=== PATIENT | male | born 1960 | race Caucasian/White ===

== ENCOUNTER 2019-07-06 07:40 | Emergency (ER) | payer OTHER, SELFPAY ==
--- NOTE | ~2019-07-06 | XR_ITS ---
EXAMINATION: XR chest 2V DATE: 07/06/2019 08:31 INDICATION: Cough and fever TECHNIQUE: Frontal and lateral views of the chest are obtained COMPARISON: 04/02/2019 FINDINGS: The lungs are free of acute opacities. There is no pleural effusion or pneumothorax. The ca rdiomediastinal silhouette is normal. There is mild thoracic spondylosis. IMPRESSION: 1. No acute cardiopulmonary abnormality. Reviewed, dictated and finalized at location A.
--- NOTE | ~2019-07-06 | CT_ITS ---
EXAMINATION: CT abdomen pelvis w con INDICATION: Lower abdominal pain, right flank pain TECHNIQUE: Computed tomographic images of the abdomen and pelvis were obtained after the administrati on of 100 cc of Omnipaque 350 intravenous contrast. The dose-length product (DLP) was 1558.48 mGy-cm. Automated exposure control and iterative reconstruction technique were employed. COMPARISON: None available FINDINGS: Minimal dependent atelectasis is present in the lung bases. The heart size is normal. A 10 mm fluid attenuation lesion of the right hepatic lobe likely represents a cyst. The spleen, pancreas, and adrenal glands are normal. Stones are present in the nondistended gallbladder. Cysts of the kidn eys measure up to 2 cm on the left. Mild sigmoid diverticulosis is present without evidence of divert iculitis. The appendix is normal. There is no free intraperitoneal gas or evidence of bowel obstructi on. No pathologically enlarged abdominal or pelvic lymph nodes are identified. There is calcified ath erosclerosis of the aorta and many of the other arteries. Liquid stool is present in the distal colon which may reflect diarrhea. There are bilateral inguinal hernias containing fat. There is mild lumba r spondylosis. IMPRESSION: 1. No CT correlate for the patient's symptoms. 2. Cholelithiasis without evidence of cholecystitis. Reviewed, dictated and finalized at location A.
[2019-07-06 07:49] VITALS: BP 179/93; PULSE 97; RESP 17; TEMP 36.8; O2SAT 99
--- NOTE | 2019-07-06 08:07 | ED_ITS ---
I attest that this documentation has been prepared under the direction and in the presence of Tiffany Hester MD. Rashad Barrow Scribe 07/06/19;08:07 HPI - Nausea/Vomiting/Diarrhea General Chief complaint: Nausea/Vomiting/Diarrhea Stated complaint: BACK PAIN, DIARRHEA, FEVER Time Seen by Provider: 07/06/19 08:06 Related Data Home Medications Medication Instructions Recorded Confirmed albuterol sulfate 1.25 mg/3 mL 1.25 mg INHALATION Q4-6H PRN 03/12/19 05/21/19 solution for nebulization albuterol sulfate 90 mcg/actuation 1 puff INHALATION Q4H PRN 03/12/19 05/21/19 aerosol inhaler budesonide-formoterol HFA 160 2 puff INHALATION Q12H 03/12/19 05/21/19 mcg-4.5 mcg/actuation aerosol inhaler bupropion HCl 300 mg 24 hr tablet, 300 mg PO QAM 03/12/19 05/21/19 extended release levocetirizine 5 mg tablet 5 mg PO DAILY 03/12/19 05/21/19 rosuvastatin 40 mg tablet 40 mg PO DAILY 03/12/19 05/21/19 Allergies Allergy/AdvReac Type Severity Reaction Status Date / Time No Known Allergies Allergy Verified 07/06/19 07:56 [facility] Social History Social History Alcohol intake: current Gender identity (if verbalized by the patient): Male Course Vital Signs Vital signs: Vital Signs Temperature 36.8 C 07/06/19 07:49 Pulse Rate 97 07/06/19 07:49 Respiratory Rate 17 07/06/19 07:49 Blood Pressure 179/93 H 07/06/19 07:49 Pulse Oximetry 99 07/06/19 07:49 Temperature 36.8 C 07/06/19 07:49 Pulse Rate 97 07/06/19 07:49 Respiratory Rate 17 07/06/19 07:49 Blood Pressure 179/93 H 07/06/19 07:49 Pulse Oximetry 99 07/06/19 07:49 Discharge Plan Discharge Prescriptions: No Action albuterol sulfate 1.25 mg/3 mL solution for nebulization 1.25 mg INHALATION Q4-6H PRNRF: 0 albuterol sulfate 90 mcg/actuation HFA aerosol inhaler 1 puff INHALATION Q4H PRNRF: 0 rosuvastatin [Crestor] 40 mg tablet 40 mg PO DAILY RF: 0 Symbicort 160-4.5 mcg/actuation HFA aerosol inhaler 2 puff INHALATION Q12H RF: 0 bupropion HCl [Wellbutrin XL] 300 mg tablet extended release 24 hr 300 mg PO QAM RF: 0 levocetirizine [Xyzal] 5 mg tablet 5 mg PO DAILY RF: 0 methylprednisolone [Medrol ([place])] 4 mg tablets,dose pack See Rx Instructions PO PER PKG DIR Qty: 21 RF: 0 tamsulosin 0.4 mg capsule 0.4 mg PO DAILY Qty: 30 RF: 5 acyclovir 800 mg tablet 800 mg PO DAILY Qty: 30 RF: 5 hydralazine 50 mg tablet 50 mg PO BID Qty: 60 RF: 5 metoprolol succinate 100 mg tablet extended release 24 hr 100 mg PO DAILY Qty: 30 RF: 6 buspirone 7.5 mg tablet 7.5 mg PO BID Qty: 60 RF: 4 tramadol 50 mg tablet 50 mg PO Q6H PRN (Reason: pain) Qty: 120 RF: 1 amlodipine 5 mg tablet 5 mg PO DAILY Qty: 30 RF: 6 benazepril 40 mg tablet 40 mg PO DAILY Qty: 30 RF: 6
--- NOTE | 2019-07-06 08:10 | ED.URI ---
HPI - URI/Sore Throat General Chief Complaint: Nausea/Vomiting/Diarrhea Stated Complaint: BACK PAIN, DIARRHEA, FEVER Time Seen by Provider: 07/06/19 08:06 Source: patient Mode of arrival: ambulatory Limitations: no limitations History of Present Illness HPI Narrative: The pt is a 58 y/o male who presents to the ED c/o cold symptoms onset 2 days ago. Pt states that he noticed while he was at his job at [employer] that he was experiencing excessive sweating. He notes that the next day, he began to experience diarrhea. Pt states that he experienced many episodes of diarrhea yesterday, and that he experienced 5-6 episodes before coming in today. He also notes that he has been experiencing LLQ ABD pain when he has bowel movements. Pt also reports that for the past week, he has experienced other symptoms. He states that he has been experiencing right-lower back pain for 1-2 weeks, but states that he has not had any pain medication. Pt states that this pain worsens whenever he twists his back, but is improved currently. He also notes that he has experienced an intermittently productive cough that has produced green-white sputum for one week. Pt reports resolved subjective fever and sinus drainage, but denies wheezing, SOB, blood in stools, or blood in urine. Pt states that he works at a very physical job; he is constantly bending up and down and lifting objects. Pt reports that he has a PMHx of sleep apnea and HTN. He also notes that he is a former smoker, and that he smoked 1 PPD up until 2-3 years ago. Pt notes that his PCP is Dr. Nicholson. elicited complaint: other (Cold symptoms) Onset (ago): day(s) (2) Description of mucous: green (and white ) Associated symptoms: fever (Subjective, resolved), diaphoresis, cough (Intermittently productive, green-white sputum, onset 1 week ago), abdominal pain (LLQ, with bowel movements), diarrhea and other (Right-lower back pain (Worsens when twisting but is improved, onset 1-2 weeks ago), sinus drainage) Treatments prior to arrival: none Related Data Home Medications Medication Instructions Recorded Confirmed albuterol sulfate 1.25 mg/3 mL 1.25 mg INHALATION Q4-6H PRN 03/12/19 05/21/19 solution for nebulization albuterol sulfate 90 mcg/actuation 1 puff INHALATION Q4H PRN 03/12/19 05/21/19 aerosol inhaler budesonide-formoterol HFA 160 2 puff INHALATION Q12H 03/12/19 05/21/19 mcg-4.5 mcg/actuation aerosol inhaler bupropion HCl 300 mg 24 hr tablet, 300 mg PO QAM 03/12/19 05/21/19 extended release levocetirizine 5 mg tablet 5 mg PO DAILY 03/12/19 05/21/19 rosuvastatin 40 mg tablet 40 mg PO DAILY 03/12/19 05/21/19 Allergies Allergy/AdvReac Type Severity Reaction Status Date / Time No Known Allergies Allergy Verified 07/06/19 07:56 Review of Systems Review of Systems: All systems reviewed & are unremarkable except as noted in HPI and below Constitutional: Constitutional: Reports excessive sweating and Reports fever(s) (Subjective, resolved) ENT: Reports other (Sinus drainage) Respiratory: Respiratory: Reports cough (Intermittently productive, green-white sputum, onset 1 week ago), Denies dyspnea and Denies wheezing Gastrointestinal: Gastrointestinal: Reports abdominal pain (LLQ, with bowel movements), Denies change in stool character (Blood in stools) and Reports diarrhea Genitourinary: Genitourinary: Denies hematuria Musculoskeletal: Musculoskeletal: Reports back pain (Right-lower, worsens when twisting but is improved, onset 1-2 weeks ago) [facility] Past Medical History Medical History (Updated 07/06/19 @ 10:38 by Tiffany Hester MD) Anxiety Asthma Bilateral chronic knee pain Cataract Cornea transplant recipient Depressive disorder, not elsewhere classified Environmental allergies Essential (primary) hypertension Hernia HLD (hyperlipidemia) Lymphedema of both lower extremities Mild persistent asthma without complication Mixed hyperlipidemia CB on CPAP Tear of meniscus
[2019-07-06] MEDS: LACTATED RINGERS 1,000 ML 999 ML IV CONT (08:25)
[2019-07-06] MEDS: ONDANSETRON INJ 4 MG/2 ML VIAL IV PUSH (08:26)
--- NOTE | 2019-07-06 08:27 | PC.NURSE ---
Pt to XRAY via stretcher.
[2019-07-06 08:29] LABS: Basophils Percent Auto 0.6 % (0.2-1.2); Eosinophils Absolute Auto 0.2 K/mm3 (0-0.3); Eosinophils Percent Auto 2.4 % (0-4.4); Hematocrit 43.8 % (42.0-52.0); Hemoglobin 13.8 g/dL (14.0-18.0); Immature Granulocyte Absolute 0.02 K/mm3 (0.00-0.031); Immature Granulocyte Percent A 0.3 % (0-0.5); Lymphocytes Absolute Auto 0.67 K/mm3 (0.9-3.2); Lymphocytes Percent Auto 10.6 % (18.3-44.2); Mean Corpuscular HGB Conc 31.5 g/dl (32-36); Mean Corpuscular Hemoglobin 32.2 pg (26-34); Mean Corpuscular Volume 102.3 fl (80-100); Mean Platelet Volume 9.9 fl (7.4-10.4); Monocytes Absolute Auto 0.6 K/mm3 (0.1-0.6); Monocytes Percent Auto 9.5 % (2.6-8.5); Neutrophils Absolute Auto 4.9 K/mm3 (1.3-6.7); Neutrophils Percent Auto 76.6 % (45.5-73.1); Platelet Count Result 199 k/mm3 (150-375); Red Blood Count 4.28 M/mm3 (4.6-6.20); Red Cell Distribution Width 13.1 % (11.5-14.5); White Blood Count 6.3 K/mm3 (4.5-10.0)
[2019-07-06 08:40] LABS: Alanine Aminotransferase 26 U/L (4-50); Albumin Level 4.4 g/dL (3.5-5.1); Alkaline Phosphatase 69 U/L (38-126); Aspartate Amino Transferase 37 U/L (17-59); Bilirubin,Total 0.9 mg/dL (0.2-1.3); Blood Urea Nitrogen 14 mg/dL (9-20); Calcium 8.6 mg/dL (8.4-10.2); Carbon Dioxide 33 mmol/L (22-30); Chloride 98 mmol/L (98-107); Estimated CRCL calculation 158 ml/min; Estimated Glomerular Filt Rate > 60; Glucose 115 mg/dL (75-110); Lipase 41 U/L (23-300); Potassium 3.9 mmol/L (3.4-5.0); Sodium 136 mmol/L (137-145)
[2019-07-06 08:43] VITALS: BP 154/81; PULSE 90
[2019-07-06 08:44] VITALS: BP 148/93; PULSE 98
[2019-07-06 08:46] VITALS: BP 178/102; PULSE 97
[2019-07-06 08:48] VITALS: BP 154/81; PULSE 98; RESP 17; O2SAT 93
--- NOTE | 2019-07-06 09:10 | PC.NURSE ---
Pt to CT scan via stretcher.
[2019-07-06 10:08] LABS: Add Urine Microscopic? YES; Appearance Urine Clear (Clear); Bilirubin Urine Negative (Negative); Blood Urine Negative (Negative); Color Urine Yellow (Yellow); Glucose Urine UA Negative (Negative); Ketones Urine Negative (Negative); Leukocyte Esterase Ur Negative LEU/UL (Negative); Mucus Urine Few /lpf; Nitrate Urine Negative (Negative); Protein Urine 1+ mg/dL (Negative); RBC Urine 0-2 /hpf (0-2); Specific Grav Ur 1.027 (1.001-1.035); Urobilinogen Urine Negative mg/dL (<2.0); WBC Urine 0-3 /hpf
[2019-07-06 10:18] VITALS: BP 120/66; PULSE 88; RESP 14; O2SAT 93
== END 2019-07-06 10:37 | disposition home or self-care (01) ==
PROVIDERS: Emergency Provider General Practice; PCP Internal Medicine
DX: K52.9 Noninfective gastroenteritis and colitis, unspecified (principal); K80.20 Calculus of gallbladder without cholecystitis without obstruction; S39.012A Strain of muscle, fascia and tendon of lower back, initial encounter; F41.9 Anxiety disorder, unspecified; Z94.7 Corneal transplant status; F32.9 Major depressive disorder, single episode, unspecified; I10 Essential (primary) hypertension; J45.30 Mild persistent asthma, uncomplicated; E78.2 Mixed hyperlipidemia; G47.33 Obstructive sleep apnea (adult) (pediatric); Z87.891 Personal history of nicotine dependence; H26.9 Unspecified cataract; X58.XXXA Exposure to other specified factors, initial encounter
CPT/HCPCS: 36415; 71046; 74177; 80053; 81001; 83690; 85025; 87804; 96361; 96374; 99284; J2405; J7120; Q9967

== ENCOUNTER 2019-09-30 08:00 | Outpatient (CLI) | payer OTHER, SELFPAY ==
--- NOTE | ~2019-09-30 | US_ITS ---
US abdomen limited INDICATION: Gallstones seen on recent examination. PROCEDURE: Realtime right upper abdominal ultrasound. COMPARISON: CT dated 07/06/2019 FINDINGS: The pancreas is normal without focal mass or pancreatic ductal dilation. Liver echotexture is increased, consistent with fatty infiltration. There is normal directional flow in the portal ve in. There are hyperechoic foci in the gallbladder with shadowing, consistent with stones. Common bile du ct measures 5.5 mm. No sonographic Peña's sign. IMPRESSION: 1: Cholelithiasis. 2: Hepatic steatosis. Reviewed, dictated and finalized at location A.
== END 2019-09-30 08:01 | disposition home or self-care (01) ==
LOC: ANHIMG 08:07
PROVIDERS: PCP Internal Medicine; Visit Provider Surgery
DX: R10.11 Right upper quadrant pain (principal); K80.20 Calculus of gallbladder without cholecystitis without obstruction; K76.0 Fatty (change of) liver, not elsewhere classified
CPT/HCPCS: 76705

== ENCOUNTER 2019-12-09 09:21 | Outpatient (CLI) | payer OTHER, SELFPAY ==
--- NOTE | 2019-12-09 09:23 | ECG_ITS ---
Measurements Intervals [place] Rate: 79 P: AR: 0 QRS: 42 QRSD: 102 T: 146 QT: 375 QTc: 431 Interpretive Statements ECTOPIC ATRIAL RHYTHM BORDERLINE R WAVE PROGRESSION, ANTERIOR LEADS LOW QRS VOLTAGE IN PRECORDIAL LEADS BORDERLINE T WAVE ABNORMALITY- ANTERIOR LEADS BASELINE ARTIFACT- I, II, III, AVR, AVL, AVF, V3-V6 ABNORMAL ECG Electronically Signed On 12-09-2019 10:16:21 CDT by Torsten Phillips D.O.
[2019-12-09 10:03] LABS: Alanine Aminotransferase 22 U/L (4-50); Albumin Level 4.3 g/dL (3.5-5.1); Alkaline Phosphatase 73 U/L (38-126); Amylase 49 U/L (30-110); Aspartate Amino Transferase 34 U/L (17-59); Bilirubin,Total 0.4 mg/dL (0.2-1.3); Lipase 78 U/L (23-300)
[2019-12-09 10:05] LABS: Anion Gap 8 mmol/L (8-16); Blood Urea Nitrogen 15 mg/dL (9-20); Calcium 8.2 mg/dL (8.4-10.2); Carbon Dioxide 31 mmol/L (22-30); Chloride 100 mmol/L (98-107); Estimated Glomerular Filt Rate > 60; Glucose 120 mg/dL (75-110); Potassium 3.9 mmol/L (3.4-5.0); Sodium 139 mmol/L (137-145)
== END 2019-12-09 09:22 | disposition home or self-care (01) ==
PROVIDERS: Anesthesiology; PCP Internal Medicine; Visit Provider Surgery
DX: Z01.818 Encounter for other preprocedural examination (principal); E78.5 Hyperlipidemia, unspecified; R94.31 Abnormal electrocardiogram [ECG] [EKG]
CPT/HCPCS: 36415; 80048; 80076; 82150; 83690; 86850; 86900; 86901; 93005

== ENCOUNTER 2019-12-16 00:13 | Outpatient (CLI) | payer OTHER, SELFPAY ==
[2019-12-16 19:34] LABS: SARS-CoV-2 RNA PCR Negative
== END 2019-12-16 00:14 | disposition home or self-care (01) ==
LOC: ANHCOVIDDT 00:14
PROVIDERS: PCP Internal Medicine; Visit Provider Surgery
DX: Z01.812 Encounter for preprocedural laboratory examination (principal); Z11.59 Encounter for screening for other viral diseases
CPT/HCPCS: 87635; C9803; U0003

== ENCOUNTER 2019-12-18 02:04 | Day surgery (SDC) | payer OTHER, SELFPAY ==
[2019-12-03 13:25] VITALS: BMI 44.3
--- NOTE | 2019-12-17 12:41 | WPDANESEPPF ---
Anes - Initial Pre Proc Eval Procedure: Operation Date: 12/18/19 08:30 Proposed Procedures p Laparoscopic Cholecystectomy - Patricio Hurd MD Date/Time: 12/17/19 12:41 Surgeon: Patricio Hurd MD Pre Op Diagnosis: Chronic Cholecystitis With Stones Patient Data Age: 59 Gender: M Height: 5 ft 9 in Weight: 136.08 kg Allergies Allergy/AdvReac Type Severity Reaction Status Date / Time peanut Allergy Mild itchy Verified 12/18/19 06:34 Penicillins Allergy Mild Rash Verified 12/18/19 06:34 Home Medications Medication Instructions Recorded Confirmed Type albuterol sulfate 1.25 mg/3 mL 1.25 mg INHALATION Q4-6H PRN 03/12/19 12/18/19 History solution for nebulization albuterol sulfate 90 mcg/actuation 1 puff INHALATION Q4H PRN 03/12/19 12/18/19 History aerosol inhaler budesonide-formoterol HFA 160 2 puff INHALATION Q12H 03/12/19 12/18/19 History mcg-4.5 mcg/actuation aerosol inhaler buspirone 7.5 mg tablet 7.5 mg PO BID #60 tablet 03/12/19 12/18/19 Rx acyclovir 800 mg tablet 800 mg PO DAILY #30 tablet 06/06/19 12/18/19 Rx amlodipine 5 mg-benazepril 40 mg 1 cap PO DAILY #90 cap 09/23/19 12/18/19 Rx capsule tamsulosin 0.4 mg capsule 0.4 mg PO DAILY #30 cap 09/23/19 12/18/19 Rx tramadol 50 mg tablet 50 mg PO Q6H PRN #120 tablet 10/04/19 12/18/19 Rx bupropion HCl 300 mg PO DAILY 12/03/19 12/18/19 History hydralazine 50 mg PO BID 12/03/19 12/18/19 History multivitamin 1 tablet PO DAILY 12/03/19 12/18/19 History rosuvastatin 40 mg PO DAILY 12/03/19 12/18/19 History Patient hx anesthesia problems: none Family hx anesthesia problems: none PMFSH Past Medical History Medical History Anxiety Asthma Bilateral chronic knee pain Cataract Cornea transplant recipient Depressive disorder, not elsewhere classified Environmental allergies Essential (primary) hypertension Hernia HLD (hyperlipidemia) Lymphedema of both lower extremities Mild persistent asthma without complication Mixed hyperlipidemia CB on CPAP Tear of meniscus of left knee Surgical History Surgical History H/O hernia repair 2009 Hx of cornea transplant S/P left knee arthroscopy Family History Family History Other Family history of allergic disorder Hypertension Social History Social History Smoking packs per day: 1 Smoking cigarettes per day: 20.0 Years smoked: 25 Smoking pack-years: 25.00 Smoking status: Former smoker Tobacco type: cigarettes Additional smoking assessment comments: QUIT 5 YEARS AGO Alcohol intake: current Drinks per week: 2 Additional occupation/education comments: [employer] Gender identity (if verbalized by the patient): Male Spiritual care concerns: No Anes - Eval Final PreProcedure Day of Procedure 12/17/19 12:41 Patient weight: morbidly obese Heart: regular rate and rhythm Lungs: clear to auscultation Airway: Mallampati scale class III Neurological: alert and oriented Last oral intake: >/= 8 hours ASA classification: IV Emergent: no Anesthetic plan: proceed Anesthesia type and monitoring: general ETT (have glidescope available in the room) and standard monitoring Informed Consent: The patient's anesthetic plan and its attendant risks and benefits were discussed with the patient/family/POA. Questions were solicited and answers provided to the satisfaction of the patient/family/POA.
--- NOTE | 2019-12-17 19:21 | PM.SD ---
Same Day Admit/Disch: HPI History of Present Illness Chief complaint: Chronic Cholecystitis With Stones Narrative: Addi Caal is a 59 year old male with upper abdominal and right back pain after eating, especially fatty foods. Imaging showed gallstones. He is taken to surgery now for laparoscopic cholecystectomy. [facility] Past Medical History Medical History Anxiety Asthma Bilateral chronic knee pain Cataract Cornea transplant recipient Depressive disorder, not elsewhere classified Environmental allergies Essential (primary) hypertension Hernia HLD (hyperlipidemia) Lymphedema of both lower extremities Mild persistent asthma without complication Mixed hyperlipidemia CB on CPAP Tear of meniscus of left knee Surgical History Surgical History H/O hernia repair 2009 Hx of cornea transplant S/P left knee arthroscopy Family History Family History Other Family history of allergic disorder Hypertension Social History Social History Smoking packs per day: 1 Smoking cigarettes per day: 20.0 Years smoked: 25 Smoking pack-years: 25.00 Smoking status: Former smoker Tobacco type: cigarettes Additional smoking assessment comments: QUIT 5 YEARS AGO Alcohol intake: current Drinks per week: 2 Additional occupation/education comments: [employer] Gender identity (if verbalized by the patient): Male Spiritual care concerns: No Same Day Admit/Disch: Med Pre-admit Medications Home Medications Medication Instructions Recorded Confirmed Type albuterol sulfate 1.25 mg/3 mL 1.25 mg INHALATION Q4-6H PRN 03/12/19 12/18/19 History solution for nebulization albuterol sulfate 90 mcg/actuation 1 puff INHALATION Q4H PRN 03/12/19 12/18/19 History aerosol inhaler budesonide-formoterol HFA 160 2 puff INHALATION Q12H 03/12/19 12/18/19 History mcg-4.5 mcg/actuation aerosol inhaler buspirone 7.5 mg tablet 7.5 mg PO BID #60 tablet 03/12/19 12/18/19 Rx acyclovir 800 mg tablet 800 mg PO DAILY #30 tablet 06/06/19 12/18/19 Rx amlodipine 5 mg-benazepril 40 mg 1 cap PO DAILY #90 cap 09/23/19 12/18/19 Rx capsule tamsulosin 0.4 mg capsule 0.4 mg PO DAILY #30 cap 09/23/19 12/18/19 Rx tramadol 50 mg tablet 50 mg PO Q6H PRN #120 tablet 10/04/19 12/18/19 Rx bupropion HCl 300 mg PO DAILY 12/03/19 12/18/19 History hydralazine 50 mg PO BID 12/03/19 12/18/19 History multivitamin 1 tablet PO DAILY 12/03/19 12/18/19 History rosuvastatin 40 mg PO DAILY 12/03/19 12/18/19 History hydrocodone-acetaminophen 1 - 2 tablet PO Q6H PRN #7 tablet 12/18/19 Rx ibuprofen 600 mg PO Q6H PRN #14 tablet 12/18/19 Rx Exam Const: General: comfortable, no acute distress, alert and awake Nutritional Appearance: obese Orientation/consciousness: patient oriented x3 HENMT: Head: normocephalic and atraumatic Mouth: Yes Normal oral and palatal mucosa present Eyes: Conjunctivae: conjunctivae normal Pupils: Equal, round and reactive pupils present EOM: EOMs intact bilaterally Neck: Neck: normal visual inspection, no lymphadenopathy and nontender Resp: Effort & Inspection: normal respiratory effort Auscultation: clear to auscultation bilaterally Cardio: Rate: regular rate Rhythm: regular rhythm Heart sounds: no gallops, no murmurs and no rubs GI: Inspection: non-distended GI Palp: Yes Soft to palpation, No Tenderness to palpation present (GI), No Hepatomegaly present and No Splenomegaly present Skin: Lesions: no lesions Rashes: no rashes Neuro: General: no focal motor deficits and CN's II-XI intact bilaterally Cranial nerves: Yes Equal, round and reactive pupils present, Yes Bilaterally intact EOM present, Yes facial symmetry and Yes Midline tongue present Speech: normal speech Motor exam (neuro): 5 motor
[2019-12-18] VITALS (9 sets, daily range): BP systolic 97–151; BP diastolic 60–85; PULSE 75–85; RESP 14–20; TEMP 36.1–37.2; O2SAT 89–99
--- NOTE | 2019-12-18 07:20 | WPDHPUPDATE1 ---
History and Physical Update Update Date/Time: 12/18/19 07:20 History and Physical has been reviewed, including an updated exam of the patient. There are NO changes in the patient's condition. Risks, benefits, and alternatives have been discussed and questions answered. Patient agrees to proceed with procedure.
[2019-12-18] MEDS: LACTATED RINGERS 1,000 ML 30 ML IV CONT ×2 (07:30→09:46)
[2019-12-18] MEDS: ACETAMINOPHEN 500 MG TABLET 1000 MG PO (07:48)
[2019-12-18] MEDS: KETOROLAC 15 MG/ML VIAL (*BKC) IV PUSH (07:49)
[2019-12-18] MEDS: CLINDAMYCIN 900 MG/NS 50 ML 900 MG/50 ML PIGGYBACK 50 MG IVPB (08:37)
[2019-12-18] MEDS: BUPIVACAINE/EPINEPHRINE 0.5% 30 ML VIAL INFILTRATE (09:37)
--- NOTE | 2019-12-18 10:07 | P.OP_ITS ---
Procedure Note - Detailed Date of procedure: 12/18/19 Pre-op diagnosis: Chronic Cholecystitis With Stones Chronic cholecystitis, cholelithiasis Post-op diagnosis: same Procedure performed: Laparoscopic cholecystectomy Description of procedure: The patient was taken to surgery and induced into general anesthesia. The abdomen was prepped and draped. Trocars were placed in the usual fashion using 0.5% Marcaine with epinephrine and applied Medical optical trocars. A 5 millimeter camera was used. The gallbladder was decompressed with a laparoscopic aspirator. The cholecystotomy was closed with a Vicryl endo-loop. The gallbladder was retracted anterosuperiorly. Adhesions to the gallbladder were taken down so that the cholecystohepatic triangle was exposed. Traction was placed on the infu ndibulum. The cystic duct and cystic artery were dissected out very clearly. The gallbladder was dissected off the liver at its lower 3rd. Critical view was achieved. We securely clipped and divided the cystic duct and cystic artery. The gallbladder was then further retracted so that the peritoneal attachments to the liver could be divided. Once the gallbladder was freed entirely, it was placed in an Endo-Catch bag and retrieved through the 10 11 epigastric trocar site. The epigastric trocar was then replaced. We reviewed the right upper quadrant. It was irrigated and suctioned. All looked good with no evidence of bleeding or bile leakage. We evacuated CO2 and removed the trocar sleeves. Skin wounds were closed with subcuticular 4 O Monocryl skin suture. The wounds were dressed with Exofin surgical adhesive. Patient was awakened and taken to recovery in good condition. Sponge and needle counts were correct x2. Anesthesia: GETA and local (0.5% Marcaine with epinephrine) Surgeon: Patricio Hurd MD Electric Range Assembler: Yonny JAMES Estimated blood loss (mL): 10 Drains: No Packing: No Pathology: yes (Gallbladder) Complications: None Condition: stable Disposition: PACU Findings: mild chronic inflammation, several gallstones noted. No biliary ductal dilatation, no liver abnormalities.
[2019-12-18] MEDS: ONDANSETRON INJ 4 MG/2 ML VIAL IV PUSH (10:12)
--- NOTE | 2019-12-18 10:42 | SUR.PHASEI ---
DR JACKSON HERE TO SEE PT. ORDER RECEIVED.
== END 2019-12-18 12:30 | disposition home or self-care (01) ==
PROVIDERS: PCP Internal Medicine; Visit Provider Surgery
PROC: 0FT44ZZ Resection of Gallbladder, Percutaneous Endoscopic Approach (ICD-10-PCS; CPT 47562; principal; 2019-12-18 08:30)
DX: K80.10 Calculus of gallbladder with chronic cholecystitis without obstruction (principal); I10 Essential (primary) hypertension; J45.30 Mild persistent asthma, uncomplicated; F32.9 Major depressive disorder, single episode, unspecified; F41.9 Anxiety disorder, unspecified; E78.2 Mixed hyperlipidemia; N40.0 Benign prostatic hyperplasia without lower urinary tract symptoms; G47.33 Obstructive sleep apnea (adult) (pediatric); E66.01 Morbid (severe) obesity due to excess calories; Z68.41 Body mass index [BMI] 40.0-44.9, adult; Z99.89 Dependence on other enabling machines and devices; Z79.899 Other long term (current) drug therapy; Z87.891 Personal history of nicotine dependence
CPT/HCPCS: 47562; 88304; A9270; C1713; J1100; J1885; J2250; J2405; J2704; J2710; J3010; J7030; J7120

== ENCOUNTER 2020-04-20 09:34 | Outpatient (NON) | payer OTHER, SELFPAY ==
[2020-04-20 21:33] LABS: SARS-CoV-2 RNA PCR Negative
== END 2020-04-20 09:35 ==
LOC: ANHCOVIDDT 09:36
PROVIDERS: PCP Internal Medicine; Visit Provider Nurse Practitioner
DX: Z20.828 Contact with and (suspected) exposure to other viral communicable diseases (principal); R05 Cough
CPT/HCPCS: 87635; C9803; U0003

== ENCOUNTER 2020-05-26 16:28 | Inpatient (IN) | payer OTHER, SELFPAY ==
[2020-05-26] VITALS (16 sets, daily range): BP systolic 142–185; BP diastolic 75–119; PULSE 68–97; RESP 20–36; TEMP 36.4–37.9; O2SAT 92–98; BMI 44.9
--- NOTE | ~2020-05-26 | XR_ITS ---
XR chest 1V portable 05/26/2020 17:02 Indication: Shortness of breath. Asthma. Covid Exposure. Procedure: AP portable chest Comparison: Comparison to multiple prior studies sequentially, with oldest reviewed study dated 07/2012. Findings: There is extensive consolidation throughout both lungs, most likely pneumonia. Stable cardi omediastinal silhouette. No significant pleural effusion or pneumothorax. No acute osseous abnormalit y. Impression: 1: Extensive patchy bilateral airspace consolidation, most likely pneumonia. Pulmonary edema and ARDS are additional considerations. Reviewed, dictated and finalized at location A. ALS RN Impression: 1: Extensive patchy bilateral airspace consolidation, most likely pneumonia. Pu lmonary edema and ARDS are additional considerations.
--- NOTE | ~2020-05-26 | CT_ITS ---
EXAMINATION: CTA chest PE protocol DATE: 05/26/2020 19:46 PLASTER APPLICATOR INDICATION: Dyspnea and shortness of breath for 2 days TECHNIQUE: Computed tomographic angiography (CTA) of the chest was performed with 100 mL Omnipaque-35 0 intravenous contrast. The dose-length product was 1121.44 mGy-cm. Maximum intensity projection 3D-r econstructions of the aorta and other arteries were constructed by the technologist on a separate wor kstation. COMPARISON: Chest x-ray dated 05/26/2020. FINDINGS: Study is technically limited for evaluation of peripheral pulmonary arteries due to parench ymal consolidation. No large central pulmonary embolism. Pulmonary arteries are enlarged, consistent with pulmonary hypertension. There is mediastinal lymphadenopathy. Small pleural effusions. Cardiomeg jen. No significant pericardial effusion. There is extensive bilateral patchy airspace consolidation with areas of nodular/masslike appearance, most likely infectious/inflammatory, although malignancy is not excluded. IMPRESSION: 1. Extensive patchy bilateral airspace consolidation, most likely pneumonia, although underlying woody gnancy is not excluded. 2: No large central pulmonary embolism. 3: Mediastinal lymphadenopathy, nonspecific. 4: Small pleural effusions. 5: Cardiomegaly. Reviewed, dictated and finalized at location A. TER APPLICATOR IMPRESSION: 1. Extensive patchy bilateral airspace consolidation, most likely pneumonia, al though underlying malignancy is not excluded. 2: No large central pulmonary embolism. 3: Mediastinal lymphadenopathy, nonspecific. 4: Small pleural effusions. 5: Cardiomegaly.
--- NOTE | ~2020-05-26 | XR_ITS ---
EXAMINATION: XR chest 1V portable DATE: 06/01/2020 05:58 INDICATION: COVID-19 pneumonia. TECHNIQUE: A single frontal view of the chest was obtained. COMPARISON: Chest single view 05/28/20 FINDINGS: There are patchy airspace opacities in all lung zones bilaterally. No pleural effusion or p neumothorax. The heart size is normal. IMPRESSION: 1. Diffuse lung disease with interval improvement, consistent with pneumonia. Reviewed, dictated and finalized at location A. CLE LEASING AND RENTAL MANAGER
--- NOTE | ~2020-05-26 | US_ITS ---
EXAMINATION: US venous doppler [facility] EXAM DATE: 05/27/2020 09:14 INDICATION: Peripheral leg edema bilaterally. TECHNIQUE: Multiple grayscale, color flow and Doppler images of the lower extremity deep venous syste ms bilaterally were obtained and reviewed. Comparison is made to prior examination from 03/20/2015. FINDINGS: Right side: The right common femoral, femoral and profunda veins demonstrate normal color flow, respi ratory variation, augmentation and compressibility. Compressibility, color flow confirmed within the right popliteal, posterior tibial, peroneal, and greater saphenous veins. Left side: The left common femoral, femoral and profunda veins demonstrate normal color flow, respira tory variation, augmentation and compressibility. Compressibility, color flow confirmed within the l eft popliteal, posterior tibial, peroneal, and greater saphenous veins. IMPRESSION: 1. No lower extremity deep venous thrombosis bilaterally. Reviewed, dictated and finalized at location B. FILLER
--- NOTE | ~2020-05-26 | XR_ITS ---
XR chest 1V portable DATE: 05/28/2020 05:36 INDICATION: Covid pneumonia TECHNIQUE: Portable AP chest on May 28, 2020 at 0509 hours COMPARISON: May 26, 2020 portable AP chest at 0459 hours 05/26/2020 CT pulmonary scan FINDINGS: There are persistent severe diffuse bilateral patchy consolidating infiltrates both lungs s keletal interval change since May 26, 2020. No tubes or central lines. No pleural effusion is evident. No pneumothorax. IMPRESSION: Persistent severe bilateral patchy consolidating infiltrates throughout the lungs Reviewed, dictated and finalized at location A. CTOR OF OCCUPATIONAL THERAPY IMPRESSION: Persistent severe bilateral patchy consolidating infiltrates throug hout the lungs
--- NOTE | 2020-05-26 16:36 | ECG_ITS ---
Measurements Intervals [place] Rate: 95 P: 217 RI: 191 QRS: 35 QRSD: 93 T: 79 QT: 335 QTc: 422 Interpretive Statements SINUS RHYTHM WITH FIRST DEGREE AV BLOCK CANNOT RULE OUT SEPTAL INFARCT, AGE INDETERMINATE BASELINE ARTIFACT- I, II, III, AVR, V1, V3-V6 ABNORMAL ECG Electronically Signed On 05-26-2020 16:51:33 CERTIFIED COMPOSITES TECHNICIAN by Torsten Phillips D.O.
--- NOTE | 2020-05-26 17:06 | ED.GENADULT ---
HPI - General Adult General Chief complaint: Shortness of Breath/Dyspnea Stated complaint: diff breathing Time Seen by Provider: 05/26/20 16:34 Source: patient History of Present Illness HPI narrative: Patient is a 59 y/o male complaining of SOB, cough starting 4 days ago. He states that he initially had some running nose and congestion 1 week ago and he was prescribed Levaquin for presumed sinus infection. However, his symptoms did not get better. He started to feel SOB 4 days ago and it got worse yesterday. He states that exertion aggravates his SOB and oxygen applied by EMS helps. He also has fever, cough with phlegm. He states that he was recently told by some people he interact with at [employer] that multiple people from his [employer] tested positive for COVID. EMS reports his Sat was in 60s on RA. He was placed on NRB. Related Data Home Medications Medication Instructions Recorded Confirmed albuterol sulfate 90 mcg/actuation 1 puff INHALATION Q4H PRN 03/12/19 05/26/20 aerosol inhaler multivitamin 1 tablet PO DAILY 12/03/19 05/26/20 umeclidinium 62.5 mcg-vilanterol 1 inhalation INHALATION DAILY 01/27/20 05/26/20 25 mcg/actuation powdr for inhalation prednisolone acetate 1 drp LEFT EYE DAILY 05/26/20 05/26/20 Allergies Allergy/AdvReac Type Severity Reaction Status Date / Time peanut Allergy Mild itchy Verified 05/26/20 16:35 Penicillins Allergy Mild Rash Verified 05/26/20 16:35 Review of Systems Constitutional: Constitutional: Denies chills, Reports fever(s), Denies headache(s) and Denies weakness Eyes: Eyes: Denies blurry vision ENT: Denies headache(s), Reports nasal congestion, Reports nasal discharge and Denies neck pain Cardiovascular: Cardiovascular: Denies chest pain and Reports dyspnea Respiratory: Respiratory: Reports cough and Reports dyspnea Gastrointestinal: Gastrointestinal: Denies abdominal pain, Denies diarrhea, Denies nausea and Denies vomiting Genitourinary: Genitourinary: Denies hematuria and Denies dysuria Musculoskeletal: Musculoskeletal: Denies back pain and Denies neck pain Neurologic: Denies headache(s) and Denies weakness PMFSH Past Medical History Medical History Anxiety Arthritis Asthma Bilateral chronic knee pain Cataract Cornea transplant recipient Depressive disorder, not elsewhere classified Environmental allergies Essential (primary) hypertension Hernia HLD (hyperlipidemia) Hyperlipidemia Lymphedema of both lower extremities Mild persistent asthma without complication Mixed hyperlipidemia CB on CPAP Screening for prostate cancer Tear of meniscus of left knee Surgical History Surgical History H/O hernia repair 2010 Hx laparoscopic cholecystectomy 12/18/19 Hx of cornea transplant S/P left knee arthroscopy Family History Family History (Updated 05/26/20 @ 20:42 by Nelsy Anton RN) Other Adopted Family history of allergic disorder Hypertension Social History Social History Smoking packs per day: 1 Smoking cigarettes per day: 20.0 Years smoked: 25 Smoking pack-years: 25.00 Smoking status: Former smoker Tobacco type: cigarettes Additional smoking assessment comments: QUIT 5 YEARS AGO Alcohol intake: never Drinks per week: 2 Substance use: never Substance use type: does not use Additional occupation/education comments: [email or web address] Gender identity (if verbalized by the patient): Male Spiritual care concerns: No Exam Const: General: well developed and acute distress Orientation/consciousness: oriented to person, oriented to place, oriented to time and patient oriented x3 HENMT: Head: normocephalic Ears: external ears normal General nose exam: Normal external nose present Eyes: General: appearance normal, both eyes and all related structures Conjunctivae:
[2020-05-26 17:08] LABS: Basophils Percent Auto 0.4 % (0.2-1.2); Hematocrit 40.1 % (42.0-52.0); Immature Granulocyte Absolute 0.02 K/mm3 (0.00-0.031); Immature Granulocyte Percent A 0.4 % (0-0.5); Lymphocytes Absolute Auto 0.44 K/mm3 (0.9-3.2); Lymphocytes Percent Auto 7.8 % (18.3-44.2); Mean Corpuscular HGB Conc 32.4 g/dl (32-36); Mean Corpuscular Hemoglobin 32.6 pg (26-34); Mean Corpuscular Volume 100.5 fl (80-100); Mean Platelet Volume 8.9 fl (7.4-10.4); Monocytes Absolute Auto 0.2 K/mm3 (0.1-0.6); Monocytes Percent Auto 4.1 % (2.6-8.5); Neutrophils Absolute Auto 4.9 K/mm3 (1.3-6.7); Neutrophils Percent Auto 87.3 % (45.5-73.1); Platelet Count Result 177 k/mm3 (150-375); Red Blood Count 3.99 M/mm3 (4.6-6.20); Red Cell Distribution Width 13.7 % (11.5-14.5); White Blood Count 5.6 K/mm3 (4.5-10.0)
[2020-05-26] MEDS: DEXAMETHASONE SOD PHOS INJ 4 MG/ML VIAL 6 MG IV PUSH (17:20)
[2020-05-26 17:23] LABS: Alveolar/Arterial O2 Gradient 578.2 mmHg; Fractional Inspired Oxygen 100 %; HCO3 ABG 33.5 mEq/l (22.0-26.0); Oxygen Content ABG 17.8 %vol (16.0-22.0); Oxygen Saturation ABG 95.4 % (95.0-100.0); Oxyhemoglobin 93.8 % THb (90.0-100.0); PCO2 ABG 55.7 mmHg (35.0-45.0); PO2 ABG 79.1 mmHg (80.0-100.0); PO2 FiO2 Ratio Arterial Blood 0.79 %; Total Hemoglobin 13.5 g/dL (12.0-18.0); pH ABG 7.397 (7.350-7.450)
[2020-05-26 17:24] LABS: Device NON-REBREATHER MASK; Modified Allen's Test Pass; Site Drawn LEFT RADIAL
[2020-05-26 17:32] LABS: Lactic Acid Reflex 0.9 mmol/L (0.7-2.1)
[2020-05-26 17:33] LABS: Alanine Aminotransferase 14 U/L (4-50); Albumin Level 3.5 g/dL (3.5-5.1); Alkaline Phosphatase 79 U/L (38-126); Anion Gap 3 mmol/L (8-16); Aspartate Amino Transferase 33 U/L (17-59); Bilirubin,Total 0.5 mg/dL (0.2-1.3); Blood Urea Nitrogen 9 mg/dL (9-20); Carbon Dioxide 38 mmol/L (22-30); Chloride 96 mmol/L (98-107); Estimated CRCL calculation 221 ml/min; Estimated Glomerular Filt Rate > 60; Glucose 141 mg/dL (75-110); Potassium 4.2 mmol/L (3.4-5.0); Sodium 137 mmol/L (137-145)
[2020-05-26 17:45] LABS: NT Pro B Type Natriuretic Pept 120 PG/ML (5-100)
--- NOTE | 2020-05-26 21:49 | ADMGEN ---
This patient, Addi Caal, was admitted to IMU Room 212-01 at 1945. Patient/family oriented to hospital policies and general routines including ID bracelet, bed and alarms, visiting hours, pain management, procedures, bathroom and other care routines, personal items, smoking policy, room service/diet, and visiting hours. Information on how to activate the Rapid Response Team has been discussed. Patient/Family are encouraged to report perceived risks to care and to ask questions if they do not understand what they are told or what they should do.
--- NOTE | 2020-05-26 22:09 | PM.IMHP ---
H&P: HPI History of Present Illness Date/Time: 05/26/20 22:09 Chief Complaint: Shortness of breath Narrative: Addi Caal is a 59 year old male who was exposed to COVID 19 by some people at [facility]. The patient stated that about 1 and half weeks ago he started to develop some stuffiness in his nose and felt like he had a sinus infection. The patient was given antibiotics about a week ago for his sinus infection and some congestion he also had a runny nose and this was about a week ago. The patient tells me also has asthma as well. The patient stated that he has felt worse since yesterday. The shortness of breath started about 4 days ago. The patient does have obstructive sleep apnea and typically wears a CPAP machine. The patient stated that this morning he felt like he was drowning in the CPAP machine. He stated that he tried to call his primary care doctor and they told him that it would work itself out. Those were in the patient's words. Multiple people from his [facility] of tested positive for COVID. The patient does not wear oxygen at home but it was noted to be saturating in the 60 percentile when EMS came to his house. The patient has used his nebulizer machine at home but it did not seem to help him. He did not take anything for his cough. He did not notice any fever chills. The patient was placed on a nonrebreather with high flow at 15 L which brought his oxygen level up to 96%. Airspace consolidation most likely pneumonia. Pulmonary edema an ARDS are additional considerations. The patient is having some wheezing. Chest CTa was reported as extensive patchy bilateral airspace consolidation, most likely pneumonia, although underlying malignancy is not excluded. No large central pulmonary embolism. Mediastinal lymphadenopathy, nonspecific. Small pleural effusions. Cardiomegaly. Any congestive heart failure. Patient being admitted to inpatient status on the date of service of 05/26/2020 Review of Systems Review of Systems: All systems reviewed & are unremarkable except as noted in HPI and below Constitutional: Constitutional: Reports as per HPI and Reports no additional constitutional complaints Eyes: Eyes: Reports as per HPI and Reports no additional eye complaints ENT: Reports system reviewed and no additional complaints, except as documented and Reports Normal hearing present Cardiovascular: Cardiovascular: Reports no additional cardiovascular complaints Respiratory: Respiratory: Reports no additional respiratory complaints and Reports no additional respiratory complaints Gastrointestinal: Gastrointestinal: Reports as per HPI and Reports no additional gastrointestinal complaints Musculoskeletal: Musculoskeletal: Reports no additional musculoskeletal complaints Integumentary/Breasts: Skin/Breast: Reports system reviewed and no additional complaints, except as docu and Reports as per HPI Neurologic: Reports system reviewed and no additional complaints, except as documented, Reports as per HPI and Reports Normal hearing present Psychiatric: Psychiatric: Reports no additional psychiatric complaints and Reports as per HPI Endocrine: Endocrine: Reports no additional endocrine complaints Hematologic/Lymphatic: Hematologic/Lymphatic: Reports no additional hematologic/lymphatic complaints Allergic/Immunologic: Allergic/Immunologic: Reports no additional allergic/immunologic complaints [facility] Past Medical History Medical History Anxiety Arthritis Asthma Bilateral chronic knee pain Cataract Cornea transplant recipient Depressive disorder, not elsewhere classified Environmental allergies Essential (primary) hypertension Hernia HLD (hyperlipidemia) Hyperlipidemia Lymphedema of both lower extremities Mild persistent asthma without complication Mixed hyperlipidemia CB on CPAP Screening for prostate cancer Tear of meniscus of left knee Surgical History Surg
[2020-05-26] MEDS: FUROSEMIDE INJ 40 MG/4 ML VIAL IV PUSH (22:59)
[2020-05-27] VITALS (28 sets, daily range): BP systolic 111–154; BP diastolic 46–84; PULSE 71–90; RESP 17–220; TEMP 36–36.7; O2SAT 90–100
--- NOTE | 2020-05-27 | ECHO_ITS ---
Patient Info Name: Addi Caal Age: 59 years : 1960 Gender: Male Ht: 69 in Wt: 304 lbs BSA: 2.66 m2 HR: 73 bpm BP: 148 / 82 mmHg Heart Rhythm: Sinus Rhythm Technical Quality: Good Exam Date: 05/27/2020 11:48 AM Exam Location: [facility] Pulmonary Patient Status: Inpatient Admit Date: 05/26/2020 Staff Ordering Physician: Isabel Morales NP Corporate Compliance Manager: Roque Sandhu RDCS Attending Provider: Andrew Henning MD Referring Physician: Carmen DAVENPORT; Exam Type: CA echo doppler color flow Study Info Indications R60.9 - Edema, unspecified Complete two-dimensional, color flow and Doppler transthoracic echocardiogram is performed. History/Risk Factors Edema; Covid19+, SOB, cardiomegaly. Summary 1. Complete two-dimensional, color flow and Doppler transthoracic echocardiogram is performed. 2. Left ventricular chamber dimension is normal. 3. Left ventricular systolic function is normal, estimated at 60-65%. 4. There is moderately increased left ventricular wall thickness. 5. The left ventricular diastolic function is grade I diastolic dysfunction. 6. E/e' 9 is minimally elevated. 7. There is mild tricuspid valve regurgitation. 8. Mild pulmonary hypertension, estimated pulmonary arterial systolic pressure is 42 mmHg. 9. There is trivial pericardial effusion. Left Ventricle E/e' 9 is minimally elevated. Left ventricular chamber dimension is normal. Left ventricular systolic function is normal, estimated at 60-65%. There is moderately increased left ventricular wall thickness. The left ventricular diastolic function is grade I diastolic dysfunction. Right Ventricle Right ventricular chamber dimension is normal. Right ventricular systolic function is normal. Left Atria Left atrial chamber dimension is normal. Right Atria Right atrial chamber dimension is normal. Aortic Valve The aortic valve is trileaflet. There is no aortic valve stenosis. There is no aortic valve regurgitation. Pulmonic Valve There is no pulmonic regurgitation. Mitral Valve There is no mitral valve stenosis. There is no mitral valve regurgitation. Tricuspid Valve There is mild tricuspid valve regurgitation. Mild pulmonary hypertension, estimated pulmonary arterial systolic pressure is 42 mmHg. Pericardium/Pleural There is trivial pericardial effusion. Inferior Vena Cava Normal inferior vena cava with >50% collapse upon inspiration consistent with normal right atrial pressure, 5 mmHg. Aorta The aortic root size at the sinus of Valsalva is normal. Left Ventricular Outflow Tract Name Value Normal LVOT 2D LVOT Diameter 2.1 cm LVOT Doppler LVOT Peak Gradient 7 mmHg LVOT Mean Gradient 4 mmHg LVOT VTI 26 cm LVOT VTI/AV VTI Ratio 0.9 LVOT Stroke Volume 91 ml LVOT CO 6.7 l/min LVOT CI 2.5 l/min/m2 Mitral Valve
[2020-05-27] MEDS: TAMSULOSIN HCL 0.4 MG CAPSULE PO (08:31)
[2020-05-27] MEDS: lisinopriL 20 MG TABLET 40 MG PO (08:31)
[2020-05-27] MEDS: ENOXAPARIN 40 MG/0.4 ML SYRINGE SUB-Q (08:31)
[2020-05-27] MEDS: hydrALAZINE HCL 50 MG TABLET 100 MG PO ×3 (08:32→18:18)
[2020-05-27] MEDS: amLODIPine BESYLATE 5 MG TABLET PO (08:32)
[2020-05-27] MEDS: busPIRone HCL 2.5 MG TABLET 7.5 MG PO ×2 (08:32→18:18)
[2020-05-27] MEDS: FLUTICASONE PROPIONATE 0.05% NA SPR 16 GM BTL (*BKC) 2 SPRAY NASAL (08:33)
[2020-05-27] MEDS: ACYCLOVIR 400 MG TABLET 800 MG PO (08:33)
[2020-05-27] MEDS: MULTIVITAMINS THERAPEUTIC TAB (*BKC) 1 TABLET PO (08:33)
[2020-05-27] MEDS: ROSUVASTATIN 10 MG TABLET 40 MG PO (08:33)
[2020-05-27] MEDS: DEXAMETHASONE SOD PHOS INJ 4 MG/ML VIAL 6 MG IV PUSH (09:05)
[2020-05-27] MEDS: buPROPion HCL XL (24 HR) 150 MG TABCR 300 MG PO (09:05)
--- NOTE | 2020-05-27 13:40 | PM.IMPN ---
Progress Note: A&P Assessment and Plan (1) Acute and chronic respiratory failure with hypoxia: Code(s): J96.21 - Acute and chronic respiratory failure with hypoxia Status: Acute Assessment and Plan: Currently on NIPPV FiO2 50% Wean off of FiO2 Try goal O2 sats at 94% Will repeat ABG in am (2) COVID-19 determined by clinical diagnostic criteria: Code(s): U07.1 - COVID-19 Status: Acute Assessment and Plan: On Dexamethasone Started on Remdesivir (3) Asthma: Qualifiers: Asthma severity: mild Asthma persistence: intermittent Asthma complication type: uncomplicated Qualified Code(s): J45.20 - Mild intermittent asthma, uncomplicated Code(s): J45.909 - Unspecified asthma, uncomplicated Status: Acute Assessment and Plan: Not wheezing but diminishes lung sounds Breathing treatments Dexamethasone (4) CB on CPAP: Code(s): G47.33 - Obstructive sleep apnea (adult) (pediatric); Z99.89 - Dependence on other enabling machines and devices Status: Acute Assessment and Plan: Currently on BiPAP Continue at night time as well. (5) Morbid obesity with BMI of 40.0-44.9, adult: Code(s): E66.01 - Morbid (severe) obesity due to excess calories; Z68.41 - Body mass index [BMI]40.0-44.9, adult Status: Acute Assessment and Plan: Lifestyle and diet modification Carb controlled diet Currently NPO (6) Hypertension, uncontrolled: Code(s): I10 - Essential (primary) hypertension Status: Acute Assessment and Plan: Will re start meds. (7) Anxiety: Code(s): F41.9 - Anxiety disorder, unspecified Status: Chronic Assessment and Plan: Supportive care Subjective Date/time seen: 05/27/20 13:40 States that feels better. Review of Systems Review of Systems: Narrative: Patient on BiPAP currently. ROS unobtainable: Yes unobtainable due to medical condition Exam Narrative: Exam Narrative: Lying in bed. Const: General: no acute distress (However on BiPAP), alert, combative, confusion and other Nutritional Appearance: other (Morbid obesity) Orientation/consciousness: patient oriented x3 HENMT: Head: normocephalic Ears: hearing grossly normal bilaterally General nose exam: Normal external nose present Face and sinus: normal facial exam Eyes: General: appearance normal, both eyes and all related structures Pupils: Equal, round and reactive pupils present EOM: EOMs intact bilaterally Neck: Neck: no lymphadenopathy, supple and no JVD Lymphatic: no lymphadenopathy noted Resp: Auscultation: diminished lung sounds Cardio: Jugular venous distension: no JVD Rate: regular rate Rhythm: regular rhythm GI: Inspection: Pannus present and obesity GI Palp: Yes Firmness to palpation present (GI) and Yes No hepatosplenomegaly present Skin: General skin exam: normal color Lesions: no lesions Wounds: no wounds Neuro: General: patient oriented x3 and CN's II-XI intact bilaterally Cranial nerves: Yes CN's II-XII intact bilaterally and Yes Equal, round and reactive pupils present Cognition (Neuro): normal cognition Motor exam (neuro): 5/5 motor strength present throughout Extrem: General: no pedal edema Objective Data Vital Signs Vital Signs: Vital Signs - 24 hr 05/26/20 16:30 05/26/20 16:43 05/26/20 16:45 Temperature 100.2 F H Pulse Rate 97 95 Respiratory Rate 36 H 23 H 32 H Blood Pressure 185/119 H Pulse Oximetry 96 95 96 05/26/20 17:00 05/26/20 17:44 05/26/20 18:04 Temperature Pulse Rate 93 86 89 Respiratory Rate 27 H 32 H 32 H Blood Pressure Pulse Oximetry 98 97 96 05/26/20 18:15 05/26/20 18:31 05/26/20 18:32 Temperature Pulse Rate 88 82 94 Respiratory Rate 29 H 27 H Blood Pressure 164/102 H Pulse Oximetry 94 05/26/20 18:38 05/26/20 19:22 05/26/20 19:45 Temperature 97.6 F Pulse Rate 83 93 Respiratory Rate 32 H 24 H Blood Pressure 164/102 H 167/
[2020-05-27 14:48] LABS: Alanine Aminotransferase 13 U/L (4-50); Estimated CRCL calculation 183 ml/min; Estimated Glomerular Filt Rate > 60
[2020-05-27] MEDS: REMDESIVIR 200 MG/NS 250 ML 200 MG/250 ML BAG 250 MG IVPB (15:56)
--- NOTE | 2020-05-27 17:04 | PM.CNPUL ---
Assessment and Plan Assessment and plan (1) Pneumonia due to COVID-19 virus: Onset Date: 05/26/20 Code(s): U07.1 - COVID-19; J12.82 - Pneumonia due to coronavirus disease 2019 Status: Acute Assessment and Plan: Patient has pneumonia due to COVID with hypoxemic respiratory failure. Patient was started on dexamethasone on May 26, from the severe May 27 and given convalescent plasma on May 27. Patient has intermittently required high-flow nasal cannula and BiPAP. -remdesivir and dexamethasone for 10 days unless he has a drmatic improvement -try prone position as toelrated by his morbid obesity -supplemetal xoygen and BiPAP to maintain saturations 90-94% - empiric treatment for community-acquired pneumonia with aztreonam 500 mg q.day and aztreonam 1 g q.8 hours. Will follow cultures and deescalate accordingly. (2) Asthma: Qualifiers: Asthma severity: mild Asthma persistence: intermittent Asthma complication type: uncomplicated Qualified Code(s): J45.20 - Mild intermittent asthma, uncomplicated Code(s): J45.909 - Unspecified asthma, uncomplicated Status: Acute Assessment and Plan: Patient with a history of asthma and is maintained on Anoro Ellipta 62.5-25. At this time patient has no wheezes. I will initiate albuterol inhalers 2.5 q.6 after discussing with Respiratory. It was felt that this would be easier to administer while he was on and off the BiPAP. (3) CB on CPAP: Onset Date: 2009 Code(s): G47.33 - Obstructive sleep apnea (adult) (pediatric); Z99.89 - Dependence on other enabling machines and devices Status: Acute Assessment and Plan: Patient has a history of obstructive sleep apnea on CPAP 17 per his report. I have no copies of the CPAP titration studies or downloads. Patient says that he has not seen a physician for his CPAP in many years but that he has excellent clinical response to wearing his CPAP in always wears his CPAP every night. Patient currently will be placed on 12 BiPAP tonight and will be monitored for desaturations. If patient has desaturate as a shins will increase his EPAP accordingly. Discussed with Dr. Bob. Will follow with you History of Present Illness History of Present Illness Consult date: 05/27/20 Requesting physician: Tommie Bob MD Reason for consult: hypoxemia Chief complaint: acute respiratory failure, pui Narrative: This is a new consult for COVID-19 pneumonia with hypoxemia Is a 59-year-old man with a history of morbid obesity, obstructive sleep apnea on CPAP 17 at home, asthma Anoro Ellipta hypertension, arthritis and anxiety. patient was exposed to COVID approximately 10 days ago and then started to develop some sinus congestion patient. Patient then developed progressive shortness of breath such that on 05/26 he was having trouble breathing. Patient called EMS and his saturations were in the 60s. Patient was given supplemental oxygen and brought to the emergency room. He was found to be COVID positive. CT angiogram of the chest demonstrated no pulmonary embolism but diffuse bilateral patchy areas of alveolar infiltrate with some consolidation. Patient was placed on 100% non-rebreather with a blood gas of 7.39 - 56-79. Patient was admitted to the floor and placed on BiPAP 17/8 and 70% FiO2. Patient was given dexamethasone 6 mg IV on to 05/26. I was consulted on 05/27 and patient was awake alert conversant in no respiratory distress on 15 L high-flow nasal cannula with saturations 92%. Patient states that he felt better over the last 24 hours since being in the hospital. Today patient was started on REM de severe, convalescent plasma, azithromycin, and aztreonam as patient has a penicillin allergy. Review of Systems Review of Systems: All systems reviewed & are unremarkable except as noted in HPI and below Eyes: Eyes: Reports no additional eye complaints ENT: Reports
[2020-05-27] MEDS: AZTREONAM 1 GM in DEXTROSE 5% IN WATER 50 ML IVPB ×2 (17:50→22:15)
[2020-05-27] MEDS: SODIUM CHLORIDE 0.9% IV 250 ML 30 ML IV CONT (20:18)
[2020-05-27] MEDS: TUBING, BLOOD PLUM PUMP TUBING 1 EACH XX (20:18)
[2020-05-27] MEDS: ALBUTEROL SULFATE NEB 2.5 MG/0.5 ML INH INHALATION (21:15)
[2020-05-28] VITALS (26 sets, daily range): BP systolic 123–147; BP diastolic 57–84; PULSE 70–93; RESP 20–24; TEMP 36.1–36.7; O2SAT 92–97
[2020-05-28] MEDS: ALBUTEROL SULFATE NEB 2.5 MG/0.5 ML INH INHALATION ×4 (04:08→20:54)
[2020-05-28 04:48] LABS: Basophils Percent Auto 0.1 % (0.2-1.2); Eosinophils Percent Auto 0.1 % (0-4.4); Hematocrit 34.8 % (42.0-52.0); Hemoglobin 11.2 g/dL (14.0-18.0); Immature Granulocyte Absolute 0.03 K/mm3 (0.00-0.031); Immature Granulocyte Percent A 0.4 % (0-0.5); Lymphocytes Absolute Auto 0.69 K/mm3 (0.9-3.2); Lymphocytes Percent Auto 9.9 % (18.3-44.2); Mean Corpuscular HGB Conc 32.2 g/dl (32-36); Mean Corpuscular Hemoglobin 32.2 pg (26-34); Mean Platelet Volume 9.3 fl (7.4-10.4); Monocytes Absolute Auto 0.3 K/mm3 (0.1-0.6); Monocytes Percent Auto 4.9 % (2.6-8.5); Neutrophils Absolute Auto 5.9 K/mm3 (1.3-6.7); Neutrophils Percent Auto 84.6 % (45.5-73.1); Platelet Count Result 224 k/mm3 (150-375); Red Blood Count 3.48 M/mm3 (4.6-6.20); Red Cell Distribution Width 13.6 % (11.5-14.5)
[2020-05-28 05:07] LABS: Chloride 96 mmol/L (98-107)
[2020-05-28 05:14] LABS: Alanine Aminotransferase 12 U/L (4-50); Blood Urea Nitrogen 15 mg/dL (9-20); Calcium 7.8 mg/dL (8.4-10.2); Carbon Dioxide > 40 mmol/L (22-30); Estimated CRCL calculation 183 ml/min; Estimated Glomerular Filt Rate > 60; Glucose 98 mg/dL (75-110); Sodium 135 mmol/L (137-145)
[2020-05-28] MEDS: AZTREONAM 1 GM in DEXTROSE 5% IN WATER 50 ML IVPB ×3 (06:09→21:34)
[2020-05-28] MEDS: hydrALAZINE HCL 50 MG TABLET 100 MG PO ×3 (08:56→17:11)
[2020-05-28] MEDS: ACYCLOVIR 400 MG TABLET 800 MG PO (08:56)
[2020-05-28] MEDS: ENOXAPARIN 40 MG/0.4 ML SYRINGE SUB-Q (08:57)
[2020-05-28] MEDS: DEXAMETHASONE SOD PHOS INJ 4 MG/ML VIAL 6 MG IV PUSH (08:57)
[2020-05-28] MEDS: MULTIVITAMINS THERAPEUTIC TAB (*BKC) 1 TABLET PO (08:57)
[2020-05-28] MEDS: amLODIPine BESYLATE 5 MG TABLET PO (08:58)
[2020-05-28] MEDS: busPIRone HCL 2.5 MG TABLET 7.5 MG PO ×2 (08:58→17:11)
[2020-05-28] MEDS: buPROPion HCL XL (24 HR) 150 MG TABCR 300 MG PO (08:58)
[2020-05-28] MEDS: lisinopriL 20 MG TABLET 40 MG PO (08:59)
[2020-05-28] MEDS: TAMSULOSIN HCL 0.4 MG CAPSULE PO (09:00)
[2020-05-28] MEDS: ROSUVASTATIN 10 MG TABLET 40 MG PO (09:00)
[2020-05-28] MEDS: FLUTICASONE PROPIONATE 0.05% NA SPR 16 GM BTL (*BKC) 2 SPRAY NASAL (11:16)
--- NOTE | 2020-05-28 11:46 | PM.PNPUL ---
Progress Note: A&P Assessment and Plan (1) Pneumonia due to COVID-19 virus: Onset Date: 05/26/20 Code(s): U07.1 - COVID-19; J12.82 - Pneumonia due to coronavirus disease 2019 Status: Acute Assessment and Plan: Patient has pneumonia due to COVID with hypoxemic respiratory failure. Patient was started on dexamethasone on 05/26, remdesivir 05/27 and given convalescent plasma on 05/27. Patient has intermittently required high-flow nasal cannula and BiPAP. -remdesivir and dexamethasone for 10 days unless he has a dramatic improvement -try prone position as tolerated by his morbid obesity -supplemetal oxygen and BiPAP to maintain saturations 90-94% -empiric treatment for community-acquired pneumonia with aztreonam 500 mg q.day and aztreonam 1 g q.8 hours. Will follow cultures and deescalate accordingly. 2/ No distress on 15 NC oxygen with saturations 92%. 2 He states he feels better, sats 97% on 15 L NC, sats 96% on 12 L NC and sats 94% on 10 L NC. Wore hospital BiPAP / 50% with sats 93% last night. (2) Asthma: Qualifiers: Asthma severity: mild Asthma persistence: intermittent Asthma complication type: uncomplicated Qualified Code(s): J45.20 - Mild intermittent asthma, uncomplicated Code(s): J45.909 - Unspecified asthma, uncomplicated Status: Acute Assessment and Plan: Patient with a history of asthma and is maintained on Anoro Ellipta 62.5-25. At this time patient has no wheezes. I will initiate albuterol inhalers 2.5 q.6 after discussing with Respiratory. It was felt that this would be easier to administer while he was on and off the BiPAP. 2/ no wheezes, continue (3) CB on CPAP: Onset Date: 2009 Code(s): G47.33 - Obstructive sleep apnea (adult) (pediatric); Z99.89 - Dependence on other enabling machines and devices Status: Acute Assessment and Plan: Patient has a history of obstructive sleep apnea on CPAP 17 per his report. I have no copies of the CPAP titration studies or downloads. Patient says that he has not seen a physician for his CPAP in many years but that he has excellent clinical response to wearing his CPAP in always wears his CPAP every night. 2/3 Patient currently will be placed on 17/12 BiPAP tonight and will be monitored for desaturations. If patient has desaturate will increase his EPAP accordingly. 2/4 Wore hospital BiPAP 17/12 50% with sats 93% last night and states it felt like home machine. He does not have a way to bring in his home machine. Continue. Will follow with you Subjective Date/time seen: 05/28/20 11:46 Interval history: This is a new consult for COVID-19 pneumonia with hypoxemia Is a 59-year-old man with a history of morbid obesity, obstructive sleep apnea on CPAP 17 at home, asthma on Anoro Ellipta, hypertension, arthritis and anxiety. Patient presented 05/26/20 with COVID pneumonia and ARDS with hypoxic respiratory failure requiring BiPAP. Patient was started on dexamethasone 6 mg IV on to 05/26. Started on remdesivir on 05/27. Given convalescent plasma on 05/27. CT angiogram negative for PE, LE dopplers negative for DVT. BNP 120. Echo Summary 1. Complete two-dimensional, color flow and Doppler transthoracic echocardiogram is performed. 2. Left ventricular chamber dimension is normal. 3. Left ventricular systolic function is normal, estimated at 60-65%. 4. There is moderately increased left ventricular wall thickness. 5. The left ventricular diastolic function is grade I diastolic dysfunction. 6. E/e' 9 is minimally elevated. 7. There is mild tricuspid valve regurgitation. 8. Mild pulmonary hypertension, estimated pulmonary arterial systolic pressure is 42 mmHg. 9. There is trivial pericardial effusion. 2/3 No distress on 15 NC oxygen with saturations 92%. 2/4 He states he feels better, sats 97% on 15 L NC, sats 96% on 12 L NC and sats 94% on 10 L NC. Wore hospital BiPAP 17/12 50% with sats 93%
--- NOTE | 2020-05-28 15:47 | PM.IMPN ---
Progress Note: A&P Assessment and Plan (1) Pneumonia due to COVID-19 virus: Onset Date: 05/26/20 Code(s): U07.1 - COVID-19; J12.82 - Pneumonia due to coronavirus disease 2019 Status: Acute Assessment and Plan: Remdesivir and Dexamethasone Continue to monitor Aztreonam was started for added coverage by pulmonology. (2) Acute and chronic respiratory failure with hypoxia: Code(s): J96.21 - Acute and chronic respiratory failure with hypoxia Status: Acute Assessment and Plan: On BiPAP at night Currently on NC (3) Hypertension, uncontrolled: Code(s): I10 - Essential (primary) hypertension Status: Acute Assessment and Plan: Re start home meds Continue to monitor (4) Obesity: Code(s): E66.9 - Obesity, unspecified Status: Acute Assessment and Plan: Lifestyle and diet modifications (5) Personal history of nicotine dependence: Code(s): Z87.891 - Personal history of nicotine dependence Status: Acute Assessment and Plan: Nicotine patch as needed (6) CB on CPAP: Onset Date: 2009 Code(s): G47.33 - Obstructive sleep apnea (adult) (pediatric); Z99.89 - Dependence on other enabling machines and devices Status: Acute Assessment and Plan: Continue CPAP on BiPAP currently Subjective Date/time seen: 05/28/20 15:47 States that he feels much better. Review of Systems Review of Systems: Narrative: Patient presented to ED due to sob. Constitutional: Comments: no fevers, no rigors, no chills. Eyes: Comments: redness ENT: Comments: no nasal congestion. Cardiovascular: Comments: no chest pain, no leg swelling Respiratory: Comments: sob. Gastrointestinal: Comments: no n/v/abdominal pain. Musculoskeletal: Comments: no joint pain. Integumentary/Breasts: Comments: no rashes Neurologic: Comments: no sensory motor deficit. Exam Narrative: Exam Narrative: Patient is sitting by the edge of the bed nc on Const: General: cooperative, comfortable, no acute distress, alert, awake and Physically active Nutritional Appearance: overweight Orientation/consciousness: patient oriented x3 Limitations: no limitations HENMT: Head: normocephalic Ears: hearing grossly normal bilaterally General nose exam: Normal external nose present Face and sinus: normal facial exam Eyes: General: appearance normal, both eyes and all related structures Conjunctivae: conjunctival abnormality bilateral (redness.) Pupils: Equal, round and reactive pupils present EOM: EOMs intact bilaterally Neck: Neck: no lymphadenopathy, supple and no JVD Resp: Auscultation: clear to auscultation bilaterally and diminished lung sounds Cardio: Jugular venous distension: no JVD Rate: regular rate Rhythm: regular rhythm GI: GI Palp: Yes Soft to palpation and Yes No hepatosplenomegaly present Skin: General skin exam: normal color Rashes: no rashes Wounds: no wounds Neuro: General: patient oriented x3 and CN's II-XI intact bilaterally Cranial nerves: Yes CN's II-XII intact bilaterally and Yes Bilaterally intact EOM present Cognition (Neuro): normal cognition Motor exam (neuro): 5/5 motor strength present throughout Extrem: General: no pedal edema Objective Data Vital Signs Vital Signs: Vital Signs - 24 hr 05/27/20 16:00 05/27/20 16:16 05/27/20 18:00 Temperature 96.9 F L Pulse Rate 82 77 84 Respiratory Rate 24 H Blood Pressure 148/84 H Pulse Oximetry 92 98 05/27/20 20:00 05/27/20 20:18 05/27/20 20:45 Temperature 98.0 F 96.9 F L 96.8 F L Pulse Rate 79 76 74 Respiratory Rate 220 H 26 H 24 H Blood Pressure 154/77 H 111/46 L 139/64 Pulse Oximetry 96 96 97 05/27/20 21:15 05/27/20 21:43 05/27/20 21:45 Temperature 96.9 F L Pulse Rate 77 77 76 Respiratory Rate 20 20 24 H Blood Pressure 137/67 Pulse Oximetry 92 90 05/27/20 22:00 05/27/20 22:25 05/27/20 22:30 Temperature 96.9 F L Pulse Rate 71 71
[2020-05-28] MEDS: REMDESIVIR 100 MG/NS 250 ML 100 MG/250 ML BAG 250 MG IVPB (22:15)
[2020-05-29] VITALS (22 sets, daily range): BP systolic 119–155; BP diastolic 64–87; PULSE 59–88; RESP 20–24; TEMP 36.1–36.3; O2SAT 92–96
[2020-05-29] MEDS: ALBUTEROL SULFATE NEB 2.5 MG/0.5 ML INH INHALATION ×4 (02:24→17:43)
[2020-05-29 04:22] LABS: Alanine Aminotransferase 13 U/L (4-50); Estimated CRCL calculation 223 ml/min; Estimated Glomerular Filt Rate > 60
[2020-05-29] MEDS: AZTREONAM 1 GM in DEXTROSE 5% IN WATER 50 ML IVPB ×3 (06:33→21:17)
[2020-05-29] MEDS: DEXAMETHASONE SOD PHOS INJ 4 MG/ML VIAL 6 MG IV PUSH (09:07)
[2020-05-29] MEDS: ENOXAPARIN 40 MG/0.4 ML SYRINGE SUB-Q (09:07)
[2020-05-29] MEDS: hydrALAZINE HCL 50 MG TABLET 100 MG PO ×3 (09:08→17:17)
[2020-05-29] MEDS: amLODIPine BESYLATE 5 MG TABLET PO (09:08)
[2020-05-29] MEDS: buPROPion HCL XL (24 HR) 150 MG TABCR 300 MG PO (09:08)
[2020-05-29] MEDS: MULTIVITAMINS THERAPEUTIC TAB (*BKC) 1 TABLET PO (09:08)
[2020-05-29] MEDS: ROSUVASTATIN 10 MG TABLET 40 MG PO (09:08)
[2020-05-29] MEDS: lisinopriL 20 MG TABLET 40 MG PO (09:08)
[2020-05-29] MEDS: ACYCLOVIR 400 MG TABLET 800 MG PO (09:09)
[2020-05-29] MEDS: TAMSULOSIN HCL 0.4 MG CAPSULE PO (09:09)
[2020-05-29] MEDS: busPIRone HCL 2.5 MG TABLET 7.5 MG PO ×2 (09:09→17:17)
[2020-05-29] MEDS: FLUTICASONE PROPIONATE 0.05% NA SPR 16 GM BTL (*BKC) 2 SPRAY NASAL (09:09)
--- NOTE | 2020-05-29 10:25 | PM.PNPUL ---
Progress Note: A&P Assessment and Plan (1) Pneumonia due to COVID-19 virus: Onset Date: 05/26/20 Code(s): U07.1 - COVID-19; J12.82 - Pneumonia due to coronavirus disease 2019 Status: Acute Assessment and Plan: Patient has pneumonia due to COVID with hypoxemic respiratory failure. Patient was started on dexamethasone on 05/26, remdesivir 05/27 and given convalescent plasma on 05/27. Patient has intermittently required high-flow nasal cannula and BiPAP. -remdesivir and dexamethasone for 10 days unless he has a dramatic improvement -try prone position as tolerated by his morbid obesity -supplemetal oxygen and BiPAP to maintain saturations 90-94% -empiric treatment for community-acquired pneumonia with azithromycin 500 mg q.day and aztreonam 1 g q.8 hours. Will follow cultures and deescalate accordingly. 2/ No distress on 15 NC oxygen with saturations 92%. 2/ He states he feels better, sats 97% on 15 L NC, sats 96% on 12 L NC and sats 94% on 10 L NC. Wore hospital BiPAP 17/ 50% with sats 93% last night. 2/ States he feels better, walking to bedside commode. Saturations on 8 L NC this morning 94% and I decresed to 7 L. (2) Asthma: Qualifiers: Asthma complication type: uncomplicated Asthma persistence: intermittent Asthma severity: mild Qualified Code(s): J45.20 - Mild intermittent asthma, uncomplicated Code(s): J45.909 - Unspecified asthma, uncomplicated Status: Acute Assessment and Plan: Patient with a history of asthma and is maintained on Anoro Ellipta 62.5-25. At this time patient has no wheezes. I will initiate albuterol nebulizers 2.5 q.6 after discussing with Respiratory. It was felt that this would be easier to administer while he was on and off the BiPAP. 2/4 no wheezes, continue 2/5 no wheezes, improved respiratory status, continue (3) CB on CPAP: Onset Date: 2009 Code(s): G47.33 - Obstructive sleep apnea (adult) (pediatric); Z99.89 - Dependence on other enabling machines and devices Status: Acute Assessment and Plan: Patient has a history of obstructive sleep apnea on CPAP 17 per his report. I have no copies of the CPAP titration studies or downloads. Patient says that he has not seen a physician for his CPAP in many years but that he has excellent clinical response to wearing his CPAP in always wears his CPAP every night. 2/3 Patient currently will be placed on 17/12 BiPAP tonight and will be monitored for desaturations. If patient has desaturate will increase his EPAP accordingly. 2/4 Wore hospital BiPAP 17/12 50% with sats 93% last night and states it felt like home machine. He does not have a way to bring in his home machine. Continue. 2/5 Wore BiPAP 17/12 40% last night with saturations 96%. Tonight will place on hospital machine CPAP 17 at 40%. Will follow with you Subjective Date/time seen: 05/29/20 10:25 Interval history: This is a new consult for COVID-19 pneumonia with hypoxemia Is a 59-year-old man with a history of morbid obesity, obstructive sleep apnea on CPAP 17 at home, asthma on Anoro Ellipta, hypertension, arthritis and anxiety. Patient presented 05/26/20 with COVID pneumonia and ARDS with hypoxic respiratory failure requiring BiPAP. Patient was started on dexamethasone 6 mg IV on to 05/26. Started on remdesivir on 05/27. Given convalescent plasma on 05/27. CT angiogram negative for PE, LE dopplers negative for DVT. BNP 120. Echo Summary 1. Complete two-dimensional, color flow and Doppler transthoracic echocardiogram is performed. 2. Left ventricular chamber dimension is normal. 3. Left ventricular systolic function is normal, estimated at 60-65%. 4. There is moderately increased left ventricular wall thickness. 5. The left ventricular diastolic function is grade I diastolic dysfunction. 6. E/e' 9 is minimally elevated. 7. There is mild tricuspid valve regurgitation. 8. Mild pulmonary hypertension, estimated
--- NOTE | 2020-05-29 15:45 | PM.IMPN ---
Progress Note: A&P Assessment and Plan (1) Pneumonia due to COVID-19 virus: Onset Date: 05/26/20 Code(s): U07.1 - COVID-19; J12.82 - Pneumonia due to coronavirus disease 2019 Status: Acute Assessment and Plan: Continue Remdesivir Continue Dexamethasone Improved (2) Acute and chronic respiratory failure with hypoxia: Code(s): J96.21 - Acute and chronic respiratory failure with hypoxia Status: Acute Assessment and Plan: HFNC/BiPAP O2 sat goal 94% Continue to wean off Appreciate Pulmonology note (3) Fever: Code(s): R50.9 - Fever, unspecified Status: Acute Assessment and Plan: Defervesced (4) Diarrhea: Code(s): R19.7 - Diarrhea, unspecified Status: Acute Assessment and Plan: Resolved (5) Asthma: Qualifiers: Asthma severity: mild Asthma persistence: intermittent Asthma complication type: uncomplicated Qualified Code(s): J45.20 - Mild intermittent asthma, uncomplicated Code(s): J45.909 - Unspecified asthma, uncomplicated Status: Acute Assessment and Plan: Breathing treatments Steroids Subjective Date/time seen: 05/29/20 15:45 I feel much better. Review of Systems Review of Systems: Narrative: No new issues overnight. Constitutional: Comments: no fevers, no rigors, no chills. Eyes: Comments: no vision changes. ENT: Comments: no nasal congestion, no throat pain. Cardiovascular: Comments: no chest pain. Respiratory: Comments: sob. Gastrointestinal: Comments: no n/v/abdominal pain. Musculoskeletal: Comments: no joint enlargement Integumentary/Breasts: Comments: no rashes Neurologic: Comments: no sensory motor deficit. Exam Narrative: Exam Narrative: Sitting by the edge of the bed. Const: General: comfortable, no acute distress, alert, awake and Physically active Nutritional Appearance: overweight Orientation/consciousness: patient oriented x3 HENMT: Head: normal to inspection and normocephalic Ears: hearing grossly normal bilaterally General nose exam: Normal external nose present Face and sinus: normal facial exam Eyes: Pupils: Equal, round and reactive pupils present EOM: EOMs intact bilaterally Neck: Neck: no lymphadenopathy, supple and no JVD Resp: Auscultation: clear to auscultation bilaterally Cardio: Jugular venous distension: no JVD Rate: regular rate Rhythm: regular rhythm GI: GI Palp: Yes Soft to palpation and Yes No hepatosplenomegaly present Skin: Rashes: no rashes Wounds: no wounds Neuro: General: patient oriented x3 and CN's II-XI intact bilaterally Cranial nerves: Yes CN's II-XII intact bilaterally and Yes Equal, round and reactive pupils present Cognition (Neuro): normal cognition Motor exam (neuro): 5/5 motor strength present throughout Extrem: General: no pedal edema Objective Data Vital Signs Vital Signs: Vital Signs - 24 hr 05/28/20 16:00 05/28/20 18:00 05/28/20 20:00 Temperature 98.1 F 97.4 F L Pulse Rate 77 78 72 Respiratory Rate 20 24 H Blood Pressure 143/78 H 137/73 Pulse Oximetry 92 96 05/28/20 20:55 05/28/20 20:56 05/28/20 22:00 Temperature Pulse Rate 78 78 78 Respiratory Rate 20 20 Blood Pressure Pulse Oximetry 93 05/28/20 23:49 05/28/20 23:56 05/29/20 00:00 Temperature 97.4 F L Pulse Rate 78 67 Respiratory Rate 24 H Blood Pressure 147/75 H Pulse Oximetry 94 94 05/29/20 02:24 05/29/20 04:00 05/29/20 06:00 Temperature 97.2 F L Pulse Rate 70 66 65 Respiratory Rate 20 24 H Blood Pressure 119/65 Pulse Oximetry 96 05/29/20 08:00 05/29/20 08:25 05/29/20 08:35 Temperature 97.4 F L Pulse Rate 71 73 75 Respiratory Rate 22 H 20 20 Blood Pressure 141/64 H Pulse Oximetry 94 05/29/20 09:05 05/29/20 09:32 05/29/20 10:00 Temperature Pulse Rate 88 77 Respiratory Rate 20 Blood Pressure Pulse Oximetry 95 92 05/29/20 12:00 05/29/20 13:50 05/29/20 14:00
[2020-05-30] VITALS (25 sets, daily range): BP systolic 133–178; BP diastolic 62–98; PULSE 59–108; RESP 19–28; TEMP 36.1–36.9; O2SAT 91–97
[2020-05-30] MEDS: REMDESIVIR 100 MG/NS 250 ML 100 MG/250 ML BAG 250 MG IVPB ×2 (00:06→21:30)
[2020-05-30] MEDS: ALBUTEROL SULFATE NEB 2.5 MG/0.5 ML INH INHALATION ×4 (02:19→20:25)
[2020-05-30] MEDS: AZTREONAM 1 GM in DEXTROSE 5% IN WATER 50 ML IVPB (05:16)
[2020-05-30 05:48] LABS: Basophils Percent Auto 0.1 % (0.2-1.2); Eosinophils Percent Auto 0.3 % (0-4.4); Hematocrit 35.7 % (42.0-52.0); Hemoglobin 11.2 g/dL (14.0-18.0); Immature Granulocyte Absolute 0.03 K/mm3 (0.00-0.031); Immature Granulocyte Percent A 0.4 % (0-0.5); Lymphocytes Absolute Auto 1.03 K/mm3 (0.9-3.2); Lymphocytes Percent Auto 14.9 % (18.3-44.2); Mean Corpuscular HGB Conc 31.4 g/dl (32-36); Mean Corpuscular Hemoglobin 32.2 pg (26-34); Mean Corpuscular Volume 102.6 fl (80-100); Mean Platelet Volume 9.8 fl (7.4-10.4); Monocytes Absolute Auto 0.5 K/mm3 (0.1-0.6); Monocytes Percent Auto 7.4 % (2.6-8.5); Neutrophils Absolute Auto 5.3 K/mm3 (1.3-6.7); Neutrophils Percent Auto 76.9 % (45.5-73.1); Platelet Count Result 267 k/mm3 (150-375); Red Blood Count 3.48 M/mm3 (4.6-6.20); Red Cell Distribution Width 13.5 % (11.5-14.5); White Blood Count 6.9 K/mm3 (4.5-10.0)
[2020-05-30 06:05] LABS: Alanine Aminotransferase 18 U/L (4-50); Anion Gap 2 mmol/L (8-16); Blood Urea Nitrogen 12 mg/dL (9-20); Calcium 8.2 mg/dL (8.4-10.2); Carbon Dioxide 38 mmol/L (22-30); Chloride 99 mmol/L (98-107); Estimated CRCL calculation 221 ml/min; Estimated Glomerular Filt Rate > 60; Glucose 116 mg/dL (75-110); Potassium 4.1 mmol/L (3.4-5.0); Sodium 139 mmol/L (137-145)
[2020-05-30 07:10] LABS: Anisocytosis 1+ (NORMAL); Ovalocytes 1+ (NORMAL); Platelet Estimate Adequate (Adequate)
[2020-05-30] MEDS: buPROPion HCL XL (24 HR) 150 MG TABCR 300 MG PO (09:04)
[2020-05-30] MEDS: amLODIPine BESYLATE 5 MG TABLET PO (09:04)
[2020-05-30] MEDS: hydrALAZINE HCL 50 MG TABLET 100 MG PO ×3 (09:04→16:33)
[2020-05-30] MEDS: DEXAMETHASONE SOD PHOS INJ 4 MG/ML VIAL 6 MG IV PUSH (09:04)
[2020-05-30] MEDS: ENOXAPARIN 40 MG/0.4 ML SYRINGE SUB-Q (09:04)
[2020-05-30] MEDS: busPIRone HCL 2.5 MG TABLET 7.5 MG PO ×2 (09:04→16:33)
[2020-05-30] MEDS: MULTIVITAMINS THERAPEUTIC TAB (*BKC) 1 TABLET PO (09:05)
[2020-05-30] MEDS: ROSUVASTATIN 10 MG TABLET 40 MG PO (09:05)
[2020-05-30] MEDS: ACYCLOVIR 400 MG TABLET 800 MG PO (09:05)
[2020-05-30] MEDS: TAMSULOSIN HCL 0.4 MG CAPSULE PO (09:05)
[2020-05-30] MEDS: lisinopriL 20 MG TABLET 40 MG PO (09:05)
[2020-05-30] MEDS: FLUTICASONE PROPIONATE 0.05% NA SPR 16 GM BTL (*BKC) 2 SPRAY NASAL (09:05)
--- NOTE | 2020-05-30 12:06 | PM.IMPN ---
Progress Note: A&P Assessment and Plan (1) Pneumonia due to COVID-19 virus: Onset Date: 05/26/20 Code(s): U07.1 - COVID-19; J12.82 - Pneumonia due to coronavirus disease 2019 Status: Acute Assessment and Plan: On Remdesivir/Dexamethasone (2) Acute and chronic respiratory failure with hypoxia: Code(s): J96.21 - Acute and chronic respiratory failure with hypoxia Status: Acute Assessment and Plan: On BiPAP Pulmonology following Improved. (3) Asthma: Qualifiers: Asthma severity: mild Asthma persistence: intermittent Asthma complication type: uncomplicated Qualified Code(s): J45.20 - Mild intermittent asthma, uncomplicated Code(s): J45.909 - Unspecified asthma, uncomplicated Status: Acute Assessment and Plan: Not acitvely wheezing Breathing treatments Systemic steroids. (4) Morbid obesity with BMI of 40.0-44.9, adult: Code(s): E66.01 - Morbid (severe) obesity due to excess calories; Z68.41 - Body mass index [BMI]40.0-44.9, adult Status: Acute Assessment and Plan: Carb consistent diet. (5) CB on CPAP: Onset Date: 2009 Code(s): G47.33 - Obstructive sleep apnea (adult) (pediatric); Z99.89 - Dependence on other enabling machines and devices Status: Acute Assessment and Plan: Wears CPAP at night time Subjective Date/time seen: 05/30/20 12:06 States that feels much better. Review of Systems Review of Systems: Narrative: On BiPAP ROS unobtainable: Yes unobtainable due to medical condition Constitutional: Comments: no fevers, no rigors, no chills. Cardiovascular: Comments: no chest pain, no pnd, no orthopnea. Respiratory: Comments: sob. Gastrointestinal: Comments: no n/v/abdominal pain. Musculoskeletal: Comments: no joint elargement. Integumentary/Breasts: Comments: no rashes Neurologic: Comments: no sensory motor deficit Exam Narrative: Exam Narrative: Lying in bed, BiPAP is on Const: General: comfortable, no acute distress, alert, awake and Physically active Nutritional Appearance: overweight Orientation/consciousness: patient oriented x3 Limitations: no limitations HENMT: Head: normal to inspection and normocephalic General nose exam: Normal external nose present Face and sinus: normal facial exam Eyes: General: appearance normal, both eyes and all related structures Pupils: Equal, round and reactive pupils present EOM: EOMs intact bilaterally Neck: Neck: no lymphadenopathy, supple and no JVD Resp: Auscultation: clear to auscultation bilaterally Cardio: Jugular venous distension: no JVD Rate: regular rate Rhythm: regular rhythm GI: GI Palp: Yes Soft to palpation and Yes No hepatosplenomegaly present Skin: General skin exam: normal color Trauma: no lacerations or abrasions Neuro: General: patient oriented x3 and CN's II-XI intact bilaterally Cranial nerves: Yes Equal, round and reactive pupils present Cognition (Neuro): normal cognition Motor exam (neuro): 5/5 motor strength present throughout Extrem: General: no pedal edema Objective Data Vital Signs Vital Signs: Vital Signs - 24 hr 05/29/20 13:50 05/29/20 14:00 05/29/20 16:00 Temperature 97.4 F L Pulse Rate 78 76 72 Respiratory Rate 20 20 22 H Blood Pressure 155/87 H Pulse Oximetry 95 95 05/29/20 17:43 05/29/20 17:49 05/29/20 17:52 Temperature Pulse Rate 78 75 83 Respiratory Rate 20 20 20 Blood Pressure Pulse Oximetry 92 05/29/20 18:00 05/29/20 20:00 05/29/20 21:04 Temperature 96.9 F L Pulse Rate 78 74 73 Respiratory Rate 24 H Blood Pressure 151/85 H Pulse Oximetry 95 95 05/29/20 22:00 05/29/20 22:07 05/30/20 00:00 Temperature 97.4 F L Pulse Rate 65 63 63 Respiratory Rate 21 H 21 H Blood Pressure 139/62 Pulse Oximetry 95 97 05/30/20 02:00 05/30/20 02:20 05/30/20 02:30 Temperature Pulse Rate 59 L 70 69 Respiratory Rate 21 H 21 H Blood Pressure
--- NOTE | 2020-05-30 13:22 | PM.PNPUL ---
Progress Note: A&P Assessment and Plan (1) Pneumonia due to COVID-19 virus: Onset Date: 05/26/20 Code(s): U07.1 - COVID-19; J12.82 - Pneumonia due to coronavirus disease 2019 Status: Acute Assessment and Plan: Patient has pneumonia due to COVID with hypoxemic respiratory failure. Patient was started on dexamethasone on 05/26, remdesivir 05/27 and given convalescent plasma on 05/27. Patient has intermittently required high-flow nasal cannula and BiPAP. -remdesivir and dexamethasone for 10 days unless he has a dramatic improvement -try prone position as tolerated by his morbid obesity -supplemetal oxygen and BiPAP to maintain saturations 90-94% -empiric treatment for community-acquired pneumonia with azithromycin 500 mg q.day and aztreonam 1 g q.8 hours. Will follow cultures and deescalate accordingly. / No distress on 15 NC oxygen with saturations 92%. 05/28 He states he feels better, sats 97% on 15 L NC, sats 96% on 12 L NC and sats 94% on 10 L NC. Wore hospital BiPAP 17/ 50% with sats 93% last night. 05/29 States he feels better, walking to bedside commode. Saturations on 8 L NC this morning 94% and I decresed to 7 L. 05/30 Continues to improve. Currently on NC 5 L with sats 91%. DC aztreonama nd azithro today. (2) Asthma: Qualifiers: Asthma severity: mild Asthma persistence: intermittent Asthma complication type: uncomplicated Qualified Code(s): J45.20 - Mild intermittent asthma, uncomplicated Code(s): J45.909 - Unspecified asthma, uncomplicated Status: Acute Assessment and Plan: Patient with a history of asthma and is maintained on Anoro Ellipta 62.5-25. At this time patient has no wheezes. I will initiate albuterol nebulizers 2.5 q.6 after discussing with Respiratory. It was felt that this would be easier to administer while he was on and off the BiPAP. 2/ no wheezes, continue 2/ no wheezes, improved respiratory status 05/30 no wheezes, imrpoved, continue (3) CB on CPAP: Onset Date: 2009 Code(s): G47.33 - Obstructive sleep apnea (adult) (pediatric); Z99.89 - Dependence on other enabling machines and devices Status: Acute Assessment and Plan: Patient has a history of obstructive sleep apnea on CPAP 17 per his report. I have no copies of the CPAP titration studies or downloads. Patient says that he has not seen a physician for his CPAP in many years but that he has excellent clinical response to wearing his CPAP in always wears his CPAP every night. 2/3 Patient currently will be placed on 17/12 BiPAP tonight and will be monitored for desaturations. If patient has desaturate will increase his EPAP accordingly. 2/4 Wore hospital BiPAP 17/12 50% with sats 93% last night and states it felt like home machine. He does not have a way to bring in his home machine. Continue. 2/5 Wore BiPAP 17/12 40% last night with saturations 96%. Tonight will place on hospital machine CPAP 17 at 40%. 2/6 Wore CPAP 17 last night 40% with sats 94 and 96%. Will decrease to FIO2 35% tonight. Will follow with you Subjective Date/time seen: 05/30/20 13:22 Interval history: This is a new consult for COVID-19 pneumonia with hypoxemia Is a 59-year-old man with a history of morbid obesity, obstructive sleep apnea on CPAP 17 at home, asthma on Anoro Ellipta, hypertension, arthritis and anxiety. Patient presented 05/26/20 with COVID pneumonia and ARDS with hypoxic respiratory failure requiring BiPAP. Patient was started on dexamethasone 6 mg IV on to 05/26. Started on remdesivir on 05/27. Given convalescent plasma on 05/27. CT angiogram negative for PE, LE dopplers negative for DVT. BNP 120. Echo Summary 1. Complete two-dimensional, color flow and Doppler transthoracic echocardiogram is performed. 2. Left ventricular chamber dimension is normal. 3. Left ventricular systolic function is normal, estimated at 60-65%. 4. There is moderately increased left ventricular wall thickness
[2020-05-31] VITALS (18 sets, daily range): BP systolic 134–177; BP diastolic 72–82; PULSE 64–93; RESP 16–24; TEMP 36.1–37.2; O2SAT 92–96
[2020-05-31] MEDS: ALBUTEROL SULFATE NEB 2.5 MG/0.5 ML INH INHALATION ×4 (02:02→20:58)
[2020-05-31 05:04] LABS: Alanine Aminotransferase 31 U/L (4-50); Estimated CRCL calculation 186 ml/min; Estimated Glomerular Filt Rate > 60
[2020-05-31] MEDS: FLUTICASONE PROPIONATE 0.05% NA SPR 16 GM BTL (*BKC) 2 SPRAY NASAL (08:10)
[2020-05-31] MEDS: buPROPion HCL XL (24 HR) 150 MG TABCR 300 MG PO (09:23)
[2020-05-31] MEDS: hydrALAZINE HCL 50 MG TABLET 100 MG PO ×3 (09:23→16:24)
[2020-05-31] MEDS: ROSUVASTATIN 10 MG TABLET 40 MG PO (09:23)
[2020-05-31] MEDS: busPIRone HCL 2.5 MG TABLET 7.5 MG PO ×2 (09:24→16:24)
[2020-05-31] MEDS: TAMSULOSIN HCL 0.4 MG CAPSULE PO (09:24)
[2020-05-31] MEDS: amLODIPine BESYLATE 5 MG TABLET PO (09:24)
[2020-05-31] MEDS: lisinopriL 20 MG TABLET 40 MG PO (09:24)
[2020-05-31] MEDS: DEXAMETHASONE SOD PHOS INJ 4 MG/ML VIAL 6 MG IV PUSH (09:24)
[2020-05-31] MEDS: MULTIVITAMINS THERAPEUTIC TAB (*BKC) 1 TABLET PO (09:24)
[2020-05-31] MEDS: ACYCLOVIR 400 MG TABLET 800 MG PO (09:24)
[2020-05-31] MEDS: ENOXAPARIN 40 MG/0.4 ML SYRINGE SUB-Q (09:25)
--- NOTE | 2020-05-31 11:15 | PM.PNPUL ---
Progress Note: A&P Assessment and Plan (1) Pneumonia due to COVID-19 virus: Onset Date: 05/26/20 Code(s): U07.1 - COVID-19; J12.82 - Pneumonia due to coronavirus disease 2019 Status: Acute Assessment and Plan: Patient has pneumonia due to COVID with hypoxemic respiratory failure. Patient was started on dexamethasone on 05/26, remdesivir 05/27 and given convalescent plasma on 05/27. Patient has intermittently required high-flow nasal cannula and BiPAP. -remdesivir and dexamethasone for 10 days unless he has a dramatic improvement -try prone position as tolerated by his morbid obesity -supplemetal oxygen and BiPAP to maintain saturations 90-94% -empiric treatment for community-acquired pneumonia with azithromycin 500 mg q.day and aztreonam 1 g q.8 hours. Will follow cultures and deescalate accordingly. 05/27 No distress on 15 NC oxygen with saturations 92%. 05/28 He states he feels better, sats 97% on 15 L NC, sats 96% on 12 L NC and sats 94% on 10 L NC. Wore hospital BiPAP 17/ 50% with sats 93% last night. 05/29 States he feels better, walking to bedside commode. Saturations on 8 L NC this morning 94% and I decresed to 7 L. 05/30 Continues to improve. Currently on NC 5 L with sats 91%. DC aztreonama nd azithro today. 05/31 Continues to improve. Currently on NC 4 L with sats 97%. Will check CXR in AM 06/01. (2) Asthma: Qualifiers: Asthma severity: mild Asthma persistence: intermittent Asthma complication type: uncomplicated Qualified Code(s): J45.20 - Mild intermittent asthma, uncomplicated Code(s): J45.909 - Unspecified asthma, uncomplicated Status: Acute Assessment and Plan: Patient with a history of asthma and is maintained on Anoro Ellipta 62.5-25. At this time patient has no wheezes. I will initiate albuterol nebulizers 2.5 q.6 after discussing with Respiratory. It was felt that this would be easier to administer while he was on and off the BiPAP. 2/ no wheezes, continue 05/29 no wheezes, improved respiratory status 2/6 no wheezes, imrpoved, 2/7 no wheezes, ambualting in room. continue (3) CB on CPAP: Onset Date: 2009 Code(s): G47.33 - Obstructive sleep apnea (adult) (pediatric); Z99.89 - Dependence on other enabling machines and devices Status: Acute Assessment and Plan: Patient has a history of obstructive sleep apnea on CPAP 17 per his report. I have no copies of the CPAP titration studies or downloads. Patient says that he has not seen a physician for his CPAP in many years but that he has excellent clinical response to wearing his CPAP in always wears his CPAP every night. 2/3 Patient currently will be placed on 17/12 BiPAP tonight and will be monitored for desaturations. If patient has desaturate will increase his EPAP accordingly. 2/4 Wore hospital BiPAP 17/12 50% with sats 93% last night and states it felt like home machine. He does not have a way to bring in his home machine. Continue. 2/5 Wore BiPAP 17/12 40% last night with saturations 96%. Tonight will place on hospital machine CPAP 17 at 40%. 2/6 Wore CPAP 17 last night 40% with sats 94 and 96%. Will decrease to FIO2 35% tonight. 2/7 Wore CPAP 17 last night 35% with sats 95%. Will decrese to 30% tonight. Will follow with you Subjective Date/time seen: 05/31/20 11:15 Interval history: This is a new consult for COVID-19 pneumonia with hypoxemia Is a 59-year-old man with a history of morbid obesity, obstructive sleep apnea on CPAP 17 at home, asthma on Anoro Ellipta, hypertension, arthritis and anxiety. Patient presented 05/26/20 with COVID pneumonia and ARDS with hypoxic respiratory failure requiring BiPAP. Patient was started on dexamethasone 6 mg IV on to 05/26. Started on remdesivir on 05/27. Given convalescent plasma on 05/27. CT angiogram negative for PE, LE dopplers negative for DVT. BNP 120. Echo Summary 1. Complete two-dimensional, color flow and Doppler transthoracic echocardiogram is
--- NOTE | 2020-05-31 11:52 | PM.IMPN ---
Progress Note: A&P Assessment and Plan (1) Pneumonia due to COVID-19 virus: Onset Date: 05/26/20 Code(s): U07.1 - COVID-19; J12.82 - Pneumonia due to coronavirus disease 2019 Status: Acute Assessment and Plan: Remdesivir/Dexamethasone (2) Acute and chronic respiratory failure with hypoxia: Code(s): J96.21 - Acute and chronic respiratory failure with hypoxia Status: Acute Assessment and Plan: Improved On nc 3 L CPAP at night time (3) Morbid obesity with BMI of 40.0-44.9, adult: Code(s): E66.01 - Morbid (severe) obesity due to excess calories; Z68.41 - Body mass index [BMI]40.0-44.9, adult Status: Acute Assessment and Plan: Lifestyle and diet modifications. (4) CB on CPAP: Onset Date: 2009 Code(s): G47.33 - Obstructive sleep apnea (adult) (pediatric); Z99.89 - Dependence on other enabling machines and devices Status: Acute Assessment and Plan: Continue CPAP Subjective Date/time seen: 05/31/20 11:52 I feel much better Review of Systems Review of Systems: Narrative: No discomfort, no new events overnight. Constitutional: Comments: no fevers, no chills, no rigors. Cardiovascular: Comments: no chest pain, no pnd, no orthopnea. Respiratory: Comments: mild sob. Gastrointestinal: Comments: no n/v/abdominal pain. Musculoskeletal: Comments: no joint pain. Integumentary/Breasts: Comments: no rashes. Neurologic: Comments: no sensory motor deficit Exam Narrative: Exam Narrative: Sitting by the edge of the bed Const: General: no acute distress, alert, awake and Physically active Nutritional Appearance: overweight Orientation/consciousness: patient oriented x3 Limitations: no limitations HENMT: Head: normal to inspection and normocephalic Ears: hearing grossly normal bilaterally General nose exam: Normal external nose present Face and sinus: normal facial exam Eyes: Pupils: Equal, round and reactive pupils present EOM: EOMs intact bilaterally Neck: Neck: no lymphadenopathy, supple and no JVD Resp: Auscultation: diminished lung sounds Cardio: Jugular venous distension: no JVD Rate: regular rate Rhythm: regular rhythm GI: GI Palp: Yes Soft to palpation and Yes No hepatosplenomegaly present Skin: Wounds: no wounds Neuro: General: patient oriented x3 and CN's II-XI intact bilaterally Cranial nerves: Yes CN's II-XII intact bilaterally and Yes Equal, round and reactive pupils present Cognition (Neuro): normal cognition Motor exam (neuro): 5/5 motor strength present throughout Extrem: General: no pedal edema Objective Data Vital Signs Vital Signs: Vital Signs - 24 hr 05/30/20 12:00 05/30/20 13:48 05/30/20 13:52 Temperature 98.5 F Pulse Rate 80 82 90 Respiratory Rate 22 H 20 Blood Pressure 178/86 H Pulse Oximetry 96 05/30/20 14:02 05/30/20 15:41 05/30/20 16:00 Temperature 98.3 F Pulse Rate 88 71 Respiratory Rate 20 24 H Blood Pressure 143/67 H Pulse Oximetry 91 91 05/30/20 17:52 05/30/20 20:00 05/30/20 20:25 Temperature 96.9 F L Pulse Rate 93 92 108 H Respiratory Rate 22 H 22 H Blood Pressure 147/76 H Pulse Oximetry 93 96 05/30/20 21:06 05/30/20 22:00 05/30/20 22:28 Temperature Pulse Rate 101 H 88 97 Respiratory Rate 20 23 H Blood Pressure Pulse Oximetry 95 05/30/20 23:44 05/31/20 00:00 05/31/20 02:00 Temperature 98.2 F Pulse Rate 77 75 72 Respiratory Rate 23 H Blood Pressure 149/70 H Pulse Oximetry 96 96 05/31/20 02:02 05/31/20 02:11 05/31/20 04:00 Temperature 97.9 F Pulse Rate 91 92 67 Respiratory Rate 24 H 23 H 16 Blood Pressure 137/81 Pulse Oximetry 94 05/31/20 06:00 05/31/20 08:00 05/31/20 08:05 Temperature 98.9 F Pulse Rate 72 82 75 Respiratory Rate 24 H 24 H Blood Pressure 134/72 Pulse Oximetry 93 93 05/31/20 08:19 05/31/20 10:00 Temperature Pulse Rate 68 71 Respiratory Rate 24 H Blood Pres
[2020-05-31] MEDS: REMDESIVIR 100 MG/NS 250 ML 100 MG/250 ML BAG 250 MG IVPB (21:32)
[2020-06-01] VITALS (15 sets, daily range): BP systolic 145–180; BP diastolic 73–92; PULSE 63–102; RESP 17–24; TEMP 35.7–36.7; O2SAT 93–99
[2020-06-01] MEDS: ALBUTEROL SULFATE NEB 2.5 MG/0.5 ML INH INHALATION ×4 (02:31→21:54)
[2020-06-01 05:10] LABS: Alanine Aminotransferase 28 U/L (4-50); Estimated CRCL calculation 159 ml/min; Estimated Glomerular Filt Rate > 60
[2020-06-01] MEDS: MULTIVITAMINS THERAPEUTIC TAB (*BKC) 1 TABLET PO (10:18)
[2020-06-01] MEDS: ROSUVASTATIN 10 MG TABLET 40 MG PO (10:18)
[2020-06-01] MEDS: lisinopriL 20 MG TABLET 40 MG PO (10:19)
[2020-06-01] MEDS: TAMSULOSIN HCL 0.4 MG CAPSULE PO (10:19)
[2020-06-01] MEDS: hydrALAZINE HCL 50 MG TABLET 100 MG PO ×3 (10:20→16:15)
[2020-06-01] MEDS: ACYCLOVIR 400 MG TABLET 800 MG PO (10:20)
[2020-06-01] MEDS: busPIRone HCL 2.5 MG TABLET 7.5 MG PO ×2 (10:20→16:14)
[2020-06-01] MEDS: amLODIPine BESYLATE 5 MG TABLET PO (10:20)
[2020-06-01] MEDS: ENOXAPARIN 40 MG/0.4 ML SYRINGE SUB-Q (10:22)
[2020-06-01] MEDS: DEXAMETHASONE SOD PHOS INJ 4 MG/ML VIAL 6 MG IV PUSH (10:22)
[2020-06-01] MEDS: FLUTICASONE PROPIONATE 0.05% NA SPR 16 GM BTL (*BKC) 2 SPRAY NASAL (10:23)
[2020-06-01] MEDS: buPROPion HCL XL (24 HR) 150 MG TABCR 300 MG PO (10:23)
--- NOTE | 2020-06-01 11:15 | PM.PNPUL ---
Progress Note: A&P Assessment and Plan (1) Pneumonia due to COVID-19 virus: Onset Date: 05/26/20 Code(s): U07.1 - COVID-19; J12.82 - Pneumonia due to coronavirus disease 2019 Status: Acute Assessment and Plan: Patient has pneumonia due to COVID with hypoxemic respiratory failure. Patient was started on dexamethasone on 05/26, remdesivir 05/27 and given convalescent plasma on 05/27. Patient has intermittently required high-flow nasal cannula and BiPAP. -remdesivir and dexamethasone for 10 days unless he has a dramatic improvement -try prone position as tolerated by his morbid obesity -supplemetal oxygen and BiPAP to maintain saturations 90-94% -empiric treatment for community-acquired pneumonia with azithromycin 500 mg q.day and aztreonam 1 g q.8 hours. Cultures negative and DC 05/30. 05/27 No distress on 15 NC oxygen with saturations 92%. 05/28 He states he feels better, sats 97% on 15 L NC, sats 96% on 12 L NC and sats 94% on 10 L NC. Wore hospital BiPAP 09/04 50% with sats 93% last night. 05/29 States he feels better, walking to bedside commode. Saturations on 8 L NC this morning 94% and I decresed to 7 L. 05/30 Continues to improve. Currently on NC 5 L with sats 91%. DC aztreonama nd azithro today. 05/31 Continues to improve. Currently on NC 4 L with sats 97%. Will check CXR in AM 06/01. 06/01 06/01 continues to improved, Currently on NC 4 L with sats 95%. CXR improving diffuse interstitial and alverolar infiltrates. Possible DC on 06/03. (2) Asthma: Qualifiers: Asthma complication type: uncomplicated Asthma persistence: intermittent Asthma severity: mild Qualified Code(s): J45.20 - Mild intermittent asthma, uncomplicated Code(s): J45.909 - Unspecified asthma, uncomplicated Status: Acute Assessment and Plan: Patient with a history of asthma and is maintained on Anoro Ellipta 62.5-25. At this time patient has no wheezes. I will initiate albuterol nebulizers 2.5 q.6 after discussing with Respiratory. It was felt that this would be easier to administer while he was on and off the BiPAP. 2/4 no wheezes, continue 2/5 no wheezes, improved respiratory status 2/6 no wheezes, imrpoved, 2/7 no wheezes, ambualting in room. continue 2/8 no wheezes, continue (3) CB on CPAP: Onset Date: 2009 Code(s): G47.33 - Obstructive sleep apnea (adult) (pediatric); Z99.89 - Dependence on other enabling machines and devices Status: Acute Assessment and Plan: Patient has a history of obstructive sleep apnea on CPAP 17 per his report. I have no copies of the CPAP titration studies or downloads. Patient says that he has not seen a physician for his CPAP in many years but that he has excellent clinical response to wearing his CPAP in always wears his CPAP every night. 2/3 Patient currently will be placed on 17/12 BiPAP tonight and will be monitored for desaturations. If patient has desaturate will increase his EPAP accordingly. 2/4 Wore hospital BiPAP 17/12 50% with sats 93% last night and states it felt like home machine. He does not have a way to bring in his home machine. Continue. 2/5 Wore BiPAP 17/12 40% last night with saturations 96%. Tonight will place on hospital machine CPAP 17 at 40%. 2/6 Wore CPAP 17 last night 40% with sats 94 and 96%. Will decrease to FIO2 35% tonight. 2/7 Wore CPAP 17 last night 35% with sats 95%. Will decrease to 30% tonight. 2/8 Wore CPAP 17 last night with 30% and sats 94%. Will decrease to 25 % tonight. Spoke with Dr. Bob. Will follow with you Subjective Date/time seen: 06/01/20 11:15 Interval history: This is a new consult for COVID-19 pneumonia with hypoxemia Is a 59-year-old man with a history of morbid obesity, obstructive sleep apnea on CPAP 17 at home, asthma on Anoro Ellipta, hypertension, arthritis and anxiety. Patient presented 05/26/20 with COVID pneumonia and ARDS with hypoxic respiratory failure requiring BiPAP. Patient was started on
--- NOTE | 2020-06-01 11:21 | PM.IMPN ---
Progress Note: A&P Assessment and Plan (1) Pneumonia due to COVID-19 virus: Onset Date: 05/26/20 Code(s): U07.1 - COVID-19; J12.82 - Pneumonia due to coronavirus disease 2019 Status: Acute Assessment and Plan: On Remdesivir/Dexamethasone Aztreonam Improved. (2) Acute and chronic respiratory failure with hypoxia: Code(s): J96.21 - Acute and chronic respiratory failure with hypoxia Status: Acute Assessment and Plan: Improved Appreciate Pulmonology note (3) CB on CPAP: Onset Date: 2009 Code(s): G47.33 - Obstructive sleep apnea (adult) (pediatric); Z99.89 - Dependence on other enabling machines and devices Status: Acute Assessment and Plan: On CPAP at night time (4) Morbid obesity with BMI of 40.0-44.9, adult: Code(s): E66.01 - Morbid (severe) obesity due to excess calories; Z68.41 - Body mass index [BMI]40.0-44.9, adult Status: Acute Assessment and Plan: Lifestyle and diet modifications. Subjective Date/time seen: 06/01/20 11:21 States that he feels well and inquires when he can go home Review of Systems Review of Systems: Narrative: no new complains. Constitutional: Comments: no fevers, no rigors, no chills Cardiovascular: Comments: no chest pain, no pnd, no orhtopnea. Respiratory: Comments: sob. Gastrointestinal: Comments: no n/v/abdominal pain. Musculoskeletal: Comments: no joint pain. Integumentary/Breasts: Comments: no rashes Neurologic: Comments: no sensory motor deficit Exam Narrative: Exam Narrative: Sitting in bed Const: General: comfortable, no acute distress, alert, awake, Physically active and other Nutritional Appearance: overweight Orientation/consciousness: patient oriented x3 HENMT: Head: normocephalic Ears: hearing grossly normal bilaterally General nose exam: Normal external nose present Face and sinus: normal facial exam Eyes: General: appearance normal, both eyes and all related structures Pupils: Equal, round and reactive pupils present EOM: EOMs intact bilaterally Neck: Neck: no lymphadenopathy, supple and no JVD Resp: Auscultation: clear to auscultation bilaterally and diminished lung sounds Cardio: Rate: regular rate Rhythm: regular rhythm GI: GI Palp: Yes Soft to palpation and Yes No hepatosplenomegaly present Skin: Rashes: no rashes Neuro: General: patient oriented x3 and CN's II-XI intact bilaterally Cranial nerves: Yes CN's II-XII intact bilaterally and Yes Equal, round and reactive pupils present Cognition (Neuro): normal cognition Speech: normal speech Gait exam (Neuro): Normal gait present Motor exam (neuro): 5/5 motor strength present throughout Extrem: General: no pedal edema Objective Data Vital Signs Vital Signs: Vital Signs - 24 hr 05/31/20 13:46 05/31/20 13:55 05/31/20 15:54 Temperature 98.2 F Pulse Rate 66 64 75 Respiratory Rate 20 20 24 H Blood Pressure 139/78 Pulse Oximetry 92 05/31/20 19:56 05/31/20 20:00 05/31/20 21:00 Temperature 97 F L Pulse Rate 72 89 89 Respiratory Rate 20 20 20 Blood Pressure 177/82 H Pulse Oximetry 94 92 92 05/31/20 21:10 05/31/20 22:45 06/01/20 02:30 Temperature Pulse Rate 93 84 86 Respiratory Rate 20 21 H 22 H Blood Pressure Pulse Oximetry 94 94 06/01/20 02:32 06/01/20 02:42 06/01/20 03:00 Temperature 97.6 F Pulse Rate 86 88 63 Respiratory Rate 22 H 22 H 20 Blood Pressure 179/82 H Pulse Oximetry 99 06/01/20 08:00 06/01/20 09:20 06/01/20 09:32 Temperature 96.2 F L Pulse Rate 64 88 100 Respiratory Rate 24 H 20 20 Blood Pressure 180/92 H Pulse Oximetry 93 95 Intake/Output Intake/Output: Intake & Output 05/29/20 05/30/20 05/31/20 06/01/20 23:59 23:59 23:59 23:59 Intake Total 1360 2570 3050 Output Total [address] [facility] -[id number] -[id number] -275 -1500 Meds/Results Medications: Active Medications Generic Name Dose Route Start Last Admin Tra
[2020-06-01] MEDS: REMDESIVIR 100 MG/NS 250 ML 100 MG/250 ML BAG 250 MG IVPB (21:27)
[2020-06-02] VITALS (18 sets, daily range): BP systolic 107–173; BP diastolic 52–91; PULSE 60–86; RESP 16–23; TEMP 36.1–37.2; O2SAT 92–99
[2020-06-02] MEDS: ALBUTEROL SULFATE NEB 2.5 MG/0.5 ML INH INHALATION ×4 (02:51→20:01)
[2020-06-02 05:30] LABS: Alanine Aminotransferase 25 U/L (4-50); Estimated CRCL calculation 227 ml/min; Estimated Glomerular Filt Rate > 60
[2020-06-02] MEDS: ACYCLOVIR 400 MG TABLET 800 MG PO (09:46)
[2020-06-02] MEDS: TAMSULOSIN HCL 0.4 MG CAPSULE PO (09:47)
[2020-06-02] MEDS: hydrALAZINE HCL 50 MG TABLET 100 MG PO ×3 (09:47→17:52)
[2020-06-02] MEDS: lisinopriL 20 MG TABLET 40 MG PO (09:47)
[2020-06-02] MEDS: ROSUVASTATIN 10 MG TABLET 40 MG PO (09:47)
[2020-06-02] MEDS: buPROPion HCL XL (24 HR) 150 MG TABCR 300 MG PO (09:47)
[2020-06-02] MEDS: busPIRone HCL 2.5 MG TABLET 7.5 MG PO ×2 (09:47→16:08)
[2020-06-02] MEDS: FLUTICASONE PROPIONATE 0.05% NA SPR 16 GM BTL (*BKC) 2 SPRAY NASAL (09:48)
[2020-06-02] MEDS: MULTIVITAMINS THERAPEUTIC TAB (*BKC) 1 TABLET PO (09:48)
[2020-06-02] MEDS: amLODIPine BESYLATE 5 MG TABLET PO (09:48)
[2020-06-02] MEDS: DEXAMETHASONE SOD PHOS INJ 4 MG/ML VIAL 6 MG IV PUSH (09:48)
[2020-06-02] MEDS: ENOXAPARIN 40 MG/0.4 ML SYRINGE SUB-Q (09:48)
--- NOTE | 2020-06-02 11:29 | PCDIET ---
Weekly nutritional screen. Spoke with patient via phone due to COVID precautions. Patient is tolerating current diet with adequate intake. No weight loss reported. No nutritional needs at this time.
--- NOTE | 2020-06-02 12:31 | PM.PNPUL ---
Progress Note: A&P Assessment and Plan (1) Pneumonia due to COVID-19 virus: Onset Date: 05/26/20 Code(s): U07.1 - COVID-19; J12.82 - Pneumonia due to coronavirus disease 2019 Status: Acute Assessment and Plan: Patient has pneumonia due to COVID with hypoxemic respiratory failure. Patient was started on dexamethasone on 05/26, remdesivir 05/27 and given convalescent plasma on 05/27. Patient has intermittently required high-flow nasal cannula and BiPAP. -remdesivir and dexamethasone for 10 days unless he has a dramatic improvement -try prone position as tolerated by his morbid obesity -supplemetal oxygen and BiPAP to maintain saturations 90-94% -empiric treatment for community-acquired pneumonia with azithromycin 500 mg q.day and aztreonam 1 g q.8 hours. Cultures negative and DC 05/30. 05/27 No distress on 15 NC oxygen with saturations 92%. 05/28 He states he feels better, sats 97% on 15 L NC, sats 96% on 12 L NC and sats 94% on 10 L NC. Wore hospital BiPAP 09/04 50% with sats 93% last night. 05/29 States he feels better, walking to bedside commode. Saturations on 8 L NC this morning 94% and I decresed to 7 L. 05/30 Continues to improve. Currently on NC 5 L with sats 91%. DC aztreonama nd azithro today. 05/31 Continues to improve. Currently on NC 4 L with sats 97%. Will check CXR in AM 06/01. 06/01 continues to improved, Currently on NC 4 L with sats 95%. CXR improving diffuse interstitial and alverolar infiltrates. 06/02 continues to improved, Currently on NC 1 L with sats 92%. Possible DC on 06/03. (2) Asthma: Qualifiers: Asthma severity: mild Asthma persistence: intermittent Asthma complication type: uncomplicated Qualified Code(s): J45.20 - Mild intermittent asthma, uncomplicated Code(s): J45.909 - Unspecified asthma, uncomplicated Status: Acute Assessment and Plan: Patient with a history of asthma and is maintained on Anoro Ellipta 62.5-25. At this time patient has no wheezes. I will initiate albuterol nebulizers 2.5 q.6 after discussing with Respiratory. It was felt that this would be easier to administer while he was on and off the BiPAP. 2/4 no wheezes, continue 2/5 no wheezes, improved respiratory status 2/6 no wheezes, imrpoved, 2/7 no wheezes, ambualting in room. continue 2/8 no wheezes, 2/9 no wheezes, continue (3) CB on CPAP: Onset Date: 2009 Code(s): G47.33 - Obstructive sleep apnea (adult) (pediatric); Z99.89 - Dependence on other enabling machines and devices Status: Acute Assessment and Plan: Patient has a history of obstructive sleep apnea on CPAP 17 per his report. I have no copies of the CPAP titration studies or downloads. Patient says that he has not seen a physician for his CPAP in many years but that he has excellent clinical response to wearing his CPAP in always wears his CPAP every night. 2/3 Patient currently will be placed on 17/12 BiPAP tonight and will be monitored for desaturations. If patient has desaturate will increase his EPAP accordingly. 2/4 Wore hospital BiPAP 17/12 50% with sats 93% last night and states it felt like home machine. He does not have a way to bring in his home machine. Continue. 2/5 Wore BiPAP 17/12 40% last night with saturations 96%. Tonight will place on hospital machine CPAP 17 at 40%. 2/6 Wore CPAP 17 last night 40% with sats 94 and 96%. Will decrease to FIO2 35% tonight. 2/7 Wore CPAP 17 last night 35% with sats 95%. Will decrease to 30% tonight. 2/8 Wore CPAP 17 last night with 30% and sats 94%. Will decrease to 25 % tonight. 2/9 Wore CPAP 17 last night with 40% mistakenly (ordered 25%) with sats 97-99%. Will place on 25% tonight and perform Apnea link to assess. Will follow with you Subjective Date/time seen: 06/02/20 12:31 Interval history: This is a new consult for COVID-19 pneumonia with hypoxemia Is a 59-year-old man with a history of morbid obesity, obstructive sleep apnea on CPAP 17 at home,
--- NOTE | 2020-06-02 15:56 | PM.IMPN ---
Progress Note: A&P Assessment and Plan (1) Pneumonia due to COVID-19 virus: Onset Date: 05/26/20 Code(s): U07.1 - COVID-19; J12.82 - Pneumonia due to coronavirus disease 2018 Status: Acute Assessment and Plan: On Remdesivir/Dexamethasone day 6 Pt feels much improved only on 1 liter was on 12-15 liters on admission Hopeful discharge tomorrow. (2) Acute and chronic respiratory failure with hypoxia: Code(s): J96.21 - Acute and chronic respiratory failure with hypoxia Status: Acute Assessment and Plan: Improved, Thanks for pulmonology recommendation (3) CB on CPAP: Onset Date: 2009 Code(s): G47.33 - Obstructive sleep apnea (adult) (pediatric); Z99.89 - Dependence on other enabling machines and devices Status: Acute Assessment and Plan: On CPAP at night time (4) Morbid obesity with BMI of 40.0-44.9, adult: Code(s): E66.01 - Morbid (severe) obesity due to excess calories; Z68.41 - Body mass index [BMI]40.0-44.9, adult Status: Acute Assessment and Plan: Lifestyle and diet modifications. Subjective Date/time seen: 06/02/20 15:56 Pt admitted with COVID and pneumonia. Pt is walking around in the room, earlier today, resting now, friendly talkative, cheerful for his health. No fever or cough needing 1 liter of oxygen only. Feels much better. Review of Systems Review of Systems: All systems reviewed & are unremarkable except as noted in HPI and below Exam Const: General: healthy appearing Nutritional Appearance: other (Morbid obesity) Orientation/consciousness: oriented to person, oriented to place and oriented to time Chest: Chest palpation & inspection: normal inspection of the chest Resp: Effort & Inspection: normal respiratory effort and able to speak in complete sentences Cardio: Rate: regular rate Rhythm: regular rhythm GI: Inspection: obesity Skin: General skin exam: normal color Lesions: no lesions Rashes: no rashes Trauma: no lacerations or abrasions Wounds: no wounds Hair: normal Nails: normal Neuro: General: oriented to person, oriented to place, oriented to time and CN's II-XI intact bilaterally Cranial nerves: Yes CN's II-XII intact bilaterally, Yes Equal, round and reactive pupils present, Yes Bilaterally intact EOM present and Yes Normal hearing present Cognition (Neuro): normal cognition Speech: normal speech Gait exam (Neuro): Normal gait present Motor exam (neuro): 5/5 motor strength present throughout Extrem: General: normal to inspection and no pedal edema Right upper extremity: normal to inspection Left upper extremity: normal to inspection Right lower extremity: normal to inspection Left lower extremity: normal to inspection Psych: Appearance: grossly normal Mental Status: mental status grossly normal Speech and movement: Normal speech and movement present Affect: normal affect Objective Data Vital Signs Vital Signs: Vital Signs - 24 hr 06/01/20 16:00 06/01/20 20:00 06/01/20 21:55 Temperature 35.8 C L 36.7 C Pulse Rate 70 73 65 Respiratory Rate 17 22 H 20 Blood Pressure 146/86 H 145/73 H Pulse Oximetry 96 96 06/01/20 22:12 06/01/20 23:35 06/02/20 01:01 Temperature Pulse Rate 65 74 62 Respiratory Rate 20 21 H Blood Pressure Pulse Oximetry 98 96 99 06/02/20 02:52 06/02/20 03:17 06/02/20 04:44 Temperature 36.6 C Pulse Rate 64 67 60 Respiratory Rate 20 20 20 Blood Pressure 126/63 Pulse Oximetry 98 06/02/20 05:04 06/02/20 08:00 06/02/20 08:31 Temperature 37.2 C Pulse Rate 61 73 70 Respiratory Rate 18 18 18 Blood Pressure 173/91 H Pulse Oximetry 97 96 97 06/02/20 08:39 06/02/20 12:00 06/02/20 13:12 Temperature 36.1 C L Pulse Rate 64 79 86 Respiratory Rate 20 20 23 H Blood Pressure 150/84 H Pulse Oximetry 92 92 06/02/20 14:21 06/02/20 14:25 Temperature Pulse Rate 84 73 Respiratory Rate 16 18 Blood Pressure Pulse Oximetry
[2020-06-02] MEDS: REMDESIVIR 100 MG/NS 250 ML 100 MG/250 ML BAG 250 MG IVPB (21:23)
[2020-06-03] VITALS (13 sets, daily range): BP systolic 121–151; BP diastolic 66–78; PULSE 62–79; RESP 17–40; TEMP 36.2–36.5; O2SAT 90–98
[2020-06-03 05:09] LABS: Alveolar/Arterial O2 Gradient 62.6 mmHg; Fractional Inspired Oxygen 28 %; Oxygen Content ABG 17.9 %vol (16.0-22.0); Oxyhemoglobin 93.3 % THb (90.0-100.0); PO2 ABG 73.3 mmHg (80.0-100.0); PO2 FiO2 Ratio Arterial Blood 2.62 %; Total Hemoglobin 13.6 g/dL (12.0-18.0); pH ABG 7.442 (7.350-7.450)
[2020-06-03 05:10] LABS: CPAP 17 cmH2O; Device CPAP; Modified Allen's Test Pass; Site Drawn LEFT RADIAL
[2020-06-03 06:50] LABS: Alanine Aminotransferase 23 U/L (4-50); Albumin Level 3.4 g/dL (3.5-5.1); Alkaline Phosphatase 58 U/L (38-126); Anion Gap 1 mmol/L (8-16); Aspartate Amino Transferase 24 U/L (17-59); Bilirubin,Total 0.5 mg/dL (0.2-1.3); Blood Urea Nitrogen 15 mg/dL (9-20); Calcium 8.6 mg/dL (8.4-10.2); Carbon Dioxide 38 mmol/L (22-30); Chloride 99 mmol/L (98-107); Estimated CRCL calculation 186 ml/min; Estimated Glomerular Filt Rate > 60; Glucose 95 mg/dL (75-110); Potassium 4.5 mmol/L (3.4-5.0); Sodium 138 mmol/L (137-145)
[2020-06-03] MEDS: ALBUTEROL SULFATE NEB 2.5 MG/0.5 ML INH INHALATION ×2 (09:48→15:40)
[2020-06-03] MEDS: hydrALAZINE HCL 50 MG TABLET 100 MG PO ×2 (10:17→17:06)
[2020-06-03] MEDS: ACYCLOVIR 400 MG TABLET 800 MG PO (10:18)
[2020-06-03] MEDS: buPROPion HCL XL (24 HR) 150 MG TABCR 300 MG PO (10:18)
[2020-06-03] MEDS: amLODIPine BESYLATE 5 MG TABLET PO (10:18)
[2020-06-03] MEDS: DEXAMETHASONE SOD PHOS INJ 4 MG/ML VIAL 6 MG IV PUSH (10:19)
[2020-06-03] MEDS: busPIRone HCL 2.5 MG TABLET 7.5 MG PO ×2 (10:19→17:07)
[2020-06-03] MEDS: lisinopriL 20 MG TABLET 40 MG PO (10:20)
[2020-06-03] MEDS: ENOXAPARIN 40 MG/0.4 ML SYRINGE SUB-Q (10:20)
[2020-06-03] MEDS: TAMSULOSIN HCL 0.4 MG CAPSULE PO (10:20)
[2020-06-03] MEDS: MULTIVITAMINS THERAPEUTIC TAB (*BKC) 1 TABLET PO (10:20)
[2020-06-03] MEDS: ROSUVASTATIN 10 MG TABLET 40 MG PO (10:21)
--- NOTE | 2020-06-03 10:59 | PM.PNPUL ---
Progress Note: A&P Assessment and Plan (1) Pneumonia due to COVID-19 virus: Onset Date: 05/26/20 Code(s): U07.1 - COVID-19; J12.82 - Pneumonia due to coronavirus disease 2019 Status: Acute Assessment and Plan: Patient has pneumonia due to COVID with hypoxemic respiratory failure. Patient was started on dexamethasone on 05/26, remdesivir 05/27 and given convalescent plasma on 05/27. Patient has intermittently required high-flow nasal cannula and BiPAP. -remdesivir and dexamethasone for 10 days unless he has a dramatic improvement -try prone position as tolerated by his morbid obesity -supplemetal oxygen and BiPAP to maintain saturations 90-94% -empiric treatment for community-acquired pneumonia with azithromycin 500 mg q.day and aztreonam 1 g q.8 hours. Cultures negative and DC 05/30. 05/27 No distress on 15 NC oxygen with saturations 92%. 05/28 He states he feels better, sats 97% on 15 L NC, sats 96% on 12 L NC and sats 94% on 10 L NC. Wore hospital BiPAP 09/04 50% with sats 93% last night. 05/29 States he feels better, walking to bedside commode. Saturations on 8 L NC this morning 94% and I decresed to 7 L. 05/30 Continues to improve. Currently on NC 5 L with sats 91%. DC aztreonama nd azithro today. 05/31 Continues to improve. Currently on NC 4 L with sats 97%. Will check CXR in AM 06/01. 06/01 continues to improved, Currently on NC 4 L with sats 95%. CXR improving diffuse interstitial and alverolar infiltrates. 06/02 continues to improved, Currently on NC 1 L with sats 92%. Possible DC on 06/03. 06/03 Continues to improve, ready for DC today. Currently on 1 L with sats 94%. I have not ordered ordered a home O2 assessment. Patient should receive his last dose of REM de severe today and should be discharged to complete 10 days of dexamethasone 10 mg p.o.. (2) Asthma: Qualifiers: Asthma complication type: uncomplicated Asthma persistence: intermittent Asthma severity: mild Qualified Code(s): J45.20 - Mild intermittent asthma, uncomplicated Code(s): J45.909 - Unspecified asthma, uncomplicated Status: Acute Assessment and Plan: Patient with a history of asthma and is maintained on Anoro Ellipta 62.5-25. At this time patient has no wheezes. I will initiate albuterol nebulizers 2.5 q.6 after discussing with Respiratory. It was felt that this would be easier to administer while he was on and off the BiPAP. 2/4 no wheezes, continue 2/ no wheezes, improved respiratory status 2/6 no wheezes, imrpoved, 2/ no wheezes, ambualting in room. continue 06/01 no wheezes, 06/02 no wheezes, continue 2 Patient is somewhat unclear about his medical regimen at home and told me he was on Symbicort wears his home med list list Anoro Ellipta. At this point I would discharge the patient on Symbicort 160-4.51 puff twice a day and rescue albuterol 2 puffs p.o. Q 4 hours p.r.n. shortness of breath. (3) CB on CPAP: Onset Date: 2009 Code(s): G47.33 - Obstructive sleep apnea (adult) (pediatric); Z99.89 - Dependence on other enabling machines and devices Status: Acute Assessment and Plan: Patient has a history of obstructive sleep apnea on CPAP 17 per his report. I have no copies of the CPAP titration studies or downloads. Patient says that he has not seen a physician for his CPAP in many years but that he has excellent clinical response to wearing his CPAP in always wears his CPAP every night. 2/3 Patient currently will be placed on 17/12 BiPAP tonight and will be monitored for desaturations. If patient has desaturate will increase his EPAP accordingly. 2/4 Wore hospital BiPAP 17/12 50% with sats 93% last night and states it felt like home machine. He does not have a way to bring in his home machine. Continue. 2/5 Wore BiPAP 17/12 40% last night with saturations 96%. Tonight will place on hospital machine CPAP 17 at 40%. 2/6 Wore CPAP 17 last night 40% with sats 94 and 96%. Will decrease to F
--- NOTE | 2020-06-03 12:00 | PCRTNOTE ---
no supplemental O2 requirements per home O2 evaluation.
--- NOTE | 2020-06-03 15:01 | PM.DS ---
DS: Admitting Diagnosis Admitting Diagnosis Admitting Diagnosis: Shortness of breath DS: Discharge Diagnosis Discharge Diagnosis (1) Pneumonia due to COVID-19 virus: Onset Date: 05/26/20 Code(s): U07.1 - COVID-19; J12.82 - Pneumonia due to coronavirus disease 2018 Status: Acute Assessment and Plan: On Remdesivir/Dexamethasone day 7 Pt feels much improved only on room air (2) Acute and chronic respiratory failure with hypoxia: Code(s): J96.21 - Acute and chronic respiratory failure with hypoxia Status: Acute Assessment and Plan: Improved, Thanks for pulmonology recommendation (3) CB on CPAP: Onset Date: 2009 Code(s): G47.33 - Obstructive sleep apnea (adult) (pediatric); Z99.89 - Dependence on other enabling machines and devices Status: Acute Assessment and Plan: On CPAP at night time (4) Morbid obesity with BMI of 40.0-44.9, adult: Code(s): E66.01 - Morbid (severe) obesity due to excess calories; Z68.41 - Body mass index [BMI]40.0-44.9, adult Status: Acute Assessment and Plan: Lifestyle and diet modifications. DS: Summary Hospital Course Hospital Course: Pt admitted with COVID and pneumonia. Pt is walking around in the room, earlier today, resting now, friendly talkative, cheerful for his health. No fever or cough on room air now. Pt sp dexamethasone and seven days of remdesivir. Time Spent with Patient Time attestation: Total time spent providing and/or coordinating discharge services:40 minutes on day of discharge Exam Const: Nutritional Appearance: other (Morbid obesity) Chest: Chest palpation & inspection: normal inspection of the chest Resp: Effort & Inspection: normal respiratory effort and able to speak in complete sentences Cardio: Jugular venous distension: no JVD Palpation: normal PMI GI: Inspection: normal to inspection, Pannus present and obesity Auscultation: normal bowel sounds Rectal Exam: deferred Skin: General skin exam: normal color Lesions: no lesions Rashes: no rashes Trauma: no lacerations or abrasions Wounds: no wounds Hair: normal Nails: normal Neuro: General: oriented to person, oriented to place, oriented to time, patient oriented x3, CN's II-XI intact bilaterally and confusion Cranial nerves: Yes CN's II-XII intact bilaterally, Yes Equal, round and reactive pupils present, Yes Bilaterally intact EOM present and Yes Normal hearing present Cognition (Neuro): normal cognition Speech: normal speech Gait exam (Neuro): Normal gait present Motor exam (neuro): 5/5 motor strength present throughout Extrem: General: no pedal edema Psych: Appearance: grossly normal Mental Status: mental status grossly normal Speech and movement: Normal speech and movement present Affect: normal affect Attitude: cooperative Thought process: Normal thought process present Insight: Good insight present (Psych) Judgement: Good judgement present (Psych) DS: Data Data Completed and Pending Labs on day of discharge: Labs from last 24 hours 06/03/20 06/03/20 06:24 05:02 Puncture Site Left radial ABG pH 7.442 ABG pCO2 54.0 H ABG pO2 73.3 L ABG PO2/FiO2 Ratio 2.62 ABG HCO3 36.0 H ABG O2 Saturation 95.0 ABG O2 Content 17.9 ABG Base Excess 10.0 A-a Gradient 62.6 Oxyhemoglobin 93.3 Total Hemoglobin 13.6 O2 Delivery Device Cpap O2 Liters/Min 2.0 FiO2 28 CPAP 17 Sodium 138 Potassium 4.5 Chloride 99 Carbon Dioxide 38 H Anion Gap 1 L BUN 15 Creatinine 0.50 L Estim Creat Clear Calc 186 Estimated GFR > 60 Glucose 95 Calcium 8.6 Total Bilirubin 0.5 AST 24 ALT 23 Alkaline Phosphatase 58 Total Protein 6.0 L Albumin 3.4 L Discharge Plan Discharge Attending physician on discharge: Kasandra Horne Consulting providers: Chito Tinajero Discharging Clinician: Kasandra Horne Anticipated Discharge Date/Time:
[2020-06-03] MEDS: FLUTICASONE PROPIONATE 0.05% NA SPR 16 GM BTL (*BKC) 2 SPRAY NASAL (17:12)
[2020-06-03] MEDS: REMDESIVIR 100 MG/NS 250 ML 100 MG/250 ML BAG 250 MG IVPB (20:05)
--- NOTE | 2020-06-23 15:39 | PCRCNOTE ---
HOME O2 ORDER ENTERED FOR 2L BLEED IN WITH HOME CPAP UNIT. PT HAS [facility], FAXED OVER REQUIRED DOCUMENTATION AND ORDER TO [facility] FOR SET-UP. EVAL WAS DONE AT REST AND EXERTION AND DIDNT QUALIFY FOR O2.
--- NOTE | 2020-06-23 15:57 | PCRCNOTE ---
UPON FURTHER REVIEW, PT DOESN'T HAVE A SERVICED/CURRENT CPAP UNIT FROM [facility], LAST SERVICE ON CPAP FROM [facility] WAS IN 2012. ALPHONSO STATED PT CALLED ON 06/02 FROM HOSPITAL AND ASKED IF HE WAS USING A FRIENDS CPAP UNIT, COULD THEY COME OUT AND UPDATE THE REQUIRED CPAP PRESSURES. ALPHONSO SAID YES THEY CAN, WITH A PRESCRIPTION FROM THE . ALPHONSO HADN'T HEARD ANYTHING FROM PT AFTER THAT. UNSURE AT THIS TIME WHAT PT HAS AT HOME. WILL CONTACT GUCCI AT DR COOK OFFICE FOR FURTHER INFO/UPDATE PT IS DISCHARGED, WILL NEED TO FOLLOW UP WITH CPAP NEEDS A OUTPATIENT.
== END 2020-06-03 21:06 | disposition home or self-care (01) | DRG 177 ==
LOC: ANHED 17:59 → ANHIMU 21:02 → ANHICU 06-05 12:10 → ANHIMU 06-05 12:10
PROVIDERS: Family Medicine; Internal Medicine Pulmonary Disease; Admitting Provider Internal Medicine; Emergency Provider Emergency Medicine; PCP Internal Medicine; Visit Provider Internal Medicine
DX: U07.1 COVID-19 (principal); J12.82 Pneumonia due to coronavirus disease 2019; J96.21 Acute and chronic respiratory failure with hypoxia; Z68.41 Body mass index [BMI] 40.0-44.9, adult; E66.01 Morbid (severe) obesity due to excess calories; G47.33 Obstructive sleep apnea (adult) (pediatric); J45.20 Mild intermittent asthma, uncomplicated; E78.49 Other hyperlipidemia; N40.0 Benign prostatic hyperplasia without lower urinary tract symptoms; F41.9 Anxiety disorder, unspecified; I10 Essential (primary) hypertension; Z28.21 Immunization not carried out because of patient refusal; Z79.899 Other long term (current) drug therapy; Z88.0 Allergy status to penicillin; Z99.89 Dependence on other enabling machines and devices
CPT/HCPCS: 36415; 36430; 36600; 71045; 71275; 80048; 80053; 82565; 82805; 83605; 83880; 84460; 85025; 86900; 86901; 87040; 93005; 93306; 93970; 94002; 94003; 94618; 94640; 94667; 96374; 99291; A9270; J0456; J1100; J1650; J1940; J7050; P9059; Q9967

== ENCOUNTER → 2020-06-22 10:10 | Outpatient (CLI) | payer OTHER, SELFPAY ==
[2020-06-22 22:11] LABS: SARS-CoV-2 RNA PCR Positive
== END ==
PROVIDERS: PCP Internal Medicine; Visit Provider Internal Medicine
DX: U07.1 COVID-19 (principal)
CPT/HCPCS: C9803; U0003; U0005

== ENCOUNTER → 2020-06-29 06:56 | Outpatient (CLI) | payer OTHER, SELFPAY ==
[2020-06-30 12:21] LABS: SARS-CoV-2 RNA PCR Positive
== END ==
PROVIDERS: PCP Internal Medicine; Visit Provider Internal Medicine
DX: U07.1 COVID-19 (principal); J12.82 Pneumonia due to coronavirus disease 2019
CPT/HCPCS: C9803; U0003; U0005

== ENCOUNTER → 2020-07-06 06:55 | Outpatient (CLI) | payer OTHER, SELFPAY ==
[2020-07-06 21:05] LABS: SARS-CoV-2 RNA PCR Positive
== END ==
PROVIDERS: PCP Internal Medicine; Visit Provider Internal Medicine
DX: U07.1 COVID-19 (principal); J12.82 Pneumonia due to coronavirus disease 2019
CPT/HCPCS: C9803; U0003; U0005

== ENCOUNTER → 2020-11-03 06:53 | Outpatient (CLI) | payer OTHER, SELFPAY ==
[2020-11-03 17:38] LABS: SARS-CoV-2 RNA PCR Negative
== END ==
PROVIDERS: PCP Internal Medicine; Visit Provider Internal Medicine
DX: R68.89 Other general symptoms and signs (principal); Z20.822 Contact with and (suspected) exposure to COVID-19
CPT/HCPCS: C9803; U0003; U0005

== ENCOUNTER → 2020-12-29 09:05 | Outpatient (CLI) | payer OTHER, SELFPAY ==
[2020-12-29 19:51] LABS: SARS-CoV-2 RNA PCR Negative
== END ==
PROVIDERS: PCP Internal Medicine; Visit Provider Internal Medicine
DX: Z20.822 Contact with and (suspected) exposure to COVID-19 (principal)
CPT/HCPCS: C9803; U0003; U0005

== ENCOUNTER → 2021-02-09 07:22 | Outpatient (CLI) | payer OTHER, SELFPAY ==
[2021-02-10 19:26] LABS: SARS-CoV-2 RNA PCR Negative
== END ==
PROVIDERS: PCP Internal Medicine; Visit Provider Nurse Practitioner
DX: Z20.822 Contact with and (suspected) exposure to COVID-19 (principal); R09.89 Other specified symptoms and signs involving the circulatory and respiratory systems
CPT/HCPCS: C9803; U0003; U0005

== ENCOUNTER 2021-03-04 11:28 | Outpatient (CLI) | payer OTHER, SELFPAY ==
--- NOTE | 2021-03-24 17:05 | WPDSLEEPSTUD ---
Sleep Study Date of Study: 03/04/21 <Maddie Martinez DO - Last Filed: 03/24/21 17:37> Ordering Provider: Chito Tinajero MD <Maddie Martinez DO - Last Filed: 03/24/21 17:37> Interpreting Physician: Maddie Martinez DO <Maddie Martinez DO - Last Filed: 03/24/21 17:37> Sleep Study Type: BiPAP Titration <Maddie Martinez DO - Last Filed: 03/24/21 17:37> Height: 1.75 m <Maddie Martinez DO - Last Filed: 03/24/21 17:37> Weight: 133.81 kg <Maddie Martinez DO - Last Filed: 03/24/21 17:37> Body Mass Index: 43.5 <Maddie Martinez DO - Last Filed: 03/24/21 17:37> Neck Circumference (inches): 22 <Maddie Martinez DO - Last Filed: 03/24/21 17:37> [place]: 3 <Maddie Martinez DO - Last Filed: 03/24/21 17:37> Reason for Sleep Study Patient has known CB on PAP since 2009. He recently was hospitalized with COVID pneumonia. Needs to have a sleep study to re-evaluate pressure setting and oxygen therapy. <Maddie Martinez DO - Last Filed: 03/24/21 17:37> Sleep History The patient is a 60 y/o male with HTN, asthma, anxiety/depression, CB on PAP (through [facility]) and s/p COVID pneumonia in May 2020 that had a PAP Titration ordered by his pulmonolist, Dr. Padilla. the patient states that he rarely awakens from sleep short of breath. He denies awakening at night with heartburn, belching or cough. He denies snoring loud enough that others complain. He occasionally has trouble sleeping when he has a cold. He denies waking up gasping for air throughout the night. He denies having breathing problems at night. He frequently sweats excessively at night. He occasionally notices heart palpitations or irregular heartbeats during the night. He occasionally falls asleep during the day but never while driving. He denies sleep paralysis, cataplexy and hypnagogic/hypnopompic hallucinations. He denies having nightmares. He occasionally has thoughts racing through his mind. He occasionally feels sad or depressed. He occasionally has anxiety. He denies noticing parts of his body jerk and kicking during the night. He occasionally experiences crawling and aching feelings in his legs as well as leg pain during the night. He occasionally grinds his teeth during sleep but never awakens with jaw pain in the morning. He is occasionally bothered by pain during the day and does occasionally awakened by pain during the night. He occasionally wakes up feeling stiff in the morning with sore and achy muscles. He does not have a set bedtime on weekdays or weekends. He is unsure how long it takes him to fall asleep. He wakes up several times throughout the night to use the restroom. The amount of time he stays awake is variable. He wakes up at 8:00 a.m. on both weekdays and weekends. He typically gets 5 hours of sleep per night. He will stay in bed for 1 hour after awakening. He currently lives with his . He does not consume any caffeinated beverages within 2 hours of bedtime. He does not engage in physical exercise before bedtime. He will watch television before falling asleep. He does take naps in the afternoon or the evening but it they are not refreshing. He quit smoking several years ago. He does drink alcohol occasionally. He denies caffeine and recreational drug use. <Maddie Martinez DO - Last Filed: 03/24/21 17:37> [facility] Past Medical History Medical History: Medical History Anxiety Arthritis Asthma Bilateral chronic knee pain Cataract Cornea transplant recipient Depressive disorder, not elsewhere classified Environmental allergies Essential (primary) hypertension Hernia HLD (hyperlipidemia) Hyperlipidemia Lymphedema of both lower extremities Mild persistent asthma without complication Mixed hyperlipidemia CB on CPAP (2009) Screening for prostate cancer Tear of men
[2021-03-24 17:18] VITALS: BMI 43.5
== END 2021-03-05 07:42 | disposition home or self-care (01) ==
LOC: ANHCSM 11:28
PROVIDERS: PCP Internal Medicine; Visit Provider Internal Medicine Pulmonary Disease
DX: G47.33 Obstructive sleep apnea (adult) (pediatric) (principal); Z99.89 Dependence on other enabling machines and devices
CPT/HCPCS: 95811

== ENCOUNTER 2021-03-30 08:14 | Outpatient (RCR) | payer OTHER, SELFPAY ==
[2021-03-30 08:21] VITALS: BMI 44.7
[2021-03-30 08:24] VITALS: BMI 44.7
== END 2021-03-30 12:00 | disposition home or self-care (01) ==
LOC: ANHDMC 08:14
PROVIDERS: PCP Internal Medicine; Visit Provider Nurse Practitioner
DX: E66.01 Morbid (severe) obesity due to excess calories (principal); Z68.41 Body mass index [BMI] 40.0-44.9, adult; Z71.3 Dietary counseling and surveillance
CPT/HCPCS: 97802

== ENCOUNTER → 2021-03-30 09:56 | Outpatient (CLI) | payer OTHER, SELFPAY ==
[2021-03-30 14:39] LABS: Influenza Control Positive
[2021-03-30 20:28] LABS: SARS-CoV-2 RNA PCR Negative
== END ==
PROVIDERS: PCP Internal Medicine; Visit Provider Internal Medicine
DX: R09.89 Other specified symptoms and signs involving the circulatory and respiratory systems (principal); Z20.822 Contact with and (suspected) exposure to COVID-19
CPT/HCPCS: 87804; 97802; C9803; U0003; U0005

== ENCOUNTER 2021-04-03 18:01 | Emergency (ER) | payer OTHER, SELFPAY ==
--- NOTE | 2021-04-03 18:10 | ED.URI ---
HPI - URI/Sore Throat General Chief Complaint: Chest Pain Stated Complaint: Chills,Shakey Legs Time Seen by Provider: 04/03/21 18:10 Source: patient, RN notes reviewed and old records reviewed Mode of arrival: ambulatory Limitations: no limitations History of Present Illness HPI Narrative: 60-year-old male presents to the [facility] with complaints of feeling weak, diaphoretic this morning, felt like his oxygen level was low and chest tightness. States that he called his primary care provider and was prescribed Levaquin. had Covid back in . States he has had breathing problems ever since. States that he just feels like he is not getting any better. Has been out of his Lasix for several days. Primary care provider sent Levaquin 750 in today. Related Data Home Medications Medication Instructions Recorded Confirmed multivitamin 1 tablet PO DAILY 12/03/19 02/23/21 Allergies Allergy/AdvReac Type Severity Reaction Status Date / Time peanut Allergy Mild itchy Verified 04/03/21 19:26 Penicillins Allergy Mild Rash Verified 04/03/21 19:26 Review of Systems Review of Systems: All systems reviewed & are unremarkable except as noted in HPI and below Constitutional: Constitutional: Reports as per HPI, Reports chills, Reports fatigue and Reports weakness ENT: Reports system reviewed and no additional complaints, except as documented Cardiovascular: Cardiovascular: Reports as per HPI, Reports chest pain, Denies rapid heart rate, Denies radiating jaw, neck or arm pain and Denies slow heart rate Respiratory: Respiratory: Reports as per HPI, Reports chest congestion, Denies cough and Reports dyspnea Gastrointestinal: Gastrointestinal: Reports as per HPI, Reports no additional gastrointestinal complaints, Denies abdominal pain, Reports nausea and Denies vomiting Musculoskeletal: Musculoskeletal: Reports as per HPI and Reports myalgias (Generalized) Integumentary/Breasts: Skin/Breast: Reports as per HPI Neurologic: Reports as per HPI, Denies focal weakness, Denies numbness and Reports weakness Psychiatric: Psychiatric: Reports no additional psychiatric complaints Allergic/Immunologic: Allergic/Immunologic: Reports no additional allergic/immunologic complaints PMFSH Past Medical History Medical History Anxiety Arthritis Asthma Bilateral chronic knee pain Cataract Cornea transplant recipient Depressive disorder, not elsewhere classified Environmental allergies Essential (primary) hypertension Hernia HLD (hyperlipidemia) Hyperlipidemia Lymphedema of both lower extremities Mild persistent asthma without complication Mixed hyperlipidemia CB on CPAP (2009) Screening for prostate cancer Tear of meniscus of left knee Surgical History Surgical History H/O hernia repair 2009 Hx laparoscopic cholecystectomy 12/18/19 Hx of cornea transplant S/P left knee arthroscopy Family History Family History Other Adopted Social History Social History Social History: The patient works at [employer] during the day and [employer] during the night. The patient lives with a pet dog. Patient quit smoking about 5-10 years ago. The patient does not use any alcohol marijuana or illicit drugs. He desires to be a full code. And his sister is a durable power civil attorney for healthcare. He has no children. He is adopted and does not know his biological parents. Smoking packs per day: 1 Smoking cigarettes per day: 20.0 Years smoked: 25 Smoking pack-years: 25.00 Tobacco type: cigarettes Second hand tobacco smoke exposure: No Additional smoking assessment comments: QUIT 5 YEARS AGO Alcohol intake: current Drinks per week: 2 Substance use: never Substance use type: does not use Additional occupation/education comm
[2021-04-03 18:13] VITALS: BP 110/67; PULSE 117; RESP 18; TEMP 36.9; O2SAT 95
[2021-04-03 18:30] VITALS: BP 112/70
[2021-04-03 18:46] VITALS: BP 110/67; PULSE 117; RESP 18; TEMP 36.9; O2SAT 95
--- NOTE | 2021-04-03 19:00 | ECG_ITS ---
Measurements Intervals [place] Rate: 85 P: 43 NM: 280 QRS: 6 QRSD: 111 T: 15 QT: 385 QTc: 459 Interpretive Statements SINUS RHYTHM WITH FIRST DEGREE AV BLOCK ATRIAL PREMATURE COMPLEXES POSSIBLE LEFT ATRIAL ENLARGEMENT INTERMITTENT RIGHT BUNDLE BRANCH BLOCK AND INCOMPLETE RIGHT BUNDLE BRANCH BLOCK BASELINE ARTIFACT- I, II, III, AVR, AVL, AVF ABNORMAL ECG Electronically Signed On 04-04-2021 7:55:16 NUCLEAR FUEL PROCESSING TECHNICIAN by Torsten Phillips D.O.
== END 2021-04-03 18:30 | disposition short-term general hospital (02) ==
PROVIDERS: Emergency Provider Nurse Practitioner; PCP Internal Medicine
DX: I44.1 Atrioventricular block, second degree (principal); F17.210 Nicotine dependence, cigarettes, uncomplicated
CPT/HCPCS: 93005; 99215; G0463

== ENCOUNTER 2021-04-03 18:58 | Inpatient (IN) | payer OTHER, SELFPAY ==
[2021-04-03] VITALS (18 sets, daily range): BP systolic 112–146; BP diastolic 70–85; PULSE 95–115; RESP 16–27; TEMP 36.3–36.9; O2SAT 93–99; BMI 43.6
--- NOTE | ~2021-04-03 | XR_ITS ---
EXAMINATION: XR chest 1V portable INDICATION: Cough and shortness of breath TECHNIQUE: Portable AP chest at 0102 hours COMPARISON: 06/01/2020 FINDINGS: The lungs are free of acute opacities. There is no pleural effusion or pneumothorax. The ca rdiomediastinal silhouette is normal. IMPRESSION: 1. No acute cardiopulmonary abnormality. Reviewed, dictated and finalized at location A. RN LANGUAGES PROFESSOR
--- NOTE | 2021-04-03 17:20 | ECG_ITS ---
Measurements Intervals [place] Rate: 74 P: PA: 0 QRS: 3 QRSD: 103 T: 15 QT: 386 QTc: 430 Interpretive Statements SINUS RHYTHM WITH 2ND DEGREE AV BLOCK, MOBITZ TYPE II INCOMPLETE RIGHT BUNDLE BRANCH BLOCK BASELINE ARTIFACT- I, II, AVR, AVL, AVF ABNORMAL ECG Electronically Signed On 04-06-2021 14:22:15 GAMBLING DEALER by Torsten Phillips D.O.
--- NOTE | 2021-04-03 19:12 | ECG_ITS ---
Measurements Intervals [place] Rate: 110 P: 253 MO: 259 QRS: 2 QRSD: 166 T: 15 QT: 334 QTc: 453 Interpretive Statements SINUS OR ECTOPIC ATRIAL TACHYCARDIA WITH FIRST DEGREE AV BLOCK RIGHT BUNDLE BRANCH BLOCK CANNOT RULE OUT SEPTAL INFARCT, AGE INDETERMINATE CONSIDER INFERIOR INFARCT, AGE INDETERMINATE ST-T WAVE ABNORMALITY IN ANTEROLATERAL LEADS- CONSIDER ISCHEMIA BASELINE ARTIFACT- I, II, III, AVR, AVL, AVF ABNORMAL ECG Electronically Signed On 04-04-2021 16:34:50 BUCKLE STRAP DRUM OPERATOR by Torsten Phillips D.O.
[2021-04-03 19:45] LABS: Basophils Absolute Auto 0.1 K/mm3 (0.0-0.1); Basophils Percent Auto 0.5 % (0.2-1.2); Eosinophils Absolute Auto 0.1 K/mm3 (0-0.3); Eosinophils Percent Auto 0.5 % (0-4.4); Hematocrit 39.3 % (42.0-52.0); Hemoglobin 13.5 g/dL (14.0-18.0); Immature Granulocyte Absolute 0.04 K/mm3 (0.00-0.031); Immature Granulocyte Percent A 0.4 % (0-0.5); Lymphocytes Absolute Auto 1.35 K/mm3 (0.9-3.2); Lymphocytes Percent Auto 13.5 % (18.3-44.2); Mean Corpuscular HGB Conc 34.4 g/dl (32-36); Mean Corpuscular Hemoglobin 33.7 pg (26-34); Mean Platelet Volume 9.4 fl (7.4-10.4); Monocytes Absolute Auto 1.1 K/mm3 (0.1-0.6); Monocytes Percent Auto 11.1 % (2.6-8.5); Neutrophils Absolute Auto 7.4 K/mm3 (1.3-6.7); Platelet Count Result 202 k/mm3 (150-375); Red Blood Count 4.01 M/mm3 (4.6-6.20); Red Cell Distribution Width 13.6 % (11.5-14.5)
[2021-04-03 19:56] LABS: Alanine Aminotransferase 27 U/L (4-50); Albumin Level 4.5 g/dL (3.5-5.1); Alkaline Phosphatase 71 U/L (38-126); Anion Gap 9 mmol/L (8-16); Aspartate Amino Transferase 40 U/L (17-59); Bilirubin,Total 1.7 mg/dL (0.2-1.3); Blood Urea Nitrogen 24 mg/dL (9-20); Carbon Dioxide 30 mmol/L (22-30); Chloride 93 mmol/L (98-107); Estimated CRCL calculation 94 ml/min; Estimated Glomerular Filt Rate > 60; Glucose 105 mg/dL (65-110); Potassium 3.5 mmol/L (3.4-5.0); Sodium 132 mmol/L (137-145)
[2021-04-03 20:08] LABS: Troponin I 0.016 ng/mL (0.000-0.034)
--- NOTE | 2021-04-03 20:08 | ED.GENADULT ---
HPI - General Adult General Chief complaint: Dizziness Stated complaint: EKG changes Time Seen by Provider: 04/03/21 19:44 History of Present Illness HPI narrative: Patient 60-year-old gentleman who presents the emergency department chief complaint of dizziness. Patient reports that he has prior history of COVID-19 evaluation states that he has been having episodes of palpitations and feeling lightheaded. Patient states is a little bit of shortness of breath with this. Patient states that he had 2 episodes today where he felt very lightheaded at work and was concerned that his symptoms are getting more frequent. Patient reports that he has had bronchospasm since then and his primary doctor started him on some Levaquin today. Related Data Home Medications Medication Instructions Recorded Confirmed multivitamin 1 tablet PO DAILY 12/03/19 04/03/21 Allergies Allergy/AdvReac Type Severity Reaction Status Date / Time peanut Allergy Mild itchy Verified 04/03/21 19:26 Penicillins Allergy Mild Rash Verified 04/03/21 19:26 Review of Systems Review of Systems: A 10 system review of systems was completed on the patient and is negative except for what is stated in the HPI. Nursing and ancillary documentation was reviewed. [facility] Past Medical History Medical History Anxiety Arthritis Asthma Bilateral chronic knee pain Cataract Cornea transplant recipient Depressive disorder, not elsewhere classified Environmental allergies Essential (primary) hypertension Hernia HLD (hyperlipidemia) Hyperlipidemia Lymphedema of both lower extremities Mild persistent asthma without complication Mixed hyperlipidemia CB on CPAP (2009) Screening for prostate cancer Tear of meniscus of left knee Surgical History Surgical History H/O hernia repair 2009 Hx laparoscopic cholecystectomy 12/18/19 Hx of cornea transplant S/P left knee arthroscopy Family History Family History Other Adopted Social History Social History Social History: The patient works at [employer] during the day and [employer] during the night. The patient lives with a pet dog. Patient quit smoking about 5-10 years ago. The patient does not use any alcohol marijuana or illicit drugs. He desires to be a full code. And his sister is a durable power vice chancellor for healthcare. He has no children. He is adopted and does not know his biological parents. Smoking packs per day: 1 Smoking cigarettes per day: 20.0 Years smoked: 25 Smoking pack-years: 25.00 Tobacco type: cigarettes Second hand tobacco smoke exposure: No Additional smoking assessment comments: QUIT 5 YEARS AGO Alcohol intake: current Drinks per week: 2 Substance use: never Substance use type: does not use Additional occupation/education comments: [employer] Gender identity (if verbalized by the patient): Male Spiritual care concerns: No Exam Narrative: GENERAL: Well-appearing, well-nourished, and in no acute distress. HEAD: Normocephalic, atraumatic. EYES: PERRLA and EOMI. ENT: Nares clear, no rhinorrhea or epistaxis. Mucous membranes moist. NECK: Supple. CHEST: Clear to auscultation. No respiratory distress. HEART: Regular rate and rhythm. No murmur heard. Normal peripheral pulses. ABDOMEN: Soft, nontender, nondistended, normal active bowel sounds. EXTREMITIES: Normal range of motion. No edema. SKIN: Warm, dry, no rash. NEURO: No focal deficits. Alert and oriented x3. PSYCH: Normal mood and affect. Course Vital Signs Vital signs: Vital Signs Temperature 36.9 C 04/03/21 19:05 Pulse Rate 109 H 04/03/21 19:05 Respiratory Rate 20 04/03/21 19:05 Blood Pressure 146/79 H 04/03/21 19:05 Pulse Oximetry 96
[2021-04-03 22:25] LABS: Partial Thromboplastin Time 20.9 SECONDS (22.3-36.8); Prothrombin Time 12.7 Seconds (11.1-14.7)
--- NOTE | 2021-04-03 23:30 | PC.NURSE ---
This patient, Addi Caal, was admitted to IMU Room 205-02. Patient/family oriented to hospital policies and general routines including ID bracelet, bed and alarms, visiting hours, pain management, procedures, bathroom and other care routines, personal items, smoking policy, room service/diet, and visiting hours. Information on how to activate the Rapid Response Team has been discussed. Patient/Family are encouraged to report perceived risks to care and to ask questions if they do not understand what they are told or what they should do.
[2021-04-04] VITALS (19 sets, daily range): BP systolic 110–163; BP diastolic 53–92; PULSE 42–108; RESP 20–24; TEMP 35.6–36.6; O2SAT 93–98
--- NOTE | 2021-04-04 00:23 | ECG_ITS ---
Measurements Intervals [place] Rate: 53 P: CT: 0 QRS: 16 QRSD: 108 T: 9 QT: 444 QTc: 420 Interpretive Statements SINUS RHYTHM WITH COMPLETE HEART BLOCK JUNCTIONAL ESCAPE RHYTHM CANNOT RULE OUT SEPTAL INFARCT, AGE INDETERMINATE BASELINE ARTIFACT- I, II, III, AVR, AVL, AVF ABNORMAL ECG Electronically Signed On 04-04-2021 8:07:42 AUTOMOTIVE TEACHER by Torsten Phillips D.O.
--- NOTE | 2021-04-04 00:25 | PM.IMHP ---
H&P: HPI History of Present Illness Date/Time: 04/04/21 00:25 Chief Complaint: Dizziness Narrative: This is a 60-year-old male with past medical history significant for morbid obesity, obstructive sleep apnea on CPAP at nighttime, COVID pneumonia, hypertension, and generalized anxiety disorder, COPD/asthma/chronic bronchitis patient presented to the emergency room after he has been having episodes of lightheadedness and breaking out in sweats this has been going on for a few weeks now patient had been on a [place] course in the outpatient setting but states that that it does not do anything and then his blood bank business manager prescribed him Levaquin. Patient was today at his job when he had an episode of palpitations, lightheadedness and sweats, patient works 2 jobs 1 is at [email or web address] and the other job is at [employer]. He has not been feeling well for the last couple of weeks or so also noticed bilateral lower extremity swelling has had chills but no fevers and has been having a productive cough of greenish sputum copious amounts. Upon presentation to the emergency preliminary workup was significant for EKG with a TN interval greater than 200. At the time of my visit patient denied any chest pain or syncope, no nausea, no vomiting ,no diarrhea, no PND, no orthopnea. Decision has been made to admit the patient for further evaluation management and treatment Review of Systems Review of Systems: Lightheadedness, palpitations, shortness of breath ,cough productive of greenish sputum, copious amounts, bilateral lower extremity swelling, sweats. Constitutional: Constitutional: Denies chills, Denies fatigue, Denies fever(s), Denies lethargy, Denies malaise, Denies poor appetite and Denies weakness Comments: Sweats Eyes: Eyes: Denies change in vision ENT: Denies dysphagia, Denies nasal congestion, Denies nasal discharge, Denies nasal obstruction and Denies odynophagia Cardiovascular: Cardiovascular: Denies chest pain, Reports diaphoresis, Reports pedal edema, Denies claudication, Reports leg edema, Reports lightheadedness, Denies radiating jaw, neck or arm pain, Reports palpitations, Reports dyspnea, Reports dyspnea on exertion and Denies orthopnea Respiratory: Respiratory: Reports change in phlegm color, Reports cough, Reports excessive phlegm production and Reports dyspnea Gastrointestinal: Gastrointestinal: Denies abdominal pain, Denies dyspepsia, Denies heartburn, Denies diarrhea, Denies nausea and Denies vomiting Genitourinary: Genitourinary: Denies dysuria Musculoskeletal: Musculoskeletal: Denies myalgias and Denies muscle weakness Integumentary/Breasts: Skin/Breast: Denies rash Neurologic: Denies focal weakness and Denies Sensory deficit (Neuro) Psychiatric: Psychiatric: Reports no additional psychiatric complaints and Reports as per HPI Endocrine: Endocrine: Reports no additional endocrine complaints and Reports as per HPI Hematologic/Lymphatic: Hematologic/Lymphatic: Reports no additional hematologic/lymphatic complaints and Reports as per HPI Allergic/Immunologic: Allergic/Immunologic: Reports no additional allergic/immunologic complaints and Reports as per HPI PMFSH Past Medical History Medical History (Updated 04/04/21 @ 02:16 by Tommie Bob MD) Anxiety Arthritis Asthma Bilateral chronic knee pain Cataract Cornea transplant recipient Depressive disorder, not elsewhere classified Environmental allergies Essential (primary) hypertension Hernia HLD (hyperlipidemia) Hyperlipidemia Lymphedema of both lower extremities Mild persistent asthma without complication Mixed hyperlipidemia CB on CPAP (2009) Screening for prostate cancer Tear of meniscus of left knee Surgical History Surgical History H/O hernia repair 2009 Hx laparoscopic cholecystectomy 12/18/19 Hx of cornea transplant S/P left knee arthroscopy Family History Family History (Reviewed 04/03/21 @ 2
[2021-04-04] MEDS: traMADol/ACETAMINOPHEN (*CRX) (ULTRACET) 37.5/325 MG TABLET 1 TAB PO (01:06)
[2021-04-04] MEDS: prednisoLONE ACETATE 1% OPHTH 5 ML 1 DROP LEFT EYE ×5 (01:07→20:21)
[2021-04-04 02:28] LABS: NT Pro B Type Natriuretic Pept 87 pg/mL (5-100)
[2021-04-04 02:31] LABS: Troponin I < 0.012 ng/mL (0.000-0.034)
[2021-04-04] MEDS: methylPREDNISolone SOD SUCC 40 MG VIAL IV PUSH ×5 (02:37→23:18)
[2021-04-04] MEDS: cefTRIAXone 2 GM in SODIUM CHLORIDE 0.9% IV 100 ML 200 ML IVPB ×2 (02:38→22:25)
[2021-04-04 09:00] LABS: Hematocrit 38.6 % (42.0-52.0); Hemoglobin 13.3 g/dL (14.0-18.0); Mean Corpuscular HGB Conc 34.5 g/dl (32-36); Mean Corpuscular Hemoglobin 33.8 pg (26-34); Mean Corpuscular Volume 98.2 fl (80-100); Mean Platelet Volume 9.7 fl (7.4-10.4); Platelet Count Result 202 k/mm3 (150-375); Red Blood Count 3.93 M/mm3 (4.6-6.20); Red Cell Distribution Width 13.4 % (11.5-14.5); White Blood Count 7.1 K/mm3 (4.5-10.0)
[2021-04-04 09:15] LABS: Alanine Aminotransferase 23 U/L (4-50); Albumin Level 4.4 g/dL (3.5-5.1); Alkaline Phosphatase 68 U/L (38-126); Anion Gap 8 mmol/L (8-16); Aspartate Amino Transferase 32 U/L (17-59); Bilirubin,Total 1.1 mg/dL (0.2-1.3); Blood Urea Nitrogen 20 mg/dL (9-20); Calcium 8.8 mg/dL (8.4-10.2); Carbon Dioxide 28 mmol/L (22-30); Chloride 92 mmol/L (98-107); Estimated CRCL calculation 131 ml/min; Estimated Glomerular Filt Rate > 60; Glucose 184 mg/dL (65-110); Magnesium 1.9 mg/dL (1.6-2.3); Sodium 128 mmol/L (137-145)
[2021-04-04] MEDS: busPIRone HCL 2.5 MG TABLET PO ×2 (09:25→16:22)
[2021-04-04] MEDS: busPIRone HCL 5 MG TABLET PO ×2 (09:26→16:23)
[2021-04-04] MEDS: ACYCLOVIR 400 MG TABLET 800 MG PO (09:26)
[2021-04-04] MEDS: buPROPion HCL XL (24 HR) 150 MG TABCR 300 MG PO (09:27)
[2021-04-04] MEDS: hydrALAZINE HCL 50 MG TABLET 100 MG PO ×3 (09:27→16:22)
[2021-04-04] MEDS: FUROSEMIDE INJ 40 MG/4 ML VIAL IV PUSH ×2 (09:28→16:21)
[2021-04-04] MEDS: MULTIVITAMINS THERAPEUTIC TAB (*BKC) 1 TABLET PO (09:28)
[2021-04-04] MEDS: FLUTICASONE PROPIONATE 0.05% NA SPR 16 GM BTL (*BKC) 2 SPRAY NASAL (09:28)
[2021-04-04] MEDS: ROSUVASTATIN 10 MG TABLET 40 MG PO (09:29)
[2021-04-04] MEDS: TAMSULOSIN HCL 0.4 MG CAPSULE PO (09:29)
[2021-04-04] MEDS: UMECLIDINIUM BROMIDE 62.5 MCG ELLIPTA 1 PUFF INHALATION (10:46)
[2021-04-04] MEDS: FLUTICASONE/SALMETEROL 230-21 MCG INHALER 1 PUFF 2 PUFF INHALATION ×2 (10:46→20:54)
--- NOTE | 2021-04-04 11:33 | PM.CNCAR ---
Assessment and Plan Additional Plan 60-year-old man with what appears to be second-degree AV block Mobitz type 1. He may be symptomatic with this with some lightheadedness. He has not experienced a sandra syncopal episode. We will watch his telemetry with you while he is in the hospital. Currently being treated for bronchitis. An echocardiogram will be done to ensure that there is no evidence of COVID myocarditis. The patient was specifically concerned about this possibility he has been reading about the possibility of COVID impacting his heart in this fashion. I reassured him that when he was in the hospital with this in the early part of the year I did not believe that was a significant concern. I spoke to the patient that a pacemaker procedure may be indicated if he has higher grades of AV block identified but at this time it does not appear to be indicated. Chito Fung MD [facility] History of Present Illness History of Present Illness Consult date/time: 04/04/21 11:33 Reason For Visit: Palpitations, shortness of breath abnormal EKG Narrative: This is a 60-year-old man I am seeing at the request of the hospitalist because of arrhythmias noted on telemetry and ECG. The patient does not have any prior history of cardiac problems as far as I can tell and as far as he is aware. He came into the hospital through the emergency department last night because of symptoms of fatigue lightheadedness and cough productive of dark greenish colored sputum for a while. He was felt to have bronchitis clinically and was placed on some antibiotics. Apparently his ECG was noted to be abnormal he was placed on telemetry and because of arrhythmias I have been asked to see him in consultation. He does have symptoms of lightheadedness but has not had an episode of sandra syncope in his life. His telemetry and appears to show evidence of sinus rhythm with second-degree AV block Mobitz type 1. There is also evidence of a rate related right bundle branch block. He has a history of morbid obesity but he has lost a lot of weight in the last year. He has been in poor health since the early part of this year when he was hospitalized with coronavirus. He says he was in hospital here for about 8 or 9 days. He does not remember having any cardiac issues when he was in the hospital. An echocardiogram done at that time was interpreted as showing normal left ventricular systolic function and no significant valvular disease. He does have COPD and sleep apnea and is on BiPAP treatment for that as well as hypertension. He is not taking any medications that would affect his AV node physiology. Review of Systems Review of Systems: ROS unobtainable: Yes unobtainable due to medical condition Constitutional: Constitutional: Reports fatigue Eyes: Eyes: Reports no additional eye complaints ENT: Reports system reviewed and no additional complaints, except as documented Cardiovascular: Cardiovascular: Reports no additional cardiovascular complaints Respiratory: Respiratory: Reports cough and Reports dyspnea Gastrointestinal: Gastrointestinal: Reports no additional gastrointestinal complaints Musculoskeletal: Musculoskeletal: Reports no additional musculoskeletal complaints Integumentary/Breasts: Skin/Breast: Reports system reviewed and no additional complaints, except as docu Neurologic: Reports system reviewed and no additional complaints, except as documented Endocrine: Endocrine: Reports no additional endocrine complaints Hematologic/Lymphatic: Hematologic/Lymphatic: Reports no additional hematologic/lymphatic complaints Allergic/Immunologic: Allergic/Immunologic: Reports no additional allergic/immunologic complaints [facility] Past Medical History Medical History (Updated 04/04/21 @ 02:16 by Tommie Bob MD) Anxiety Arthritis Asthma Bilateral chronic knee pain Cataract Cornea transplant recipient Depressive disorder, not elsewhere classified Environment
--- NOTE | 2021-04-04 14:53 | PM.IMPN ---
Progress Note: A&P Assessment and Plan (1) Acute bronchitis: Code(s): J20.9 - Acute bronchitis, unspecified Status: Acute Assessment and Plan: Patient has had copious production of greenish sputum for 2 weeks or so patient had been seen in the outpatient setting initially prescribed Z-[place] but did not help him that his automatic hemmer prescribing Levaquin Patient presents to the emergency room with productive cough of copious greenish sputum Have been started on Rocephin and Zithromax Blood cultures in progress (2) Palpitations: Code(s): R00.2 - Palpitations Status: Acute Assessment and Plan: Upon presentation EKG showed a MN interval greater than 200 Levaquin has been stopped Patient with no episodes in the emergency room Admitted to telemetry unit Echocardiogram in a.m. 04/04/2021 Interval history: patient with history Asthma/COPD seen by pulmonology initially patient was treated with Zithromax and then was given Levaquin for bronchitis he presented emergency department with complaints of lightheadedness and palpitation, EKG showed second-degree AV block Mobitz type 1. 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 (3) Asthma: Qualifiers: Asthma severity: mild Asthma persistence: intermittent Asthma complication type: uncomplicated Qualified Code(s): J45.20 - Mild intermittent asthma, uncomplicated Code(s): J45.909 - Unspecified asthma, uncomplicated Status: Acute Assessment and Plan: Continue home meds Breathing treatments Systemic steroids (4) AV block, 2nd degree: Code(s): I44.1 - Atrioventricular block, second degree Status: Acute Assessment and Plan: EKG performed showed MN interval greater than 200 However repeat EKG shows resolution of this Continue to monitor (5) CB (obstructive sleep apnea): Code(s): G47.33 - Obstructive sleep apnea (adult) (pediatric) Status: Acute Assessment and Plan: Patient is on CPAP at nighttime Patient is awaiting BiPAP titration Continue CPAP at bedtime (6) Essential (primary) hypertension: Code(s): I10 - Essential (primary) hypertension Status: Acute Assessment and Plan: Continue home meds Continue to monitor (7) Morbid obesity with BMI of 40.0-44.9, adult: Code(s): E66.01 - Morbid (severe) obesity due to excess calories; Z68.41 - Body mass index [BMI] 40.0-44.9, adult Status: Acute Assessment and Plan: Lifestyle and diet modifications (8) Personal history of nicotine dependence: Code(s): Z87.891 - Personal history of nicotine dependence Status: Acute Assessment and Plan: Patient is currently on bupropion (9) Lymphedema of both lower extremities: Code(s): I89.0 - Lymphedema, not elsewhere classified Status: Acute Assessment and Plan: Compression stockings (10) Infiltrate of lung present on chest x-ray: Code(s): R91.8 - Other nonspecific abnormal finding of lung field Status: Acute Assessment and Plan: Compared to prior x-rays Patient with some component of lung edema will obtain a BNP ECHOCARDIOGRAM in am. Will diurese Repeat chest x-ray Subjective Date/time seen: 04/04/21 14:53 Chief Complaint: Dizziness HPI: Narrative: This is a 60-year-old male with past medical history significant for morbid obesity, obstructive sleep apnea on CPAP at nighttime, COVID pneumonia, hypertension, and generalized anxiety disorder, COPD/asthma/chronic bronchitis patient presented to the emergency room after he has been having episodes of lightheaded
[2021-04-05] VITALS (18 sets, daily range): BP systolic 119–148; BP diastolic 51–89; PULSE 45–113; RESP 16–24; TEMP 36.4–36.8; O2SAT 92–98
--- NOTE | 2021-04-05 | ECHO_ITS ---
Patient Info Name: Addi Caal Age: 60 years : 1960 Gender: Male Ht: 69 in Wt: 295 lbs BSA: 2.62 m2 HR: 92 bpm BP: 128 / 51 mmHg Heart Rhythm: Sinus Rhythm Exam Date: 04/05/2021 11:04 AM Exam Location: [facility] Patient Status: Outpatient Admit Date: 04/03/2021 Staff Ordering Physician: Tommie Bob MD Casino Shift Manager: Rashad Peña, IRENE, RT Attending Provider: Tommie Bob MD Referring Physician: Lisbeth MCGRATH; Exam Type: CA echo doppler color flow Study Info Indications R60.1 - Generalized edema Complete two-dimensional, color flow and Doppler transthoracic echocardiogram is performed. Summary 1. Complete two-dimensional, color flow and Doppler transthoracic echocardiogram is performed. 2. Left ventricular chamber dimension is mildly enlarged. 3. Left ventricular systolic function is normal, estimated at >70%. 4. There is mildly increased left ventricular wall thickness. 5. The left ventricular diastolic function is grade II diastolic dysfunction. 6. Left atrial chamber dimension is moderately enlarged. 7. Right atrial chamber dimension is moderate to severely enlarged. 8. There is mild aortic valve stenosis with a peak velocity of 203 cm/s, mean gradient of 8 mmHg, and aortic valve area of 2.0 cm2. 9. There is trace tricuspid valve regurgitation. 10. No pulmonary hypertension, estimated pulmonary arterial systolic pressure is 32 mmHg. Left Ventricle Left ventricular chamber dimension is mildly enlarged. Left ventricular systolic function is normal, estimated at >70%. There is mildly increased left ventricular wall thickness. The left ventricular diastolic function is grade II diastolic dysfunction. Right Ventricle Right ventricular chamber dimension is normal. Right ventricular systolic function is normal. Left Atria Left atrial chamber dimension is moderately enlarged. Right Atria Right atrial chamber dimension is moderate to severely enlarged. Aortic Valve The aortic valve is probable trileaflet. There is mild aortic valve stenosis with a peak velocity of 203 cm/s, mean gradient of 8 mmHg, and aortic valve area of 2.0 cm2. There is no aortic valve regurgitation. Pulmonic Valve The pulmonic valve is normal. There is trace pulmonic regurgitation. Mitral Valve The mitral valve has normal leaflets. There is trace mitral valve regurgitation. Tricuspid Valve The tricuspid valve leaflets are normal. There is trace tricuspid valve regurgitation. No pulmonary hypertension, estimated pulmonary arterial systolic pressure is 32 mmHg. Pericardium/Pleural The pericardium appears normal. There is small pericardial effusion. Inferior Vena Cava Normal inferior vena cava with >50% collapse upon inspiration consistent with normal right atrial pressure, 5 mmHg. Aorta The aortic root size at the sinus of Valsalva is normal. There is mild aortic atherosclerosis. Left Ventricular Outflow Tract Name Value Normal LVOT 2D LVOT Diameter 2.1 cm LVOT Doppler LVOT Peak Gradient 5 mmHg LVOT Mean Gradient 3 mmHg
[2021-04-05] MEDS: methylPREDNISolone SOD SUCC 40 MG VIAL IV PUSH ×3 (05:33→17:21)
[2021-04-05] MEDS: FLUTICASONE/SALMETEROL 230-21 MCG INHALER 1 PUFF 2 PUFF INHALATION ×2 (08:46→20:06)
[2021-04-05] MEDS: UMECLIDINIUM BROMIDE 62.5 MCG ELLIPTA 1 PUFF INHALATION (08:46)
[2021-04-05] MEDS: ACYCLOVIR 400 MG TABLET 800 MG PO (09:30)
[2021-04-05] MEDS: buPROPion HCL XL (24 HR) 150 MG TABCR 300 MG PO (09:30)
[2021-04-05] MEDS: hydrALAZINE HCL 50 MG TABLET 100 MG PO ×3 (09:30→17:20)
[2021-04-05] MEDS: FLUTICASONE PROPIONATE 0.05% NA SPR 16 GM BTL (*BKC) 2 SPRAY NASAL (09:31)
[2021-04-05] MEDS: busPIRone HCL 5 MG TABLET PO ×2 (09:31→17:21)
[2021-04-05] MEDS: prednisoLONE ACETATE 1% OPHTH 5 ML 1 DROP LEFT EYE ×4 (09:31→20:19)
[2021-04-05] MEDS: FUROSEMIDE INJ 40 MG/4 ML VIAL IV PUSH ×2 (09:31→17:20)
[2021-04-05] MEDS: busPIRone HCL 2.5 MG TABLET PO ×2 (09:31→17:21)
[2021-04-05] MEDS: MULTIVITAMINS THERAPEUTIC TAB (*BKC) 1 TABLET PO (09:31)
[2021-04-05] MEDS: ROSUVASTATIN 10 MG TABLET 40 MG PO (09:32)
[2021-04-05] MEDS: TAMSULOSIN HCL 0.4 MG CAPSULE PO (09:32)
--- NOTE | 2021-04-05 10:13 | ECG_ITS ---
Measurements Intervals [place] Rate: 72 P: IA: 0 QRS: 7 QRSD: 98 T: 36 QT: 442 QTc: 486 Interpretive Statements SINUS RHYTHM WITH 2ND DEGREE AV BLOCK, MOBITZ TYPE I BASELINE ARTIFACT- I, II, AVR, AVF, V1, V4 ABNORMAL ECG Electronically Signed On 04-05-2021 12:10:48 OUTSIDE FOOD SERVER by Torsten Phillips D.O.
--- NOTE | 2021-04-05 10:18 | PM.PNCARD ---
Progress Note: A&P Additional Plan 60-year-old man with somewhat complex arrhythmia situation. He has from AV node dysfunction with evidence of Mobitz type 1 second-degree AV block and I believe some rate related right bundle branch block. This morning he is more tachycardic and is clearly not in sinus rhythm. There is not a 12 lead ECG of this on the chart nor was I called about this change in his rhythm. Most consistent with atrial flutter with 2-1 conduction. I will order a 12 lead ECG and start antiarrhythmic therapy in the form of sotalol 80 mg q.12 hours. Continue to follow his rhythm and wait for results of today's echocardiogram. Chito Fung MD [facility] Subjective Date/time seen: Date of service: 04/05/21 10:18 Interval history: Follow-up visit in this 60-year-old man with evidence of second-degree AV block Mobitz type 1 yesterday. The patient has no prior history of significant cardiac pathology he is morbidly obese with chronic lung disease/respiratory difficulties that he dates to having COVID in the 1st couple of months of this year. He has no history of syncope. This morning the patient is in no significant distress interestingly upon coming to see him on rounds he is now tachycardic with heart rates up to 05/24/2039. Telemetry strips are most consistent with atrial flutter with rapid conduction. He is not specifically aware of this at this time. He says that he notices some occasional episodes of palpitations with tachycardia when he is lying quietly in bed at night but has never brought them to any physicians attention. Exam Const: General: comfortable and no acute distress Other: Obese man was cleaning up in the bathroom washing and shaving no distress HENMT: Mouth: Yes moist mucous membranes Eyes: Sclera: sclerae normal Pupils: Equal, round and reactive pupils present Neck: Neck: supple and no JVD Resp: Effort & Inspection: normal respiratory effort Auscultation: clear to auscultation bilaterally Cardio: Rate: tachycardic Rhythm: abnormal rhythm GI: GI Palp: Yes Soft to palpation Auscultation: normal bowel sounds Neuro: Cognition (Neuro): normal cognition Objective Data Vital Signs Vital Signs: Vital Signs - 24 hr 04/04/21 10:49 04/04/21 12:00 04/04/21 12:39 Temperature 35.9 C L Pulse Rate 92 66 Respiratory Rate 22 H Blood Pressure 160/78 H Pulse Oximetry 94 95 04/04/21 14:00 04/04/21 16:00 04/04/21 16:40 Temperature 36.1 C L Pulse Rate 89 79 104 H Respiratory Rate 22 H Blood Pressure 158/92 H Pulse Oximetry 96 04/04/21 18:00 04/04/21 20:00 04/04/21 22:00 Temperature 36.2 C L Pulse Rate 82 98 70 Respiratory Rate 24 H Blood Pressure 163/90 H Pulse Oximetry 95 04/04/21 23:40 04/04/21 23:42 04/05/21 00:00 Temperature 36.5 C Pulse Rate 82 64 78 Respiratory Rate 24 H 24 H Blood Pressure 110/53 L Pulse Oximetry 95 98 98 04/05/21 02:00 04/05/21 04:00 04/05/21 04:26 Temperature 36.5 C Pulse Rate 58 L 45 L 96 Respiratory Rate 24 H Blood Pressure 128/51 L Pulse Oximetry 96 94 04/05/21 06:00 04/05/21 08:00 04/05/21 08:46 Temperature 36.8 C Pulse Rate 46 L 92 Respiratory Rate 18 Blood Pressure 121/67 Pulse Oximetry 98 95 Intake/Output Intake/Output: Intake & Output 04/02/21 04/03/21 04/04/21 04/05/21 23:59 23:59 23:59 23:59 Intake Total 2170 250 Output Total 4325 1000 Balance -2155 -750 Meds/Results Medications: Active Medications Generic Name Dose Route Start Last Admin Trade Name Freq PRN Reason Stop Dose Admin Acyclovir 800 mg 04/04/21 09:00 04/05/21 09:30 Acyclovir 400 Mg Tablet PO 05/04/21 08:59 800 mg DAILY [place] Administration Albuterol 1 puff 04/04/21 00:14 Albuterol Sulfate (*Sp) Aerosol 1 Puff INHALATION Q4-6H PRN Shortness Of Breath Albuterol 2.5 mg 04/04/21 00:14 Albuterol Sulfate Neb 2.5 Mg/3 Ml Inh INHALATION Q4H PRN shortness of
[2021-04-05] MEDS: SOTALOL HCL 80 MG TABLET PO ×2 (11:48→20:19)
--- NOTE | 2021-04-05 18:40 | PM.IMPN ---
Progress Note: A&P Assessment and Plan (1) Palpitations: Code(s): R00.2 - Palpitations Status: Acute Assessment and Plan: Upon presentation EKG showed a OR interval greater than 200 Levaquin has been stopped Patient with no episodes in the emergency room Admitted to telemetry unit Echocardiogram in a.m. 04/04/2021 Interval history: patient with history Asthma/COPD seen by pulmonology initially patient was treated with Zithromax and then was given Levaquin for bronchitis he presented emergency department with complaints of lightheadedness and palpitation, EKG showed second-degree AV block Mobitz type 1. 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 04/05/2021 Interval history:Today patient remains clinically stable he has no complaint of chest pain shortness of breath palpitation however patient was seen by Cardiology and review of telemetry suggest patient is in atrial flutter, patient started on sotalol, cardiac echo is pending, will continue to monitor and further recommendation to follow. Subjective Date/time seen: 04/05/21 18:40 04/04/2021 Interval history: patient with history Asthma/COPD seen by pulmonology initially patient was treated with Zithromax and then was given Levaquin for bronchitis he presented emergency department with complaints of lightheadedness and palpitation, EKG showed second-degree AV block Mobitz type 1. 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 04/05/2021 Interval history:Today patient remains clinically stable he has no complaint of chest pain shortness of breath palpitation however patient was seen by Cardiology and review of telemetry suggest patient is in atrial flutter, patient started on sotalol, cardiac echo is pending, will continue to monitor and further recommendation to follow. Review of Systems Review of Systems: All systems reviewed & are unremarkable except as noted in HPI and below Exam Narrative: morbidly obese Patient is comfortable, NAD HEENT: eyes are clear and none icteric LUNGS: bilateral fair air entry with minimal rhonchi HEART: RR S1S2 ABD: distended. Lower extremities: no edema SKIN: nonjaundiced Neuro: grossly intact. Objective Data Vital Signs Vital Signs: Vital Signs - 24 hr 04/04/21 20:00 04/04/21 22:00 04/04/21 23:40 Temperature 97.2 F L Pulse Rate 98 70 82 Respiratory Rate 24 H Blood Pressure 163/90 H Pulse Oximetry 95 95 04/04/21 23:42 04/05/21 00:00 04/05/21 02:00 Temperature 97.7 F Pulse Rate 64 78 58 L Respiratory Rate 24 H 24 H Blood Pressure 110/53 L Pulse Oximetry 98 98 04/05/21 04:00 04/05/21 04:26 04/05/21 06:00 Temperature 97.7 F Pulse Rate 45 L 96 46 L Respiratory Rate 24 H Blood Pressure 128/51 L Pulse Oximetry 96 94 04/05/21 08:00 04/05/21 08:46 04/05/21 10:00 Temperature 98.2 F Pulse Rate 67 113 H Respiratory Rate 18 Blood Pressure 121/67 Pulse Oximetry 98 95 04/05/21 11:48 04/05/21 12:00 04/05/21 14:00 Temperature 97.6 F Pulse Rate 112 H 86 60 Respiratory Rate 17 Blood Pressure 147/89 H Pulse Oximetry 92 04/05/21 16:00 Temperature 97.5 F L Pulse Rate 51 L Respiratory Rate 16 Blood Pressure 119/84 Pulse Oximetry 98 Intake/Output Intake/Outpu
[2021-04-05] MEDS: cefTRIAXone 2 GM in SODIUM CHLORIDE 0.9% IV 100 ML 200 ML IVPB (22:17)
[2021-04-06] VITALS (11 sets, daily range): BP systolic 125–154; BP diastolic 65–94; PULSE 36–93; RESP 22; TEMP 35.8–36.9; O2SAT 93–96
[2021-04-06] MEDS: methylPREDNISolone SOD SUCC 40 MG VIAL IV PUSH ×3 (00:26→13:17)
[2021-04-06] MEDS: FLUTICASONE/SALMETEROL 230-21 MCG INHALER 1 PUFF 2 PUFF INHALATION (08:41)
[2021-04-06] MEDS: UMECLIDINIUM BROMIDE 62.5 MCG ELLIPTA 1 PUFF INHALATION (08:41)
[2021-04-06] MEDS: FLUTICASONE PROPIONATE 0.05% NA SPR 16 GM BTL (*BKC) 2 SPRAY NASAL (08:53)
[2021-04-06] MEDS: ROSUVASTATIN 10 MG TABLET 40 MG PO (08:54)
[2021-04-06] MEDS: MULTIVITAMINS THERAPEUTIC TAB (*BKC) 1 TABLET PO (08:55)
[2021-04-06] MEDS: ACYCLOVIR 400 MG TABLET 800 MG PO (08:55)
[2021-04-06] MEDS: buPROPion HCL XL (24 HR) 150 MG TABCR 300 MG PO (08:55)
[2021-04-06] MEDS: prednisoLONE ACETATE 1% OPHTH 5 ML 1 DROP LEFT EYE ×2 (08:55→13:17)
[2021-04-06] MEDS: busPIRone HCL 5 MG TABLET PO (08:55)
[2021-04-06] MEDS: busPIRone HCL 2.5 MG TABLET PO (08:56)
[2021-04-06] MEDS: hydrALAZINE HCL 50 MG TABLET 100 MG PO ×2 (08:56→13:18)
[2021-04-06] MEDS: TAMSULOSIN HCL 0.4 MG CAPSULE PO (08:56)
[2021-04-06] MEDS: FUROSEMIDE INJ 40 MG/4 ML VIAL IV PUSH (09:00)
[2021-04-06 09:23] LABS: Anion Gap 9 mmol/L (8-16); Blood Urea Nitrogen 26 mg/dL (9-20); Calcium 9.3 mg/dL (8.4-10.2); Carbon Dioxide 34 mmol/L (22-30); Chloride 90 mmol/L (98-107); Estimated CRCL calculation 131 ml/min; Estimated Glomerular Filt Rate > 60; Glucose 153 mg/dL (65-110); Magnesium 2.4 mg/dL (1.6-2.3); Potassium 4.4 mmol/L (3.4-5.0); Sodium 133 mmol/L (137-145)
--- NOTE | 2021-04-06 10:19 | ECG_ITS ---
Measurements Intervals [place] Rate: 53 P: 44 [place]: 262 QRS: 3 QRSD: 109 T: 32 QT: 452 QTc: 425 Interpretive Statements SINUS RHYTHM WITH SECOND DEGREE AV BLOCK, TYPE I ABNORMAL ECG Electronically Signed On 04-06-2021 11:46:10 CASH POSTING CLERK by Torsten Phillips D.O.
--- NOTE | 2021-04-06 12:17 | PM.PNCARD ---
Progress Note: A&P Assessment and Plan (1) Tachycardia-bradycardia syndrome: Code(s): I49.5 - Sick sinus syndrome Status: Acute Assessment and Plan: Patient with noted atrial flutter with RVR transiently resolved after sotalol maintaining sinus rhythm with second-degree AV block Mobitz type 1. No high-grade AV block or pauses thus far. No clear indication for pacemaker, however, we discussed this at length. Very difficult management decision with regards to AV yvette blocking agents and or antiarrhythmic therapy particularly as he developed significant bradycardia on sotalol. We discussed the risk for recurrence of atrial flutter. Given more immediate concern for bradyarrhythmia will hold off on initiating AV yvette blocking agents such as metoprolol even a low-dose. We discussed the options and he agreed to a cafeteria monitor upon discharge with recommendation to follow based upon recurrence of tachyarrhythmia particularly initiating another AV yvette blocking agent with residual sotalol. Follow-up with Dr. Fung as an outpatient within the next 2 weeks. Patient stable from cardiac perspective for discharge home later today per hospitalist service. (2) Atrial flutter with rapid ventricular response: Code(s): I48.92 - Unspecified atrial flutter Status: Acute Assessment and Plan: No recurrence. We discussed likelihood off AV yvette blocking agents and antiarrhythmic therapy. This is the 1st time this has been diagnosed. laboratory monitor as an outpatient as above. CHADS2 Vasc score 1. Aspirin 81 mg daily for now. Hold off on AV yvette blocking agents as above due to intermittent bradycardia unless recurrent sustained tachyarrhythmia identified. We discussed embolic stroke risk associated with atrial flutter the given his low risk aspirin daily reasonable at this time. (3) Mobitz type 1 second degree atrioventricular block: Code(s): I44.1 - Atrioventricular block, second degree Status: Acute Assessment and Plan: As above, generally asymptomatic in this regard without higher grade AV block or indication for pacemaker at this time. (4) CB on CPAP: Onset Date: 2009 Code(s): G47.33 - Obstructive sleep apnea (adult) (pediatric); Z99.89 - Dependence on other enabling machines and devices Status: Acute Assessment and Plan: Compliance with CPAP. (5) Essential (primary) hypertension: Code(s): I10 - Essential (primary) hypertension Status: Acute Assessment and Plan: Controlled. Continue current antihypertensive regimen. Change Lasix to 40 mg p.o. daily. BMP in 1 week as an outpatient. Subjective Date/time seen: Date of service: 04/06/21 12:17 Interval history: Follow-up visit in this 60-year-old man with evidence of second-degree AV block Mobitz type 1 and transient atrial flutter with rapid ventricular response The patient has no prior history of significant cardiac pathology he is morbidly obese with chronic lung disease/respiratory difficulties that he dates to having COVID in the 1st couple of months of this year. He has no history of syncope. This morning the patient is in no significant distress interestingly upon coming to see him on rounds he is now tachycardic with heart rates up to 05/24/2039. Telemetry strips are most consistent with atrial flutter with rapid conduction. He is not specifically aware of this at this time. He says that he notices some occasional episodes of palpitations with tachycardia when he is lying quietly in bed at night but has never brought them to any physicians attention. Date of service 04/06/2021: Patient states he feels fine. He denies shortness of breath, palpitations or chest pain. No fevers or chills. Edema much improved. States he feels well and wants to go home. Sotalol held this morning due to bradycardia overnight with heart rates in the upper 30s no high-grade AV block or prolonged pauses no
--- NOTE | 2021-04-06 12:36 | PM.DS ---
DS: Admitting Diagnosis Discharge Date 04/04/2021 Admitting Diagnosis Dizziness shortness of breath DS: Discharge Diagnosis Discharge Diagnosis (1) Atrial flutter with rapid ventricular response: Code(s): I48.92 - Unspecified atrial flutter Status: Acute Assessment and Plan: Follow-up with cardiology as outpatient complicated with episodes of bradycardia patient will be discharged on Holter monitor (2) Mobitz type 1 second degree atrioventricular block: Code(s): I44.1 - Atrioventricular block, second degree Status: Acute Assessment and Plan: Holter monitor follow-up with cardiology as outpatient (3) Tachycardia-bradycardia syndrome: Code(s): I49.5 - Sick sinus syndrome Status: Acute Assessment and Plan: As above (4) CB (obstructive sleep apnea): Code(s): G47.33 - Obstructive sleep apnea (adult) (pediatric) Status: Acute Assessment and Plan: Resume home medication (5) Acute bronchitis: Code(s): J20.9 - Acute bronchitis, unspecified Status: Acute Assessment and Plan: Most likely bacterial DC antibiotics DS: Summary Hospital Course Hospital Course: Patient was admitted to the hospital with sweating dizziness cough patient was found to have acute bronchitis continued on antibiotics during hospitalization also was found to have a flutter cardiology was consulted patient was started on sotalol complicated with bradycardia cardiology recommend to DC subtle discharge patient on aspirin Also during hospitalization patient was found to have acute on chronic diastolic CHF exacerbation treated with IV Lasix patient DC home dose of lisinopril and hydrochlorothiazide patient will be discharged with on reduced dose of lisinopril and on oral Lasix Follow-up CMP in 1 week Follow-up with cardiology in 1 week Follow-up with pulmonology as outpatient in 1 week Time Spent with Patient Time attestation: Total time spent providing and/or coordinating discharge services: DS: Data Data Completed and Pending Labs on day of discharge: Labs from last 24 hours 04/06/21 08:56 Sodium 133 L Potassium 4.4 Chloride 90 L Carbon Dioxide 34 H Anion Gap 9 BUN 26 H Creatinine 0.70 Estim Creat Clear Calc 131 Estimated GFR > 60 Glucose 153 H Calcium 9.3 Magnesium 2.4 H Preliminary micro results at discharge 04/04/21 02:00 Blood Culture - Preliminary Blood 04/04/21 02:01 Blood Culture - Preliminary Blood Discharge Plan Discharge Attending physician on discharge: Loreta Rascon M.A. Consulting providers: Jasmyn Santiago Discharging Clinician: Loreta Rascon M.A. Patient Disposition: Home, Self-Care Activity: as tolerated Diet: other - see discharge instructions Patient Instructions: Antibiotic Form, How to Stop Smoking (GEN) Stand Alone Forms: General Discharge Information Follow-up/Referrals: Jasmyn Santiago DO [Physician] - Adrian Nicholson DO [Primary Care Provider] - Discharge Medications: New aspirin [Adult Aspirin Regimen] 81 mg tablet,delayed release (DR/EC) 81 mg PO DAILY Qty: 30 RF: 0 furosemide [Lasix] 40 mg tablet 40 mg PO DAILY Qty: 30 RF: 0 lisinopril 10 mg tablet 10 mg PO DAILY Qty: 30 RF: 0 Continued bupropion HCl 300 mg tablet extended release 24 hr 300 mg PO DAILY Qty: 90 RF: 1 buspirone 7.5 mg tablet 7.5 mg PO BID Qty: 60 RF: 4 fluticasone propionate [Flonase Allergy Relief] 50 mcg/actuation spray,suspension 2 spray NASAL DAILY Qty: 18.2 RF: 1 hydralazine 100 mg tablet 100 mg PO TID Qty: 270 RF: 1 rosuvastatin 40 mg tablet 40 mg PO DAILY Qty: 90 RF: 1 Incruse Ellipta 62.5 mcg/actuation blister with device 1 inh inhalation DAILY Qty: 30 RF: 3 albuterol sulfate 90 mcg/actuation HFA aerosol inhaler 1 puff INHALATION Q4-6H PRN (Reason: Shortness Of Breath) Qty: 8.5 RF: 2 fluticasone propion-salmet
== END 2021-04-06 13:35 | disposition home or self-care (01) | DRG 308 ==
LOC: ANHED 21:02 → ANHIMU 21:53
PROVIDERS: Emergency Medicine; Family Medicine; Nurse Practitioner; Admitting Provider Internal Medicine; Emergency Provider Emergency Medicine; PCP Internal Medicine; Visit Provider Internal Medicine
DX: I48.92 Unspecified atrial flutter (principal); I50.33 Acute on chronic diastolic (congestive) heart failure; Z68.41 Body mass index [BMI] 40.0-44.9, adult; I49.5 Sick sinus syndrome; J20.8 Acute bronchitis due to other specified organisms; I11.0 Hypertensive heart disease with heart failure; I44.1 Atrioventricular block, second degree; G47.33 Obstructive sleep apnea (adult) (pediatric); M19.90 Unspecified osteoarthritis, unspecified site; F32.A Depression, unspecified; F41.1 Generalized anxiety disorder; E78.5 Hyperlipidemia, unspecified; J44.9 Chronic obstructive pulmonary disease, unspecified; J45.30 Mild persistent asthma, uncomplicated; E66.01 Morbid (severe) obesity due to excess calories; I42.9 Cardiomyopathy, unspecified; R00.2 Palpitations; I89.0 Lymphedema, not elsewhere classified; Z86.16 Personal history of COVID-19; Z94.7 Corneal transplant status; Z90.49 Acquired absence of other specified parts of digestive tract; Z87.891 Personal history of nicotine dependence
CPT/HCPCS: 36415; 71045; 80048; 80053; 83735; 83880; 84484; 85025; 85027; 85610; 85730; 87040; 93005; 93306; 94640; 96365; 96366; 96367; 96374; 96375; 96376; 99285; A9270; G0378; J0456; J0696; J1940; J2920

== ENCOUNTER → 2021-05-14 03:09 | Outpatient (CLI) | payer OTHER, SELFPAY ==
[2021-05-14 16:37] LABS: Influenza A QL RT-PCR Negative (Negative); Influenza B QL RT-PCR Negative (Negative); SARS-CoV-2 RNA PCR Negative
== END ==
PROVIDERS: PCP Internal Medicine; Visit Provider Internal Medicine
DX: R09.89 Other specified symptoms and signs involving the circulatory and respiratory systems (principal); Z20.822 Contact with and (suspected) exposure to COVID-19
CPT/HCPCS: 87502; C9803; U0003; U0005

== ENCOUNTER 2021-12-21 13:44 | Outpatient (CLI) | payer OTHER, SELFPAY ==
--- NOTE | 2021-12-21 16:53 | WPDPFTINT ---
PFT Procedure Performed PFT Procedure Performed Spirometry with Pre/Post Bronchodilator Plethysmography (Lung Vol) Diffusing Cap (DLCO) Flow Vol Loop PFT Interpretation This is a pulmonary function test with pre and post-bronchodilator spirometry, plethysmography and diffusing capacity. The test was performed and results interpreted in accordance with the 2019 and 2005 ATS/ERS Task Force guidelines respectively using the Global Lung Function Initiative-2012 reference equations. Patient demonstrated good effort and cooperation. Reproducibility criteria were met. The quality of the pre bronchodilator spirometry maneuver was Grade A and post bronchodilator spirometry maneuver was Grade A. Findings: Spirometry: the contour the inspiratory and expiratory flow tracing are normal. The pre bronchodilator FVC is 2.18 L, 49% predicted. The pre bronchodilator FEV1 is 1.72 L, 50% predicted. The pre bronchodilator FEV1: FVC ratio 79%. The post bronchodilator FVC is 2.21 L, representing a 2% increase. The post bronchodilator FEV1 is 1.76 L, representing a 3% increase. The post bronchodilator FEV1: FVC ratio was 80%. Plethysmography: The total lung capacity is 3.70 L, 55% predicted. The functional residual capacity is 1.75 L, 50% predicted. The residual volume is 1.52 L, 69% predicted. Diffusion capacity: The diffusing capacity unadjusted for hemoglobin and carboxyhemoglobin is 20.6, 74% predicted. The diffusing capacity adjusted for alveolar volume is 5.60, 131% predicted. Impression: There is a moderately severe restrictive ventilatory abnormality. The spirometry is normal without evidence of an obstructive abnormality. There is no significant improvement after inhaling a single dose of albuterol. The diffusing capacity unadjusted for hemoglobin and carboxyhemoglobin is normal and is increased when adjusted for alveolar volume. There are no prior studies for comparison
== END 2021-12-21 13:45 | disposition home or self-care (01) ==
PROVIDERS: PCP Internal Medicine; Visit Provider Internal Medicine Pulmonary Disease
DX: R06.00 Dyspnea, unspecified (principal)
CPT/HCPCS: 94060; 94726; 94729

== ENCOUNTER 2022-04-08 13:05 | Outpatient (CLI) | payer OTHER, SELFPAY ==
[2022-04-08 14:20] LABS: Influenza A QL RT-PCR Negative (Negative); Influenza B QL RT-PCR Negative (Negative); SARS-CoV-2 RNA PCR Negative
== END 2022-04-08 13:06 | disposition home or self-care (01) ==
LOC: ANHLAB 13:06
PROVIDERS: PCP Internal Medicine; Visit Provider Internal Medicine
DX: R50.9 Fever, unspecified (principal); Z20.822 Contact with and (suspected) exposure to COVID-19
CPT/HCPCS: 87636

== ENCOUNTER 2022-05-21 13:52 | Emergency (ER) | payer OTHER, SELFPAY ==
--- NOTE | ~2022-05-21 | XR_ITS ---
EXAMINATION: XR chest 2V DATE: 05/21/2022 15:04 INDICATION: Productive cough. TECHNIQUE: Frontal and lateral views of the chest were obtained on 3 radiographs. COMPARISON: Chest single view 04/04/2021, chest CT 05/26/2020 FINDINGS: There is no pneumonia, pleural effusion, or pneumothorax. Cardiomegaly is noted. IMPRESSION: 1. Cardiomegaly. Reviewed, dictated and finalized at location A. [employer] IMPRESSION: 1. Cardiomegaly.
--- NOTE | 2022-05-21 14:28 | ED.URI ---
HPI - URI/Sore Throat General Chief Complaint: Upper Respiratory Infection Stated Complaint: breathing prob,cough Time Seen by Provider: 05/21/22 14:30 Source: patient, RN notes reviewed and old records reviewed Mode of arrival: ambulatory Limitations: no limitations History of Present Illness HPI Narrative: 61-year-old male presents to the [facility] with complaints of I have my bronchitis. Patient do reports that since January he has had trouble breathing, cough. Worse over the last couple of days. Reports that he has seen his primary care provider who prescribes cefdinir and patient states it does not work for me. Patient states that the only thing that has ever worked for him was Levaquin however he can no longer take that because it put him in a second-degree Heart block. patient denies any nausea or vomiting. Denies any chest pain. Reports that he had called EMS to have his oxygen level checked which he reported to be normal. Has been using his Spiriva and Advair. Has not used his albuterol on a couple of days. MD elicited complaint: cough Related Data Home Medications Medication Instructions Recorded Confirmed multivitamin 1 tablet PO DAILY 12/03/19 04/08/22 prednisolone acetate 1 % eye 1 drp LEFT EYE QID 04/03/21 04/08/22 drops,suspension ofloxacin 0.3 % eye drops drp 05/21/22 polymyxin B sulfate 10,000 05/21/22 05/21/22 unit-trimethoprim 1 mg/mL eye drops Allergies Allergy/AdvReac Type Severity Reaction Status Date / Time peanut Allergy Mild itchy Verified 05/21/22 14:03 Penicillins Allergy Mild Rash Verified 05/21/22 14:03 azithromycin AdvReac Severe Prolonged Verified 05/21/22 14:03 QT interval levofloxacin [From Levaquin] AdvReac Severe Issues Verified 05/21/22 14:03 with QT interval(has 2nd degree block) Review of Systems Review of Systems: All systems reviewed & are unremarkable except as noted in HPI and below Constitutional: Constitutional: Reports no additional constitutional complaints Eyes: Eyes: Reports no additional eye complaints ENT: Reports system reviewed and no additional complaints, except as documented Cardiovascular: Cardiovascular: Reports no additional cardiovascular complaints, Denies chest pain and Denies dyspnea Respiratory: Respiratory: Reports as per HPI, Denies chest congestion, Denies cough and Reports dyspnea Gastrointestinal: Gastrointestinal: Reports no additional gastrointestinal complaints, Denies abdominal pain, Denies nausea and Denies vomiting Musculoskeletal: Musculoskeletal: Reports no additional musculoskeletal complaints Integumentary/Breasts: Skin/Breast: Reports system reviewed and no additional complaints, except as docu Neurologic: Reports system reviewed and no additional complaints, except as documented Psychiatric: Psychiatric: Reports no additional psychiatric complaints Allergic/Immunologic: Allergic/Immunologic: Reports no additional allergic/immunologic complaints PMFSH Past Medical History Medical History Anxiety Arthritis Asthma Bilateral chronic knee pain Cataract Chills Cornea transplant recipient Depressive disorder, not elsewhere classified Environmental allergies Essential (primary) hypertension Hernia HLD (hyperlipidemia) Hyperlipidemia Lymphedema of both lower extremities Mild persistent asthma without complication Mixed hyperlipidemia CB on CPAP (2009) Screening for prostate cancer Sleep disorder Tear of meniscus of left knee Wheezing Surgical History Surgical History H/O hernia repair 2009 Hx laparoscopic cholecystectomy 12/18/19 Hx of cornea transplant S/P left knee arthroscopy Family History Family History Other Adopted Social History Social History (Reviewed 05/21/22 @ 19:53 by Fatuma Hein
[2022-05-21 14:30] VITALS: BP 155/88; PULSE 98; RESP 16; TEMP 36.8; O2SAT 96
== END 2022-05-21 15:46 | disposition home or self-care (01) ==
PROVIDERS: Emergency Provider Nurse Practitioner; PCP Internal Medicine
DX: I51.7 Cardiomegaly (principal); J42 Unspecified chronic bronchitis; Z20.822 Contact with and (suspected) exposure to COVID-19; Z87.891 Personal history of nicotine dependence; M19.90 Unspecified osteoarthritis, unspecified site; I10 Essential (primary) hypertension; E78.2 Mixed hyperlipidemia; G47.33 Obstructive sleep apnea (adult) (pediatric); Z94.7 Corneal transplant status
CPT/HCPCS: 71046; 87426; 87804; 99213; C9803; G0463

== ENCOUNTER 2022-05-30 07:17 | Outpatient (CLI) | payer OTHER, SELFPAY ==
--- NOTE | ~2022-05-30 | CT_ITS ---
CT Scan of the Chest without Contrast: Clinical Indication: Recurrent infection, bronchiectasis Technique: Contiguous sections were acquired throughout the chest without intravenous contrast. Dose reduction technique was used on this scan by utilizing automated exposure control and iterative recon struction technique. The dose-length product (DLP) was 852.69 mGy-cm. COMPARISON: 05/26/2020 Findings: There is no evidence of any significant mediastinal, hilar or axillary lymphadenopathy. The mediastin al soft tissues appear normal. There is no evidence of pleural or pericardial effusion. The lungs are clear. No pulmonary nodules or infiltrates are noted. Images through the upper abdomen reveal no abnormalities. Impression: Clear lungs. No bronchiectasis. Reviewed, dictated and finalized at location . [employer] COUNSEL[employer] Impression: Clear lungs. No bronchiectasis.
--- NOTE | ~2022-05-30 | CT_ITS ---
EXAMINATION: CT sinus wo con DATE: 05/30/2022 07:44 INDICATION: Recurrent sinusitis. Acute upper respiratory infection. TECHNIQUE: Computed tomography (CT) of the paranasal sinuses was performed without intravenous contra st. Iterative reconstruction technique was employed. The dose-length product was 288.76 mGy-cm. COMPARISON: Head CT 12/05/2008 FINDINGS: There is mild mucosal thickening in the frontal sinuses. There is occlusion of left lateral recess. There is mild mucosal thickening in the right ethmoid sinuses and moderate mucosal thickenin g in the left ethmoid sinuses with an anterior predominance. There is mild mucosal thickening in the sphenoid and right maxillary sinuses. There is complete opacification of left maxillary sinus and lef t ostiomeatal unit with enlargement and erosions of bone. There is leftward deviation of the nasal se ptum. IMPRESSION: 1. Complete opacification of left maxillary sinus and left ostiomeatal unit with enlargement and bone erosions. The differential diagnosis includes mucocele, sinonasal polyposis, allergic fungal sinusit is, inverted papilloma, and neoplasm. Reviewed, dictated and finalized at location A. [employer] IMPRESSION: 1. Complete opacification of left maxillary sinus and left ostiomeatal unit wit h enlargement and bone erosions. The differential diagnosis includes mucocele, sinonasal polyposis, allergic fungal sinusitis, inverted papilloma, and neoplas m.
== END 2022-05-30 07:18 | disposition home or self-care (01) ==
PROVIDERS: PCP Internal Medicine; Visit Provider Internal Medicine Pulmonary Disease
DX: J06.9 Acute upper respiratory infection, unspecified (principal); J32.9 Chronic sinusitis, unspecified
CPT/HCPCS: 70486; 71250

== ENCOUNTER 2022-11-17 15:11 | Outpatient (CLI) | payer OTHER, SELFPAY ==
--- NOTE | 2022-11-17 16:03 | ECG_ITS ---
Measurements Intervals [place] Rate: 78 P: 63 IN: 318 QRS: -20 QRSD: 179 T: 2 QT: 470 QTc: 538 Interpretive Statements SINUS RHYTHM WITH SECOND DEGREE AV BLOCK, TYPE I RIGHT BUNDLE BRANCH BLOCK BASELINE ARTIFACT- I, III, AVR, AVL, AVF, V4-V6 ABNORMAL ECG COMPARED TO ECG 04/06/2021 11:01:02 RIGHT BUNDLE-BRANCH BLOCK NOW PRESENT Electronically Signed On 11-17-2022 16:16:31 CDT by Torsten Phillips D.O.
[2022-11-17 17:28] LABS: Anion Gap 14 mmol/L (8-16); Blood Urea Nitrogen 8 mg/dL (9-20); Calcium 8.8 mg/dL (8.4-10.2); Carbon Dioxide 39 mmol/L (22-30); Chloride 87 mmol/L (98-107); Estimated Glomerular Filt Rate > 60; Glucose 70 mg/dL (65-110); Potassium 2.8 mmol/L (3.4-5.0); Sodium 140 mmol/L (137-145)
== END 2022-11-17 15:12 | disposition home or self-care (01) ==
LOC: ANHLAB 15:14
PROVIDERS: PCP Internal Medicine; Visit Provider Anesthesiology
DX: I10 Essential (primary) hypertension (principal); Z01.818 Encounter for other preprocedural examination; I45.10 Unspecified right bundle-branch block; I44.1 Atrioventricular block, second degree
CPT/HCPCS: 36415; 80048; 93005

== ENCOUNTER 2022-11-22 01:00 | Day surgery (SDC) | payer OTHER, SELFPAY ==
--- NOTE | 2022-11-17 13:11 | PC.NURSE ---
Report to the Outpatient Waiting Room, entrance under the green pavilion located off [facility], at time _0900_ on date _11/22/22. Planned Procedure Time: _1100_. Time changes happen often and if your time is changed the preop area will call you the afternoon before. - You and your visitor will be asked to self-screen and do not enter if you have any COVID symptoms. - A mask is optional within the hospital at this time. Patients may have clear liquids (water, carbonated beverages, clear teas, apple juice) until 3 hours prior to surgery with a maximum of 20 ounces. - No food from midnight until time of surgery - Infants may have breast milk until 4 hours before surgery, formula 6 hours prior to surgery. - Children will be allowed to drink immediately following surgery. If applicable, please bring a bottle or sippy cup to assist with drinking. Juice, water, soda, and popsicles are readily available. For infants on formula, please bring formula the day of surgery. Pacifiers are allowed. Take the following medications with a SIP of water the morning of surgery: __BUPROPION, INHALERS, NASAL SPRAY, EYE DROPS DO NOT STOP ANY OF YOUR OTHER PRESCRIPTION MEDICATIONS PRIOR TO SURGERY ?EXCEPT THE FOLLOWING Medications to discontinue per physician VITAMINS 11/18/[address] WILSON Date to take last dose Please no make-up, nail khmer, hairspray, perfume, deodorant, or body powder the day of surgery. No jewelry (including any body piercings) or valuables the day of surgery, leave them at home. Please take a shower or bath the night before, or the morning of, surgery with an antibacterial soap. Wear comfortable, loose fitting clothing. Children are encouraged to wear pajamas. - Jewelry must be removed prior to entering the operating room. Rings and piercings that are not removed may be cut off. - The hospital will not accept responsibility for valuables. - Please leave all valuables, including medications, at home the day of surgery. If you are going home after surgery, a licensed truck driver teamster must drive you home. - NO public transportation without another adult if you receive anesthesia. - We recommend that an adult stay with you for 24 hours following discharge. - We also recommend that you do not drive, make important decision, drink alcoholic beverages, or take any drugs that were not prescribed by your health care provider for at least 24 hours after your discharge time. For Pediatric surgeries, we recommend two adults accompany the child home. Follow any additional instructions given to you from your surgeon. If you or anyone in your household have experienced Covid symptoms in the past week, please notify your surgeon or the nurse liaison at the phone number below for possible testing. Telephone instructions given to __PATIENT__and asked if any additional questions and then verbalized understanding. Patient advised to call surgeon office or pre surgery nurse liaison [phone] if any additional questions.
[2022-11-17 13:22] VITALS: BMI 41.6
--- NOTE | 2022-11-21 11:28 | WPDANESEPPF ---
Anes - Initial Pre Proc Eval Procedure: Operation Date: 11/22/22 11:00 Proposed Procedures p Image Guided Bilateral Frontal Sinusotomy, Bilateral Total Ethmoidectomy, Bilateral inferior Turbinectomy with Outfracture, Right Maxillary Antrostomy without Tissue Removal, Left Maxillary Antrostomy with Tissue Removal - Ángel Yeung MD s Endoscopic Septoplasty - Ángel Yeung MD Date/Time: 11/21/22 11:28 Surgeon: Ángel Yeung MD Pre Op Diagnosis: Chr Sinusitis Patient Data Age: 62 Gender: M Height: 1.75 m Weight: 128 kg Allergies Allergy/AdvReac Type Severity Reaction Status Date / Time Cephalosporins Allergy Intermediate Other Verified 11/22/22 10:00 peanut Allergy Mild itchy Verified 11/22/22 10:00 Penicillins Allergy Mild Rash Verified 11/22/22 10:00 azithromycin AdvReac Severe Prolonged Verified 11/22/22 10:00 QT interval levofloxacin [From Levaquin] AdvReac Severe Issues Verified 11/22/22 10:00 with QT interval(has 2nd degree block) Home Medications Medication Instructions Recorded Confirmed Type multivitamin 1 tablet PO DAILY 12/03/19 11/22/22 History albuterol sulfate 90 mcg/actuation 1 puff inhalation Q4-6H PRN 01/04/21 11/22/22 Rx aerosol inhaler Shortness Of Breath #8.5 grams albuterol sulfate 2.5 mg/3 mL 2.5 mg (3 mL) inhalation Q4H PRN 02/03/21 11/22/22 Rx (0.083 %) solution for nebulization shortness of breath or wheezing #90 mL prednisolone acetate 1 % eye 1 drp LEFT EYE QID 04/03/21 11/15/22 History drops,suspension aspirin 81 mg tablet,delayed 81 mg PO DAILY #30 tabs 04/06/21 11/22/22 Rx release (Adult Aspirin Regimen) bupropion HCl 300 mg 24 hr tablet, 300 mg PO DAILY #90 tabs 03/11/22 11/22/22 Rx extended release montelukast 10 mg tablet 10 mg PO DAILY #30 tabs 04/14/22 11/22/22 Rx azelastine 137 mcg (0.1 %) nasal 137 mcg (0.137 mL) intranasal Q12H 05/13/22 11/22/22 Rx spray aerosol #30 mL fluticasone propionate 50 See Rx Instructions .Route 05/13/22 11/22/22 Rx mcg/actuation nasal .COMPLEX #16 grams spray,suspension hydralazine 100 mg tablet 100 mg PO TID #270 tabs 05/20/22 11/15/22 Rx ofloxacin 0.3 % eye drops drp 05/21/22 11/15/22 History polymyxin B sulfate 10,000 05/21/22 11/15/22 History unit-trimethoprim 1 mg/mL eye drops rosuvastatin 40 mg tablet 40 mg PO DAILY #90 tabs 06/19/22 11/22/22 Rx fluticasone 500 mcg-salmeterol 50 1 inh inhalation Q12H #1 ea 09/02/22 11/22/22 Rx mcg/dose blistr powdr for inhalation (Wixela Inhub) acyclovir 800 mg tablet 800 mg PO DAILY #90 tabs 10/31/22 11/22/22 Rx lisinopril 40 mg tablet 40 mg PO DAILY #90 tabs 10/31/22 11/22/22 Rx tramadol 50 mg tablet 50 mg PO BID PRN pain #60 tabs 10/31/22 11/22/22 Rx furosemide 40 mg tablet (Lasix) 40 mg PO DAILY #90 tabs 11/12/22 11/22/22 Rx buspirone 7.5 mg tablet 7.5 mg PO BID PRN Anxiety 11/17/22 11/22/22 History doxycycline hyclate 100 mg capsule 100 mg PO .daily #4 caps 11/18/22 11/18/22 Rx potassium chloride 20 mEq 20 meq PO BID #10 tabs 11/18/22 Rx tablet,extended release prednisone 5 mg tablet 5 mg PO .daily #4 tabs 11/18/22 11/18/22 Rx Patient hx anesthesia problems: none Family hx anesthesia problems: none Results Review: All pre-operative results and documents have been reviewed as part of the pre-operative evaluation. [facility] Past Medical History Medical History (Updated 11/21/22 @ 11:30 by Bryson Weir DO) Anxiety Arthritis Asthma Bilateral chronic knee pain Cataract Chills COPD (chronic obstructive pulmonary disease) Cornea transplant recipient Depressive disorder, not elsewhere classified Environmental allergies Essential (primary) hypertension Hernia HLD (hyperlipidemia) Hyperlipidemia Lymphedema of both lower extremities Mild persistent asthma without complication Mixed hyperlipidemia CB on CPAP (2009) Screening for prostate cancer Sleep disorder Tear of meniscus of left knee Wheezing Surgical History [facility]
--- NOTE | 2022-11-21 17:40 | PM.IMHP ---
H&P: [facility] History of Present Illness Date/Time: 11/21/22 17:40 Chief Complaint: Septal deviation turbinate hypertrophy fungal sinusitis chronic sinusitis Narrative: planned procedure Review of Systems Review of Systems: All systems reviewed & are unremarkable except as noted in HPI and below [facility] Past Medical History Medical History (Updated 11/21/22 @ 11:30 by Bryson Weir DO) Anxiety Arthritis Asthma Bilateral chronic knee pain Cataract Chills COPD (chronic obstructive pulmonary disease) Cornea transplant recipient Depressive disorder, not elsewhere classified Environmental allergies Essential (primary) hypertension Hernia HLD (hyperlipidemia) Hyperlipidemia Lymphedema of both lower extremities Mild persistent asthma without complication Mixed hyperlipidemia CB on CPAP (2009) Screening for prostate cancer Sleep disorder Tear of meniscus of left knee Wheezing Surgical History Surgical History H/O hernia repair 2009 Hx laparoscopic cholecystectomy 12/18/19 Hx of cornea transplant S/P left knee arthroscopy Family History Family History Other Adopted Social History Social History Social History: The patient works at [employer] during the day and 24/7 Card during the night. The patient lives with a pet dog. Patient quit smoking about 5-10 years ago. The patient does not use any alcohol marijuana or illicit drugs. He desires to be a full code. And his sister is a durable power commercial litigation attorney for healthcare. He has no children. He is adopted and does not know his biological parents. Smoking packs per day: 1 Smoking cigarettes per day: 20.0 Years smoked: 30 Smoking pack-years: 30.00 Smoking status: Former smoker Tobacco type: cigarettes Second hand tobacco smoke exposure: No Smoking end date: 04/24/16 Additional smoking assessment comments: QUIT 5 YEARS AGO Alcohol intake: current Drinks per week: 2 Substance use: never Substance use type: does not use Lack of Transportation: No Lack of Food: Sometimes True Current Housing: I Have Housing Concerned About Future Housing: No Difficulty Paying Gas/Electric Bills: No Difficulty Paying for Meds: Decline to Answer Currently Unemployed: No Education: Associate Degree Difficulty w/ Childcare or Family Care: No Living arrangements: alone Occupation/Education: occupation Additional occupation/education comments: [employer] Gender identity (if verbalized by the patient): Male Spiritual care concerns: No Meds Home Medications and Allergies Home Medications Medication Instructions Recorded Confirmed Type multivitamin 1 tablet PO DAILY 12/03/19 11/15/22 History albuterol sulfate 90 mcg/actuation 1 puff inhalation Q4-6H PRN 01/04/21 11/15/22 Rx aerosol inhaler Shortness Of Breath #8.5 grams albuterol sulfate 2.5 mg/3 mL 2.5 mg (3 mL) inhalation Q4H PRN 02/03/21 11/15/22 Rx (0.083 %) solution for nebulization shortness of breath or wheezing #90 mL prednisolone acetate 1 % eye 1 drp LEFT EYE QID 04/03/21 11/15/22 History drops,suspension aspirin 81 mg tablet,delayed 81 mg PO DAILY #30 tabs 04/06/21 11/15/22 Rx release (Adult Aspirin Regimen) bupropion HCl 300 mg 24 hr tablet, 300 mg PO DAILY #90 tabs 03/11/22 11/15/22 Rx extended release montelukast 10 mg tablet 10 mg PO DAILY #30 tabs 04/14/22 11/15/22 Rx azelastine 137 mcg (0.1 %) nasal 137 mcg (0.137 mL) intranasal Q12H 05/13/22 11/15/22 Rx spray aerosol #30 mL fluticasone propionate 50 See Rx Instructions .Route 05/13/22 11/15/22 Rx mcg/actuation nasal .COMPLEX #16 grams spray,suspension hydralazine 100 mg tablet 100 mg PO TID #270 tabs 05/20/22 11/15/22 Rx ofloxacin 0.3 % eye drops drp 05/21/22 11/15/22 History polymyxin B sulfate 10
[2022-11-22] VITALS (14 sets, daily range): BP systolic 153–184; BP diastolic 86–104; PULSE 86–108; RESP 16–24; TEMP 36.1–37.4; O2SAT 85–97
--- NOTE | 2022-11-22 07:16 | WPDHPUPDATE1 ---
History and Physical Update Update Date/Time: 11/22/22 07:16 History and Physical has been reviewed, including an updated exam of the patient. There are NO changes in the patient's condition. Risks, benefits, and alternatives have been discussed and questions answered. Patient agrees to proceed with procedure.
[2022-11-22] MEDS: LACTATED RINGERS 1,000 ML 30 ML IV CONT ×2 (09:30→14:11)
[2022-11-22] MEDS: ACETAMINOPHEN 500 MG TABLET 1000 MG PO (10:08)
[2022-11-22] MEDS: CLINDAMYCIN 900 MG/D5W 50 ML 900 MG/50 ML PIGGYBACK 50 MG IVPB (11:51)
[2022-11-22] MEDS: OXYMETAZOLINE HCL 0.05% NAS 15 ML BTL (*BKC) 1 SPRAY NASAL (12:27)
[2022-11-22] MEDS: LIDO 1%/EPINEPHRINE 1:100,000 50 ML VIAL INFILTRATE (12:28)
[2022-11-22] MEDS: MUPIROCIN 2% OINT 22 GM TUBE 1 APPLIC EACH NARE (13:38)
--- NOTE | 2022-11-22 14:56 | P.OP_ITS ---
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 Patient brought operating. Time- out performed. General anesthesia induced endotracheal tube secured. Patient prepped draped position procedure confirmed. Afrin-soaked pledgets placed for 5 minutes then removed image guidance initiated confirmed. Total of 13 cc 1% lidocaine 1 100,000 parts epinephrine injected into the bilateral nasal passages septum. Fishers incision made left-sided. Left-sided nasal septal flap elevated with 7 New Zealander suction. Osteotome utilized to cross over. Right-sided flap elevated with 7 [place] Ze[place]ander suction. Deviated septum removed with osteotome the blade Diana forceps Julien Silvaton forceps. Paulo incision closed interrupted 5 0 fast gut sutures. Turbinates outfractured. Good reduction for submucosal reduction. Image guidance utilized for all the sinuses left maxillary antrostomy with tissue removal performed with microdebrider both straight microdebrider and rad 60. Image guidance multiple suctions backbiter double ball tip in trying fungal ball removed sent for pathologic analysis as well. Thin the maxillary sinuses irrigated with copious amounts of sterile normal saline no fungus remain. Total ethmoidectomy performed with Kerrison image guidance microdebrider lots to diseased mucosa and inspissated mucus. Decision was made not to perform frontal given the narrow outflow. Sphenoid it might minimally disease at its entrance as well. Right-sided max performed with double ball tip probe backbiter straight through cut microdebrider diseased mucosa as well floor. Anterior ethmoidectomy performed with Kerrison and microdebrider. No damage to orbit evident damage to septum no damage to turbinates. Patient tolerated the procedure well blood loss 75 cc. I performed all dictated portions of procedure. Care the patient given Anesthesiology. Patient was taken to PACU. Of note Nova pack was placed bilateral middle meati I both was replaced sutured anteriorly using 3-0 mattressed nylon suture. Estimated Blood Loss 75 Drains No Packing Yes (Novapak) Pathology Yes Complications No immediate complications Condition Stable Disposition PACU [facility] Billing Surgery - Charge Forward: Surgery Billing
[2022-11-22] MEDS: oxyCODONE HCL (*CRX) 5 MG TAB IR PO (15:37)
[2022-11-22] MEDS: ALBUTEROL SULFATE NEB 2.5 MG/3 ML INH INHALATION (16:08)
== END 2022-11-22 16:55 | disposition home or self-care (01) ==
PROVIDERS: PCP Internal Medicine; Visit Provider Otolaryngology
PROC: (CPT 30520; principal; 2022-11-22 11:00)
PROC: (CPT 30520; 2022-11-22 11:00)
DX: J32.0 Chronic maxillary sinusitis (principal); J34.3 Hypertrophy of nasal turbinates; J34.2 Deviated nasal septum; J44.9 Chronic obstructive pulmonary disease, unspecified; I10 Essential (primary) hypertension; J45.30 Mild persistent asthma, uncomplicated; E78.2 Mixed hyperlipidemia; G47.33 Obstructive sleep apnea (adult) (pediatric); F41.9 Anxiety disorder, unspecified; F32.A Depression, unspecified; Z79.51 Long term (current) use of inhaled steroids; Z79.82 Long term (current) use of aspirin; Z87.891 Personal history of nicotine dependence; E66.01 Morbid (severe) obesity due to excess calories; Z68.41 Body mass index [BMI] 40.0-44.9, adult
CPT/HCPCS: 30520; 30140; 31267; 31255; 31256; 31254; 61782; 36415; 80048; 88304; 88312; 93005; A9270; J0330; J1100; J1170; J2250; J2405; J2704; J3010; J7120

== ENCOUNTER 2022-12-06 18:01 | Emergency (ER) | payer OTHER, SELFPAY ==
[2022-12-06 18:07] VITALS: BP 176/95; PULSE 106; RESP 18; TEMP 37.2; O2SAT 97
[2022-12-06 18:16] LABS: Glucose Point of Care 147 mg/dl (65-105)
[2022-12-06 22:05] VITALS: BP 160/104; PULSE 44; RESP 16; TEMP 36.3; O2SAT 97
--- NOTE | 2022-12-06 23:18 | PC.NURSE ---
Report given to PRAMOD Ross
[2022-12-07 00:32] LABS: Basophils Percent Auto 0.5 % (0.2-1.2); Eosinophils Percent Auto 0.5 % (0-4.4); Hematocrit 39.8 % (42.0-52.0); Hemoglobin 13.3 g/dL (14.0-18.0); Immature Granulocyte Absolute 0.02 K/mm3 (0.00-0.031); Immature Granulocyte Percent A 0.4 % (0-0.5); Lymphocytes Absolute Auto 0.82 K/mm3 (0.9-3.2); Lymphocytes Percent Auto 14.5 % (18.3-44.2); Mean Corpuscular HGB Conc 33.4 g/dl (32-36); Mean Corpuscular Hemoglobin 34.4 pg (26-34); Mean Corpuscular Volume 102.8 fl (80-100); Mean Platelet Volume 9.3 fl (7.4-10.4); Monocytes Absolute Auto 0.8 K/mm3 (0.1-0.6); Monocytes Percent Auto 13.6 % (2.6-8.5); Neutrophils Percent Auto 70.5 % (45.5-73.1); Platelet Count Result 200 k/mm3 (150-375); Red Blood Count 3.87 M/mm3 (4.6-6.20); Red Cell Distribution Width 16.6 % (11.5-14.5); White Blood Count 5.7 K/mm3 (4.5-10.0)
[2022-12-07 00:48] LABS: Alanine Aminotransferase 32 U/L (6-50); Albumin Level 4.3 g/dL (3.5-5.1); Alkaline Phosphatase 124 U/L (38-126); Anion Gap 8 mmol/L (8-16); Aspartate Amino Transferase 58 U/L (17-59); Blood Urea Nitrogen 21 mg/dL (9-20); Calcium 9.1 mg/dL (8.4-10.2); Carbon Dioxide 34 mmol/L (22-30); Chloride 96 mmol/L (98-107); Estimated CRCL calculation 142 ml/min; Estimated Glomerular Filt Rate > 60; Glucose 104 mg/dL (65-110); Potassium 3.7 mmol/L (3.4-5.0); Sodium 138 mmol/L (137-145)
--- NOTE | 2022-12-07 01:14 | ED.GENADULT ---
HPI - General Adult General Chief complaint: Recheck/Abnormal Lab/Rx Stated complaint: high blood sugar Time Seen by Provider: 12/06/22 22:42 History of Present Illness HPI narrative: This is a 62-year-old male who is being treated for sinusitis by ENT and is on through the course of steroids presenting with high blood sugars. Patient notes he has been checking his blood sugar has been 158. He has no history of diabetes. He notes that he has been shaking and felt slightly unsteady but has no other complaints. He has not fallen. Denies fever chills chest pain difficulty breathing abdominal pain or urinary symptoms. Related Data Home Medications Medication Instructions Recorded Confirmed multivitamin 1 tablet PO DAILY 12/03/19 12/05/22 prednisolone acetate 1 % eye 1 drp LEFT EYE QID 04/03/21 12/05/22 drops,suspension ofloxacin 0.3 % eye drops drp 05/21/22 12/05/22 polymyxin B sulfate 10,000 05/21/22 12/05/22 unit-trimethoprim 1 mg/mL eye drops buspirone 7.5 mg tablet 7.5 mg PO BID PRN Anxiety 11/17/22 12/05/22 Allergies Allergy/AdvReac Type Severity Reaction Status Date / Time Cephalosporins Allergy Intermediate Other Verified 12/05/22 13:37 peanut Allergy Mild itchy Verified 12/05/22 13:37 Penicillins Allergy Mild Rash Verified 12/05/22 13:37 azithromycin AdvReac Severe Prolonged Verified 12/05/22 13:37 QT interval levofloxacin [From Levaquin] AdvReac Severe Issues Verified 12/05/22 13:37 with QT interval(has 2nd degree block) [facility] Past Medical History Medical History Anxiety Arthritis Asthma Bilateral chronic knee pain Cataract Chills COPD (chronic obstructive pulmonary disease) Cornea transplant recipient Depressive disorder, not elsewhere classified Environmental allergies Essential (primary) hypertension Hernia HLD (hyperlipidemia) Hyperlipidemia Lymphedema of both lower extremities Mild persistent asthma without complication Mixed hyperlipidemia CB on CPAP (2009) Screening for prostate cancer Sleep disorder Tear of meniscus of left knee Wheezing Surgical History Surgical History H/O hernia repair 2009 Hx laparoscopic cholecystectomy 12/18/19 Hx of cornea transplant S/P left knee arthroscopy Family History Family History Other Adopted Social History Social History Social History: The patient works at [employer] during the day and [employer] during the night. The patient lives with a pet dog. Patient quit smoking about 5-10 years ago. The patient does not use any alcohol marijuana or illicit drugs. He desires to be a full code. And his sister is a durable power research attorney for healthcare. He has no children. He is adopted and does not know his biological parents. Smoking packs per day: 1 Smoking cigarettes per day: 20.0 Years smoked: 30 Smoking pack-years: 30.00 Smoking status: Former smoker Tobacco type: cigarettes Second hand tobacco smoke exposure: No Smoking end date: 04/24/16 Additional smoking assessment comments: QUIT 5 YEARS AGO Alcohol intake: current Drinks per week: 2 Substance use: never Substance use type: does not use Lack of Transportation: No Lack of Food: Sometimes True Current Housing: I Have Housing Concerned About Future Housing: No Difficulty Paying Gas/Electric Bills: No Difficulty Paying for Meds: Decline to Answer Currently Unemployed: No Education: Associate Degree Difficulty w/ Childcare or Family Care: No Living arrangements: alone Occupation/Education: occupation Additional occupation/education comments: [employer] Gender identity (if verbalized by the patient): Male Spiritual care concerns: No Exam Narrative: APPEARANCE: No apparent
[2022-12-07 01:23] VITALS: PULSE 89; RESP 19
[2022-12-07 02:02] VITALS: BP 167/97; PULSE 84; RESP 17; O2SAT 96
== END 2022-12-07 02:04 | disposition home or self-care (01) ==
PROVIDERS: Emergency Provider Emergency Medicine; PCP Internal Medicine
DX: R73.9 Hyperglycemia, unspecified (principal); T38.0X5A Adverse effect of glucocorticoids and synthetic analogues, initial encounter; J32.9 Chronic sinusitis, unspecified; I10 Essential (primary) hypertension; E78.5 Hyperlipidemia, unspecified; E78.2 Mixed hyperlipidemia; J44.9 Chronic obstructive pulmonary disease, unspecified; J45.30 Mild persistent asthma, uncomplicated; I89.0 Lymphedema, not elsewhere classified; G47.33 Obstructive sleep apnea (adult) (pediatric); M19.90 Unspecified osteoarthritis, unspecified site; F41.9 Anxiety disorder, unspecified; F32.A Depression, unspecified; Z94.7 Corneal transplant status; Z87.891 Personal history of nicotine dependence; Z90.49 Acquired absence of other specified parts of digestive tract; Z79.82 Long term (current) use of aspirin
CPT/HCPCS: 36415; 80053; 82948; 85025; 99283

== ENCOUNTER 2023-02-16 01:26 | Day surgery (SDC) | payer OTHER, SELFPAY ==
[2023-02-02 13:20] VITALS: BMI 38.4
--- NOTE | 2023-02-15 15:31 | PM.HPGS ---
History of Present Illness History of Present Illness Consent: Risks, benefits, and alternatives have been discussed and questions answered. Patient agrees to proceed with procedure. Chief complaint: neoplasm screening Narrative: Addi Caal is a 62 year old male referred for colon cancer screening. [facility] Past Medical History Medical History (Updated 02/15/23 @ 15:32 by Henrry Menon MD) Anxiety Arthritis Asthma Bilateral chronic knee pain Cataract Chills COPD (chronic obstructive pulmonary disease) Cornea transplant recipient Depressive disorder, not elsewhere classified Environmental allergies Essential (primary) hypertension Hernia HLD (hyperlipidemia) Hyperlipidemia Lymphedema of both lower extremities Mild persistent asthma without complication Mixed hyperlipidemia CB on CPAP (2009) Screening for prostate cancer Sleep disorder Tear of meniscus of left knee Wheezing Surgical History Surgical History (Updated 02/06/23 @ 14:14 by Criss Rivers [facility]) H/O hernia repair 2009 History of nasal surgery Hx laparoscopic cholecystectomy 12/18/19 Hx of cornea transplant S/P left knee arthroscopy Family History Family History Other Adopted Social History Social History Social History: The patient works at [employer] during the day and [employer] during the night. The patient lives with a pet dog. Patient quit smoking about 5-10 years ago. The patient does not use any alcohol marijuana or illicit drugs. He desires to be a full code. And his sister is a durable power transactional attorney for healthcare. He has no children. He is adopted and does not know his biological parents. Smoking packs per day: 1 Smoking cigarettes per day: 20.0 Years smoked: 30 Smoking pack-years: 30.00 Smoking status: Former smoker Tobacco type: cigarettes Second hand tobacco smoke exposure: No Smoking end date: 04/24/16 Additional smoking assessment comments: QUIT 5 YEARS AGO Alcohol intake: current Drinks per week: 2 Alcohol use details: occasional Substance use: never Substance use type: does not use Lack of Transportation: No Lack of Food: Sometimes True Current Housing: I Have Housing Concerned About Future Housing: No Difficulty Paying Gas/Electric Bills: No Difficulty Paying for Meds: Decline to Answer Currently Unemployed: No Education: Associate Degree Difficulty w/ Childcare or Family Care: No Living arrangements: alone Occupation/Education: occupation Additional occupation/education comments: [employer] Gender identity (if verbalized by the patient): Male Spiritual care concerns: No Meds Home Medications and Allergies Home Medications Medication Instructions Recorded Confirmed Type multivitamin 1 tablet PO DAILY 12/03/19 02/16/23 History aspirin 81 mg tablet,delayed 81 mg PO DAILY #30 tabs 04/06/21 02/16/23 Rx release (Adult Aspirin Regimen) azelastine 137 mcg (0.1 %) nasal 137 mcg (0.137 mL) intranasal Q12H 05/13/22 02/16/23 Rx spray aerosol #30 mL fluticasone propionate 50 See Rx Instructions .Route 05/13/22 02/16/23 Rx mcg/actuation nasal .COMPLEX #16 grams spray,suspension hydralazine 100 mg tablet 100 mg PO TID #270 tabs 05/20/22 02/16/23 Rx fluticasone 500 mcg-salmeterol 50 1 inh inhalation Q12H #1 ea 09/02/22 02/16/23 Rx mcg/dose blistr powdr for inhalation (Wixela Inhub) acyclovir 800 mg tablet 800 mg PO DAILY #90 tabs 10/31/22 02/16/23 Rx lisinopril 40 mg tablet 40 mg PO DAILY #90 tabs 10/31/22 02/16/23 Rx furosemide 40 mg tablet (Lasix) 40 mg PO DAILY #90 tabs 11/12/22 02/16/23 Rx buspirone 7.5 mg tablet 7.5 mg PO BID PRN Anxiety 11/17/22 02/16/23 History albuterol sulfate 90 mcg/actuation 1 puff inhalation Q4-6H PRN 11/22/22 02/16/23 Rx aerosol inhaler Shortness Of Breath #8.5 grams bupropion HCl 300 mg
[2023-02-16 09:20] VITALS: BP 165/76; PULSE 52; RESP 22; TEMP 36.5; O2SAT 94; BMI 41.8
[2023-02-16] MEDS: LACTATED RINGERS 1,000 ML 150 ML IV CONT (09:23)
[2023-02-16 09:40] LABS: Glucose Point of Care 83 mg/dl (65-105)
--- NOTE | 2023-02-16 09:53 | WPDANESEPPF ---
Anes - Initial Pre Proc Eval Procedure: Operation Date: 02/16/23 10:30 Proposed Procedures p Screening Colonoscopy - Henrry Menon MD Date/Time: 02/16/23 09:53 Surgeon: Henrry Menon MD Pre Op Diagnosis: neoplasm screening Patient Data Age: 62 Gender: M Height: 1.75 m Weight: 128.7 kg Last Vital Signs Temp 97.7 F 02/16/23 09:20 Pulse 52 L 02/16/23 09:20 Resp 22 H 02/16/23 09:20 BP 165/76 H 02/16/23 09:20 Pulse Ox 94 02/16/23 09:20 O2 Del Method Room Air 02/16/23 09:20 Allergies Allergy/AdvReac Type Severity Reaction Status Date / Time Cephalosporins Allergy Intermediate Other Verified 02/16/23 09:16 peanut Allergy Mild itchy Verified 02/16/23 09:16 Penicillins Allergy Mild Rash Verified 02/16/23 09:16 azithromycin AdvReac Severe Prolonged Verified 02/16/23 09:16 QT interval levofloxacin [From Levaquin] AdvReac Severe Issues Verified 02/16/23 09:16 with QT interval(has 2nd degree block) Home Medications Medication Instructions Recorded Confirmed Type multivitamin 1 tablet PO DAILY 12/03/19 02/16/23 History aspirin 81 mg tablet,delayed 81 mg PO DAILY #30 tabs 04/06/21 02/16/23 Rx release (Adult Aspirin Regimen) azelastine 137 mcg (0.1 %) nasal 137 mcg (0.137 mL) intranasal Q12H 05/13/22 02/16/23 Rx spray aerosol #30 mL fluticasone propionate 50 See Rx Instructions .Route 05/13/22 02/16/23 Rx mcg/actuation nasal .COMPLEX #16 grams spray,suspension hydralazine 100 mg tablet 100 mg PO TID #270 tabs 05/20/22 02/16/23 Rx fluticasone 500 mcg-salmeterol 50 1 inh inhalation Q12H #1 ea 09/02/22 02/16/23 Rx mcg/dose blistr powdr for inhalation (Wixela Inhub) acyclovir 800 mg tablet 800 mg PO DAILY #90 tabs 10/31/22 02/16/23 Rx lisinopril 40 mg tablet 40 mg PO DAILY #90 tabs 10/31/22 02/16/23 Rx furosemide 40 mg tablet (Lasix) 40 mg PO DAILY #90 tabs 11/12/22 02/16/23 Rx buspirone 7.5 mg tablet 7.5 mg PO BID PRN Anxiety 11/17/22 02/16/23 History albuterol sulfate 90 mcg/actuation 1 puff inhalation Q4-6H PRN 11/22/22 02/16/23 Rx aerosol inhaler Shortness Of Breath #8.5 grams bupropion HCl 300 mg 24 hr tablet, 300 mg PO DAILY #90 tabs 11/24/22 02/16/23 Rx extended release metformin 500 mg tablet,extended 1,000 mg PO BID 90 days #360 tabs 12/08/22 02/16/23 Rx release 24 hr rosuvastatin 40 mg tablet 40 mg PO DAILY #90 tabs 12/19/22 02/16/23 Rx albuterol sulfate 2.5 mg/3 mL 2.5 mg (3 mL) inhalation Q6H PRN 01/06/23 02/16/23 Rx (0.083 %) solution for nebulization shortness of breath or wheezing #360 mL diltiazem HCl 120 mg 120 mg PO DAILY #90 caps 01/30/23 02/16/23 Rx capsule,extended release 24 hr blood-glucose meter,continuous #1 ea 02/06/23 02/16/23 Rx (Dexcom G7 Escort Blind) blood-glucose sensor (Dexcom G7 #9 ea 02/06/23 02/16/23 Rx Sensor device) clindamycin HCl 300 mg capsule 300 mg PO Q8H #21 caps 02/11/23 02/16/23 Rx Laboratory Tests 02/16/23 09:38 POC Capillary Glucose 83 mg/dl (65-105) Patient hx anesthesia problems: none Family hx anesthesia problems: none Results Review: All pre-operative results and documents have been reviewed as part of the pre-operative evaluation. [facility] Past Medical History Medical History (Updated 02/15/23 @ 15:32 by Henrry Menon MD) Anxiety Arthritis Asthma Bilateral chronic knee pain Cataract Chills COPD (chronic obstructive pulmonary disease) Cornea transplant recipient Depressive disorder, not elsewhere classified Environmental allergies Essential (primary) hypertension Hernia HLD (hyperlipidemia) Hyperlipidemia Lymphedema of both lower extremities Mild persistent asthma without complication Mixed hyperlipidemia CB on CPAP (2009) Screening for prostate cancer Sleep disorder Tear of meniscus of left knee Wheezing Surgical History Surgical History (Updated 02/06/23 @ 14:14 by Criss Rivers [employer]) H/O hernia repair 2010 History of phillip
[2023-02-16 10:29] VITALS: BP 110/71; PULSE 109; RESP 28; O2SAT 97
[2023-02-16 10:39] VITALS: BP 126/81; PULSE 108; RESP 29; O2SAT 97
[2023-02-16 10:49] VITALS: BP 152/72; PULSE 69; RESP 27; O2SAT 98
== END 2023-02-16 11:03 | disposition home or self-care (01) ==
PROVIDERS: PCP Internal Medicine; Visit Provider Internal Medicine Gastroenterology
PROC: 0DJD8ZZ Inspection of Lower Intestinal Tract, Via Natural or Artificial Opening Endoscopic (ICD-10-PCS; CPT 45378; principal; 2023-02-16 10:30)
DX: Z12.11 Encounter for screening for malignant neoplasm of colon (principal); K57.30 Diverticulosis of large intestine without perforation or abscess without bleeding; D12.3 Benign neoplasm of transverse colon; K63.5 Polyp of colon; K62.1 Rectal polyp; J44.9 Chronic obstructive pulmonary disease, unspecified; J45.30 Mild persistent asthma, uncomplicated; I10 Essential (primary) hypertension; E78.5 Hyperlipidemia, unspecified; E78.2 Mixed hyperlipidemia; G47.33 Obstructive sleep apnea (adult) (pediatric); F41.9 Anxiety disorder, unspecified; F32.A Depression, unspecified; Z79.84 Long term (current) use of oral hypoglycemic drugs; Z79.82 Long term (current) use of aspirin; Z79.51 Long term (current) use of inhaled steroids; Z87.891 Personal history of nicotine dependence; E66.01 Morbid (severe) obesity due to excess calories; Z68.41 Body mass index [BMI] 40.0-44.9, adult
CPT/HCPCS: 45381; 45380; 45385; 82948; 88305; J2704; J7120

== ENCOUNTER 2023-08-06 14:21 | Inpatient (IN) | payer OTHER, SELFPAY ==
[2023-08-06] VITALS (8 sets, daily range): BP systolic 128–167; BP diastolic 88–100; PULSE 81–99; RESP 16–26; TEMP 36.8–37.3; O2SAT 94–98
--- NOTE | ~2023-08-06 | CT_ITS ---
EXAMINATION: CTA chest PE protocol DATE: 08/06/2023 16:47 INDICATION: Shortness of breath. Weakness. TECHNIQUE: Computed tomography angiography (CTA) of the chest was performed with 100 mL Omnipaque-350 intravenous contrast timed to evaluate the pulmonary arteries. Coronal maximum intensity projection 3D-reconstructions were created by the technologist. Automated exposure control and iterative reconst ruction technique were employed. The dose-length product was 1064.33 mGy-cm. COMPARISON: None. FINDINGS: There is mild atelectasis bilaterally. There are small pleural effusions. There is septal t hickening in the inferior lungs, consistent mild pulmonary edema. Cardiomegaly is noted. No pericardi al effusion. The central pulmonary is enlarged, consistent with pulmonary artery hypertension. There is no pulmonary embolus. There is diffuse hepatic steatosis. There are changes of cholecystectomy. Th ere are bridging endplate osteophytes at multiple levels in the spine, consistent with diffuse idiopa thic skeletal hyperostosis (DISH). There is mild thoracic spondylosis. IMPRESSION: 1. No pulmonary embolus. 2. Mild pulmonary edema. 3. Small pleural effusions. Reviewed, dictated and finalized at location E.
--- NOTE | ~2023-08-06 | XR_ITS ---
Portable chest x-ray Comparison: 08/06/2023 Clinical History: Shortness of breath Findings: Probable mild central congestive change. Mild haziness the lung bases. Cardiomediastinal silhouette is stable. Bones and soft tissues are unremarkable. Impression: Central congestive change and probable mild pulmonary edema the lung bases. Reviewed, dictated and finalized at [facility]. Impression: Central congestive change and probable mild pulmonary edema the lung bases.
--- NOTE | ~2023-08-06 | CT_ITS ---
EXAMINATION: CT abdomen pelvis wo con DATE: 08/14/2023 17:33 INDICATION: abd pain TECHNIQUE: Computed tomography (CT) of the abdomen and pelvis was performed without intravenous contr ast. Automated exposure control and iterative reconstruction technique were employed. The dose-length product was 1430.07 mGy-cm. COMPARISON: 07/06/2019, report only; ultrasound abdomen 08/09/2023. FINDINGS: Lower thorax: Aortic valve and coronary artery calcification. Cardiomegaly. Dependent atelectasis/con solidation. Trace bilateral pleural fluid collections. Liver: Diffuse fatty infiltration. Biliary/Gallbladder: Gallbladder is absent. No bile duct dilation. Pancreas: No mass or duct dilation. Spleen: Normal. Adrenals:No mass. Kidneys: No suspicious mass, obstructing stone, or hydronephrosis. Moderate bilateral perinephric str anding. Subcentimeter likely hemorrhagic left midpole cyst. Simple left midpole cyst. GI tract: No small or large bowel dilation. Appendix not confidently visualized. Diverticulosis. Shor t segment proximal sigmoid wall thickening, with multiple inflamed diverticuli and surrounding inflam matory change. Mesentery/Peritoneum: No ascites, mass, or free air. Retroperitoneum: No mass. Atherosclerotic abdominal aortic and/or arterial calcifications. Pelvis: The urinary bladder is decompressed by a Arciniega catheter.. Soft Tissues: Small uncomplicated appearing fat-containing umbilical and bilateral inguinal hernias. Bones: No acute osseous finding. Bilateral hip AVN. IMPRESSION: Subsegmental dependent atelectasis/consolidation. Trace bilateral pleural effusions. Hepatic steatosis. Acute, probably uncomplicated sigmoid diverticulitis. Note, assessment for abscess is limited without the use of contrast. Reviewed, dictated and finalized at location K. IMPRESSION: Subsegmental dependent atelectasis/consolidation. Trace bilateral pleural effus ions. Hepatic steatosis. Acute, probably uncomplicated sigmoid diverticulitis. Note, assessment for absc ess is limited without the use of contrast.
--- NOTE | ~2023-08-06 | US_ITS ---
Abdominal Sonogram: Real-time sonographic imaging of the abdomen was performed. Clinical History: Abnormal liver enzymes Findings: The liver appears echogenic, with no evidence of mass lesion or bile duct dilatation. Main portal vein demonstrates normal direction of flow. The spleen is normal in size without evidence of focal lesion. The gallbladder is absent, compatible prior cholecystectomy. The common bile duct lisseth ures 5 mm. The visualized pancreas, aorta, and IVC are unremarkable. The right kidney measures 14.2 cm in length and the left kidney measures 13.3 cm. There is no hydronephrosis or renal calculus. Impression: Diffuse fatty infiltration of the liver. Status post cholecystectomy. Reviewed, dictated and finalized at location . Impression: Diffuse fatty infiltration of the liver. Status post cholecystectomy.
--- NOTE | ~2023-08-06 | US_ITS ---
EXAMINATION: US renal BI DATE: 08/15/2023 08:11 INDICATION: Urinary retention. TECHNIQUE: Multiple ultrasound grayscale images of the kidneys were obtained. COMPARISON: CT abdomen and pelvis 08/14/2023 FINDINGS: The right kidney measures 13.5 x 6.5 x 6.1 cm. The left kidney measures 13.0 x 6.6 x 6.7 cm. The kidn eys demonstrate normal parenchymal echogenicity. There are cysts in right kidney measuring up to 9 mm . There is no hydronephrosis. The bladder is decompressed by a Arciniega catheter. IMPRESSION: 1. Normal kidney sizes. No hydronephrosis. Reviewed, dictated and finalized at location E.
--- NOTE | ~2023-08-06 | XR_ITS ---
EXAMINATION: XR chest 1V portable DATE: 08/06/2023 15:02 INDICATION: Shortness of breath. TECHNIQUE: A single frontal view of the chest was obtained. COMPARISON: None. FINDINGS: There is a small left pleural effusion. There are airspace opacities at left lung base. The re are interstitial opacities in right mid and lower lung zones. No pneumothorax. Cardiomegaly is not ed. IMPRESSION: 1. Mild pulmonary edema. 2. Small left pleural effusion. 3. Airspace opacities at left lung base, consistent with atelectasis versus pneumonia. 4. Cardiomegaly. Reviewed, dictated and finalized at location E. IMPRESSION: 1. Mild pulmonary edema. 2. Small left pleural effusion. 3. Airspace opacities at left lung base, consistent with atelectasis versus pne umonia. 4. Cardiomegaly.
--- NOTE | ~2023-08-06 | XR_ITS ---
EXAMINATION: XR chest 1V portable DATE: 08/13/2023 17:05 INDICATION: Cough. TECHNIQUE: A single frontal view of the chest was obtained. COMPARISON: Chest 2 view 08/08/23 FINDINGS: There are airspace opacities in left lower lung zone. There is a small left pleural effusio n. No pneumothorax. Cardiomegaly is noted. IMPRESSION: 1. Airspace opacities at left lung base, consistent with atelectasis versus pneumonia. 2. Small left pleural effusion. 3. Cardiomegaly. Reviewed, dictated and finalized at location E. IMPRESSION: 1. Airspace opacities at left lung base, consistent with atelectasis versus pne umonia. 2. Small left pleural effusion. 3. Cardiomegaly.
--- NOTE | ~2023-08-06 | CT_ITS ---
EXAMINATION: CT brain wo con DATE: 08/07/2023 19:42 INDICATION: Hallucinations. Mental status change. TECHNIQUE: Computed tomography (CT) of the head was performed without intravenous contrast. The mA wa s adjusted according to patient size. Iterative reconstruction technique was employed. The dose-lengt h product was 681.00 mGy-cm. COMPARISON: None FINDINGS: There is no intracranial hemorrhage, acute infarction, or abnormal intracranial mass lesion . There are scattered areas of low attenuation in the cerebral white matter, which is within normal l imits for the patient's age. The ventricles are normal in size. There is mucosal thickening in the pa ranasal sinuses. There are likely changes of left ocular lens replacement surgery. There is a small r ight mastoid effusion. IMPRESSION: 1. Normal aging brain. Reviewed, dictated and finalized at location E. IMPRESSION: 1. Normal aging brain.
--- NOTE | 2023-08-06 14:37 | ECG_ITS ---
SEE SCANNED COPY FOR CONFIRMED REPORT MTDD
[2023-08-06 14:48] LABS: Basophils Percent Auto 0.6 % (0.2-1.2); Eosinophils Percent Auto 0.2 % (0-4.4); Hematocrit 35.1 % (42.0-52.0); Hemoglobin 12.2 g/dL (14.0-18.0); Immature Granulocyte Absolute 0.02 K/mm3 (0.00-0.031); Immature Granulocyte Percent A 0.4 % (0-0.5); Lymphocytes Absolute Auto 0.69 K/mm3 (0.9-3.2); Lymphocytes Percent Auto 14.1 % (18.3-44.2); Mean Corpuscular HGB Conc 34.8 g/dl (32-36); Mean Corpuscular Hemoglobin 39.4 pg (26-34); Mean Corpuscular Volume 113.2 fl (80-100); Mean Platelet Volume 10.5 fl (7.4-10.4); Monocytes Absolute Auto 0.6 K/mm3 (0.1-0.6); Monocytes Percent Auto 12.7 % (2.6-8.5); Neutrophils Absolute Auto 3.5 K/mm3 (1.3-6.7); Nucleated Red Blood Cells Perc 0.4 % (0.0-0.2); Platelet Count Result 122 k/mm3 (150-375); Red Cell Distribution Width 17.3 % (11.5-14.5); White Blood Count 4.9 K/mm3 (4.5-10.0)
[2023-08-06 14:55] LABS: Appearance Urine Clear (Clear); Bacteria Urine None Seen /hpf; Bilirubin Urine Negative (Negative); Blood Urine Negative (Negative); Color Urine Yellow (Yellow); Glucose Urine UA Negative (Negative); Ketones Urine 1+ mg/dL (Negative); Leukocyte Esterase Ur Negative LEU/UL (Negative); Nitrate Urine Negative (Negative); Protein Urine Trace mg/dL (Negative); RBC Urine 0-2 /hpf (0-2); Specific Grav Ur 1.008 (1.001-1.035); Squamous Epithelial Cell Urine None Seen /hpf (Few); WBC Urine 0-5 /hpf (0-3)
[2023-08-06 15:06] LABS: Alanine Aminotransferase 54 U/L (6-50); Albumin Level 3.7 g/dL (3.5-5.1); Alkaline Phosphatase 178 U/L (38-126); Anion Gap 13 mmol/L (4-12); Aspartate Amino Transferase 336 U/L (17-59); Bilirubin,Total 5.3 mg/dL (0.2-1.3); Blood Urea Nitrogen 5 mg/dL (9-20); Calcium 7.8 mg/dL (8.4-10.2); Carbon Dioxide 31 mmol/L (22-30); Chloride 89 mmol/L (98-107); Estimated CRCL calculation 214 ml/min; Estimated Glomerular Filt Rate > 60; Glucose 135 mg/dL (65-110); Magnesium 1.1 mg/dL (1.6-2.3); Potassium 2.4 mmol/L (3.4-5.0); Sodium 133 mmol/L (137-145)
[2023-08-06 15:09] LABS: Add Urine Microscopic? YES; D Dimer 3.07 ug/mL (<0.48)
[2023-08-06 15:13] LABS: Platelet Estimate Decreased (Adequate)
[2023-08-06 15:14] LABS: Anisocytosis 1+; Macrocytosis 1+ (NORMAL); Schistocytes None Seen
[2023-08-06 15:19] LABS: NT Pro B Type Natriuretic Pept 7240 pg/mL (19.9-100)
--- NOTE | 2023-08-06 15:48 | ED.WEAKNESS ---
HPI - Weakness General Chief complaint: Weakness Stated complaint: weakness Time Seen by Provider: 08/06/23 14:35 History of Present Illness HPI Narrative: She states that about a week ago he started experiencing shortness of breath, productive cough, and generalized weakness, he states that he does not have any history of pulmonary or cardiac issues other than of heart block for which he sees cardiology. Denies any chest pain prior to this. Also noticed some swelling to his bilateral lower extremities. Related Data Home Medications Medication Instructions Recorded Confirmed multivitamin 1 tablet PO DAILY 12/03/19 07/27/23 buspirone 7.5 mg tablet 7.5 mg PO BID PRN Anxiety 11/17/22 07/27/23 Allergies Allergy/AdvReac Type Severity Reaction Status Date / Time Cephalosporins Allergy Intermediate Other Verified 07/27/23 09:37 peanut Allergy Mild itchy Verified 07/27/23 09:37 Penicillins Allergy Mild Rash Verified 07/27/23 09:37 azithromycin AdvReac Severe Prolonged Verified 07/27/23 09:37 QT interval levofloxacin [From Levaquin] AdvReac Severe Issues Verified 07/27/23 09:37 with QT interval(has 2nd degree block) Review of Systems Review of Systems: CONST: No fever. HEENT: No sore throat C/V: No chest pain RESP: Productive cough and shortness of breath GI: No abdominal pain : No dysuria. M/S: Lower extremity edema SKIN: No rash. NEURO: [No headache or focal numbness or weakness] PSYCH: [No depression] [facility] Past Medical History Medical History Anxiety Arthritis Asthma Bilateral chronic knee pain Cataract Chills COPD (chronic obstructive pulmonary disease) Cornea transplant recipient Depressive disorder, not elsewhere classified Environmental allergies Essential (primary) hypertension Hernia HLD (hyperlipidemia) Hyperlipidemia Lymphedema of both lower extremities Mild persistent asthma without complication Mixed hyperlipidemia CB on CPAP (2009) Screening for prostate cancer Sleep disorder Tear of meniscus of left knee Wheezing Surgical History Surgical History H/O hernia repair 2009 History of nasal surgery Hx laparoscopic cholecystectomy 12/18/19 Hx of cornea transplant S/P left knee arthroscopy Family History Family History Other Adopted Social History Social History Social History: The patient works at [employer] during the day and [employer] during the night. The patient lives with a pet dog. Patient quit smoking about 5-10 years ago. The patient does not use any alcohol marijuana or illicit drugs. He desires to be a full code. And his sister is a durable power corporate associate attorney for healthcare. He has no children. He is adopted and does not know his biological parents. Smoking packs per day: 1 Smoking cigarettes per day: 20.0 Years smoked: 30 Smoking pack-years: 30.00 Smoking status: Former smoker Tobacco type: cigarettes Second hand tobacco smoke exposure: No Smoking end date: 04/24/16 Additional smoking assessment comments: QUIT 5 YEARS AGO Alcohol intake: current Drinks per week: 2 Alcohol use details: occasional Substance use: never Substance use type: does not use Current Housing: Decline to Answer Concerned About Future Housing: Decline to Answer Difficulty Paying Gas/Electric Bills: Decline to Answer Difficulty Paying for Meds: Decline to Answer Currently Unemployed: Decline to Answer Education: Decline to Answer Difficulty w/ Childcare or Family Care: Decline to Answer Living arrangements: alone Occupation/Education: occupation Additional occupation/education comments: [employer] Gender identity (if verbalized by the patient): Male Spiritual care concerns: No Exam Narrative
[2023-08-06] MEDS: POTASSIUM CHLORIDE 20 MEQ ER TABLET 40 MEQ PO (15:55)
[2023-08-06] MEDS: ASPIRIN 81 MG CHEWABLE TABLET 324 MG PO (15:56)
[2023-08-06] MEDS: FUROSEMIDE INJ 40 MG/4 ML VIAL IV PUSH (15:56)
[2023-08-06] MEDS: POTASSIUM CHLORIDE INJ 40 MEQ in SODIUM CHLORIDE 0.9% IV 500 ML 130 MEQ IVPB (15:58)
[2023-08-06 16:08] LABS: INR 1.1; Prothrombin Time 14.2 Seconds (11.1-14.7)
[2023-08-06 16:09] LABS: Partial Thromboplastin Time 31.2 Seconds (22.3-36.8)
[2023-08-06] MEDS: HEPARIN SOD/D5W 100 UNITS/ML 25,000 UNITS/250 ML BAG 10 UNITS IV CONT (16:21)
[2023-08-06] MEDS: HEPARIN SODIUM 5,000 UNITS/ML VIAL 4000 UNITS IV PUSH ×2 (16:21→23:31)
[2023-08-06] MEDS: SODIUM CHLORIDE 0.9% IV 500 ML (17:12)
[2023-08-06] MEDS: POLYMYXIN/TRIMETHOPRIM OPHTH 10 ML DROPS 1 DROP LEFT EYE (17:51)
[2023-08-06] MEDS: TOBRAMYCIN/DEXAMETHASONE OP 2.5 ML BTL 1 DROP EACH EYE (18:08)
[2023-08-06] MEDS: MAGNESIUM SULF 4 GM/WATER100ML 4 GM/100 ML BAG IVPB (18:22)
--- NOTE | 2023-08-06 18:31 | PC.NURSE ---
182-ATTEMPTED TO CALL REPORT. RECEIVING NURSE, ALFREDO, OFF FLOOR. RECEIVING NURSE TO CALL BACK FOR REPORT.
--- NOTE | 2023-08-06 18:49 | PC.NURSE ---
1849-REPORT TO PRAMOD FUENTES ICU
--- NOTE | 2023-08-06 19:13 | PM.IMHP ---
H&P: HPI History of Present Illness Date/Time: 08/06/23 19:13 Chief Complaint: Generalized Weakness, SOB Narrative: 62 y/o M presents here with SOB and generalized weakness with PMH of arthritis, COPD, depression, cornea transplant recipient, HTN, HLD, lymphedema of BLE, persistent asthma, and CB on CPAP. Patient presents here from home via EMS with generalized weakness for the past week and shortness of breath that began 2-3 days ago. Patient reports that he had been so weak he has been unable to get out of his chair in the last few days. Patient does have some increased weakness to his LLE beginning at hip with associated shooting pain down his leg, has seen an orthopedist for this and has been told he needs a knee replacement and has been doing physical therapy. Shortness of breath with associated cough, productive and yielding white sputum. Shortness of breath would worsen with exertion and would partially be alleviated with rest. Endorsing diaphoresis that was intermittent and profuse starting yesterday. Denying chest pain, chest tightness, fever or body aches. Reports increased bilateral lower extremity edema for past month. Has hx of bilateral lymphedema and on diuretic, was treating with weight loss and activity but has been less active as of late. ETOH history - 4 mixed drinks daily for the past 3-4 years. Former smoker, cessation 8-9 years ago, 1-2 PPD for approximately 30 years. Denies any upper abdominal pain or epigastric discomfort. Cornea transplant was in 2015, has had complications since 2021 - sees Dr Peterson at [facility]. 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 Initial VS at presentation: 98.2? F, HR 90, RR 26, 167/96, and 95% on RA. ED workup showed: WBC 4.9, chronic mild anemia, elevated D-dimer, sodium 133, potassium 2.4, chloride 89, CO2 31, creatinine 0.4 and GFR >60, glucose 135, calcium 7.8, magnesium 1.1, total bilirubin 5.3 and LFTs elevated, troponin 1.50, and BNP 7240. Review of Systems Review of Systems: All systems reviewed & are unremarkable except as noted in HPI and below [facility] Past Medical History Medical History Anxiety Arthritis Asthma mild, persistent Atrial flutter with rapid ventricular response Bilateral chronic knee pain Cataract Chills COPD (chronic obstructive pulmonary disease) Cornea transplant recipient Depressive disorder, not elsewhere classified Environmental allergies Essential (primary) hypertension Hernia HLD (hyperlipidemia) Lymphedema of both lower extremities Mixed hyperlipidemia BC on CPAP (2009) Sleep disorder Subclinical hyperthyroidism Tachycardia-bradycardia syndrome Tear of meniscus of left knee Type 2 diabetes mellitus Surgical History Surgical History H/O hernia repair 2010 History of nasal surgery Hx laparoscopic cholecystectomy 12/18/19 Hx of cornea transplant S/P left knee arthroscopy Family History Family History Other Adopted Social History Social History Social History: The patient works at [employer] during the day and [employer] during the night. The patient lives with a pet dog. Patient quit smoking about 5-10 years ago. The patient does not use any alcohol marijuana or illicit drugs. He desires to be a full code. And his sister is a durable power assistant county attorney for healthcare. He has no children. He is adopted and does not know his biological parents. Smoking packs per day: 1 Smoking cigarettes per day: 20.0 Years smoked: 25 Smoking pack-years: 25.00 Smoking status: Former smoker Tobacco type: cigarettes Second hand tobacco smoke exposure: No Smoking end date: 04/24/16 Additional smoking assessment comments: QUIT 5 YEARS AGO Alcohol intake: current Drinks per week: 7
--- NOTE | 2023-08-06 19:33 | ADMGEN ---
This patient, Addi Caal, was admitted to IMU Room 203-01 on 08/06/23 at 1900. Patient/family oriented to hospital policies and general routines including ID bracelet, bed and alarms, visiting hours, pain management, procedures, bathroom and other care routines, personal items, smoking policy, room service/diet, and visiting hours. Information on how to activate the Rapid Response Team has been discussed. Patient/Family are encouraged to report perceived risks to care and to ask questions if they do not understand what they are told or what they should do.
[2023-08-06 22:33] LABS: Partial Thromboplastin Time 35.6 Seconds (22.3-36.8)
[2023-08-06 22:43] LABS: Anion Gap 8 mmol/L (4-12); Blood Urea Nitrogen 4 mg/dL (9-20); Calcium 7.5 mg/dL (8.4-10.2); Carbon Dioxide 34 mmol/L (22-30); Chloride 91 mmol/L (98-107); Estimated CRCL calculation 214 ml/min; Estimated Glomerular Filt Rate > 60; Glucose 126 mg/dL (65-110); Magnesium 1.8 mg/dL (1.6-2.3); Potassium 2.7 mmol/L (3.4-5.0); Sodium 133 mmol/L (137-145)
[2023-08-06 23:51] LABS: Influenza A QL RT-PCR Negative (Negative); Influenza B QL RT-PCR Negative (Negative); RSV RNA, RT-PCR Negative (Negative); SARS-CoV-2 RNA PCR Negative (Negative)
[2023-08-07] VITALS (28 sets, daily range): BP systolic 118–179; BP diastolic 66–105; PULSE 79–120; RESP 16–29; TEMP 36.3–37.3; O2SAT 93–100
--- NOTE | 2023-08-07 | ECHO_ITS ---
Patient Info Name: Addi Caal Age: 62 years : 1960 Gender: Male Ht: 69 in Wt: 302 lbs BSA: 2.65 m2 HR: 82 bpm BP: 148 / 94 mmHg Heart Rhythm: Atrial Flutter Technical Quality: Fair Exam Date: 08/07/2023 8:57 AM Exam Location: Echo Lab Patient Status: Inpatient Admit Date: 08/06/2023 Staff Ordering Physician: Caro Retana APRN Food Assembler: Emy Fish RDCS Attending Provider: Andrew Henning MD Referring Physician: Lainey DUNAWAY; Exam Type: CA echo dop color flow w con Study Info Indications - volume overload, elevated BNP Complete two-dimensional, color flow and Doppler transthoracic echocardiogram is performed with contrast to opacify the left ventricle and to improve the deliniation of the left ventricle endocardial borders. Contrast/Agitated Saline Contrast/Ag. Saline: Definity Amount: 2.00 ml Administered By: Emy Fish RDCS Existing IV Access: Yes IV Access Condition: patent with no signs of infiltration Summary 1. Technically difficult exam, definity contrast injected to improve visualization. 2. Normal left ventricular size and overall systolic function. 3. Apical hypokinesia. 4. Normal appearing and functioning aortic and mitral valve. 5. Left atrial enlargement. 6. Atrial flutter. Left Ventricle Left ventricular chamber dimension is normal. Left ventricular systolic function is normal, estimated at 55-60%. The left ventricular diastolic function is grade I diastolic dysfunction. Right Ventricle Right ventricular chamber dimension is mildly enlarged. Left Atria Left atrial chamber dimension is moderately enlarged. Right Atria Right atrial chamber dimension is normal. Aortic Valve The aortic valve is normal. Pulmonic Valve The pulmonic valve is not well visualized. Mitral Valve The mitral valve has normal leaflets. Tricuspid Valve The tricuspid valve leaflets are normal. Pericardium/Pleural The pericardium appears normal. Aorta The aortic root size at the sinus of Valsalva is normal. Left Ventricular Outflow Tract Name Value Normal LVOT 2D LVOT Diameter 2.14 cm LVOT Doppler LVOT Peak Gradient 4 mmHg LVOT Mean Gradient 2 mmHg LVOT VTI 13.22 cm LVOT VTI/AV VTI Ratio 0.61 LVOT Stroke Volume 47.71 ml LVOT CO 3.76 l/min LVOT CI 1.42 L/min/m2 Pulmonic Valve Name Value Normal RVOT Doppler RVOT Peak Gradient 2 mmHg PV Doppler PV Peak Gradient 8 mmHg Mitral Valve Name Value Normal
[2023-08-07] MEDS: POTASSIUM CHLORIDE 20 MEQ ER TABLET 80 MEQ PO ×2 (00:11→08:10)
[2023-08-07 01:10] LABS: Troponin I 0.993 ng/mL (0.000-0.034)
[2023-08-07] MEDS: TOBRAMYCIN/DEXAMETHASONE OP 2.5 ML BTL 1 DROP EACH EYE ×5 (02:07→22:52)
[2023-08-07] MEDS: FUROSEMIDE INJ 40 MG/4 ML VIAL IV PUSH ×2 (02:07→17:39)
[2023-08-07] MEDS: POLYMYXIN/TRIMETHOPRIM OPHTH 10 ML DROPS 1 DROP EACH EYE ×5 (02:08→22:54)
[2023-08-07 05:56] LABS: Basophils Absolute Auto 0.1 K/mm3 (0.0-0.1); Basophils Percent Auto 0.9 % (0.2-1.2); Eosinophils Percent Auto 0.2 % (0-4.4); Hematocrit 32.9 % (42.0-52.0); Hemoglobin 11.1 g/dL (14.0-18.0); Immature Granulocyte Absolute 0.03 K/mm3 (0.00-0.031); Immature Granulocyte Percent A 0.5 % (0-0.5); Lymphocytes Absolute Auto 0.75 K/mm3 (0.9-3.2); Mean Corpuscular HGB Conc 33.7 g/dl (32-36); Mean Corpuscular Hemoglobin 38.7 pg (26-34); Mean Corpuscular Volume 114.6 fl (80-100); Mean Platelet Volume 10.4 fl (7.4-10.4); Monocytes Absolute Auto 0.6 K/mm3 (0.1-0.6); Monocytes Percent Auto 10.9 % (2.6-8.5); Neutrophils Absolute Auto 4.3 K/mm3 (1.3-6.7); Neutrophils Percent Auto 74.5 % (45.5-73.1); Platelet Count Result 108 k/mm3 (150-375); Red Blood Count 2.87 M/mm3 (4.6-6.20); Red Cell Distribution Width 17.5 % (11.5-14.5); White Blood Count 5.8 K/mm3 (4.5-10.0)
[2023-08-07 06:09] LABS: Partial Thromboplastin Time 48.5 Seconds (22.3-36.8)
[2023-08-07] MEDS: HEPARIN SODIUM 5,000 UNITS/ML VIAL 4000 UNITS IV PUSH (06:20)
[2023-08-07 06:40] LABS: Alanine Aminotransferase 47 U/L (6-50); Albumin Level 3.1 g/dL (3.5-5.1); Alkaline Phosphatase 152 U/L (38-126); Anion Gap 4 mmol/L (4-12); Aspartate Amino Transferase 249 U/L (17-59); Bilirubin,Total 4.8 mg/dL (0.2-1.3); Blood Urea Nitrogen 3 mg/dL (9-20); Calcium 7.3 mg/dL (8.4-10.2); Carbon Dioxide 38 mmol/L (22-30); Chloride 87 mmol/L (98-107); Estimated CRCL calculation 273 ml/min; Estimated Glomerular Filt Rate > 60; Glucose 116 mg/dL (65-110); Magnesium 1.4 mg/dL (1.6-2.3); Potassium 2.8 mmol/L (3.4-5.0); Sodium 129 mmol/L (137-145)
[2023-08-07 06:54] LABS: Platelet Estimate Adequate (Adequate)
[2023-08-07 06:55] LABS: Anisocytosis 1+; Macrocytosis 1+ (NORMAL); Schistocytes None Seen
[2023-08-07 06:58] LABS: Phosphorus 2.2 mg/dL (2.5-4.5)
[2023-08-07] MEDS: ROSUVASTATIN 10 MG TABLET 40 MG PO (08:09)
[2023-08-07] MEDS: MAGNESIUM SULF 4 GM/WATER100ML 4 GM/100 ML BAG IVPB (08:09)
[2023-08-07] MEDS: buPROPion HCL XL (24 HR) 150 MG TABCR 300 MG PO (08:09)
[2023-08-07] MEDS: FUROSEMIDE 40 MG TABLET PO (08:10)
[2023-08-07] MEDS: lisinopriL 20 MG TABLET 40 MG PO (08:10)
[2023-08-07] MEDS: MULTIVITAMINS THERAPEUTIC TAB (*BKC) 1 TABLET PO (08:10)
--- NOTE | 2023-08-07 09:11 | PM.IMPN ---
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 Jiménez is a very pleasant yet unfortunately chronically ill 62-year-old male with history of morbid obesity, osteoarthritis, depression left side cornea transplant recipient 2016 with complication/failure (followed by Dr. Peterson at [facility]), heart block (followed by Dr. Fung), bilateral LE lymphedema, asthma/COPD, CB on NIPPV (followed by Dr. Tinajero), hyperlipidemia, hypertension, rox-zgsfaye-ltowvffof type 2 diabetes mellitus, alcoholism, former smoker, history of cholecystectomy, presenting with generalized weakness and shortness of breath. Admitted on 08/07/2023 for further workup. Shortness of breath -unclear etiology, ddx include mild COPD/asthma exacerbation, new onset heart failure, NSTEMI -quad PCR screen negative on admission -continue diuresis, start neb treatments, check ABG, pending echo, pending Cardiology consultation. -lungs with mild crackles diffusely but no wheezing. Has bilateral lymphedema but reports increasing swelling of the extremities in spite of being on Lasix at home. -if no improvement then a consultation to Dr. Tinajero his primary sausage tier as warranted BC on NIPPV -continue NIPPV at night. ABG pending COPD/asthma -start DuoNebs. Does not have wheezing. Heart failure more likely the culprit Elevated troponin -only complained of shortness of breath on presentation although troponin was 1.5 and now down trended. -EKG unable to be viewed however reportedly there was possible a flutter. Will obtain a repeat. Continue telemetry. He received Lasix and aspirin 324 mg in the ER. Continue heparin GTT. Cardiology consult pending Left corneal transplant/eye infection -left corneal haziness with purulent/secretions. His surgeon Dr. Peterson was contacted from the ER who recommended Polytrim q.6 TobraDex q.6 an outpatient follow-up in the clinic. Acute electrolyte imbalance -both hypo magnesemia and hypokalemia are being replaced. Repeat levels in the afternoon. Chronic anemia -likely due to alcoholism. Macrocytosis. Check vitamin B12 folate and iron panel and ferritin. Thrombocytopenia -likely due to his alcoholism. Continue to monitor. Hyponatremia -possibly due to Lasix use or CHF. Continue to monitor Metabolic alkalosis -likely due to Lasix use. Continue to monitor Hypocalcemia -corrected for hypoalbuminemia Transaminitis/hyperbilirubinemia -likely due to alcoholism. Continue to monitor and consult GI if improving. Kqq-zzxlwlb-oqvdxmwbo type 2 diabetes mellitus/morbid obesity -heavily counseled on the importance of weight loss. -check HbA1c -does not appear to be on any oral anti diabetics at home Hypertension -currently controlled -home dose lisinopril 40 mg p.o. q.day has been restarted Osteoarthritis, generalized weakness -complains of right hip and right knee pain which is usual for him and he is supposed to have replacement. -consult PT OT. He does
--- NOTE | 2023-08-07 09:28 | ECG_ITS ---
SEE SCANNED COPY FOR CONFIRMED REPORT MTDD
[2023-08-07] MEDS: PERFLUTREN LIPID MICROSPHERES 1.5 ML VIAL DILUTED TO 10 ML TOTAL VOLUME IV PUSH (09:35)
[2023-08-07] MEDS: INSULIN ASPART (*BKC) 100 UNITS/ML SUB-Q (12:01)
[2023-08-07 12:07] LABS: Glucose Point of Care 215 mg/dl (65-105)
[2023-08-07] MEDS: APIXABAN 5 MG TABLET PO ×2 (12:08→22:44)
--- NOTE | 2023-08-07 12:12 | IVDEFINITY ---
Prior to administration of IV Definity the patient was educated on the risks and benefits of the imaging enhancing agent including potential adverse side effects. The patient verbalized understanding. Allergies were verified. No exclusion criteria were identified and at least one of the following inclusion criteria were met: 1) physician request, 2) patient technically difficult to image (per the [place] [employer] guidelines of two or more segments not discernable within the apical view), or 3) questionable left ventricular function. ?
[2023-08-07 12:18] LABS: Alveolar/Arterial O2 Gradient 65.6 mmHg; Base Excess ABG 12.3 mEq/l (+/-2.0); Carboxyhemoglobin 1.1 % THb (0-2.0); Device NASAL CANNULA; Fractional Inspired Oxygen 28 %; HCO3 ABG 36.8 mEq/l (22.0-26.0); Methemoglobin ABG 0.2 %THb (0-1.5); Modified Allen's Test Pass; Oxygen Content ABG 17.1 %vol (16.0-22.0); Oxygen Saturation ABG 96.6 % (95.0-100.0); Oxyhemoglobin 93.8 % THb (90.0-100.0); PCO2 ABG 46.5 mmHg (35.0-45.0); PO2 ABG 79.2 mmHg (80.0-100.0); PO2 FiO2 Ratio Arterial Blood 2.83 %; Reduced Hemoglobin 4.9 %THb (0-5.0); Site Drawn RIGHT RADIAL; Total Hemoglobin 12.9 g/dL (12.0-18.0); pH ABG 7.516 (7.350-7.450)
--- NOTE | 2023-08-07 12:37 | PM.CNCAR ---
Assessment and Plan Assessment and plan (1) Atrial flutter: Code(s): I48.92 - Unspecified atrial flutter Status: Acute Plan this is a morbidly obese 62-year-old man who has underlying sleep apnea which is being treated. He presents to the hospital with generalized weakness and inability to stand. A during this evaluation was found to be in atrial flutter. His ventricular response to this is not rapid as he does AV node dysfunction. This arrhythmia in my opinion does not explain his extreme weakness and inability to stand up and bear weight. He needs to be anticoagulated systemically in this setting I have started him on apixaban. His troponin levels are elevated but there is no other clinical or or electrocardiographic evidence of an acute coronary syndrome and he is known by CT AA last year not to have any significant occlusive coronary disease. For that reason I do not believe we need to pursue an ischemia workup at this time. Once he is anticoagulated for at least 4-6 weeks an attempt at restoring sinus Rhythm electrically can be considered. we do not know the onset of this atrial flutter and for that reason and the fact that he is essentially stable hemodynamically we do not have to attempt cardioversion during this hospitalization in my opinion Chito Fung MD [facility] History of Present Illness History of Present Illness Consult date/time: 08/07/23 12:37 Reason For Visit: Elev trop, New CHF, HypoK/Mg Narrative: this is a 62-year-old man I am seeing at the request of the hospitalist because of elevated troponin levels and atrial flutter. This is a patient that is known to me for a few years in the office because of AV node dysfunction. He came to the hospital yesterday because of symptoms of severe lower extremity and generalized weakness to the point where he could not stand up from a seated position apparently he had to call EMS to his home a couple of times in the last couple of days to help get him up off the floor on the 2nd time he was advised to come to the hospital for further evaluation. He lives alone and at home alone without any Kale 1 else there except for his dog. He did not have any other complaints such as chest pain pressure or heaviness. He is bedside chair at this time and offers no other complaints. This is a patient with a history of Mobitz type 1 second-degree AV block for which I saw him in consultation in March of 2021. At that time he was hospitalized because of bronchitis and coronavirus. He did not have any history of syncope or any high-grade AV block. Following discharge he did wear a 7 day event monitor that did not show any higher grade AV node dysfunction. The patient was seen by my nurse practitioner in the summer was works pressing concerns about coronary artery disease. He was referred to [facility] for a coronary CTA that was done at that time which did not show any significant coronary disease he had some mild nonocclusive coronary plaques identified at that time. I saw him last in consultation for office follow-up in January of 2023 a which she had no complaints his cardiac rhythm was unchanged at that time. Upon and written admission to the hospital yesterday his rhythm is now atrial flutter with variable conduction he has a chronic right bundle branch block which was seen on previous electrocardiograms as well. He has no other acute cardiac complaints at this time he is also morbidly obese and has sleep apnea BMI is 44.7. Review of Systems Constitutional: Constitutional: Reports as per HPI and Reports weakness Eyes: Eyes: Reports no additional eye complaints ENT: Reports system reviewed and no additional complaints, except as documented Cardiovascular: Cardiovascular: Reports no additional cardiovascular complaints Respiratory: Respiratory: Reports dyspnea on exertion Gastrointestinal: Gastrointestinal: Reports no additional gastrointestinal complain
[2023-08-07] MEDS: IPRATROPIUM 0.5 MG/ALBUTEROL SULFATE 2.5 MG AMPUL.NEB 3 ML INHALATION ×2 (13:00→19:54)
[2023-08-07 13:01] LABS: Blood Urea Nitrogen 3 mg/dL (9-20); Calcium 7.5 mg/dL (8.4-10.2); Carbon Dioxide > 40 mmol/L (22-30); Chloride 85 mmol/L (98-107); Estimated CRCL calculation 214 ml/min; Estimated Glomerular Filt Rate > 60; Glucose 160 mg/dL (65-110); Magnesium 1.8 mg/dL (1.6-2.3); Sodium 131 mmol/L (137-145)
[2023-08-07] MEDS: POTASSIUM CHLORIDE 20 MEQ ER TABLET PO ×2 (17:03)
[2023-08-07 17:09] LABS: Glucose Point of Care 138 mg/dl (65-105)
[2023-08-07] MEDS: LORazepam INJ (*CRX) 2 MG/ML VIAL 0.5 MG IV PUSH (17:36)
[2023-08-07] MEDS: predniSONE 40 MG, predniSONE 10 MG 50 MG PO (17:36)
--- NOTE | 2023-08-07 17:43 | PC.NURSE ---
This patient, Addi Caal, was transferred to [ [facility]] on 08/07/23 at 1743. Personal belongings sent with patient. Report given to [Hayley ]. Appropriate documentation sent with patient.
--- NOTE | 2023-08-07 19:04 | PC.NURSE ---
This patient, Addi Caal, was received from IMU on 08/07/23 at 1750. Report received from PRAMOD Del Rio. Patient/family oriented to unit policies and routines
[2023-08-07 20:45] LABS: Anion Gap 6 mmol/L (4-12); Blood Urea Nitrogen 4 mg/dL (9-20); Calcium 7.6 mg/dL (8.4-10.2); Carbon Dioxide 38 mmol/L (22-30); Chloride 87 mmol/L (98-107); Estimated CRCL calculation 214 ml/min; Estimated Glomerular Filt Rate > 60; Glucose 165 mg/dL (65-110); Magnesium 1.5 mg/dL (1.6-2.3); Potassium 3.1 mmol/L (3.4-5.0); Sodium 131 mmol/L (137-145)
[2023-08-07] MEDS: POTASSIUM CHLORIDE 20 MEQ ER TABLET 40 MEQ PO (22:44)
[2023-08-07] MEDS: chlordiazePOXIDE (*CRX) 25 MG CAPSULE PO (22:45)
[2023-08-07] MEDS: MAGNESIUM SULF 2 GM/WATER 50ML 2 GM/50 ML BAG IVPB (22:51)
[2023-08-07] MEDS: VANCOMYCIN 1,250 MG/NS 250 ML 1,250 MG/250 ML BAG 166.67 MG IVPB ×2 (22:52→22:57)
[2023-08-07] MEDS: AZTREONAM 2 GM in SODIUM CHLORIDE 0.9% IV 100 ML 200 ML IVPB (22:52)
[2023-08-07 23:25] LABS: Acetaminophen < 10 ug/mL (10-30); Ammonia < 9 umol/L (9-30); Salicylate < 1.0 mg/dL (2-20)
[2023-08-08] VITALS (24 sets, daily range): BP systolic 124–159; BP diastolic 66–97; PULSE 73–88; RESP 16–24; TEMP 35.9–37.3; O2SAT 86–99
[2023-08-08 00:10] LABS: Thyroid Stimulating Hormone Reflex 0.966 uIU/mL (0.465-4.68)
[2023-08-08] MEDS: IPRATROPIUM 0.5 MG/ALBUTEROL SULFATE 2.5 MG AMPUL.NEB 3 ML INHALATION ×4 (01:51→20:16)
[2023-08-08] MEDS: AZTREONAM 2 GM in SODIUM CHLORIDE 0.9% IV 100 ML 200 ML IVPB ×2 (05:34→14:08)
[2023-08-08] MEDS: chlordiazePOXIDE (*CRX) 25 MG CAPSULE PO ×4 (05:36→23:19)
[2023-08-08] MEDS: TOBRAMYCIN/DEXAMETHASONE OP 2.5 ML BTL 1 DROP EACH EYE ×4 (05:41→23:20)
[2023-08-08] MEDS: POLYMYXIN/TRIMETHOPRIM OPHTH 10 ML DROPS 1 DROP EACH EYE ×4 (05:41→23:20)
[2023-08-08 05:46] LABS: Alveolar/Arterial O2 Gradient 91.4 mmHg; Base Excess ABG 11.6 mEq/l (+/-2.0); Carboxyhemoglobin 0.7 % THb (0-2.0); Fractional Inspired Oxygen 28 %; HCO3 ABG 36.2 mEq/l (22.0-26.0); Methemoglobin ABG 0.1 %THb (0-1.5); Oxygen Content ABG 14.7 %vol (16.0-22.0); Oxygen Saturation ABG 89.5 % (95.0-100.0); PCO2 ABG 47.3 mmHg (35.0-45.0); PO2 ABG 52.4 mmHg (80.0-100.0); PO2 FiO2 Ratio Arterial Blood 1.87 %; Reduced Hemoglobin 13.2 %THb (0-5.0); Total Hemoglobin 12.2 g/dL (12.0-18.0); pH ABG 7.502 (7.350-7.450)
[2023-08-08 05:47] LABS: Device NON-INVASIVE VENT; Modified Allen's Test Pass; Site Drawn RIGHT RADIAL
[2023-08-08 05:48] LABS: Non-Invasive Expiratory Pressure 12 CMH2O; Non-Invasive Inspiratory Pressure 22 CMH2O
[2023-08-08 06:09] LABS: Basophils Percent Auto 0.2 % (0.2-1.2); Hematocrit 33.2 % (42.0-52.0); Hemoglobin 11.1 g/dL (14.0-18.0); Immature Granulocyte Absolute 0.03 K/mm3 (0.00-0.031); Immature Granulocyte Percent A 0.5 % (0-0.5); Lymphocytes Percent Auto 11.1 % (18.3-44.2); Mean Corpuscular HGB Conc 33.4 g/dl (32-36); Mean Corpuscular Hemoglobin 39.4 pg (26-34); Mean Corpuscular Volume 117.7 fl (80-100); Mean Platelet Volume 10.4 fl (7.4-10.4); Monocytes Absolute Auto 0.5 K/mm3 (0.1-0.6); Monocytes Percent Auto 8.4 % (2.6-8.5); Neutrophils Percent Auto 79.8 % (45.5-73.1); Platelet Count Result 125 k/mm3 (150-375); Red Blood Count 2.82 M/mm3 (4.6-6.20); Red Cell Distribution Width 17.3 % (11.5-14.5); White Blood Count 6.3 K/mm3 (4.5-10.0)
[2023-08-08 06:26] LABS: Hemoglobin A1C 4.3 % (<5.7)
[2023-08-08 06:44] LABS: Alanine Aminotransferase 44 U/L (6-50); Albumin Level 3.3 g/dL (3.5-5.1); Alkaline Phosphatase 135 U/L (38-126); Aspartate Amino Transferase 177 U/L (17-59); Bilirubin,Total 3.7 mg/dL (0.2-1.3); Blood Urea Nitrogen 7 mg/dL (9-20); Calcium 7.7 mg/dL (8.4-10.2); Chloride 90 mmol/L (98-107); Estimated CRCL calculation 214 ml/min; Estimated Glomerular Filt Rate > 60; Glucose 142 mg/dL (65-110); Iron 40 ug/dL (49-181); Potassium 3.4 mmol/L (3.4-5.0); Sodium 135 mmol/L (137-145)
[2023-08-08 06:49] LABS: Anisocytosis 1+; Hypochromasia 1+; Macrocytosis 1+ (NORMAL); Platelet Estimate Adequate (Adequate); Schistocytes None Seen
[2023-08-08 06:53] LABS: Anion Gap 11 mmol/L (4-12); Carbon Dioxide 34 mmol/L (22-30)
[2023-08-08 06:55] LABS: Percent Iron Saturation 22 % (20-50)
[2023-08-08 07:00] LABS: Glucose Point of Care 178 mg/dl (65-105)
[2023-08-08 07:00] LABS: Glucose Point of Care 156 mg/dl (65-105)
[2023-08-08 07:15] LABS: Vitamin B12 > 1000.0 pg/mL (239-931)
[2023-08-08 08:32] LABS: Folic Acid 4.9 ng/mL (2.76->20)
[2023-08-08 08:34] LABS: Glucose Point of Care 109 mg/dl (65-105)
[2023-08-08] MEDS: THIAMINE HCL 200 MG/2 ML VIAL 100 MG IV PUSH (09:01)
[2023-08-08] MEDS: APIXABAN 5 MG TABLET PO ×2 (09:02→20:31)
[2023-08-08] MEDS: MULTIVITAMINS THERAPEUTIC TAB (*BKC) 1 TABLET PO (09:02)
[2023-08-08] MEDS: FUROSEMIDE 40 MG TABLET PO (09:03)
[2023-08-08] MEDS: POTASSIUM CHLORIDE 20 MEQ ER TABLET PO ×2 (09:03→17:04)
[2023-08-08] MEDS: predniSONE 40 MG, predniSONE 10 MG 50 MG PO (09:03)
[2023-08-08] MEDS: lisinopriL 20 MG TABLET 40 MG PO (09:04)
[2023-08-08] MEDS: FOLIC ACID 1 MG/0.2 ML INJ IV PUSH (09:04)
[2023-08-08] MEDS: buPROPion HCL XL (24 HR) 150 MG TABCR 300 MG PO (09:06)
[2023-08-08 09:09] LABS: Procalcitonin 0.2 ng/mL
[2023-08-08 11:33] LABS: Amphetamine Screen Urine Negative (Negative); Barbiturate Screen Urine Negative (Negative); Benzodiazepines Screen Urine Negative (Negative); Cannabinoid Screen Urine Negative (Negative); Cocaine Screen Urine Negative (Negative); Methadone Screen Urine Negative (Negative); Opiate Screen Urine Negative (Negative); Phencyclidine Screen Urine Negative (Negative)
[2023-08-08] MEDS: ROSUVASTATIN 20 MG TABLET 40 MG PO (11:40)
[2023-08-08] MEDS: VANCOMYCIN 1,500 MG/NS 500 ML 1,500 MG/500 ML BAG 250 MG IVPB (11:40)
[2023-08-08 11:44] LABS: Appearance Urine Turbid (Clear); Bacteria Urine None Seen /hpf; Bilirubin Urine 2+ (Negative); Blood Urine Negative (Negative); Color Urine Dark Yellow (Yellow); Glucose Urine UA Negative (Negative); Granular Casts Urine Present /lpf; Ketones Urine 1+ mg/dL (Negative); Leukocyte Esterase Ur Trace LEU/UL (Negative); Need Manual Microscopic Reviewed; Nitrate Urine Negative (Negative); Protein Urine 1+ mg/dL (Negative); Specific Grav Ur 1.021 (1.001-1.035); Squamous Epithelial Cell Urine Few /hpf (Few); WBC Urine 0-5 /hpf (0-3)
[2023-08-08 11:49] LABS: Add Urine Microscopic? YES
[2023-08-08 12:21] LABS: Glucose Point of Care 165 mg/dl (65-105)
--- NOTE | 2023-08-08 15:17 | PM.IMPN ---
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 Jiménez is a very pleasant yet unfortunately chronically ill 62-year-old male with history of morbid obesity, osteoarthritis, depression left side cornea transplant recipient 2016 with complication/failure (followed by Dr. Peterson at [facility]), heart block (followed by Dr. Fung), bilateral LE lymphedema, asthma/COPD, CB on NIPPV (followed by Dr. Tinajero), hyperlipidemia, hypertension, wje-kmrrazi-jhteladtc type 2 diabetes mellitus, alcoholism, former smoker, history of cholecystectomy, presenting with generalized weakness and shortness of breath. Admitted on 08/07/2023 for further workup. Shortness of breath/acute hypoxic respiratory failure -resolving. Upon evaluation today took the patient off nasal cannula and he was saturating 93%. Goal O2 saturation 88-92%. Etiologies include COPD/asthma exacerbation and new onset heart failure -cardiology consulted. Patient complaining of worsening lower extremity edema recently. Elevated BNP on admission. Surface echocardiogram demonstrating grade 1 diastolic dysfunction. Start Lasix 40 mg IV b.i.d.. Continue to appreciate Cardiology recommendations. Daily weights with cardiac diet and fluid restriction. -quad PCR screen negative on admission CB on NIPPV -continue NIPPV at night. COPD/asthma -acute exacerbation. Continue prednisone and DuoNeb scheduled. #Atrial flutter -cardiology consult. Eliquis started. He has an existing patient of the [facility] Cardiology group. Follow-up as an outpatient for further management. -controlled ventricular response #Acute encephalopathy -unclear etiology. Resolving. Patient reports he last had a drink many weeks ago. He still had august symptoms of alcohol withdrawal so CIWA protocol was initiated. -continue diuresis -during the height of his acute encephalopathy aztreonam and vancomycin were started on 08/06. For discontinue today as he does not have evidence of infectious etiology. Urinalysis not indicative. Cultures pending but no growth to date. -CT head without acute intracranial abnormalities -consult GI. Ammonia level normal but he has significant hyperbilirubinemia and transaminitis. Elevated troponin -only complained of shortness of breath on presentation although troponin was 1.5 and now down trended. -cardiology consulted. Left corneal transplant/eye infection -left corneal haziness with purulent/secretions. His surgeon Dr. Peterson was contacted from the ER who recommended Polytrim q.6 TobraDex q.6 an outpatient follow-up in the clinic. Acute electrolyte imbalance -hypomagnesemia and hypokalemia resolved status post replacement. Continue to monitor. Chronic anemia -likely due to alcoholism. Macrocytosis. Vitamin B12 greater than 1000, folate 4.9. Iron panel indicative of chronic disease. Thrombocytopenia -likely due to his alcoholism. Continue to monitor. Hyponatremia -possibly due to Lasix use or CHF or alco
[2023-08-08] MEDS: FUROSEMIDE INJ 40 MG/4 ML VIAL IV PUSH (17:04)
[2023-08-08 17:13] LABS: Glucose Point of Care 186 mg/dl (65-105)
--- NOTE | 2023-08-08 18:03 | WPDGICN ---
Assessment and Plan Assessment and plan (1) Elevated LFTs: Code(s): R79.89 - Other specified abnormal findings of blood chemistry Status: Acute Assessment and Plan: probably alcohol related will get hepatitis panel also liver ultrasound- if cirrhosis then will complete work up he needs to quit drinking altogether (2) Atrial flutter: Code(s): I48.92 - Unspecified atrial flutter Status: Acute (3) Type 2 diabetes mellitus: Code(s): E11.9 - Type 2 diabetes mellitus without complications Status: Acute (4) Alcohol abuse: Code(s): F10.10 - Alcohol abuse, uncomplicated Status: Acute Assessment and Plan: thiamine, nutrition support ciwa protocol (5) Thrombocytopenia: Code(s): D69.6 - Thrombocytopenia, unspecified Status: Acute Assessment and Plan: from alcohol use also could have liver disease (6) Pulmonary edema: Code(s): J81.1 - Chronic pulmonary edema Status: Acute Assessment and Plan: by primary (7) Morbid obesity: Code(s): E66.01 - Morbid (severe) obesity due to excess calories Status: Acute (8) Alcoholic hepatitis: Code(s): K70.10 - Alcoholic hepatitis without ascites Status: Acute Assessment and Plan: probably component of alcoholic hepatitis bili coming down, ast/alt>2, also macrocytosis (9) Macrocytosis: Code(s): D75.89 - Other specified diseases of blood and blood-forming organs Status: Acute Assessment and Plan: probably from alcohol use had colonoscopy 2022 with polyps removed GI Consult Note Consult date/time: 08/08/23 18:03 Reason for consult: elevated liver enzymes, alcohol use HPI: Addi Caal is a 62 year old male with history of COPD, depression, 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 He was admitted with generalized weakness for the past week and shortness of breath that began 2-3 days ago prior to admission, also found to have mild stable elevated troponin levels and atrial flutter already evaluated by cardiology. Also had mild pulmonary edema by CXR, on medical treatment. He drinks about 4-5 mixed drinks daily for last few years, noted bili 5 -->3, also macrocytosis with ast/alt>2, denies known liver disease. Primary suspects that he was confused with possible alcohol withdrawal. Review of Systems Constitutional: Constitutional: Reports weakness Eyes: Comments: blind left eye ENT: Reports Normal hearing present Cardiovascular: Cardiovascular: Reports leg edema Respiratory: Respiratory: Reports dyspnea on exertion Gastrointestinal: Gastrointestinal: Denies bloating Genitourinary: Genitourinary: Denies dysuria Musculoskeletal: Musculoskeletal: Denies neck pain Integumentary/Breasts: Skin/Breast: Denies rash Neurologic: Denies abnormal gait Psychiatric: Psychiatric: Reports confusion [facility] Past Medical History Medical History (Updated 08/08/23 @ 18:08 by Wagner Madera MD) Alcohol abuse Alcoholic hepatitis Anxiety Arthritis Asthma mild, persistent Atrial flutter with rapid ventricular response Bilateral chronic knee pain Cataract Chills COPD (chronic obstructive pulmonary disease) Cornea transplant recipient Depressive disorder, not elsewhere classified Environmental allergies Essential (primary) hypertension Hernia HLD (hyperlipidemia) Lymphedema of both lower extremities Macrocytosis Mixed hyperlipidemia CB on CPAP (2009) Sleep disorder Subclinical hyperthyroidism Tachycardia-bradycardia syndrome Tear of meniscus of left knee Thrombocytopenia Type 2 diabetes mellitus Surgical History Surgical History H/O hernia repair 2009 History of nasal surgery Hx laparoscopic cholecystectomy 12/18/19 Hx of cornea transplant S/P left knee arthroscopy Fami
[2023-08-08 20:59] LABS: Glucose Point of Care 166 mg/dl (65-105)
[2023-08-09] VITALS (19 sets, daily range): BP systolic 134–158; BP diastolic 68–99; PULSE 70–84; RESP 18–22; TEMP 36.6–36.9; O2SAT 92–100
[2023-08-09] MEDS: IPRATROPIUM 0.5 MG/ALBUTEROL SULFATE 2.5 MG AMPUL.NEB 3 ML INHALATION ×4 (01:23→20:45)
[2023-08-09] MEDS: chlordiazePOXIDE (*CRX) 25 MG CAPSULE PO ×3 (05:29→18:16)
[2023-08-09] MEDS: POLYMYXIN/TRIMETHOPRIM OPHTH 10 ML DROPS 1 DROP EACH EYE ×3 (05:29→18:16)
[2023-08-09] MEDS: TOBRAMYCIN/DEXAMETHASONE OP 2.5 ML BTL 1 DROP EACH EYE ×3 (05:29→18:16)
[2023-08-09 05:49] LABS: Basophils Percent Auto 0.3 % (0.2-1.2); Eosinophils Percent Auto 0.6 % (0-4.4); Hematocrit 31.2 % (42.0-52.0); Hemoglobin 10.6 g/dL (14.0-18.0); Immature Granulocyte Absolute 0.03 K/mm3 (0.00-0.031); Immature Granulocyte Percent A 0.5 % (0-0.5); Lymphocytes Percent Auto 13.8 % (18.3-44.2); Mean Corpuscular Volume 117.7 fl (80-100); Mean Platelet Volume 10.5 fl (7.4-10.4); Monocytes Absolute Auto 0.9 K/mm3 (0.1-0.6); Monocytes Percent Auto 13.5 % (2.6-8.5); Neutrophils Absolute Auto 4.6 K/mm3 (1.3-6.7); Neutrophils Percent Auto 71.3 % (45.5-73.1); Platelet Count Result 139 k/mm3 (150-375); Red Blood Count 2.65 M/mm3 (4.6-6.20); Red Cell Distribution Width 17.2 % (11.5-14.5); White Blood Count 6.5 K/mm3 (4.5-10.0)
[2023-08-09 06:05] LABS: Alanine Aminotransferase 34 U/L (6-50); Albumin Level 2.9 g/dL (3.5-5.1); Alkaline Phosphatase 126 U/L (38-126); Aspartate Amino Transferase 110 U/L (17-59); Bilirubin,Total 2.4 mg/dL (0.2-1.3); Blood Urea Nitrogen 9 mg/dL (9-20); Calcium 7.4 mg/dL (8.4-10.2); Carbon Dioxide > 40 mmol/L (22-30); Chloride 88 mmol/L (98-107); Estimated CRCL calculation 212 ml/min; Estimated Glomerular Filt Rate > 60; Glucose 100 mg/dL (65-110); Magnesium 1.7 mg/dL (1.6-2.3); Potassium 2.7 mmol/L (3.4-5.0); Sodium 131 mmol/L (137-145)
[2023-08-09 06:21] LABS: Platelet Estimate Adequate (Adequate)
[2023-08-09 06:22] LABS: Anisocytosis 1+; Hypochromasia 1+; Macrocytosis 1+ (NORMAL); Schistocytes None Seen
[2023-08-09 06:44] LABS: Hepatitis B Surface Antigen Negative (Negative)
[2023-08-09 06:50] LABS: HAV RESULT Negative (Negative); Hepatitis B Core IgM Result Negative (Negative)
[2023-08-09] MEDS: MAGNESIUM SULF 2 GM/WATER 50ML 2 GM/50 ML BAG IVPB (06:55)
[2023-08-09] MEDS: POTASSIUM CHLORIDE 20 MEQ ER TABLET 40 MEQ PO ×2 (06:56→09:57)
[2023-08-09 07:02] LABS: Hepatitis C Virus Antibody Negative (Negative)
[2023-08-09 08:17] LABS: Glucose Point of Care 104 mg/dl (65-105)
[2023-08-09] MEDS: FOLIC ACID 1 MG/0.2 ML INJ IV PUSH (09:56)
[2023-08-09] MEDS: buPROPion HCL XL (24 HR) 150 MG TABCR 300 MG PO (09:57)
[2023-08-09] MEDS: MULTIVITAMINS THERAPEUTIC TAB (*BKC) 1 TABLET PO (09:57)
[2023-08-09] MEDS: FUROSEMIDE INJ 40 MG/4 ML VIAL IV PUSH ×2 (09:57→18:15)
[2023-08-09] MEDS: ROSUVASTATIN 20 MG TABLET 40 MG PO (09:57)
[2023-08-09] MEDS: predniSONE 40 MG, predniSONE 10 MG 50 MG PO (09:57)
[2023-08-09] MEDS: lisinopriL 20 MG TABLET 40 MG PO (09:57)
[2023-08-09] MEDS: APIXABAN 5 MG TABLET PO ×2 (09:57→20:50)
[2023-08-09] MEDS: THIAMINE HCL 200 MG/2 ML VIAL 100 MG IV PUSH (09:58)
[2023-08-09] MEDS: POTASSIUM CHLORIDE 20 MEQ ER TABLET PO ×2 (09:58→18:16)
--- NOTE | 2023-08-09 10:03 | PM.IMPN ---
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 Jiménez is a very pleasant yet unfortunately chronically ill 62-year-old male with history of morbid obesity, osteoarthritis, depression left side cornea transplant recipient 2016 with complication/failure (followed by Dr. Peterson at [facility]), heart block (followed by Dr. Fung), bilateral LE lymphedema, asthma/COPD, CB on NIPPV (followed by Dr. Tinajero), hyperlipidemia, hypertension, [id number] type 2 diabetes mellitus, alcoholism, former smoker, history of cholecystectomy, presenting with generalized weakness and shortness of breath. Admitted on 08/07/2023 for further workup. Shortness of breath/acute hypoxic respiratory failure -resolving. Upon evaluation today took the patient off nasal cannula and he was saturating 93%. Goal O2 saturation 88-92%. Etiologies include COPD/asthma exacerbation and new onset heart failure -cardiology consulted. Patient complaining of worsening lower extremity edema recently. Elevated BNP on admission. Surface echocardiogram demonstrating grade 1 diastolic dysfunction. Start Lasix 40 mg IV b.i.d.. Continue to appreciate Cardiology recommendations. Daily weights with cardiac diet and fluid restriction. -quad PCR screen negative on admission CB on NIPPV -continue NIPPV at night. COPD/asthma -acute exacerbation. Continue prednisone and DuoNeb scheduled. 08/08: patient has wheezing in bilateral lungs, dyspnea with mild exertion, patient need BiPAP during the night consult germination worker for evaluation and treatment #Atrial flutter -cardiology consult. Eliquis started. He has an existing patient of the [facility] Cardiology group. Follow-up as an outpatient for further management. -controlled ventricular response #Acute encephalopathy -unclear etiology. Resolving. Patient reports he last had a drink many weeks ago. He still had august symptoms of alcohol withdrawal so CIWA protocol was initiated. -continue diuresis -during the height of his acute encephalopathy aztreonam and vancomycin were started on 08/06. For discontinue today as he does not have evidence of infectious etiology. Urinalysis not indicative. Cultures pending but no growth to date. -CT head without acute intracranial abnormalities -consult GI. Ammonia level normal but he has significant hyperbilirubinemia and transaminitis. Elevated troponin -only complained of shortness of breath on presentation although troponin was 1.5 and now down trended. -cardiology consulted. Left corneal transplant/eye infection -left corneal haziness with purulent/secretions. His surgeon Dr. Peterson was contacted from the ER who recommended Polytrim q.6 TobraDex q.6 an outpatient follow-up in the clinic. Acute electrolyte imbalance -hypomagnesemia and hypokalemia , hyponatremia replete with magnesium sulfate, potassium chloride, sodium chloride p.o. Continue to monitor. Chronic anemia -likely due to alcoholism. Mac
[2023-08-09 12:31] LABS: Glucose Point of Care 121 mg/dl (65-105)
[2023-08-09] MEDS: SODIUM CHLORIDE 500 MG TABLET 1000 MG PO ×2 (12:35→18:15)
[2023-08-09] MEDS: KCL 20 MEQ/SW 100 ML 100 ML 50 MEQ IVPB (12:39)
--- NOTE | 2023-08-09 15:32 | WPDGIPROGNO ---
Progress Note: A&P Assessment and Plan (1) Elevated LFTs: Code(s): R79.89 - Other specified abnormal findings of blood chemistry Status: Acute Assessment and Plan: ultrasound showed fatty liver- probably from alcohol abuse, also he has risk factors for kaba noted low platelets which could be from alcohol use but also cirrhosis will complete work up to rule out other chronic liver conditions (2) Alcoholic hepatitis: Code(s): K70.10 - Alcoholic hepatitis without ascites Status: Acute Assessment and Plan: patient understands that needs to stop drinking thiamine and nutrition support (3) Thrombocytopenia: Code(s): D69.6 - Thrombocytopenia, unspecified Status: Acute (4) Macrocytosis: Code(s): D75.89 - Other specified diseases of blood and blood-forming organs Status: Acute (5) Atrial flutter: Code(s): I48.92 - Unspecified atrial flutter Status: Acute (6) Type 2 diabetes mellitus: Code(s): E11.9 - Type 2 diabetes mellitus without complications Status: Acute (7) Pulmonary edema: Code(s): J81.1 - Chronic pulmonary edema Status: Acute Assessment and Plan: improving, feeling better Subjective Date/time seen: 08/09/23 15:32 Interval history: he is more comfortable today and breathing better Review of Systems Review of Systems: All systems reviewed & are unremarkable except as noted in HPI and below Exam Const: General: comfortable and no acute distress Other: A&O x3. Obese. HENMT: Face/Nose/Sinus: Normal nares present Eyes: Other: blind left eye Neck: Neck: supple Resp: Effort & Inspection: normal respiratory effort Auscultation: crackles (Scant) Cardio: Rate: regular rate Rhythm: regular rhythm GI: GI Palp: Yes Soft to palpation and No Tenderness to palpation present (GI) Auscultation: normal bowel sounds Skin: General skin exam: normal color Neuro: Speech: normal speech Extrem: General: edema (2+ bilateral lower extremities) Psych: Mental Status: mental status grossly normal Objective Data Vital Signs Vital Signs: Vital Signs - 24 hr 08/08/23 15:36 08/08/23 15:56 08/08/23 16:00 Temperature Pulse Rate Pulse Rate [Pedal (Dorsalis Pedis) Doppler] 83 Respiratory Rate Blood Pressure Pulse Oximetry 86 L 94 Oxygen Delivery Room Air Nasal Cannula Oxygen Flow Rate 1 Fraction of Inspired Oxygen 08/08/23 17:05 08/08/23 16:00 08/08/23 20:17 Temperature Pulse Rate 84 78 Pulse Rate [Pedal (Dorsalis Pedis) Doppler] Respiratory Rate 19 Blood Pressure Pulse Oximetry 98 Oxygen Delivery Nasal Cannula Oxygen Flow Rate 0.5 Fraction of Inspired Oxygen 08/08/23 20:00 08/08/23 20:00 08/08/23 20:00 Temperature Pulse Rate 88 Pulse Rate [Pedal (Dorsalis Pedis) Doppler] 80 Respiratory Rate Blood Pressure Pulse Oximetry 99 Oxygen Delivery Nasal Cannula Oxygen Flow Rate 0.5 Fraction of Inspired Oxygen 08/08/23 23:45 08/08/23 23:47 08/08/23 23:30 Temperature 98.4 F Pulse Rate 81 88 Pulse Rate [Pedal (Dorsalis Pedis) Doppler] 81 Respiratory Rate 18 24 H Blood Pressure 135/88 Pulse Oximetry 99 95 Oxygen Delivery Autopap Oxygen Flow Rate Fraction of Inspired Oxygen 08/08/23 20:34 08/09/23 01:25 08/09/23 00:00 Temperature Pulse Rate 74 81 81 Pulse Rate [Pedal (Dorsalis Pedis) Doppler] Respiratory Rate 18 20 Blood Pressure Pulse Oximetry Oxygen Delivery Oxygen Flow Rate Fraction of Inspired Oxygen 08/09/23 01:41 08/09/23 02:06 08/09/23 04:00 Temperature Pulse Rate 79 84 79 Pulse Rate [Pedal (Dorsalis Pedis) Doppler] Respiratory Rate 20 20 Blood Pressure Pulse Oximetry 96 Oxygen Delivery Autopap Oxygen Flow Rate Fraction of Inspired Oxygen 08/09/23 04:00 08/09/23 07:04 08/09/23 07:59 Temperature 98.5 F Pulse Rate 80 78
[2023-08-09 17:33] LABS: Glucose Point of Care 181 mg/dl (65-105)
[2023-08-09 21:54] LABS: Glucose Point of Care 176 mg/dl (65-105)
[2023-08-10] VITALS (21 sets, daily range): BP systolic 132–156; BP diastolic 56–86; PULSE 60–81; RESP 16–20; TEMP 36.6–37; O2SAT 93–98
[2023-08-10] MEDS: chlordiazePOXIDE (*CRX) 25 MG CAPSULE PO ×2 (00:11→05:10)
[2023-08-10] MEDS: TOBRAMYCIN/DEXAMETHASONE OP 2.5 ML BTL 1 DROP EACH EYE ×4 (00:13→17:27)
[2023-08-10] MEDS: POLYMYXIN/TRIMETHOPRIM OPHTH 10 ML DROPS 1 DROP EACH EYE ×4 (00:13→17:27)
[2023-08-10] MEDS: IPRATROPIUM 0.5 MG/ALBUTEROL SULFATE 2.5 MG AMPUL.NEB 3 ML INHALATION ×5 (03:03→20:02)
[2023-08-10 08:44] LABS: Glucose Point of Care 102 mg/dl (65-105)
--- NOTE | 2023-08-10 08:49 | PM.CNPUL ---
Assessment and Plan Assessment and plan (1) Pulmonary edema: Code(s): J81.1 - Chronic pulmonary edema Status: Acute Assessment and Plan: Patient presented to the emergency room on 08/06/2023 with 1 month increase edema, 1 week of weakness and 2-3 days of cough and shortness of breath. He has lower extremity edema and He weighed 275 lb on 06/01/2023 and on admission he weighed 302 lb. He had an elevated BNP at 7240, congestion on his CT angiogram and was treated with IV Lasix. 08/06/23: Patient states he is breathing better and his lower extremity edema has improved on Lasix 40 IV b.i.d.. He is on apixaban 5 q.12 for a flutter. Plan: Agree with as aggressive diuresis as tolerated by his cardiac and renal systems per Cardiology and hospitalist teams. Currently is on Lasix 40 IV b.i.d.. His weight today is 129.6 kg and he is diuresed a total of 2.4 L since admission. (2) Asthma: Qualifiers: Asthma severity: mild Asthma persistence: intermittent Asthma complication type: uncomplicated Qualified Code(s): J45.20 - Mild intermittent asthma, uncomplicated Code(s): J45.909 - Unspecified asthma, uncomplicated Status: Acute Assessment and Plan: Patient with a history of asthma and does not have COPD. At his last outpatient visit on 10/24/22 (missed appointments on 05/01/23, 05/24/23, and 06/20/23) as an outpatient he was controlled on Wixela 500-51 puff b.i.d., Singulair 10 q.day, Zyrtec 10 q.day, Flonase 1 spray each nostril q.day and albuterol prn. Today tells me he ran out of the Wixela, Singulair and albuterol rescue 1 month ago. In the past when he was getting low on his medicines I told him it was absolutely necessary call the clinic before he ran out of any medicines but he failed to do this. Patient presented to the emergency room on 08/06/2023 with 1 month increase edema, 1 week of weakness and 2-3 days of cough and shortness of breath. He has lower extremity edema and He weighed 275 lb on 06/01/2023 and on admission he weighed 302 lb. He had an elevated BNP at 7240, congestion on his CT angiogram and was treated with IV Lasix. He developed worsening wheezing on 08/06 and was started on prednisone 40 and is DuoNebs were continued. 08/10/2023: Patient tells me that he is 80% back to his normal regarding his breathing and his cough. He has no hemoptysis. He denies any fevers. He does complain of congestion in the chest. He remains weak. When I enter the room he is on 2 L nasal cannula 97% sats. I decreased him to room air and after 3 minutes he decreased to 85% and I placed him back on 2 L nasal cannula. The patient states that the mask on the hospital machine is working well. I agree with treating patient for an asthma exacerbation. there is no evidence of a pneumonia or bacterial tracheobronchitis And I agree with no antibiotics from a pulmonary perspective at this time. Plan: Will continue prednisone 40 mg p.o. q.day. I will increase the frequency of his DuoNebs from q.6 hours to q.4 hours. No need for antibiotics from a pulmonary perspective. I will restart the patient's montelukast 10 mg a day. I will restart his Flonase 1 spray each nostril twice a day. I will start loratadine to substitute for patient's cetirizine. (3) CB (obstructive sleep apnea): Code(s): G47.33 - Obstructive sleep apnea (adult) (pediatric) Status: Acute Assessment and Plan: His initial titration study showed he needed 26/22 but he could not tolerate these pressures and he was decreased to 22/18 on 07/10/2021.? He has had difficulty with leak and the higher his leak the higher his AHI.? For example on download ending 10/07/2021 leak was 72 and AHI was 16.1.? On download ending 06/03/2022 his leak was 30.7 and his AHI was 12.1.? On download ending 08/26/2022 be median leak 6.0, AHI 5.2.? On download ending 10/20/2022 is leak was 19.1 and his AHI is 8.1.?? download ending 05/22/2023 h
--- NOTE | 2023-08-10 08:57 | PCRCNOTE ---
Download of bipap usage requested from Ce Rooney in office will fax [email or web address].
[2023-08-10] MEDS: APIXABAN 5 MG TABLET PO ×2 (09:14→21:25)
[2023-08-10] MEDS: THIAMINE HCL 200 MG/2 ML VIAL 100 MG IV PUSH (09:14)
[2023-08-10] MEDS: lisinopriL 20 MG TABLET 40 MG PO (09:14)
[2023-08-10] MEDS: ROSUVASTATIN 20 MG TABLET 40 MG PO (09:14)
[2023-08-10] MEDS: buPROPion HCL XL (24 HR) 150 MG TABCR 300 MG PO (09:14)
[2023-08-10] MEDS: MULTIVITAMINS THERAPEUTIC TAB (*BKC) 1 TABLET PO (09:14)
[2023-08-10] MEDS: predniSONE 40 MG, predniSONE 10 MG 50 MG PO (09:14)
[2023-08-10] MEDS: SODIUM CHLORIDE 500 MG TABLET 1000 MG PO ×3 (09:14→17:23)
[2023-08-10] MEDS: FUROSEMIDE INJ 40 MG/4 ML VIAL IV PUSH ×2 (09:15→17:22)
[2023-08-10] MEDS: POTASSIUM CHLORIDE 20 MEQ ER TABLET PO ×2 (09:17→17:22)
[2023-08-10] MEDS: FOLIC ACID 1 MG/0.2 ML INJ IV PUSH (09:20)
--- NOTE | 2023-08-10 09:58 | PM.IMPN ---
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 Jiménez is a very pleasant yet unfortunately chronically ill 62-year-old male with history of morbid obesity, osteoarthritis, depression left side cornea transplant recipient 2016 with complication/failure (followed by Dr. Peterson at [facility]), heart block (followed by Dr. Fung), bilateral LE lymphedema, asthma/COPD, CB on NIPPV (followed by Dr. Tinajero), hyperlipidemia, hypertension, lpg-[id number] type 2 diabetes mellitus, alcoholism, former smoker, history of cholecystectomy, presenting with generalized weakness and shortness of breath. Admitted on 08/07/2023 for further workup. Shortness of breath/acute hypoxic respiratory failure -resolving. Upon evaluation today took the patient off nasal cannula and he was saturating 93%. Goal O2 saturation 88-92%. Etiologies include COPD/asthma exacerbation and new onset heart failure -cardiology consulted. Patient complaining of worsening lower extremity edema recently. Elevated BNP on admission. Surface echocardiogram demonstrating grade 1 diastolic dysfunction. continue Lasix 40 mg IV b.i.d.. appreciate Cardiology consultation. continue Daily weights with cardiac diet and fluid restriction. -quad PCR screen negative on admission CB on NIPPV -continue NIPPV at night. COPD/asthma -acute exacerbation. Continue prednisone and DuoNeb scheduled. 08/08: patient has wheezing in bilateral lungs, dyspnea with exertion, patient need BiPAP during the night consult proposal rep for evaluation and treatment 08/09 appreciate proposal rep's consultation,continue prednisone 40 mg p.o. q.day. ? DuoNebs q.6 hours to q.4 hours. ? No need for antibiotics from a pulmonary perspective. montelukast 10 mg a day.? restart his Flonase 1 spray each nostril twice a day.?loratadine to substitute for patient's cetirizine. #Atrial flutter -cardiology consult. Eliquis started. He has an existing patient of the [facility] Cardiology group. Follow-up as an outpatient for further management. -controlled ventricular response #Acute encephalopathy -unclear etiology. Resolving. Patient reports he last had a drink many weeks ago. He still had may symptoms of alcohol withdrawal so CIWA protocol was initiated. -continue diuresis -during the height of his acute encephalopathy aztreonam and vancomycin were started on 08/06. For discontinue today as he does not have evidence of infectious etiology. Urinalysis not indicative. Cultures pending but no growth to date. -CT head without acute intracranial abnormalities -consult GI. Ammonia level normal but he has significant hyperbilirubinemia and transaminitis. Elevated troponin -only complained of shortness of breath on presentation although troponin was 1.5 and now down trended. -cardiology consulted. Left corneal transplant/eye infection -left corneal haziness with purulent/secretions. His surgeon Dr. Peterson was contacted from the ER wh
[2023-08-10 10:10] LABS: Basophils Percent Auto 0.5 % (0.2-1.2); Eosinophils Absolute Auto 0.1 K/mm3 (0-0.3); Eosinophils Percent Auto 1.3 % (0-4.4); Hemoglobin 10.5 g/dL (14.0-18.0); Immature Granulocyte Absolute 0.01 K/mm3 (0.00-0.031); Immature Granulocyte Percent A 0.2 % (0-0.5); Lymphocytes Absolute Auto 1.03 K/mm3 (0.9-3.2); Lymphocytes Percent Auto 18.7 % (18.3-44.2); Mean Corpuscular HGB Conc 32.8 g/dl (32-36); Mean Corpuscular Hemoglobin 40.2 pg (26-34); Mean Corpuscular Volume 122.6 fl (80-100); Mean Platelet Volume 10.6 fl (7.4-10.4); Monocytes Absolute Auto 0.8 K/mm3 (0.1-0.6); Monocytes Percent Auto 14.9 % (2.6-8.5); Neutrophils Absolute Auto 3.6 K/mm3 (1.3-6.7); Neutrophils Percent Auto 64.4 % (45.5-73.1); Platelet Count Result 157 k/mm3 (150-375); Red Blood Count 2.61 M/mm3 (4.6-6.20); Red Cell Distribution Width 17.6 % (11.5-14.5); White Blood Count 5.5 K/mm3 (4.5-10.0)
[2023-08-10 10:32] LABS: Blood Urea Nitrogen 11 mg/dL (9-20); Calcium 8.1 mg/dL (8.4-10.2); Chloride 93 mmol/L (98-107); Estimated CRCL calculation 170 ml/min; Estimated Glomerular Filt Rate > 60; Glucose 101 mg/dL (65-110); Potassium 3.2 mmol/L (3.4-5.0); Sodium 138 mmol/L (137-145)
[2023-08-10 10:46] LABS: Platelet Estimate Adequate (Adequate)
[2023-08-10 10:47] LABS: Anion Gap 9 mmol/L (4-12); Anisocytosis 1+; Carbon Dioxide 36 mmol/L (22-30); Macrocytosis 1+ (NORMAL); Schistocytes None Seen
[2023-08-10] MEDS: LORATADINE 10 MG TABLET PO (12:14)
[2023-08-10 12:37] LABS: Glucose Point of Care 200 mg/dl (65-105)
--- NOTE | 2023-08-10 14:35 | WPDGIPROGNO ---
Progress Note: A&P Assessment and Plan (1) Elevated LFTs: Code(s): R79.89 - Other specified abnormal findings of blood chemistry Status: Acute Assessment and Plan: ultrasound showed fatty liver- probably from alcohol abuse, also he has risk factors for kaba noted low platelets which could be from alcohol use but also cirrhosis blood work for chronic liver conditions pending [place], he can follow-up in office (2) Alcoholic hepatitis: Code(s): K70.10 - Alcoholic hepatitis without ascites Status: Acute Assessment and Plan: patient understands that needs to stop drinking thiamine and nutrition support (3) Thrombocytopenia: Code(s): D69.6 - Thrombocytopenia, unspecified Status: Acute (4) Macrocytosis: Code(s): D75.89 - Other specified diseases of blood and blood-forming organs Status: Acute (5) Atrial flutter: Code(s): I48.92 - Unspecified atrial flutter Status: Acute (6) Type 2 diabetes mellitus: Code(s): E11.9 - Type 2 diabetes mellitus without complications Status: Acute (7) Pulmonary edema: Code(s): J81.1 - Chronic pulmonary edema Status: Acute Assessment and Plan: improving, feeling better also history of asthma and pulmonary on board Subjective Date/time seen: 08/10/23 14:35 Interval history: he is resting using Bipap Review of Systems Review of Systems: All systems reviewed & are unremarkable except as noted in HPI and below Exam Const: General: comfortable Other: A&O x3. Obese. HENMT: Face/Nose/Sinus: Normal nares present Other: using bipap Eyes: Other: blind left eye Neck: Neck: supple Resp: Effort & Inspection: normal respiratory effort Auscultation: crackles (Scant) and wheezes Cardio: Rate: regular rate Rhythm: regular rhythm GI: GI Palp: Yes Soft to palpation and No Tenderness to palpation present (GI) Auscultation: normal bowel sounds Skin: General skin exam: normal color Neuro: Speech: normal speech Extrem: General: edema (2+ bilateral lower extremities) Psych: Mental Status: mental status grossly normal Objective Data Vital Signs Vital Signs: Vital Signs - 24 hr 08/09/23 14:42 08/09/23 14:50 08/09/23 16:00 Temperature 98.2 F Pulse Rate 80 78 78 Pulse Rate [Pedal (Dorsalis Pedis) Doppler] Respiratory Rate 20 20 18 Blood Pressure 158/99 H Pulse Oximetry 92 Oxygen Delivery Oxygen Flow Rate Fraction of Inspired Oxygen 08/09/23 16:00 08/09/23 16:00 08/09/23 19:55 Temperature 97.9 F Pulse Rate 81 80 Pulse Rate [Pedal (Dorsalis Pedis) Doppler] 81 Respiratory Rate 20 Blood Pressure 158/99 H 134/68 Pulse Oximetry 100 Oxygen Delivery Oxygen Flow Rate Fraction of Inspired Oxygen 08/09/23 20:45 08/09/23 20:56 08/09/23 20:58 Temperature Pulse Rate 80 84 Pulse Rate [Pedal (Dorsalis Pedis) Doppler] Respiratory Rate 20 20 Blood Pressure Pulse Oximetry 94 Oxygen Delivery Nasal Cannula Oxygen Flow Rate 2 Fraction of Inspired Oxygen 08/09/23 20:00 08/09/23 20:00 08/10/23 00:00 Temperature Pulse Rate Pulse Rate [Pedal (Dorsalis Pedis) Doppler] 72 79 Respiratory Rate Blood Pressure Pulse Oximetry 96 Oxygen Delivery Nasal Cannula Oxygen Flow Rate 2 Fraction of Inspired Oxygen 08/10/23 03:01 08/09/23 23:15 08/10/23 03:08 Temperature Pulse Rate 78 78 Pulse Rate [Pedal (Dorsalis Pedis) Doppler] Respiratory Rate 18 22 H 17 Blood Pressure Pulse Oximetry 95 96 Oxygen Delivery Autopap Autopap Oxygen Flow Rate Fraction of Inspired Oxygen 08/10/23 03:12 08/10/23 03:42 08/09/23 20:00 Temperature Pulse Rate 80 78 Pulse Rate [Pedal (Dorsalis Pedis) Doppler] 68 Respiratory Rate 20 Blood Pressure Pulse Oximetry Oxygen Delivery Oxygen Flow Rate Fraction of Inspired Oxygen 08/10/23 00:
[2023-08-10 17:23] LABS: Glucose Point of Care 219 mg/dl (65-105)
[2023-08-10] MEDS: INSULIN ASPART (*BKC) 100 UNITS/ML SUB-Q (17:26)
[2023-08-10] MEDS: MONTELUKAST SODIUM 10 MG TABLET PO (21:25)
[2023-08-10] MEDS: FLUTICASONE PROPIONATE 0.05% NA SPR 16 GM BTL (*BKC) 1 SPRAY NASAL (21:26)
[2023-08-10 21:55] LABS: Glucose Point of Care 155 mg/dl (65-105)
[2023-08-11] VITALS (28 sets, daily range): BP systolic 137–158; BP diastolic 73–92; PULSE 55–77; RESP 14–20; TEMP 36.2–36.6; O2SAT 87–96
[2023-08-11] MEDS: IPRATROPIUM 0.5 MG/ALBUTEROL SULFATE 2.5 MG AMPUL.NEB 3 ML INHALATION ×7 (00:31→23:03)
[2023-08-11] MEDS: POLYMYXIN/TRIMETHOPRIM OPHTH 10 ML DROPS 1 DROP EACH EYE ×5 (00:48→23:38)
[2023-08-11] MEDS: TOBRAMYCIN/DEXAMETHASONE OP 2.5 ML BTL 1 DROP EACH EYE ×5 (00:48→23:38)
[2023-08-11 06:12] LABS: Basophils Percent Auto 0.4 % (0.2-1.2); Eosinophils Absolute Auto 0.1 K/mm3 (0-0.3); Eosinophils Percent Auto 1.6 % (0-4.4); Hematocrit 31.8 % (42.0-52.0); Hemoglobin 10.3 g/dL (14.0-18.0); Immature Granulocyte Absolute 0.01 K/mm3 (0.00-0.031); Immature Granulocyte Percent A 0.2 % (0-0.5); Lymphocytes Absolute Auto 0.98 K/mm3 (0.9-3.2); Lymphocytes Percent Auto 19.6 % (18.3-44.2); Mean Corpuscular HGB Conc 32.4 g/dl (32-36); Mean Corpuscular Hemoglobin 39.8 pg (26-34); Mean Corpuscular Volume 122.8 fl (80-100); Monocytes Absolute Auto 0.8 K/mm3 (0.1-0.6); Monocytes Percent Auto 16.6 % (2.6-8.5); Neutrophils Absolute Auto 3.1 K/mm3 (1.3-6.7); Neutrophils Percent Auto 61.6 % (45.5-73.1); Platelet Count Result 174 k/mm3 (150-375); Red Blood Count 2.59 M/mm3 (4.6-6.20); Red Cell Distribution Width 16.9 % (11.5-14.5)
[2023-08-11 06:44] LABS: Blood Urea Nitrogen 15 mg/dL (9-20); Calcium 8.5 mg/dL (8.4-10.2); Chloride 98 mmol/L (98-107); Estimated CRCL calculation 144 ml/min; Estimated Glomerular Filt Rate > 60; Glucose 158 mg/dL (65-110); Potassium 3.2 mmol/L (3.4-5.0); Sodium 143 mmol/L (137-145)
[2023-08-11 07:00] LABS: Anion Gap 10 mmol/L (4-12); Carbon Dioxide 35 mmol/L (22-30)
[2023-08-11 07:40] LABS: Anisocytosis 1+; Hypochromasia 1+; Macrocytosis 1+ (NORMAL); Platelet Estimate Adequate (Adequate); Schistocytes None Seen
[2023-08-11 08:13] LABS: NT Pro B Type Natriuretic Pept 4090 pg/mL (19.9-100)
[2023-08-11 08:43] LABS: Glucose Point of Care 125 mg/dl (65-105)
[2023-08-11] MEDS: FUROSEMIDE INJ 40 MG/4 ML VIAL IV PUSH ×2 (09:03→17:23)
[2023-08-11] MEDS: THIAMINE HCL 200 MG/2 ML VIAL 100 MG IV PUSH (09:03)
--- NOTE | 2023-08-11 09:03 | PM.IMPN ---
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 Jiménez is a very pleasant yet unfortunately chronically ill 62-year-old male with history of morbid obesity, osteoarthritis, depression left side cornea transplant recipient 2016 with complication/failure (followed by Dr. Peterson at [facility]), heart block (followed by Dr. Fung), bilateral LE lymphedema, asthma/COPD, CB on NIPPV (followed by Dr. Tinajero), hyperlipidemia, hypertension, rxl-igtyugc-iqsgfqfgb type 2 diabetes mellitus, alcoholism, former smoker, history of cholecystectomy, presenting with generalized weakness and shortness of breath. Admitted on 08/07/2023 for further workup. Shortness of breath/acute hypoxic respiratory failure -resolving. Upon evaluation today took the patient off nasal cannula and he was saturating 93%. Goal O2 saturation 88-92%. Etiologies include COPD/asthma exacerbation and new onset heart failure -cardiology consulted. Patient complaining of worsening lower extremity edema recently. Elevated BNP on admission. Surface echocardiogram demonstrating grade 1 diastolic dysfunction. continue Lasix 40 mg IV b.i.d.. appreciate Cardiology consultation. continue Daily weights with cardiac diet and fluid restriction. -quad PCR screen negative on admission 08/10: shortness breath is improving, patient has been having negative input and output balance since admission, continue IV Lasix today CB on NIPPV -continue NIPPV at night. COPD/asthma -acute exacerbation. Continue prednisone and DuoNeb scheduled. 08/08: patient has wheezing in bilateral lungs, dyspnea with exertion, patient need BiPAP during the night consult primary health organisation manager for evaluation and treatment 08/09 appreciate primary health organisation manager's consultation,continue prednisone 40 mg p.o. q.day. ? DuoNebs q.6 hours to q.4 hours. ? No need for antibiotics from a pulmonary perspective. montelukast 10 mg a day.? restart his Flonase 1 spray each nostril twice a day.?loratadine to substitute for patient's cetirizine. #Atrial flutter -cardiology consult. Eliquis started. He has an existing patient of the [facility] Cardiology group. Follow-up as an outpatient for further management. -controlled ventricular response #Acute encephalopathy -unclear etiology. Resolving. Patient reports he last had a drink many weeks ago. He still had may symptoms of alcohol withdrawal so CIWA protocol was initiated. -continue diuresis -during the height of his acute encephalopathy aztreonam and vancomycin were started on 08/06. For discontinue today as he does not have evidence of infectious etiology. Urinalysis not indicative. Cultures pending but no growth to date. -CT head without acute intracranial abnormalities -consult GI. Ammonia level normal but he has significant hyperbilirubinemia and transaminitis. Elevated troponin -only complained of shortness of breath on presentation although troponin was 1.5 and now down trended. -cardiology consulted. Lef
[2023-08-11] MEDS: ROSUVASTATIN 20 MG TABLET 40 MG PO (09:04)
[2023-08-11] MEDS: lisinopriL 20 MG TABLET 40 MG PO (09:04)
[2023-08-11] MEDS: predniSONE 40 MG, predniSONE 10 MG 50 MG PO (09:04)
[2023-08-11] MEDS: POTASSIUM CHLORIDE 20 MEQ ER TABLET PO ×2 (09:05→17:23)
[2023-08-11] MEDS: SODIUM CHLORIDE 500 MG TABLET 1000 MG PO ×3 (09:05→17:23)
[2023-08-11] MEDS: LORATADINE 10 MG TABLET PO (09:06)
[2023-08-11] MEDS: APIXABAN 5 MG TABLET PO ×2 (09:06→20:51)
[2023-08-11] MEDS: buPROPion HCL XL (24 HR) 150 MG TABCR 300 MG PO (09:06)
[2023-08-11] MEDS: MULTIVITAMINS THERAPEUTIC TAB (*BKC) 1 TABLET PO (09:07)
[2023-08-11] MEDS: FLUTICASONE PROPIONATE 0.05% NA SPR 16 GM BTL (*BKC) 1 SPRAY NASAL ×2 (09:07→20:52)
[2023-08-11] MEDS: FOLIC ACID 1 MG/0.2 ML INJ IV PUSH (09:10)
--- NOTE | 2023-08-11 09:27 | PM.PNPUL ---
Progress Note: A&P Assessment and Plan (1) Pulmonary edema: Code(s): J81.1 - Chronic pulmonary edema Status: Acute Assessment and Plan: Patient presented to the emergency room on 08/06/2023 with 1 month increase edema, 1 week of weakness and 2-3 days of cough and shortness of breath. He has lower extremity edema and He weighed 275 lb on 06/01/2023 and on admission he weighed 302 lb. He had an elevated BNP at 7240, congestion on his CT angiogram and was treated with IV Lasix. 08/06/23: Patient states he is breathing better and his lower extremity edema has improved on Lasix 40 IV b.i.d.. He is on apixaban 5 q.12 for a flutter. Plan: Agree with as aggressive diuresis as tolerated by his cardiac and renal systems per Cardiology and hospitalist teams. Currently is on Lasix 40 IV b.i.d.. His weight today is 129.6 kg and he is diuresed a total of 2.4 L since admission. 08/11/23: Patient tells me he is breathing better today than yesterday. Currently is on room air with saturations 91%. patient is on Lasix 40 IV b.i.d. Weight is 129.3 kg and he has diuresed 4.9 L since admission. BNP has improved from 7240 on 08/06/2023 to 4090 today. Plan: patient is clinically improving, oxygenation has improved with diuresis per Cardiology and hospitalist teams. Will continue. Pulmonary inpatient services will resume on 08/13, discussed with Dr. Christy, call with questions (2) Asthma: Qualifiers: Asthma severity: mild Asthma persistence: intermittent Asthma complication type: uncomplicated Qualified Code(s): J45.20 - Mild intermittent asthma, uncomplicated Code(s): J45.909 - Unspecified asthma, uncomplicated Status: Acute Assessment and Plan: Patient with a history of asthma and does not have COPD. At his last outpatient visit on 10/24/22 (missed appointments on 05/01/23, 05/24/23, and 06/20/23) as an outpatient he was controlled on Wixela 500-51 puff b.i.d., Singulair 10 q.day, Zyrtec 10 q.day, Flonase 1 spray each nostril q.day and albuterol prn. Today tells me he ran out of the Wixela, Singulair and albuterol rescue 1 month ago. In the past when he was getting low on his medicines I told him it was absolutely necessary call the clinic before he ran out of any medicines but he failed to do this. Patient presented to the emergency room on 08/06/2023 with 1 month increase edema, 1 week of weakness and 2-3 days of cough and shortness of breath. He has lower extremity edema and He weighed 275 lb on 06/01/2023 and on admission he weighed 302 lb. He had an elevated BNP at 7240, congestion on his CT angiogram and was treated with IV Lasix. He developed worsening wheezing on 08/06 and was started on prednisone 40 and is DuoNebs were continued. 08/10/2023: Patient tells me that he is 80% back to his normal regarding his breathing and his cough. He has no hemoptysis. He denies any fevers. He does complain of congestion in the chest. He remains weak. When I enter the room he is on 2 L nasal cannula 97% sats. I decreased him to room air and after 3 minutes he decreased to 85% and I placed him back on 2 L nasal cannula. The patient states that the mask on the hospital machine is working well. I agree with treating patient for an asthma exacerbation. there is no evidence of a pneumonia or bacterial tracheobronchitis And I agree with no antibiotics from a pulmonary perspective at this time. Plan: Will continue prednisone 40 mg p.o. q.day. I will increase the frequency of his DuoNebs from q.6 hours to q.4 hours. No need for antibiotics from a pulmonary perspective. I will restart the patient's montelukast 10 mg a day. I will restart his Flonase 1 spray each nostril twice a day. I will start loratadine to substitute for patient's cetirizine. 08/11/23: Patient tells me he is breathing better today than yesterday. Currently is on room air with saturations 91%. His wheezing has improved tod
[2023-08-11 11:44] LABS: Ceruloplasmin 27 mg/dL (18-36)
[2023-08-11 12:22] LABS: Glucose Point of Care 183 mg/dl (65-105)
[2023-08-11 17:12] LABS: Glucose Point of Care 182 mg/dl (65-105)
[2023-08-11] MEDS: BUDESONIDE RESPULE NEB 0.5 MG/2 ML AMP INHALATION (19:27)
[2023-08-11] MEDS: MONTELUKAST SODIUM 10 MG TABLET PO (20:51)
[2023-08-11] MEDS: WATER FOR IRRIGATION, STERILE 500 ML BOTTLE (22:58)
[2023-08-12] VITALS (27 sets, daily range): BP systolic 141–154; BP diastolic 75–88; PULSE 50–78; RESP 14–20; TEMP 36.1–36.6; O2SAT 91–98
[2023-08-12] MEDS: IPRATROPIUM 0.5 MG/ALBUTEROL SULFATE 2.5 MG AMPUL.NEB 3 ML INHALATION ×6 (04:13→23:04)
[2023-08-12 06:12] LABS: Basophils Percent Auto 0.7 % (0.2-1.2); Eosinophils Absolute Auto 0.1 K/mm3 (0-0.3); Eosinophils Percent Auto 1.3 % (0-4.4); Hematocrit 33.6 % (42.0-52.0); Hemoglobin 10.7 g/dL (14.0-18.0); Immature Granulocyte Absolute 0.03 K/mm3 (0.00-0.031); Immature Granulocyte Percent A 0.5 % (0-0.5); Lymphocytes Absolute Auto 1.22 K/mm3 (0.9-3.2); Lymphocytes Percent Auto 20.3 % (18.3-44.2); Mean Corpuscular HGB Conc 31.8 g/dl (32-36); Mean Corpuscular Hemoglobin 38.9 pg (26-34); Mean Corpuscular Volume 122.2 fl (80-100); Mean Platelet Volume 10.1 fl (7.4-10.4); Monocytes Absolute Auto 0.9 K/mm3 (0.1-0.6); Monocytes Percent Auto 15.4 % (2.6-8.5); Neutrophils Absolute Auto 3.7 K/mm3 (1.3-6.7); Neutrophils Percent Auto 61.8 % (45.5-73.1); Platelet Count Result 239 k/mm3 (150-375); Red Blood Count 2.75 M/mm3 (4.6-6.20); Red Cell Distribution Width 17.2 % (11.5-14.5)
[2023-08-12] MEDS: TOBRAMYCIN/DEXAMETHASONE OP 2.5 ML BTL 1 DROP EACH EYE ×4 (06:18→23:28)
[2023-08-12] MEDS: POLYMYXIN/TRIMETHOPRIM OPHTH 10 ML DROPS 1 DROP EACH EYE ×4 (06:18→23:28)
[2023-08-12 06:30] LABS: Blood Urea Nitrogen 17 mg/dL (9-20); Calcium 8.7 mg/dL (8.4-10.2); Carbon Dioxide > 40 mmol/L (22-30); Chloride 95 mmol/L (98-107); Estimated CRCL calculation 111 ml/min; Estimated Glomerular Filt Rate > 60; Glucose 120 mg/dL (65-110); Potassium 3.2 mmol/L (3.4-5.0); Sodium 139 mmol/L (137-145)
[2023-08-12 06:46] LABS: Anisocytosis 1+; Macrocytosis 1+ (NORMAL); Platelet Estimate Adequate (Adequate); Schistocytes None Seen
[2023-08-12] MEDS: BUDESONIDE RESPULE NEB 0.5 MG/2 ML AMP INHALATION ×2 (07:52→19:44)
[2023-08-12 08:38] LABS: Glucose Point of Care 106 mg/dl (65-105)
[2023-08-12] MEDS: THIAMINE HCL 200 MG/2 ML VIAL 100 MG IV PUSH (08:59)
[2023-08-12] MEDS: FUROSEMIDE INJ 40 MG/4 ML VIAL IV PUSH ×2 (08:59→17:26)
[2023-08-12] MEDS: FOLIC ACID 1 MG/0.2 ML INJ IV PUSH (09:00)
[2023-08-12] MEDS: buPROPion HCL XL (24 HR) 150 MG TABCR 300 MG PO (09:00)
[2023-08-12] MEDS: MULTIVITAMINS THERAPEUTIC TAB (*BKC) 1 TABLET PO (09:00)
[2023-08-12] MEDS: SODIUM CHLORIDE 500 MG TABLET 1000 MG PO ×3 (09:00→17:25)
[2023-08-12] MEDS: lisinopriL 20 MG TABLET 40 MG PO (09:00)
[2023-08-12] MEDS: LORATADINE 10 MG TABLET PO (09:01)
[2023-08-12] MEDS: POTASSIUM CHLORIDE 20 MEQ ER TABLET PO ×3 (09:01→17:26)
[2023-08-12] MEDS: predniSONE 20 MG TABLET 40 MG PO (09:01)
[2023-08-12] MEDS: ROSUVASTATIN 20 MG TABLET 40 MG PO (09:01)
[2023-08-12] MEDS: APIXABAN 5 MG TABLET PO ×2 (09:01→21:15)
[2023-08-12] MEDS: FLUTICASONE PROPIONATE 0.05% NA SPR 16 GM BTL (*BKC) 1 SPRAY NASAL ×2 (09:02→21:15)
[2023-08-12 11:17] LABS: Glucose Point of Care 182 mg/dl (65-105)
[2023-08-12 12:29] LABS: Glucose Point of Care 328 mg/dl (65-105)
[2023-08-12] MEDS: INSULIN ASPART (*BKC) 100 UNITS/ML SUB-Q ×2 (12:43→17:29)
[2023-08-12] MEDS: traMADol HCL (*CRX) 25 MG TABLET PO (13:55)
[2023-08-12 16:51] LABS: Glucose Point of Care 210 mg/dl (65-105)
--- NOTE | 2023-08-12 17:29 | PM.IMPN ---
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 Jiménez is a very pleasant yet unfortunately chronically ill 62-year-old male with history of morbid obesity, osteoarthritis, depression left side cornea transplant recipient 2016 with complication/failure (followed by Dr. Peterson at [facility]), heart block (followed by Dr. Fung), bilateral LE lymphedema, asthma/COPD, CB on NIPPV (followed by Dr. Tinajero), hyperlipidemia, hypertension, jql-mpfixzg-xibolslxp type 2 diabetes mellitus, alcoholism, former smoker, history of cholecystectomy, presenting with generalized weakness and shortness of breath. Admitted on 08/07/2023 for further workup. August 12, 2023 update. Patient is now on room air. He has been diuresed very effectively. He looks very good today. He feels very good. New current management and plan for discharge to acute rehab. He is on potassium 20 mEq b.i.d.. Potassium today will replace with an additional 20 mEq by mouth. Shortness of breath/acute hypoxic respiratory failure -resolving. Upon evaluation today took the patient off nasal cannula and he was saturating 93%. Goal O2 saturation 88-92%. Etiologies include COPD/asthma exacerbation and new onset heart failure -cardiology consulted. Patient complaining of worsening lower extremity edema recently. Elevated BNP on admission. Surface echocardiogram demonstrating grade 1 diastolic dysfunction. continue Lasix 40 mg IV b.i.d.. appreciate Cardiology consultation. continue Daily weights with cardiac diet and fluid restriction. -quad PCR screen negative on admission 08/10: shortness breath is improving, patient has been having negative input and output balance since admission, continue IV Lasix today CB on NIPPV -continue NIPPV at night. COPD/asthma -acute exacerbation. Continue prednisone and DuoNeb scheduled. 08/08: patient has wheezing in bilateral lungs, dyspnea with exertion, patient need BiPAP during the night consult criminal psychologist for evaluation and treatment 08/09 appreciate criminal psychologist's consultation,continue prednisone 40 mg p.o. q.day. ? DuoNebs q.6 hours to q.4 hours. ? No need for antibiotics from a pulmonary perspective. montelukast 10 mg a day.? restart his Flonase 1 spray each nostril twice a day.?loratadine to substitute for patient's cetirizine. #Atrial flutter -cardiology consult. Eliquis started. He has an existing patient of the [facility] Cardiology group. Follow-up as an outpatient for further management. -controlled ventricular response #Acute encephalopathy -unclear etiology. Resolving. Patient reports he last had a drink many weeks ago. He still had may symptoms of alcohol withdrawal so CIWA protocol was initiated. -continue diuresis -during the height of his acute encephalopathy aztreonam and vancomycin were started on 08/06. For discontinue today as he does not have evidence of infectious etiology. Urinalysis not indicative. Cultures pending but no growth to d
[2023-08-12] MEDS: MONTELUKAST SODIUM 10 MG TABLET PO (21:15)
[2023-08-13] VITALS (23 sets, daily range): BP systolic 125–153; BP diastolic 78–87; PULSE 56–108; RESP 10–24; TEMP 36.2–36.5; O2SAT 93–97
[2023-08-13 00:56] LABS: Glucose Point of Care 176 mg/dl (65-105)
[2023-08-13] MEDS: IPRATROPIUM 0.5 MG/ALBUTEROL SULFATE 2.5 MG AMPUL.NEB 3 ML INHALATION ×5 (03:42→23:26)
[2023-08-13 05:23] LABS: Basophils Absolute Auto 0.1 K/mm3 (0.0-0.1); Basophils Percent Auto 0.8 % (0.2-1.2); Eosinophils Absolute Auto 0.1 K/mm3 (0-0.3); Eosinophils Percent Auto 1.2 % (0-4.4); Hematocrit 35.1 % (42.0-52.0); Hemoglobin 11.5 g/dL (14.0-18.0); Immature Granulocyte Absolute 0.02 K/mm3 (0.00-0.031); Immature Granulocyte Percent A 0.3 % (0-0.5); Lymphocytes Absolute Auto 1.35 K/mm3 (0.9-3.2); Lymphocytes Percent Auto 20.4 % (18.3-44.2); Mean Corpuscular HGB Conc 32.8 g/dl (32-36); Mean Corpuscular Hemoglobin 39.1 pg (26-34); Mean Corpuscular Volume 119.4 fl (80-100); Monocytes Absolute Auto 1.1 K/mm3 (0.1-0.6); Monocytes Percent Auto 16.5 % (2.6-8.5); Neutrophils Percent Auto 60.8 % (45.5-73.1); Platelet Count Result 304 k/mm3 (150-375); Red Blood Count 2.94 M/mm3 (4.6-6.20); Red Cell Distribution Width 16.1 % (11.5-14.5); White Blood Count 6.6 K/mm3 (4.5-10.0)
[2023-08-13 05:45] LABS: Platelet Estimate Adequate (Adequate); Schistocytes None Seen; Stomatocytes 1+
[2023-08-13 05:46] LABS: Anisocytosis 1+; Hypochromasia 1+
[2023-08-13 05:48] LABS: Blood Urea Nitrogen 19 mg/dL (9-20); Calcium 8.9 mg/dL (8.4-10.2); Carbon Dioxide > 40 mmol/L (22-30); Chloride 95 mmol/L (98-107); Estimated CRCL calculation 141 ml/min; Estimated Glomerular Filt Rate > 60; Glucose 109 mg/dL (65-110); Potassium 3.4 mmol/L (3.4-5.0); Sodium 140 mmol/L (137-145)
[2023-08-13 05:55] LABS: Procalcitonin 0.2 ng/mL
[2023-08-13] MEDS: POLYMYXIN/TRIMETHOPRIM OPHTH 10 ML DROPS 1 DROP EACH EYE ×3 (06:31→17:23)
[2023-08-13] MEDS: TOBRAMYCIN/DEXAMETHASONE OP 2.5 ML BTL 1 DROP EACH EYE ×3 (06:31→17:23)
[2023-08-13] MEDS: BUDESONIDE RESPULE NEB 0.5 MG/2 ML AMP INHALATION ×2 (07:22→21:07)
[2023-08-13 08:28] LABS: Glucose Point of Care 98 mg/dl (65-105)
[2023-08-13] MEDS: buPROPion HCL XL (24 HR) 150 MG TABCR 300 MG PO (08:40)
[2023-08-13] MEDS: SODIUM CHLORIDE 500 MG TABLET 1000 MG PO ×3 (08:40→17:23)
[2023-08-13] MEDS: FOLIC ACID 1 MG/0.2 ML INJ IV PUSH (08:40)
[2023-08-13] MEDS: APIXABAN 5 MG TABLET PO ×2 (08:40→20:54)
[2023-08-13] MEDS: POTASSIUM CHLORIDE 20 MEQ ER TABLET PO ×2 (08:41→17:23)
[2023-08-13] MEDS: ROSUVASTATIN 20 MG TABLET 40 MG PO (08:41)
[2023-08-13] MEDS: LORATADINE 10 MG TABLET PO (08:41)
[2023-08-13] MEDS: FUROSEMIDE INJ 40 MG/4 ML VIAL IV PUSH (08:41)
[2023-08-13] MEDS: MULTIVITAMINS THERAPEUTIC TAB (*BKC) 1 TABLET PO (08:41)
[2023-08-13] MEDS: THIAMINE HCL 200 MG/2 ML VIAL 100 MG IV PUSH (08:41)
[2023-08-13] MEDS: lisinopriL 20 MG TABLET 40 MG PO (08:41)
[2023-08-13] MEDS: FLUTICASONE PROPIONATE 0.05% NA SPR 16 GM BTL (*BKC) 1 SPRAY NASAL ×2 (08:42→20:59)
[2023-08-13 12:11] LABS: Glucose Point of Care 194 mg/dl (65-105)
--- NOTE | 2023-08-13 16:40 | PM.IMPN ---
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 Jiménez is a very pleasant yet unfortunately chronically ill 62-year-old male with history of morbid obesity, osteoarthritis, depression left side cornea transplant recipient 2016 with complication/failure (followed by Dr. Peterson at [facility]), heart block (followed by Dr. Fung), bilateral LE lymphedema, asthma/COPD, CB on NIPPV (followed by Dr. Tinajero), hyperlipidemia, hypertension, ghy-ftkcttn-lqonucchf type 2 diabetes mellitus, alcoholism, former smoker, history of cholecystectomy, presenting with generalized weakness and shortness of breath. Admitted on 08/07/2023 for further workup. August 12, 2023 update. Patient is now on room air. He has been diuresed very effectively. He looks very good today. He feels very good. New current management and plan for discharge to acute rehab. He is on potassium 20 mEq b.i.d.. Potassium today will replace with an additional 20 mEq by mouth. August 13, 2023: Patient complains of sputum production and thinks he has a pneumonia. He requested further workup and possible antibiotics. He has a normal white count so will check chest x-ray and quad PCR along with sputum culture. Patient now requesting to go to [facility] instead of [place]. Care coordination communication sent. Lasix IV has been transition to 40 mg p.o. b.i.d.. Was previously on 40 mg p.o. q.day. Shortness of breath/acute hypoxic respiratory failure -resolving. Upon evaluation today took the patient off nasal cannula and he was saturating 93%. Goal O2 saturation 88-92%. Etiologies include COPD/asthma exacerbation and new onset heart failure -cardiology consulted. Patient complaining of worsening lower extremity edema recently. Elevated BNP on admission. Surface echocardiogram demonstrating grade 1 diastolic dysfunction. continue Lasix 40 mg IV b.i.d.. appreciate Cardiology consultation. continue Daily weights with cardiac diet and fluid restriction. -quad PCR screen negative on admission 08/10: shortness breath is improving, patient has been having negative input and output balance since admission, continue IV Lasix today CB on NIPPV -continue NIPPV at night. COPD/asthma -acute exacerbation. Continue prednisone and DuoNeb scheduled. 08/08: patient has wheezing in bilateral lungs, dyspnea with exertion, patient need BiPAP during the night consult cheese tester for evaluation and treatment 08/09 appreciate cheese tester's consultation,continue prednisone 40 mg p.o. q.day. ? DuoNebs q.6 hours to q.4 hours. ? No need for antibiotics from a pulmonary perspective. montelukast 10 mg a day.? restart his Flonase 1 spray each nostril twice a day.?loratadine to substitute for patient's cetirizine. #Atrial flutter -cardiology consult. Eliquis started. He has an existing patient of the [facility] Cardiology group. Follow-up as an outpatient for further management. -controlled ventricular response #
[2023-08-13] MEDS: FUROSEMIDE 40 MG TABLET PO (17:23)
[2023-08-13 17:24] LABS: Glucose Point of Care 178 mg/dl (65-105)
--- NOTE | 2023-08-13 18:02 | PCRCNOTE ---
Window of time for administration has passed. See next scheduled administration.
[2023-08-13 18:06] LABS: Influenza A QL RT-PCR Negative (Negative); Influenza B QL RT-PCR Negative (Negative); RSV RNA, RT-PCR Negative (Negative); SARS-CoV-2 RNA PCR Negative (Negative)
[2023-08-13] MEDS: traMADol HCL (*CRX) 25 MG TABLET PO (20:54)
[2023-08-13] MEDS: MONTELUKAST SODIUM 10 MG TABLET PO (20:54)
[2023-08-13 22:18] LABS: Glucose Point of Care 190 mg/dl (65-105)
[2023-08-14] VITALS (14 sets, daily range): BP systolic 124–156; BP diastolic 79–86; PULSE 57–122; RESP 18–22; TEMP 36.1–36.6; O2SAT 94–100
[2023-08-14] MEDS: POLYMYXIN/TRIMETHOPRIM OPHTH 10 ML DROPS 1 DROP EACH EYE ×4 (00:05→17:45)
[2023-08-14] MEDS: TOBRAMYCIN/DEXAMETHASONE OP 2.5 ML BTL 1 DROP EACH EYE ×4 (00:05→17:45)
[2023-08-14] MEDS: IPRATROPIUM 0.5 MG/ALBUTEROL SULFATE 2.5 MG AMPUL.NEB 3 ML INHALATION ×2 (04:29→07:03)
[2023-08-14 06:04] LABS: Basophils Absolute Auto 0.1 K/mm3 (0.0-0.1); Eosinophils Absolute Auto 0.2 K/mm3 (0-0.3); Eosinophils Percent Auto 2.4 % (0-4.4); Hematocrit 36.7 % (42.0-52.0); Hemoglobin 11.8 g/dL (14.0-18.0); Immature Granulocyte Absolute 0.05 K/mm3 (0.00-0.031); Immature Granulocyte Percent A 0.6 % (0-0.5); Mean Corpuscular HGB Conc 32.2 g/dl (32-36); Mean Corpuscular Hemoglobin 38.8 pg (26-34); Mean Corpuscular Volume 120.7 fl (80-100); Mean Platelet Volume 10.3 fl (7.4-10.4); Monocytes Absolute Auto 1.1 K/mm3 (0.1-0.6); Monocytes Percent Auto 13.6 % (2.6-8.5); Neutrophils Absolute Auto 5.4 K/mm3 (1.3-6.7); Neutrophils Percent Auto 68.4 % (45.5-73.1); Platelet Count Result 334 k/mm3 (150-375); Red Blood Count 3.04 M/mm3 (4.6-6.20); Red Cell Distribution Width 16.6 % (11.5-14.5); White Blood Count 7.9 K/mm3 (4.5-10.0)
[2023-08-14 06:27] LABS: Blood Urea Nitrogen 20 mg/dL (9-20); Calcium 9.1 mg/dL (8.4-10.2); Carbon Dioxide > 40 mmol/L (22-30); Chloride 95 mmol/L (98-107); Estimated CRCL calculation 123 ml/min; Estimated Glomerular Filt Rate > 60; Glucose 109 mg/dL (65-110); Potassium 3.8 mmol/L (3.4-5.0); Sodium 137 mmol/L (137-145)
[2023-08-14] MEDS: BUDESONIDE RESPULE NEB 0.5 MG/2 ML AMP INHALATION (07:03)
[2023-08-14 07:51] LABS: Anisocytosis 1+; Hypochromasia 1+; Macrocytosis 1+ (NORMAL); Platelet Estimate Adequate (Adequate); Schistocytes None Seen
[2023-08-14 07:57] LABS: NT Pro B Type Natriuretic Pept 1600 pg/mL (19.9-100)
[2023-08-14 08:13] LABS: Glucose Point of Care 109 mg/dl (65-105)
[2023-08-14] MEDS: APIXABAN 5 MG TABLET PO ×2 (09:13→20:31)
[2023-08-14] MEDS: POTASSIUM CHLORIDE 20 MEQ ER TABLET PO ×2 (09:13→17:45)
[2023-08-14] MEDS: FUROSEMIDE 40 MG TABLET PO ×2 (09:14→17:44)
[2023-08-14] MEDS: FLUTICASONE PROPIONATE 0.05% NA SPR 16 GM BTL (*BKC) 1 SPRAY NASAL ×2 (09:14→20:31)
[2023-08-14] MEDS: buPROPion HCL XL (24 HR) 150 MG TABCR 300 MG PO (09:14)
[2023-08-14] MEDS: ROSUVASTATIN 20 MG TABLET 40 MG PO (09:14)
[2023-08-14] MEDS: lisinopriL 20 MG TABLET 40 MG PO (09:14)
[2023-08-14] MEDS: MULTIVITAMINS THERAPEUTIC TAB (*BKC) 1 TABLET PO (09:14)
[2023-08-14] MEDS: LORATADINE 10 MG TABLET PO (09:14)
[2023-08-14] MEDS: SODIUM CHLORIDE 500 MG TABLET 1000 MG PO ×3 (09:15→17:45)
[2023-08-14] MEDS: THIAMINE HCL 200 MG/2 ML VIAL 100 MG IV PUSH (09:18)
[2023-08-14] MEDS: FOLIC ACID 1 MG/0.2 ML INJ IV PUSH (09:18)
--- NOTE | 2023-08-14 09:22 | PCNFU ---
Nutrition Follow-Up Complete: Goal: Pt current nutrition is . Nutrition recommendation: Last recorded weight is 124.3 kg. Bowel Motility: Labs Reviewed: Meds Noted: Skin: Additional Notes:
--- NOTE | 2023-08-14 09:23 | PCNWS ---
Weekly nutritional screen. Patient is tolerating current diet with adequate intake. 100% meals. No weight loss reported. No nutritional needs at this time.
--- NOTE | 2023-08-14 10:30 | PM.PNPUL ---
Progress Note: A&P Assessment and Plan (1) Pulmonary edema: Code(s): J81.1 - Chronic pulmonary edema Status: Acute Assessment and Plan: Patient presented to the emergency room on 08/06/2023 with 1 month increase edema, 1 week of weakness and 2-3 days of cough and shortness of breath. He has lower extremity edema and He weighed 275 lb on 06/01/2023 and on admission he weighed 302 lb. He had an elevated BNP at 7240, congestion on his CT angiogram and was treated with IV Lasix. 08/06/23: Patient states he is breathing better and his lower extremity edema has improved on Lasix 40 IV b.i.d.. He is on apixaban 5 q.12 for a flutter. Plan: Agree with as aggressive diuresis as tolerated by his cardiac and renal systems per Cardiology and hospitalist teams. Currently is on Lasix 40 IV b.i.d.. His weight today is 129.6 kg and he is diuresed a total of 2.4 L since admission. 08/11/23: Patient tells me he is breathing better today than yesterday. Currently is on room air with saturations 91%. patient is on Lasix 40 IV b.i.d. Weight is 129.3 kg and he has diuresed 4.9 L since admission. BNP has improved from 7240 on 08/06/2023 to 4090 today. Plan: patient is clinically improving, oxygenation has improved with diuresis per Cardiology and hospitalist teams. Will continue. Pulmonary inpatient services will resume on 08/13, discussed with Dr. Christy, call with questions 08/13: patient states he Is breathing back to his baseline. denies shortness of breath even when he is walking. Currently is on room air with saturations 92%. White blood cell count 7.9, creatinine 0.7. Weight is 273 lb and he has diuresed 8.3 L since admission. Currently on Lasix 40 b.i.d.. Plan: Patient has diuresed well and is now on Lasix 40 p.o. b.i.d.. Diuresis per hospitalist team. If patient remains stable overnight will be ready to discharge from a pulmonary perspective on these pulmonary medications: Advair 500-50 at 1 puff twice a day Montelukast 10 mg p.o. q.day Zyrtec 10 mg p.o. q.day Rescue albuterol 2 puffs q.4 hours p.r.n. shortness of breath or wheezing Flonase 1 spray each nostril b.i.d. when he naps or sleeps BiPAP with no backup rate pressures 22/18. Oxygen at rest, with ambulation and at night per formal home O2 assessment on day of discharge an overnight oximetry. Will follow with you. (2) Asthma: Qualifiers: Asthma severity: mild Asthma persistence: intermittent Asthma complication type: uncomplicated Qualified Code(s): J45.20 - Mild intermittent asthma, uncomplicated Code(s): J45.909 - Unspecified asthma, uncomplicated Status: Acute Assessment and Plan: Patient with a history of asthma and does not have COPD. At his last outpatient visit on 10/24/22 (missed appointments on 05/01/23, 05/24/23, and 06/20/23) as an outpatient he was controlled on Wixela 500-51 puff b.i.d., Singulair 10 q.day, Zyrtec 10 q.day, Flonase 1 spray each nostril q.day and albuterol prn. Today tells me he ran out of the Wixela, Singulair and albuterol rescue 1 month ago. In the past when he was getting low on his medicines I told him it was absolutely necessary call the clinic before he ran out of any medicines but he failed to do this. Patient presented to the emergency room on 08/06/2023 with 1 month increase edema, 1 week of weakness and 2-3 days of cough and shortness of breath. He has lower extremity edema and He weighed 275 lb on 06/01/2023 and on admission he weighed 302 lb. He had an elevated BNP at 7240, congestion on his CT angiogram and was treated with IV Lasix. He developed worsening wheezing on 08/06 and was started on prednisone 40 and is DuoNebs were continued. 08/10/2023: Patient tells me that he is 80% back to his normal regarding his breathing and his cough. He has no hemoptysis. He denies any fevers. He does complain of congestion in the chest. He remains weak. When I enter the room he
[2023-08-14] MEDS: FLUTICASONE/SALMETEROL 230-21 MCG INHALER 1 PUFF 2 PUFF INHALATION ×2 (11:00→20:00)
--- NOTE | 2023-08-14 11:12 | PM.IMPN ---
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 Jiménez is a very pleasant yet unfortunately chronically ill 62-year-old male with history of morbid obesity, osteoarthritis, depression left side cornea transplant recipient 2016 with complication/failure (followed by Dr. Peterson at [facility]), heart block (followed by Dr. Fung), bilateral LE lymphedema, asthma/COPD, CB on NIPPV (followed by Dr. Tinajero), hyperlipidemia, hypertension, dqo-hgikruy-tezsulism type 2 diabetes mellitus, alcoholism, former smoker, history of cholecystectomy, presenting with generalized weakness and shortness of breath. Admitted on 08/07/2023 for further workup. August 12, 2023 update. Patient is now on room air. He has been diuresed very effectively. He looks very good today. He feels very good. New current management and plan for discharge to acute rehab. He is on potassium 20 mEq b.i.d.. Potassium today will replace with an additional 20 mEq by mouth. August 13, 2023: Patient complains of sputum production and thinks he has a pneumonia. He requested further workup and possible antibiotics. He has a normal white count so will check chest x-ray and quad PCR along with sputum culture. Patient now requesting to go to [facility] instead of [place]. Care coordination communication sent. Lasix IV has been transition to 40 mg p.o. b.i.d.. Was previously on 40 mg p.o. q.day. Shortness of breath/acute hypoxic respiratory failure -resolving. Upon evaluation today took the patient off nasal cannula and he was saturating 93%. Goal O2 saturation 88-92%. Etiologies include COPD/asthma exacerbation and new onset heart failure -cardiology consulted. Patient complaining of worsening lower extremity edema recently. Elevated BNP on admission. Surface echocardiogram demonstrating grade 1 diastolic dysfunction. continue Lasix 40 mg IV b.i.d.. appreciate Cardiology consultation. continue Daily weights with cardiac diet and fluid restriction. -quad PCR screen negative on admission 08/10: shortness breath is improving, patient has been having negative input and output balance since admission, continue IV Lasix today CB on NIPPV -continue NIPPV at night. COPD/asthma -acute exacerbation. Continue prednisone and DuoNeb scheduled. 08/08: patient has wheezing in bilateral lungs, dyspnea with exertion, patient need BiPAP during the night consult creative services specialist for evaluation and treatment 08/09 appreciate creative services specialist's consultation,continue prednisone 40 mg p.o. q.day. ? DuoNebs q.6 hours to q.4 hours. ? No need for antibiotics from a pulmonary perspective. montelukast 10 mg a day.? restart his Flonase 1 spray each nostril twice a day.?loratadine to substitute for patient's cetirizine. #Atrial flutter -cardiology consult. Eliquis started. He has an existing patient of the [facility] Cardiology group. Follow-up as an outpatient for further management. -controlled ventricular response #
--- NOTE | 2023-08-14 11:26 | PC.NURSE ---
Dr Christy notified of bladder scan >700.
[2023-08-14 11:54] LABS: Glucose Point of Care 203 mg/dl (65-105)
[2023-08-14] MEDS: INSULIN ASPART (*BKC) 100 UNITS/ML SUB-Q (12:16)
[2023-08-14 15:50] LABS: Appearance Urine Clear (Clear); Bacteria Urine None Seen /hpf; Bilirubin Urine Negative (Negative); Blood Urine 2+ (Negative); Color Urine Yellow (Yellow); Glucose Urine UA Negative (Negative); Ketones Urine Negative (Negative); Leukocyte Esterase Ur 1+ LEU/UL (Negative); Nitrate Urine Negative (Negative); Non Pathogenic Casts 0-2; Protein Urine Negative (Negative); RBC Urine 21-50 /hpf (0-2); Specific Grav Ur 1.008 (1.001-1.035); Squamous Epithelial Cell Urine None Seen /hpf (Few); pH Urine 8.5 (5.0-9.0)
[2023-08-14 15:57] LABS: Add Urine Microscopic? YES
[2023-08-14 16:59] LABS: Glucose Point of Care 118 mg/dl (65-105)
[2023-08-14] MEDS: MONTELUKAST SODIUM 10 MG TABLET PO (20:30)
[2023-08-14] MEDS: traMADol HCL (*CRX) 25 MG TABLET PO (20:30)
[2023-08-14] MEDS: ACETAMINOPHEN 500 MG TABLET 1000 MG PO (21:25)
[2023-08-14] MEDS: KETOROLAC 30 MG/ML VIAL (*BKC) IV PUSH (21:26)
[2023-08-14 21:32] LABS: Glucose Point of Care 129 mg/dl (65-105)
[2023-08-15] VITALS (7 sets, daily range): BP systolic 130–144; BP diastolic 74–80; PULSE 54–88; RESP 16–21; TEMP 36–36.9; O2SAT 95–100
[2023-08-15 05:27] LABS: Alveolar/Arterial O2 Gradient 19.5 mmHg; Base Excess ABG 8.4 mEq/l (+/-2.0); Device BIPAP; Fractional Inspired Oxygen 21 %; HCO3 ABG 33.5 mEq/l (22.0-26.0); Modified Allen's Test Pass; Oxygen Content ABG 16.6 %vol (16.0-22.0); Oxygen Saturation ABG 95.1 % (95.0-100.0); Oxyhemoglobin 91.5 % THb (90.0-100.0); PCO2 ABG 48.4 mmHg (35.0-45.0); PO2 ABG 72.3 mmHg (80.0-100.0); PO2 FiO2 Ratio Arterial Blood 3.44 %; Site Drawn RIGHT RADIAL; Total Hemoglobin 12.9 g/dL (12.0-18.0); pH ABG 7.458 (7.350-7.450)
[2023-08-15 05:28] LABS: Expiratory Pressure 18 cmH2O; Inspiratory Pressure 22 cmH2O
[2023-08-15] MEDS: POLYMYXIN/TRIMETHOPRIM OPHTH 10 ML DROPS 1 DROP EACH EYE ×4 (06:05→23:17)
[2023-08-15] MEDS: TOBRAMYCIN/DEXAMETHASONE OP 2.5 ML BTL 1 DROP EACH EYE ×4 (06:05→23:17)
[2023-08-15] MEDS: lisinopriL 20 MG TABLET 40 MG PO (08:28)
[2023-08-15] MEDS: FOLIC ACID 1 MG/0.2 ML INJ IV PUSH (08:28)
[2023-08-15] MEDS: ROSUVASTATIN 20 MG TABLET 40 MG PO (08:28)
[2023-08-15] MEDS: POTASSIUM CHLORIDE 20 MEQ ER TABLET PO ×2 (08:28→17:00)
[2023-08-15] MEDS: APIXABAN 5 MG TABLET PO ×2 (08:28→20:38)
[2023-08-15] MEDS: buPROPion HCL XL (24 HR) 150 MG TABCR 300 MG PO (08:28)
[2023-08-15] MEDS: SODIUM CHLORIDE 500 MG TABLET 1000 MG PO ×3 (08:29→17:00)
[2023-08-15] MEDS: FLUTICASONE PROPIONATE 0.05% NA SPR 16 GM BTL (*BKC) 1 SPRAY NASAL ×2 (08:29→20:38)
[2023-08-15] MEDS: THIAMINE HCL 200 MG/2 ML VIAL 100 MG IV PUSH (08:29)
[2023-08-15] MEDS: LORATADINE 10 MG TABLET PO (08:29)
[2023-08-15] MEDS: MULTIVITAMINS THERAPEUTIC TAB (*BKC) 1 TABLET PO (08:29)
[2023-08-15] MEDS: FUROSEMIDE 40 MG TABLET PO ×2 (08:29→17:00)
[2023-08-15 08:40] LABS: Glucose Point of Care 74 mg/dl (65-105)
--- NOTE | 2023-08-15 08:51 | PM.IMPN ---
Progress Note: A&P Assessment and Plan (1) Acute diverticulitis of intestine: Code(s): K57.92 - Diverticulitis of intestine, part unspecified, without perforation or abscess without bleeding Status: Acute (2) Elevated LFTs: Code(s): R79.89 - Other specified abnormal findings of blood chemistry Status: Acute (3) Elevated troponin: Code(s): R79.89 - Other specified abnormal findings of blood chemistry Status: Acute (4) Type 2 diabetes mellitus: Code(s): E11.9 - Type 2 diabetes mellitus without complications Status: Acute (5) Pulmonary edema: Code(s): J81.1 - Chronic pulmonary edema Status: Acute (6) Shortness of breath: Code(s): R06.02 - Shortness of breath Status: Acute (7) Eye infection: Code(s): H44.009 - Unspecified purulent endophthalmitis, unspecified eye Status: Acute (8) Acute hypokalemia: Code(s): E87.6 - Hypokalemia Status: Acute (9) Osteoarthritis of knees, bilateral: Code(s): M17.0 - Bilateral primary osteoarthritis of knee Status: Acute (10) Morbid obesity: Code(s): E66.01 - Morbid (severe) obesity due to excess calories Status: Acute Plan Mr. Jiménez is a very pleasant yet unfortunately chronically ill 62-year-old male with history of morbid obesity, osteoarthritis, depression left side cornea transplant recipient 2016 with complication/failure (followed by Dr. Peterson at [facility]), heart block (followed by Dr. Fung), bilateral LE lymphedema, asthma/COPD, CB on NIPPV (followed by Dr. Tinajero), hyperlipidemia, hypertension, [id number] type 2 diabetes mellitus, alcoholism, former smoker, history of cholecystectomy, presenting with generalized weakness and shortness of breath. Admitted on 08/07/2023 for further workup. 08/14 patient started have left lower abdomen pain yesterday CT abdomen pelvis suggest acute sigmoid diverticulitis without complication patient is on ceftriaxone for UTI, and Flagyl p.o. consult general surgeon 08/13 urine retention, UTI Patient started have dysuria, bladder scan suggests urinary retention follow urinalysis, folic catheter is placed Follow-up renal ultrasound: Normal kidney sizes. No hydronephrosis UA showed pyuria and microscopic hematuria start ceftriaxone 2 g IV follow-up urine culture Consult urologist August 12, 2023 update. Patient is now on room air. He has been diuresed very effectively. He looks very good today. He feels very good. New current management and plan for discharge to acute rehab. He is on potassium 20 mEq b.i.d.. Potassium today will replace with an additional 20 mEq by mouth. August 13, 2023: Patient complains of sputum production and thinks he has a pneumonia. He requested further workup and possible antibiotics. He has a normal white count so will check chest x-ray and quad PCR along with sputum culture. Patient now requesting to go to [facility] instead of [facility]. Care coordination communication sent. Lasix IV has been transition to 40 mg p.o. b.i.d.. Was previously on 40 mg p.o. q.day. Shortness of breath/acute hypoxic respiratory failure -resolving. Upon evaluation today took the patient off nasal cannula and he was saturating 93%. Goal O2 saturation 88-92%. Etiologies include COPD/asthma exacerbation and new onset heart failure -cardiology consulted. Patient complaining of worsening lower extremity edema recently. Elevated BNP on admission. Surface echocardiogram demonstrating grade 1 diastolic dysfunction. continue Lasix 40 mg IV b.i.d.. appreciate Cardiology consultation. continue Daily weights with cardiac diet and fluid restriction. -quad PCR screen negative on admission 08/10: shortness breath is improving, patient has been having negative input and output balance since admission, continue IV Lasix today CB on NIPPV -continue NIPPV at night. COPD/asth
[2023-08-15] MEDS: FLUTICASONE/SALMETEROL 230-21 MCG INHALER 1 PUFF 2 PUFF INHALATION ×2 (08:57→21:00)
--- NOTE | 2023-08-15 09:17 | PM.PNPUL ---
Progress Note: A&P Assessment and Plan (1) Pulmonary edema: Code(s): J81.1 - Chronic pulmonary edema Status: Acute Assessment and Plan: Patient presented to the emergency room on 08/06/2023 with 1 month increase edema, 1 week of weakness and 2-3 days of cough and shortness of breath. He has lower extremity edema and He weighed 275 lb on 06/01/2023 and on admission he weighed 302 lb. He had an elevated BNP at 7240, congestion on his CT angiogram and was treated with IV Lasix. 08/06/23: Patient states he is breathing better and his lower extremity edema has improved on Lasix 40 IV b.i.d.. He is on apixaban 5 q.12 for a flutter. Plan: Agree with as aggressive diuresis as tolerated by his cardiac and renal systems per Cardiology and hospitalist teams. Currently is on Lasix 40 IV b.i.d.. His weight today is 129.6 kg and he is diuresed a total of 2.4 L since admission. 08/11/23: Patient tells me he is breathing better today than yesterday. Currently is on room air with saturations 91%. patient is on Lasix 40 IV b.i.d. Weight is 129.3 kg and he has diuresed 4.9 L since admission. BNP has improved from 7240 on 08/06/2023 to 4090 today. Plan: patient is clinically improving, oxygenation has improved with diuresis per Cardiology and hospitalist teams. Will continue. Pulmonary inpatient services will resume on 08/13, discussed with Dr. Christy, call with questions 08/13: patient states he Is breathing back to his baseline. denies shortness of breath even when he is walking. Currently is on room air with saturations 92%. White blood cell count 7.9, creatinine 0.7. Weight is 273 lb and he has diuresed 8.3 L since admission. Currently on Lasix 40 b.i.d.. Plan: Patient has diuresed well and is now on Lasix 40 p.o. b.i.d.. Diuresis per hospitalist team. 08/15/2023: Patient states he is breathing at his baseline. He complains of some phlegm and congestion. His pedal edema has improved. He is on room air saturations 96%. patient is on Lasix 40 p.o. b.i.d., weight is 120.1 kg, total diuresis since admission 10.6 L. Plan: ready to discharge from a pulmonary perspective on these pulmonary medications: Advair 500-50 at 1 puff twice a day Montelukast 10 mg p.o. q.day Zyrtec 10 mg p.o. q.day Rescue albuterol 2 puffs q.4 hours p.r.n. shortness of breath or wheezing Flonase 1 spray each nostril b.i.d. when he naps or sleeps BiPAP with no backup rate pressures 22/18 and 2 L bleed in. Oxygen at rest and with ambulation per Skilled facility. diuretics per hospitalist team Discussed with Dr. Christy, Will follow with you. (2) Asthma: Qualifiers: Asthma severity: mild Asthma persistence: intermittent Asthma complication type: uncomplicated Qualified Code(s): J45.20 - Mild intermittent asthma, uncomplicated Code(s): J45.909 - Unspecified asthma, uncomplicated Status: Acute Assessment and Plan: Patient with a history of asthma and does not have COPD. At his last outpatient visit on 10/24/22 (missed appointments on 05/01/23, 05/24/23, and 06/20/23) as an outpatient he was controlled on Wixela 500-51 puff b.i.d., Singulair 10 q.day, Zyrtec 10 q.day, Flonase 1 spray each nostril q.day and albuterol prn. Today tells me he ran out of the Wixela, Singulair and albuterol rescue 1 month ago. In the past when he was getting low on his medicines I told him it was absolutely necessary call the clinic before he ran out of any medicines but he failed to do this. Patient presented to the emergency room on 08/06/2023 with 1 month increase edema, 1 week of weakness and 2-3 days of cough and shortness of breath. He has lower extremity edema and He weighed 275 lb on 06/01/2023 and on admission he weighed 302 lb. He had an elevated BNP at 7240, congestion on his CT angiogram and was treated with IV Lasix. He developed worsening wheezing on 08/06 and was started on prednisone 40 and is DuoNebs were co
[2023-08-15] MEDS: cefTRIAXone 2 GM/NS 100 ML 2 GM/100 ML BAG IVPB (10:02)
[2023-08-15 12:00] LABS: Glucose Point of Care 129 mg/dl (65-105)
--- NOTE | 2023-08-15 12:43 | WPDURCON ---
Assessment and Plan Assessment and plan (1) Urinary retention: Code(s): R33.9 - Retention of urine, unspecified Status: Acute Assessment and Plan: Urinary retention onset 08/14/23. Etiology unclear, may be due to BPH vs possible UTI Continue with blake catheter for now Will begin tamsulosin (2) Abnormal urinalysis: Code(s): R82.90 - Unspecified abnormal findings in urine Status: Acute Assessment and Plan: UA abnormal, urine culture pending Continue empiric antibiotics and tailor to urine culture results Urology Consult Note HPI Date Seen: 08/15/23 Requesting Physician: Les Henning MD Primary Care Provider: Troy Rankin PA-C Consult Narrative Narrative: Addi Caal is a 62 year old male with multiple medical comorbidities who was initially admitted on 08/06/23 for pulmonary edema and is being seen in consultation for evaluation of urinary retention. On 08/14/23 he had onset of dysuria. UA collected was abnormal and bladder scan showed elevated residual. He was started on ceftriaxone and a blake catheter was initiated, initial urine output amount unknown. Urine culture is pending. He had an abdominal US on 08/09/23 prior to onset of urinary symptoms which did not show hydronephrosis. RUTH was completed on 08/15/23 after blake placement which showed normal kidneys, no hydro, and bladder decompressed by catheter. The patient reports no prior urologic history. He does state that for the past 6 months, he has noticed difficulty urinating with slow stream and decreased urine output. He denied dysuria or hematuria prior to admission. At the time of my evaluation, he is resting comfortably. Reports no issues with blake catheter which is draining clear yellow urine. His creatinine is 0.7. His vital signs are stable and he is afebrile. Review of Systems Review of Systems: All systems reviewed & are unremarkable except as noted in HPI and below PMFSH Past Medical History Medical History Alcohol abuse Alcoholic hepatitis Anxiety Arthritis Asthma mild, persistent Atrial flutter with rapid ventricular response Bilateral chronic knee pain Cataract Chills COPD (chronic obstructive pulmonary disease) Cornea transplant recipient Depressive disorder, not elsewhere classified Environmental allergies Essential (primary) hypertension Hernia HLD (hyperlipidemia) Lymphedema of both lower extremities Macrocytosis Mixed hyperlipidemia CB on CPAP (2009) Sleep disorder Subclinical hyperthyroidism Tachycardia-bradycardia syndrome Tear of meniscus of left knee Thrombocytopenia Type 2 diabetes mellitus Surgical History Surgical History H/O hernia repair 2009 History of nasal surgery Hx laparoscopic cholecystectomy 12/18/19 Hx of cornea transplant S/P left knee arthroscopy Family History Family History Other Adopted Social History Social History Social History: The patient works at [employer] during the day and [employer] during the night. The patient lives with a pet dog. Patient quit smoking about 5-10 years ago. The patient does not use any alcohol marijuana or illicit drugs. He desires to be a full code. And his sister is a [employer] employee benefits attorney for healthcare. He has no children. He is adopted and does not know his biological parents. Smoking packs per day: 1 Smoking cigarettes per day: 20.0 Years smoked: 25 Smoking pack-years: 25.00 Smoking status: Former smoker Tobacco type: cigarettes Second hand tobacco smoke exposure: No Smoking end date: 04/24/16 Additional smoking assessment comments: QUIT 5 YEARS AGO Alcohol intake: current Drinks per week: 7 Alcohol use details: occasional Substance use: never Substance u
--- NOTE | 2023-08-15 12:53 | PM.CNGS ---
Assessment and Plan Assessment and plan (1) Acute diverticulitis of intestine: Code(s): K57.92 - Diverticulitis of intestine, part unspecified, without perforation or abscess without bleeding Status: Acute Assessment and Plan: Patient admitted with pulmonary edema, elevated troponin, and new atrial flutter. He developed abdominal pain during his hospitalization and was found to have acute diverticulitis on a CT scan of the abdomen and pelvis yesterday. No CT evidence of perforation or abscess, although done without IV contrast. He is not complaining of any abdominal pain today, but does have a significant amount of tenderness in the left lower quadrant. Will back off to a full liquid diet. White blood cell count normal. No diffuse peritoneal signs. Continue antibiotics. No indication for any surgical intervention at this time. (2) Urinary retention: Code(s): R33.9 - Retention of urine, unspecified Status: Acute Assessment and Plan: Acute urinary retention status post Arciniega catheter placement. Urology consulted. Patient attributes his abdominal pain yesterday to his urinary retention. His pain resolved following catheter placement. (3) Pulmonary edema: Code(s): J81.1 - Chronic pulmonary edema Status: Acute Assessment and Plan: This is one of the reasons for his hospitalization. He was diuresed and has improved over the past week. (4) Alcoholic hepatitis: Code(s): K70.10 - Alcoholic hepatitis without ascites Status: Acute (5) Atrial flutter: Code(s): I48.92 - Unspecified atrial flutter Status: Acute (6) Type 2 diabetes mellitus: Code(s): E11.9 - Type 2 diabetes mellitus without complications Status: Acute (7) CB (obstructive sleep apnea): Code(s): G47.33 - Obstructive sleep apnea (adult) (pediatric) Status: Acute (8) Obesity: Code(s): E66.9 - Obesity, unspecified Status: Acute Plan I have discussed the patient's case and plan of care with Dr. Yusuf. History of Present Illness Consult details Consult date: 08/15/23 Reason for consult: other (Diverticulitis) Requesting physician: Estuardo Christy MD Narrative: This is a 62-year-old man with a history of COPD, alcohol abuse, type 2 diabetes mellitus, CB, asthma, who we have been asked to see in surgical consultation for diverticulitis. He presented to the ER over a week ago for shortness of breath, cough, and generalized weakness. He was admitted for pulmonary edema, elevated troponin, elevated LFTs, and new atrial flutter. Cardiology was consulted and did not pursue any further ischemic workup. Pulmonology was also consulted. He has been diuresed and overall his pulmonary status has improved. He was started on anticoagulation and is currently on Eliquis for the atrial flutter. Yesterday, he began complaining of some abdominal pain. He was found to have urinary retention and had a Arciniega catheter placed. The patient reports his abdominal pain resolved after the catheter was placed. He had a CT scan of the abdomen and pelvis without contrast due to the abdominal pain, which showed hepatic steatosis, and acute probably uncomplicated sigmoid diverticulitis. Our service was consulted today for the sigmoid diverticulitis. He is seen on the medical floor. He denies any abdominal pain, nausea, vomiting, or recent diarrhea. He is currently eating a heart healthy diet and tolerating this well. WBC count normal and he is afebrile. He reports having intermittent abdominal pain chronically. He reports intermittent diarrhea as well that he attributes to certain foods. He reports being treated with IV antibiotics for diverticulitis once in the past a few years ago. No previous surgeries for diverticulitis. He reports a history of a laparoscopic ventral hernia repair in 2009 with mesh. He also had a laparoscopic cholecystectomy in 2019. Review of Systems Review of [employer]
[2023-08-15] MEDS: metroNIDAZOLE 500 MG TABLET PO ×2 (13:03→20:38)
--- NOTE | 2023-08-15 13:43 | PC.NURSE ---
RN spoke with Janelle administrative receptionist with [facility] office and she will page Rebeca Zhou SERGE[employer] OF CORRECTIONS to call RN back.
[2023-08-15] MEDS: TAMSULOSIN HCL 0.4 MG CAPSULE PO (17:00)
[2023-08-15 17:26] LABS: Glucose Point of Care 124 mg/dl (65-105)
--- NOTE | 2023-08-15 17:39 | PC.NURSE ---
RN paged Dr Yusuf due to patient complaints in regards to his diet. RN explained to patient that his diet is now full liquids due to diverticulitis. Patient states he has no pain and has ate solid food this entire admission and wishes to continue doing so. Patient also stated he wanted RN to reach out to the doctor to get this order changed. Patient is very upset at this time and stating he is freaked out by this diet and needs solid food RN paged Dr. Barbour but has not heard back at this time. Dietary will be closing at 6pm and patient will not be able to get dinner after this time. RN put in low fiber diet as this was the diet discussed with Rebeca Zhou [employer] this afternoon that he will advance to after full liquids. RN will hold tray at nurses station until this diet is confirmed with Dr. Yusuf.
[2023-08-15] MEDS: MONTELUKAST SODIUM 10 MG TABLET PO (20:38)
[2023-08-15] MEDS: traMADol HCL (*CRX) 25 MG TABLET PO (20:44)
[2023-08-15 21:53] LABS: Glucose Point of Care 212 mg/dl (65-105)
[2023-08-15] MEDS: INSULIN ASPART (*BKC) 100 UNITS/ML SUB-Q (22:27)
[2023-08-16] VITALS (7 sets, daily range): BP systolic 126–133; BP diastolic 66–79; PULSE 54–62; RESP 18–23; TEMP 36.5–37; O2SAT 95–97
[2023-08-16 05:03] LABS: LKM 1 Antibody <=20.0 U (<=20.0)
[2023-08-16] MEDS: metroNIDAZOLE 500 MG TABLET PO ×3 (05:32→20:33)
[2023-08-16] MEDS: POLYMYXIN/TRIMETHOPRIM OPHTH 10 ML DROPS 1 DROP EACH EYE ×4 (05:32→23:24)
[2023-08-16] MEDS: TOBRAMYCIN/DEXAMETHASONE OP 2.5 ML BTL 1 DROP EACH EYE ×4 (05:32→23:24)
[2023-08-16 08:28] LABS: Glucose Point of Care 77 mg/dl (65-105)
[2023-08-16] MEDS: buPROPion HCL XL (24 HR) 150 MG TABCR 300 MG PO (08:48)
[2023-08-16] MEDS: ROSUVASTATIN 20 MG TABLET 40 MG PO (08:48)
[2023-08-16] MEDS: TAMSULOSIN HCL 0.4 MG CAPSULE PO (08:49)
[2023-08-16] MEDS: FUROSEMIDE 40 MG TABLET PO ×2 (08:49→17:38)
[2023-08-16] MEDS: THIAMINE HCL 200 MG/2 ML VIAL 100 MG IV PUSH (08:49)
[2023-08-16] MEDS: MULTIVITAMINS THERAPEUTIC TAB (*BKC) 1 TABLET PO (08:49)
[2023-08-16] MEDS: APIXABAN 5 MG TABLET PO ×2 (08:49→20:32)
[2023-08-16] MEDS: POTASSIUM CHLORIDE 20 MEQ ER TABLET PO ×2 (08:49→17:38)
[2023-08-16] MEDS: LORATADINE 10 MG TABLET PO (08:49)
[2023-08-16] MEDS: lisinopriL 20 MG TABLET 40 MG PO (08:49)
[2023-08-16] MEDS: SODIUM CHLORIDE 500 MG TABLET 1000 MG PO ×3 (08:49→17:38)
[2023-08-16] MEDS: FOLIC ACID 1 MG/0.2 ML INJ IV PUSH (08:50)
[2023-08-16] MEDS: cefTRIAXone 2 GM/NS 100 ML 2 GM/100 ML BAG IVPB (08:50)
[2023-08-16] MEDS: FLUTICASONE PROPIONATE 0.05% NA SPR 16 GM BTL (*BKC) 1 SPRAY NASAL ×2 (08:51→20:32)
[2023-08-16] MEDS: FLUTICASONE/SALMETEROL 230-21 MCG INHALER 1 PUFF 2 PUFF INHALATION ×2 (09:01→20:27)
--- NOTE | 2023-08-16 09:43 | PM.PNPUL ---
Progress Note: A&P Assessment and Plan (1) Pulmonary edema: Code(s): J81.1 - Chronic pulmonary edema Status: Acute Assessment and Plan: Patient presented to the emergency room on 08/06/2023 with 1 month increase edema, 1 week of weakness and 2-3 days of cough and shortness of breath. He has lower extremity edema and He weighed 275 lb on 06/01/2023 and on admission he weighed 302 lb. He had an elevated BNP at 7240, congestion on his CT angiogram and was treated with IV Lasix. 08/06/23: Patient states he is breathing better and his lower extremity edema has improved on Lasix 40 IV b.i.d.. He is on apixaban 5 q.12 for a flutter. Plan: Agree with as aggressive diuresis as tolerated by his cardiac and renal systems per Cardiology and hospitalist teams. Currently is on Lasix 40 IV b.i.d.. His weight today is 129.6 kg and he is diuresed a total of 2.4 L since admission. 08/11/23: Patient tells me he is breathing better today than yesterday. Currently is on room air with saturations 91%. patient is on Lasix 40 IV b.i.d. Weight is 129.3 kg and he has diuresed 4.9 L since admission. BNP has improved from 7240 on 08/06/2023 to 4090 today. Plan: patient is clinically improving, oxygenation has improved with diuresis per Cardiology and hospitalist teams. Will continue. Pulmonary inpatient services will resume on 08/13, discussed with Dr. Christy, call with questions 08/13: patient states he Is breathing back to his baseline. denies shortness of breath even when he is walking. Currently is on room air with saturations 92%. White blood cell count 7.9, creatinine 0.7. Weight is 273 lb and he has diuresed 8.3 L since admission. Currently on Lasix 40 b.i.d.. Plan: Patient has diuresed well and is now on Lasix 40 p.o. b.i.d.. Diuresis per hospitalist team. 08/15/2023: Patient states he is breathing at his baseline. He complains of some phlegm and congestion. His pedal edema has improved. He is on room air saturations 96%. patient is on Lasix 40 p.o. b.i.d., weight is 120.1 kg, total diuresis since admission 10.6 L. 08/16/23: Patient is back at his baseline regarding his respiratory status. He still has some phlegm production, minimal cough and no hemoptysis. Currently is on room air with saturations 93%. Patient is on Lasix 40 p.o. b.i.d., weight is 120.9 kg, total diuresis since admission is 13.8. On ceftriaxone and forth Flagyl for diverticulitis. Arciniega catheter in place. Plan: ready to discharge from a pulmonary perspective on these pulmonary medications: Advair 500-50 at 1 puff twice a day Montelukast 10 mg p.o. q.day Zyrtec 10 mg p.o. q.day Rescue albuterol 2 puffs q.4 hours p.r.n. shortness of breath or wheezing Flonase 1 spray each nostril b.i.d. when he naps or sleeps BiPAP with no backup rate pressures 22/18 and 2 L bleed in. Oxygen at rest and with ambulation per Skilled facility. diuretics per hospitalist team Follow-up in the Pulmonary Clinic in 4 weeks from discharge. I gave him our business card and informed the chief librarian work with blind. Will sign off, call with questions (2) Asthma: Qualifiers: Asthma severity: mild Asthma persistence: intermittent Asthma complication type: uncomplicated Qualified Code(s): J45.20 - Mild intermittent asthma, uncomplicated Code(s): J45.909 - Unspecified asthma, uncomplicated Status: Acute Assessment and Plan: Patient with a history of asthma and does not have COPD. At his last outpatient visit on 10/24/22 (missed appointments on 05/01/23, 05/24/23, and 06/20/23) as an outpatient he was controlled on Wixela 500-51 puff b.i.d., Singulair 10 q.day, Zyrtec 10 q.day, Flonase 1 spray each nostril q.day and albuterol prn. Today tells me he ran out of the Wixela, Singulair and albuterol rescue 1 month ago. In the past when he was getting low on his medicines I told him it was absolutely necessary call the clinic before he ran out of any
--- NOTE | 2023-08-16 09:54 | PM.IMPN ---
Progress Note: A&P Assessment and Plan (1) Abnormal urinalysis: Code(s): R82.90 - Unspecified abnormal findings in urine Status: Acute (2) Urinary retention: Code(s): R33.9 - Retention of urine, unspecified Status: Acute (3) Acute diverticulitis of intestine: Code(s): K57.92 - Diverticulitis of intestine, part unspecified, without perforation or abscess without bleeding Status: Acute (4) Pulmonary edema: Code(s): J81.1 - Chronic pulmonary edema Status: Acute Plan Mr. Jiménez is a very pleasant yet unfortunately chronically ill 62-year-old male with history of morbid obesity, osteoarthritis, depression left side cornea transplant recipient 2016 with complication/failure (followed by Dr. Peterson at [facility]), heart block (followed by Dr. Fung), bilateral LE lymphedema, asthma/COPD, CB on NIPPV (followed by Dr. Tinajero), hyperlipidemia, hypertension, [id number] type 2 diabetes mellitus, alcoholism, former smoker, history of cholecystectomy, presenting with generalized weakness and shortness of breath.? Admitted on 08/07/2023 for further workup. 08/14 acute sigmoid diverticulitis ?patient? started have left lower abdomen pain yesterday ?CT abdomen pelvis suggest acute sigmoid diverticulitis without complication ?patient is on ceftriaxone for UTI, and Flagyl p.o. ?consult general surgeon appreciate surgeon's consultation, no need surgical treatment Continue IV antibiotics today Transition to oral antibiotics tomorrow 08/13? urine retention, ? UTI Patient started have dysuria, bladder scan suggests urinary retention ?follow urinalysis, folic catheter is placed Follow-up renal ultrasound:?Normal kidney sizes. No hydronephrosis ?UA showed pyuria and microscopic hematuria ?start ceftriaxone 2 g IV ?follow-up urine culture Consult urologist appreciate urologist consultation, will follow-up with urologist after discharge August 12, 2023 update.? Patient is now on room air.? He has been diuresed very effectively.? He looks very good today.? He feels very good.? New current management and plan for discharge to acute rehab.? He is on potassium 20 mEq b.i.d..? Potassium today will replace with an additional 20 mEq by mouth. August 13, 2023:? Patient complains of sputum production and thinks he has a pneumonia.? He requested further workup and possible antibiotics.? He has a normal white count so will check chest x-ray and quad PCR along with sputum culture.? Patient now requesting to go to [facility] instead of [place].? Care coordination communication sent.? Lasix IV has been transition to 40 mg p.o. b.i.d..? Was previously on 40 mg p.o. q.day. Shortness of breath/acute hypoxic respiratory failure -resolving.? Upon evaluation today took the patient off nasal cannula and he was saturating 93%.? Goal O2 saturation 88-92%.? Etiologies include COPD/asthma exacerbation and new onset heart failure -cardiology consulted.? Patient complaining of worsening lower extremity edema recently.? Elevated BNP on admission.? Surface echocardiogram demonstrating grade 1 diastolic dysfunction. ?continue Lasix 40 mg IV b.i.d..? ?appreciate Cardiology? consultation.? ?continue Daily weights with cardiac diet and fluid restriction. -quad PCR screen negative on admission 08/10: ? shortness breath is improving, patient has been having negative input? and output balance since admission, continue IV Lasix today 08/15 patient does not have dyspnea at rest, chronic patient is on oral Lasix 40 mg b.i.d. p.o. no O2 desaturation on room air CB on NIPPV -continue NIPPV at night. COPD/asthma -acute exacerbation.? Continue prednisone and DuoNeb scheduled. 08/08: ? patient has wheezing in bilateral lungs, dyspnea with exertion, ?patient need BiPAP during the night ?consult computer applications engineer for evaluation? and treatment 08/09? appreciate computer applications engineer's consultation,continue prednisone 40 mg p.o. q.day. ?
[2023-08-16 10:57] LABS: Basophils Absolute Auto 0.1 K/mm3 (0.0-0.1); Basophils Percent Auto 1.3 % (0.2-1.2); Eosinophils Absolute Auto 0.2 K/mm3 (0-0.3); Eosinophils Percent Auto 2.7 % (0-4.4); Hematocrit 36.3 % (42.0-52.0); Hemoglobin 11.8 g/dL (14.0-18.0); Immature Granulocyte Absolute 0.08 K/mm3 (0.00-0.031); Immature Granulocyte Percent A 1.1 % (0-0.5); Lymphocytes Absolute Auto 0.98 K/mm3 (0.9-3.2); Mean Corpuscular HGB Conc 32.5 g/dl (32-36); Mean Corpuscular Hemoglobin 38.8 pg (26-34); Mean Corpuscular Volume 119.4 fl (80-100); Mean Platelet Volume 10.2 fl (7.4-10.4); Monocytes Absolute Auto 0.8 K/mm3 (0.1-0.6); Monocytes Percent Auto 11.3 % (2.6-8.5); Neutrophils Absolute Auto 4.9 K/mm3 (1.3-6.7); Neutrophils Percent Auto 69.6 % (45.5-73.1); Platelet Count Result 357 k/mm3 (150-375); Red Blood Count 3.04 M/mm3 (4.6-6.20); Red Cell Distribution Width 15.8 % (11.5-14.5)
[2023-08-16 11:20] LABS: Anion Gap 6 mmol/L (4-12); Blood Urea Nitrogen 13 mg/dL (9-20); Calcium 9.2 mg/dL (8.4-10.2); Carbon Dioxide 32 mmol/L (22-30); Chloride 100 mmol/L (98-107); Estimated CRCL calculation 121 ml/min; Estimated Glomerular Filt Rate > 60; Glucose 109 mg/dL (65-110); Potassium 4.4 mmol/L (3.4-5.0); Sodium 138 mmol/L (137-145)
[2023-08-16 11:22] LABS: Anisocytosis 1+; Macrocytosis 1+ (NORMAL); Platelet Estimate Adequate (Adequate)
[2023-08-16 11:23] LABS: Schistocytes None Seen
[2023-08-16 12:20] LABS: Glucose Point of Care 126 mg/dl (65-105)
--- NOTE | 2023-08-16 13:07 | PM.PNGS ---
Progress Note: A&P Assessment and Plan (1) Acute diverticulitis of intestine: Code(s): K57.92 - Diverticulitis of intestine, part unspecified, without perforation or abscess without bleeding Status: Acute Assessment and Plan: No evidence of perforation or peritonitis. No surgical indications. Will sign off. Subjective Subjective Date/Time Seen: 08/16/23 13:07 Interval history: No abdominal pain. Bowel moving. Wants to be back on regular diet. Exam GI: Inspection: normal to inspection and non-distended GI Palp: Yes Soft to palpation, No Tenderness to palpation present (GI) and No Guarding due to palpation present (GI) Auscultation: normal bowel sounds Objective Data Vital Signs Vital Signs: Vital Signs - 24 hr 08/15/23 14:00 08/15/23 21:34 08/15/23 21:38 Temperature 36.9 C 36.6 C Pulse Rate 57 L 54 L Respiratory Rate 20 17 Blood Pressure 144/80 H 135/78 Pulse Oximetry 96 98 98 Oxygen Delivery Room Air Oxygen Flow Rate Fraction of Inspired Oxygen 21 08/15/23 23:50 08/15/23 23:50 08/16/23 02:40 Temperature Pulse Rate 56 L 56 L 61 Respiratory Rate 20 20 Blood Pressure Pulse Oximetry 100 100 95 Oxygen Delivery BiPAP BiPAP BiPAP Oxygen Flow Rate 2 Fraction of Inspired Oxygen 28 08/16/23 05:36 08/16/23 08:56 08/16/23 08:56 Temperature 36.5 C Pulse Rate 54 L 57 L Respiratory Rate 18 20 Blood Pressure 133/69 Pulse Oximetry 97 97 Oxygen Delivery Room Air Oxygen Flow Rate Fraction of Inspired Oxygen 08/16/23 08:49 Temperature Pulse Rate Respiratory Rate Blood Pressure Pulse Oximetry Oxygen Delivery Room Air Oxygen Flow Rate Fraction of Inspired Oxygen Intake/Output Intake/Output: Intake & Output 08/13/23 08/14/23 08/15/23 08/16/23 23:59 23:59 23:59 23:59 Intake Total 1470 1250 1240 480 Output Total 3300 3000 3425 1375 [facility] -1830 -1750 -[phone] -895 Meds/Results Medications: Active Medications Generic Name Dose Route Start Last Admin Trade Name Freq PRN Reason Stop Dose Admin Apixaban 5 mg 08/07/23 12:00 08/16/23 08:49 Apixaban 5 Mg Tablet PO 5 mg Q12HR CATALINA Administration Bupropion HCl 300 mg 08/07/23 09:00 08/16/23 08:48 Bupropion Hcl Xl (24 Hr) 150 Mg Tabcr PO 300 mg DAILY CATALINA Administration Dextrose 12.5 gm 08/07/23 09:26 Dextrose 50% 25 Gm/50 Ml Syringe IV PUSH PRN PRN Hypoglycemia Protocol Fluticasone Propionate 1 spray 08/10/23 21:00 08/16/23 08:51 Fluticasone Propionate 0.05% Na Spr 16 Gm Btl (*Bkc) NASAL 1 spray Q12HR CATALINA Administration Folic Acid 1 mg 08/08/23 09:00 08/16/23 08:50 Folic Acid 1 Mg/0.2 Ml Inj IV PUSH 1 mg QAM CATALINA Administration Furosemide 40 mg 08/13/23 17:00 08/16/23 08:49 Furosemide 40 Mg Tablet PO 40 mg BID CATALINA Administration Glucagon 1 mg 08/07/23 09:26 Glucagon For Inj 1 Mg Vial IM PRN PRN Hypoglycemia Protocol Glucose 15 gm 08/07/23 09:26 Glucose Oral Gel 15 Gm Of Glucse In 37.5 Gm Tube PO PRN PRN Hypoglycemia Protocol Dextrose 1,000 mls @ 100 mls/hr 08/07/23 09:26 Dextrose 5% 1,000 Ml IVPB PRN PRN Hypoglycemia Protocol Ceftriaxone Sodium 2 gm in 100 mls @ 200 mls/hr 08/15/23 09:10 08/16/23 08:50 Rocephin 2 Gm/Ns 100 Ml IVPB 200 mls/hr QAM CATALINA Administration Insulin Aspart 2 - 5 units 08/07/23 12:00 08/16/23 12:25 Insulin Aspart (*Bkc) 100 Units/Ml SUB-Q Not Given [facility] Protocol Insulin Aspart 1 - 2 units 08/07/23 21:00 08/15/23 22:27 Insulin Aspart (*Bkc) 100 Units/Ml SUB-Q 1 units HS CATALINA Administration Protocol Lisinopril 40 mg 08/07/23 09:00 08/16/23 08:49 Lisinopril 20 Mg Tablet PO 40 mg DAILY CATALINA Administration Loratadine 10 mg 08/10/23 09:30 08/16/23 08:49 Loratadine 10 Mg Tablet PO 10 mg QAM CATALINA Administration Lorazepam 2 mg 08/07/23 17:19 Augusto
--- NOTE | 2023-08-16 13:22 | WPDUROPN2 ---
Progress Note: A&P Assessment and Plan (1) Urinary retention: Code(s): R33.9 - Retention of urine, unspecified Status: Acute Assessment and Plan: Urinary retention onset 08/14/23 Continue blake catheter. Has been started on tamsulosin Consider void trial in the next several days depending on discharge plans. This can also be completed at rehab facility if that is being arranged. (2) Abnormal urinalysis: Code(s): R82.90 - Unspecified abnormal findings in urine Status: Acute Assessment and Plan: Urine culture negative; no need for antibiotics Subjective Subjective Date/Time Seen: 08/16/23 13:22 Interval history: He is feeling well today. Tolerating his blake catheter without any issues. He denies abdominal pain, suprapubic pain or pressure, or flank pain. Tolerating his diet. Denies nausea, vomiting, fever, chills. He states he can't walk and is hopeful to go to rehab following hospital discharge. Urine culture is negative. WBC 7.0. Creatinine 0.7. His vital signs are stable and he is afebrile. Review of Systems Review of Systems: All systems reviewed & are unremarkable except as noted in HPI and below Exam Narrative: General: Awake, alert, comfortable, no acute distress HEENT: Normocephalic, atraumatic, sclerae anicteric Respiratory: Normal respiratory effort, no accessory muscle use Abdomen: Nondistended, soft, nontender : Blake catheter draining clear yellow urine Skin: Normal coloration, warm and dry Neurologic: No focal neuro deficits noted Psychiatric: Appropriate mood and affect, judgment and insight intact Objective Data Vital Signs Vital Signs: Vital Signs - 24 hr 08/15/23 14:00 08/15/23 21:34 08/15/23 21:38 Temperature 98.4 F 97.9 F Pulse Rate 57 L 54 L Respiratory Rate 20 17 Blood Pressure 144/80 H 135/78 Pulse Oximetry 96 98 98 Oxygen Delivery Room Air Oxygen Flow Rate Fraction of Inspired Oxygen 08/15/23 23:50 08/15/23 23:50 08/16/23 02:40 Temperature Pulse Rate 56 L 56 L 61 Respiratory Rate 20 20 Blood Pressure Pulse Oximetry 100 100 95 Oxygen Delivery BiPAP BiPAP BiPAP Oxygen Flow Rate 2 Fraction of Inspired Oxygen 08/16/23 05:36 08/16/23 08:56 08/16/23 08:56 Temperature 97.7 F Pulse Rate 54 L 57 L Respiratory Rate 18 20 Blood Pressure 133/69 Pulse Oximetry 97 97 Oxygen Delivery Room Air Oxygen Flow Rate Fraction of Inspired Oxygen 08/16/23 08:49 Temperature Pulse Rate Respiratory Rate Blood Pressure Pulse Oximetry Oxygen Delivery Room Air Oxygen Flow Rate Fraction of Inspired Oxygen Intake/Output Intake/Output: Intake & Output 08/13/23 08/14/23 08/15/23 08/16/23 23:59 23:59 23:59 23:59 Intake Total 1470 1250 1240 580 Output Total 3300 3000 3425 1375 [facility] -1830 -1750 -2185 -795 Meds/Results Medications: Active Medications Generic Name Dose Route Start Last Admin Trade Name Freq PRN Reason Stop Dose Admin Apixaban 5 mg 08/07/23 12:00 08/16/23 08:49 Apixaban 5 Mg Tablet PO 5 mg Q12HR CATALINA Administration Bupropion HCl 300 mg 08/07/23 09:00 08/16/23 08:48 Bupropion Hcl Xl (24 Hr) 150 Mg Tabcr PO 300 mg DAILY CATALINA Administration Dextrose 12.5 gm 08/07/23 09:26 Dextrose 50% 25 Gm/50 Ml Syringe IV PUSH PRN PRN Hypoglycemia Protocol Fluticasone Propionate 1 spray 08/10/23 21:00 08/16/23 08:51 Fluticasone Propionate 0.05% Na Spr 16 Gm Btl (*Bkc) NASAL 1 spray Q12HR CATALINA Administration Folic Acid 1 mg 08/08/23 09:00 08/16/23 08:50 Folic Acid 1 Mg/0.2 Ml Inj IV PUSH 1 mg QAM [facility]INA Administration Furosemide 40 mg 08/13/23 17:00 08/16/23 08:49 Furosemide 40 Mg Tablet PO 40 mg BID CATALINA Administration Glucagon 1 mg 08/07/23 09:26 Glucagon For Inj 1 Mg Vial IM PRN PRN Hypoglycemia Protocol Glucose 15 gm 08/07/23 09:26 Glucose Oral Gel 15 Gm Of G
[2023-08-16 13:28] LABS: Actin Antibody (IgG) 39 U (<20)
[2023-08-16 17:31] LABS: Glucose Point of Care 118 mg/dl (65-105)
[2023-08-16] MEDS: MONTELUKAST SODIUM 10 MG TABLET PO (20:32)
[2023-08-16 21:58] LABS: Glucose Point of Care 126 mg/dl (65-105)
[2023-08-16] MEDS: ACETAMINOPHEN 325 MG TABLET 650 MG PO (23:24)
[2023-08-17 02:42] VITALS: RESP 20; O2SAT 95
[2023-08-17 05:50] VITALS: BP 111/65; PULSE 50; RESP 16; TEMP 36.4; O2SAT 96
[2023-08-17 05:57] LABS: Basophils Absolute Auto 0.1 K/mm3 (0.0-0.1); Basophils Percent Auto 1.7 % (0.2-1.2); Eosinophils Absolute Auto 0.2 K/mm3 (0-0.3); Eosinophils Percent Auto 2.5 % (0-4.4); Hematocrit 37.5 % (42.0-52.0); Hemoglobin 12.1 g/dL (14.0-18.0); Immature Granulocyte Percent A 1.5 % (0-0.5); Lymphocytes Absolute Auto 1.11 K/mm3 (0.9-3.2); Lymphocytes Percent Auto 16.1 % (18.3-44.2); Mean Corpuscular HGB Conc 32.3 g/dl (32-36); Mean Corpuscular Hemoglobin 38.5 pg (26-34); Mean Corpuscular Volume 119.4 fl (80-100); Mean Platelet Volume 10.2 fl (7.4-10.4); Monocytes Percent Auto 14.5 % (2.6-8.5); Neutrophils Absolute Auto 4.4 K/mm3 (1.3-6.7); Neutrophils Percent Auto 63.7 % (45.5-73.1); Platelet Count Result 381 k/mm3 (150-375); Red Blood Count 3.14 M/mm3 (4.6-6.20); Red Cell Distribution Width 15.7 % (11.5-14.5); White Blood Count 6.9 K/mm3 (4.5-10.0)
[2023-08-17] MEDS: metroNIDAZOLE 500 MG TABLET PO ×2 (06:02→13:17)
[2023-08-17] MEDS: TOBRAMYCIN/DEXAMETHASONE OP 2.5 ML BTL 1 DROP EACH EYE ×3 (06:02→17:48)
[2023-08-17] MEDS: POLYMYXIN/TRIMETHOPRIM OPHTH 10 ML DROPS 1 DROP EACH EYE ×3 (06:02→17:48)
[2023-08-17 06:10] LABS: Anion Gap 5 mmol/L (4-12); Blood Urea Nitrogen 15 mg/dL (9-20); Calcium 9.2 mg/dL (8.4-10.2); Carbon Dioxide 31 mmol/L (22-30); Chloride 101 mmol/L (98-107); Estimated CRCL calculation 105 ml/min; Estimated Glomerular Filt Rate > 60; Glucose 111 mg/dL (65-110); Potassium 4.3 mmol/L (3.4-5.0); Sodium 137 mmol/L (137-145)
[2023-08-17] MEDS: ACETAMINOPHEN 325 MG TABLET 650 MG PO (06:20)
[2023-08-17 06:51] LABS: Platelet Estimate Adequate (Adequate); Schistocytes None Seen
[2023-08-17 06:52] LABS: Anisocytosis 1+; Macrocytosis 1+ (NORMAL)
[2023-08-17 07:31] VITALS: PULSE 60; RESP 18; O2SAT 93
[2023-08-17] MEDS: FLUTICASONE/SALMETEROL 230-21 MCG INHALER 1 PUFF 2 PUFF INHALATION (07:31)
[2023-08-17 08:00] VITALS: PULSE 60; RESP 18; O2SAT 93
[2023-08-17 08:25] LABS: Glucose Point of Care 116 mg/dl (65-105)
--- NOTE | 2023-08-17 09:32 | WPDUROPN2 ---
Progress Note: A&P Assessment and Plan (1) Urinary retention: Code(s): R33.9 - Retention of urine, unspecified Status: Acute Assessment and Plan: Urinary retention onset 08/14/23 Has been started on tamsulosin which he will continue Arciniega removed this morning; monitor urine output and check PVR after first void (2) Abnormal urinalysis: Code(s): R82.90 - Unspecified abnormal findings in urine Status: Acute Assessment and Plan: Urine culture negative Subjective Subjective Date/Time Seen: 08/17/23 09:32 Interval history: Doing well today. Reports no concerns. Arciniega removed this am and will proceed with voiding trial. Review of Systems Review of Systems: All systems reviewed & are unremarkable except as noted in HPI and below Exam Narrative: General: Awake, alert, comfortable, no acute distress HEENT: Normocephalic, atraumatic, sclerae anicteric Respiratory: Normal respiratory effort, no accessory muscle use Abdomen: Nondistended, soft, nontender Skin: Normal coloration, warm and dry Neurologic: No focal neuro deficits noted Psychiatric: Appropriate mood and affect, judgment and insight intact Objective Data Vital Signs Vital Signs: Vital Signs - 24 hr 08/16/23 14:00 08/16/23 20:27 08/16/23 22:00 Temperature 97.9 F 98.6 F Pulse Rate 62 56 L Respiratory Rate 18 18 Blood Pressure 129/66 126/79 Pulse Oximetry 97 96 96 Oxygen Delivery Room Air Oxygen Flow Rate 08/16/23 23:56 08/17/23 02:42 08/17/23 05:50 Temperature 97.6 F Pulse Rate 59 L 50 L Respiratory Rate 23 H 20 16 Blood Pressure 111/65 Pulse Oximetry 96 95 96 Oxygen Delivery BiPAP BiPAP Oxygen Flow Rate 08/17/23 07:31 08/17/23 07:31 Temperature Pulse Rate 60 60 Respiratory Rate 18 18 Blood Pressure Pulse Oximetry 93 Oxygen Delivery Nasal Cannula Oxygen Flow Rate 2 Intake/Output Intake/Output: Intake & Output 08/14/23 08/15/23 08/16/23 08/17/23 23:59 23:59 23:59 23:59 Intake Total 1250 1240 820 390 Output Total 5409 9923 0138 1200 Balance -2780 -2185 -6105 -810 Meds/Results Medications: Active Medications Generic Name Dose Route Start Last Admin Trade Name Freq PRN Reason Stop Dose Admin Acetaminophen 650 mg 08/16/23 22:30 08/17/23 06:20 Acetaminophen 325 Mg Tablet PO 650 mg Q6H PRN Administration Mild Pain (1-3) or Fever Apixaban 5 mg 08/07/23 12:00 08/16/23 20:32 Apixaban 5 Mg Tablet PO 5 mg Q12HR CATALINA Administration Bupropion HCl 300 mg 08/07/23 09:00 08/16/23 08:48 Bupropion Hcl Xl (24 Hr) 150 Mg Tabcr PO 300 mg DAILY CATALINA Administration Dextrose 12.5 gm 08/07/23 09:26 Dextrose 50% 25 Gm/50 Ml Syringe IV PUSH PRN PRN Hypoglycemia Protocol Fluticasone Propionate 1 spray 08/10/23 21:00 08/16/23 20:32 Fluticasone Propionate 0.05% Na Spr 16 Gm Btl (*Bkc) NASAL 1 spray Q12HR CATALINA Administration Folic Acid 1 mg 08/08/23 09:00 08/16/23 08:50 Folic Acid 1 Mg/0.2 Ml Inj IV PUSH 1 mg QAM CATALINA Administration Furosemide 40 mg 08/13/23 17:00 08/16/23 17:38 Furosemide 40 Mg Tablet PO 40 mg BID CATALINA Administration Glucagon 1 mg 08/07/23 09:26 Glucagon For Inj 1 Mg Vial IM PRN PRN Hypoglycemia Protocol Glucose 15 gm 08/07/23 09:26 Glucose Oral Gel 15 Gm Of Glucse In 37.5 Gm Tube PO PRN PRN Hypoglycemia Protocol Dextrose 1,000 mls @ 100 mls/hr 08/07/23 09:26 Dextrose 5% 1,000 Ml IVPB PRN PRN Hypoglycemia Protocol Ceftriaxone Sodium 2 gm in 100 mls @ 200 mls/hr 08/15/23 09:10 08/16/23 09:20 Rocephin 2 Gm/Ns 100 Ml IVPB Infused QAM CATALINA Infusion Insulin Aspart 2 - 5 units 08/07/23 12:00 08/16/23 17:33 Insulin Aspart (*Bkc) 100 Units/Ml SUB-Q Not Given TIDWM [facility] Protocol Insulin Aspart 1 - 2 units 08/07/23 21:00 08/16/23 22:47 Insulin Aspart (*Bkc) 100 Units/M
[2023-08-17] MEDS: buPROPion HCL XL (24 HR) 150 MG TABCR 300 MG PO (09:41)
[2023-08-17] MEDS: LORATADINE 10 MG TABLET PO (09:42)
[2023-08-17] MEDS: FUROSEMIDE 40 MG TABLET PO ×2 (09:42→17:47)
[2023-08-17] MEDS: ROSUVASTATIN 20 MG TABLET 40 MG PO (09:42)
[2023-08-17] MEDS: THIAMINE HCL 200 MG/2 ML VIAL 100 MG IV PUSH (09:42)
[2023-08-17] MEDS: SODIUM CHLORIDE 500 MG TABLET 1000 MG PO ×3 (09:42→17:47)
[2023-08-17] MEDS: APIXABAN 5 MG TABLET PO (09:42)
[2023-08-17] MEDS: POTASSIUM CHLORIDE 20 MEQ ER TABLET PO ×2 (09:42→17:47)
[2023-08-17] MEDS: TAMSULOSIN HCL 0.4 MG CAPSULE PO (09:42)
[2023-08-17] MEDS: MULTIVITAMINS THERAPEUTIC TAB (*BKC) 1 TABLET PO (09:42)
[2023-08-17] MEDS: lisinopriL 20 MG TABLET 40 MG PO (09:42)
[2023-08-17] MEDS: FOLIC ACID 1 MG/0.2 ML INJ IV PUSH (09:43)
[2023-08-17] MEDS: cefTRIAXone 2 GM/NS 100 ML 2 GM/100 ML BAG IVPB (09:43)
[2023-08-17] MEDS: FLUTICASONE PROPIONATE 0.05% NA SPR 16 GM BTL (*BKC) 1 SPRAY NASAL (09:44)
--- NOTE | 2023-08-17 10:09 | PM.IMPN ---
Progress Note: A&P Assessment and Plan (1) Urinary retention: Code(s): R33.9 - Retention of urine, unspecified Status: Acute (2) Acute diverticulitis of intestine: Code(s): K57.92 - Diverticulitis of intestine, part unspecified, without perforation or abscess without bleeding Status: Acute (3) Alcoholic hepatitis: Code(s): K70.10 - Alcoholic hepatitis without ascites Status: Acute (4) Atrial flutter: Code(s): I48.92 - Unspecified atrial flutter Status: Acute (5) Type 2 diabetes mellitus: Code(s): E11.9 - Type 2 diabetes mellitus without complications Status: Acute (6) Acute and chronic respiratory failure with hypoxia: Code(s): J96.21 - Acute and chronic respiratory failure with hypoxia Status: Acute Plan Mr. Jiménez is a very pleasant yet unfortunately chronically ill 62-year-old male with history of morbid obesity, osteoarthritis, depression left side cornea transplant recipient 2016 with complication/failure (followed by Dr. Peterson at [facility]), heart block (followed by Dr. Fung), bilateral LE lymphedema, asthma/COPD, CB on NIPPV (followed by Dr. Tinajero), hyperlipidemia, hypertension, [id number] type 2 diabetes mellitus, alcoholism, former smoker, history of cholecystectomy, presenting with generalized weakness and shortness of breath.? Admitted on 08/07/2023 for further workup. 08/14 acute? sigmoid diverticulitis ?patient? started have left lower abdomen pain yesterday ?CT abdomen pelvis suggest acute sigmoid diverticulitis without complication ?patient is on ceftriaxone for UTI, and Flagyl p.o. ?consult general surgeon ?appreciate? surgeon's consultation,? no need surgical treatment Continue IV antibiotics today Transition to oral antibiotics 08/15 08/13? urine retention, ? UTI Patient started have dysuria, bladder scan suggests urinary retention ?follow urinalysis, folic catheter is placed Follow-up renal ultrasound:?Normal kidney sizes. No hydronephrosis ?UA showed pyuria and microscopic hematuria ?start ceftriaxone 2 g IV ?follow-up urine culture: no growth so far Consult urologist ?appreciate urologist consultation, will follow-up with urologist after discharge August 12, 2023 update.? Patient is now on room air.? He has been diuresed very effectively.? He looks very good today.? He feels very good.? New current management and plan for discharge to acute rehab.? He is on potassium 20 mEq b.i.d..? Potassium today will replace with an additional 20 mEq by mouth. August 13, 2023:? Patient complains of sputum production and thinks he has a pneumonia.? He requested further workup and possible antibiotics.? He has a normal white count so will check chest x-ray and quad PCR along with sputum culture.? Patient now [facility].? Care coordination communication sent.? Lasix IV has been transition to 40 mg p.o. b.i.d..? Was previously on 40 mg p.o. q.day. Shortness of breath/acute hypoxic respiratory failure -resolving.? Upon evaluation today took the patient off nasal cannula and he was saturating 93%.? Goal O2 saturation 88-92%.? Etiologies include COPD/asthma exacerbation and new onset heart failure -cardiology consulted.? Patient complaining of worsening lower extremity edema recently.? Elevated BNP on admission.? Surface echocardiogram demonstrating grade 1 diastolic dysfunction. ?continue Lasix 40 mg IV b.i.d..? ?appreciate Cardiology? consultation.? ?continue Daily weights with cardiac diet and fluid restriction. -quad PCR screen negative on admission 08/10: ? shortness breath is improving, patient has been having negative input? and output balance since admission, continue IV Lasix today 08/15? patient does not have dyspnea at rest, chronic patient is on? oral Lasix 40 mg b.i.d. p.o. no O2 desaturation on room air 08/16: patient denies dyspnea, continue current managements CB on NIPPV -con
--- NOTE | 2023-08-17 10:10 | P.DS_ITS ---
DS: Admitting Diagnosis Discharge Date 08/16 Admitting Diagnosis (1) Urinary retention: ?Code(s): R33.9 - Retention of urine, unspecified ?Status:?Acute (2) Acute diverticulitis of intestine: ?Code(s): K57.92 - Diverticulitis of intestine, part unspecified, without perforation or abscess without bleeding ?Status:?Acute (3) Alcoholic hepatitis: ?Code(s): K70.10 - Alcoholic hepatitis without ascites ?Status:?Acute (4) Atrial flutter: ?Code(s): I48.92 - Unspecified atrial flutter ?Status:?Acute (5) Type 2 diabetes mellitus: ?Code(s): E11.9 - Type 2 diabetes mellitus without complications ?Status:?Acute (6) Acute and chronic respiratory failure with hypoxia: ?Code(s): J96.21 - Acute and chronic respiratory failure with hypoxia ?Status:?Acute DS: Discharge Diagnosis Discharge Diagnosis (1) Urinary retention: Code(s): R33.9 - Retention of urine, unspecified Status: Acute (2) Acute diverticulitis of intestine: Code(s): K57.92 - Diverticulitis of intestine, part unspecified, without perforation or abscess without bleeding Status: Acute (3) Alcoholic hepatitis: Code(s): K70.10 - Alcoholic hepatitis without ascites Status: Acute (4) Atrial flutter: Code(s): I48.92 - Unspecified atrial flutter Status: Acute (5) Type 2 diabetes mellitus: Code(s): E11.9 - Type 2 diabetes mellitus without complications Status: Acute (6) Acute and chronic respiratory failure with hypoxia: Code(s): J96.21 - Acute and chronic respiratory failure with hypoxia Status: Acute DS: Summary Hospital Course Hospital Course: Mr. Jiménez is a very pleasant yet unfortunately chronically ill 62-year-old male with history of morbid obesity, osteoarthritis, depression left side cornea transplant recipient 2016 with complication/failure (followed by Dr. Peterson at [facility]), heart block (followed by Dr. Fung), bilateral LE lymphedema, asthma/COPD, CB on NIPPV (followed by Dr. Tinajero), hyperlipidemia, hypertension, [id number] type 2 diabetes mellitus, alcoholism, former smoker, history of cholecystectomy, presenting with generalized weakness and shortness of breath.? Admitted on 08/07/2023 for further workup. 08/14 acute? sigmoid diverticulitis ?patient? started have left lower abdomen pain yesterday ?CT abdomen pelvis suggest acute sigmoid diverticulitis without complication ?patient is on ceftriaxone for UTI, and Flagyl p.o. ?consult general surgeon ?appreciate? surgeon's consultation,? no need surgical treatment Continue IV antibiotics today Transition to oral antibiotics 08/15 08/13? urine retention, ? UTI Patient started have dysuria, bladder scan suggests urinary retention ?follow urinalysis, folic catheter is placed Follow-up renal ultrasound:?Normal kidney sizes. No hydronephrosis ?UA showed pyuria and microscopic hematuria ?start ceftriaxone 2 g IV ?follow-up urine culture: no growth so far Consult urologist ?appreciate urologist consultation, will follow-up with urologist after discharge August 12, 2023 update.? Patient is now on room air.? He has been diuresed very effectively.? He looks very good today.? He feels very good.? New current management and plan for discharge to acute rehab.? He is on potassium 20 mEq b.i.d..? Potassium today will replace with an additional 20 mEq by mouth. August 13, 2023:? Patient complains of sputum production and thinks he has a pneumonia.? He requested further workup
[2023-08-17 12:38] LABS: Glucose Point of Care 133 mg/dl (65-105)
[2023-08-17 14:00] VITALS: BP 118/70; PULSE 70; RESP 16; TEMP 36.4; O2SAT 98
[2023-08-17] MEDS: traMADol HCL (*CRX) 25 MG TABLET PO (15:21)
[2023-08-17 17:50] LABS: Glucose Point of Care 118 mg/dl (65-105)
[2023-08-17 18:45] LABS: SARS-CoV-2 RNA PCR Negative (Negative)
[2023-08-21 15:43] LABS: Mitochondrial (M2) Ab (IgG) <20.0 U
== END 2023-08-17 19:15 | DRG 189 ==
LOC: ANHED 17:13 → ANHIMU 18:26 → ANH3MED 08-07 18:00
PROVIDERS: General Practice; Internal Medicine; Internal Medicine Gastroenterology; Internal Medicine Pulmonary Disease; Student in an Organized Health Care Education/Training Program; Admitting Provider Internal Medicine; Emergency Provider Emergency Medicine; PCP Physician Assistant; Visit Provider Hospitalist
DX: J96.21 Acute and chronic respiratory failure with hypoxia (principal); K57.32 Diverticulitis of large intestine without perforation or abscess without bleeding; N39.0 Urinary tract infection, site not specified; I48.92 Unspecified atrial flutter; G93.40 Encephalopathy, unspecified; E87.1 Hypo-osmolality and hyponatremia; E87.3 Alkalosis; J81.1 Chronic pulmonary edema; H44.002 Unspecified purulent endophthalmitis, left eye; Z68.41 Body mass index [BMI] 40.0-44.9, adult; D63.8 Anemia in other chronic diseases classified elsewhere; D75.89 Other specified diseases of blood and blood-forming organs; D69.6 Thrombocytopenia, unspecified; E66.01 Morbid (severe) obesity due to excess calories; E78.5 Hyperlipidemia, unspecified; E87.6 Hypokalemia; E83.42 Hypomagnesemia; E11.9 Type 2 diabetes mellitus without complications; F10.20 Alcohol dependence, uncomplicated; F32.A Depression, unspecified; G47.33 Obstructive sleep apnea (adult) (pediatric); H54.7 Unspecified visual loss; I10 Essential (primary) hypertension; I45.10 Unspecified right bundle-branch block; I45.9 Conduction disorder, unspecified; J44.9 Chronic obstructive pulmonary disease, unspecified; J32.9 Chronic sinusitis, unspecified; J45.20 Mild intermittent asthma, uncomplicated; K70.10 Alcoholic hepatitis without ascites; M19.90 Unspecified osteoarthritis, unspecified site; Z94.7 Corneal transplant status; Z11.52 Encounter for screening for COVID-19; Z20.822 Contact with and (suspected) exposure to COVID-19; Z99.89 Dependence on other enabling machines and devices; Z90.49 Acquired absence of other specified parts of digestive tract; Z87.891 Personal history of nicotine dependence
CPT/HCPCS: 36415; 36600; 70450; 71045; 71275; 74176; 76700; 76775; 80048; 80053; 80074; 80307; 81001; 82104; 82140; 82375; 82390; 82607; 82728; 82746; 82805; 82948; 83036; 83050; 83520; 83540; 83550; 83735; 83880; 84100; 84132; 84145; 84443; 84484; 85025; 85380; 85610; 85730; 86038; 86364; 86376; 87040; 87070; 87077; 87086; 87181; 87205; 87635; 87637; 93005; 94640; 94762; 96365; 96375; 97110; 97116; 97162; 97166; 97530; 97535; 99285; A9270; C8929; J0457; J0696; J1644; J1815; J1885; J1940; J2060; J3370; J3411; J3475; J3480; J7040; J7512; Q9957; Q9967

== ENCOUNTER 2023-09-28 08:35 | Inpatient (IN) | payer OTHER, SELFPAY ==
[2023-09-28] VITALS (15 sets, daily range): BP systolic 105–135; BP diastolic 40–83; PULSE 60–100; RESP 15–24; TEMP 36.1–37.2; O2SAT 94–100; BMI 38.5
--- NOTE | ~2023-09-28 | US_ITS ---
EXAMINATION:US venous doppler LE BI INDICATION:Elevated d-dimer TECHNIQUE: Multiple grayscale, color flow and Doppler images of the right and left lower extremity de ep venous systems were obtained and reviewed. COMPARISON:05/27/2020 FINDINGS: The common femoral, superficial femoral and popliteal veins demonstrate normal respiratory variation, augmentation and compressibility. Color flow is also seen within the posterior tibial, pe roneal, greater saphenous and profunda veins. IMPRESSION: 1: No lower extremity deep venous thrombosis. Reviewed, dictated and finalized at location B.
--- NOTE | ~2023-09-28 | XR_ITS ---
EXAMINATION: XR chest 1V portable DATE: 09/28/2023 10:40 INDICATION: Dyspnea. Cough. TECHNIQUE: A single frontal view of the chest was obtained. COMPARISON: Chest single view 08/13/2023, CT abdomen and pelvis 08/14/2023 FINDINGS: There is no pneumonia, pleural effusion, or pneumothorax. Cardiomegaly is noted. There is a prominent left pericardial fat pad. IMPRESSION: 1. Cardiomegaly. Reviewed, dictated and finalized at location A. IMPRESSION: 1. Cardiomegaly.
--- NOTE | ~2023-09-28 | CT_ITS ---
EXAMINATION: CTA chest PE protocol DATE: 09/28/2023 10:49 INDICATION: Dyspnea. TECHNIQUE: Computed tomography angiography (CTA) of the chest was performed with 100 mL Omnipaque-350 intravenous contrast timed to evaluate the pulmonary arteries. Coronal maximum intensity projection 3D-reconstructions were created by the technologist. Automated exposure control and iterative reconst ruction technique were employed. The dose-length product was 1036.42 mGy-cm. COMPARISON: Chest CT 08/06/2023 FINDINGS: The lungs demonstrate mild atelectasis. No pleural effusion. Cardiomegaly is noted. There a re coronary artery calcifications. No pericardial effusion. There is no pulmonary embolus. There are changes of cholecystectomy. Partially visualized is a 2.7 cm cyst in left kidney. There is mild thora cic spondylosis. IMPRESSION: 1. No pulmonary embolus. Reviewed, dictated and finalized at location A. IMPRESSION: 1. No pulmonary embolus.
--- NOTE | 2023-09-28 08:48 | ECG_ITS ---
[facility] [address] Test Date: 2023-09-28 Pat Name: Addi Caal Department: Room: Gender: M Dog Trainer: : 1960 Requested By: Delphine Khan Order Number: [id number] Jenny MD: Celi Irvin M.D. Measurements Intervals [place] Rate: 77 P: 93 MA: 125 QRS: 51 QRSD: 182 T: 68 QT: 524 QTc: 594 Interpretive Statements ATRIAL FLUTTER RIGHT BUNDLE BRANCH BLOCK [120+ ms QRS DURATION, UPRIGHT V1, 40+ ms S IN I/aVL/V4/V5/V6] No previous ECG available for comparison Electronically Signed On 09-28-2023 13:47:24 CDT by Celi Irvin M.D.
[2023-09-28 09:18] LABS: Basophils Percent Auto 0.4 % (0.2-1.2); Eosinophils Absolute Auto 0.1 K/mm3 (0-0.3); Eosinophils Percent Auto 1.2 % (0-4.4); Hematocrit 34.4 % (42.0-52.0); Hemoglobin 11.8 g/dL (14.0-18.0); Immature Granulocyte Absolute 0.04 K/mm3 (0.00-0.031); Immature Granulocyte Percent A 0.5 % (0-0.5); Lymphocytes Absolute Auto 0.92 K/mm3 (0.9-3.2); Mean Corpuscular HGB Conc 34.3 g/dl (32-36); Mean Corpuscular Hemoglobin 34.3 pg (26-34); Monocytes Absolute Auto 0.7 K/mm3 (0.1-0.6); Monocytes Percent Auto 8.4 % (2.6-8.5); Neutrophils Absolute Auto 6.6 K/mm3 (1.3-6.7); Neutrophils Percent Auto 78.5 % (45.5-73.1); Platelet Count Result 308 k/mm3 (150-375); Red Blood Count 3.44 M/mm3 (4.6-6.20); Red Cell Distribution Width 14.5 % (11.5-14.5); White Blood Count 8.3 K/mm3 (4.5-10.0)
[2023-09-28 09:38] LABS: Alanine Aminotransferase 10 U/L (6-50); Albumin Level 3.9 g/dL (3.5-5.1); Alkaline Phosphatase 76 U/L (38-126); Anion Gap 9 mmol/L (4-12); Aspartate Amino Transferase 29 U/L (17-59); Bilirubin,Total 1.9 mg/dL (0.2-1.3); Blood Urea Nitrogen 8 mg/dL (9-20); Carbon Dioxide 32 mmol/L (22-30); Chloride 79 mmol/L (98-107); Estimated CRCL calculation 164 ml/min; Estimated Glomerular Filt Rate > 60; Glucose 109 mg/dL (65-110); Potassium 2.7 mmol/L (3.4-5.0); Sodium 120 mmol/L (137-145)
--- NOTE | 2023-09-28 09:38 | ED.WEAKNESS ---
HPI - Weakness General Chief complaint: Weakness <Sonja Rojas PA-C - Last Filed: 09/28/23 12:25> Stated complaint: weakness, leg swelling <RON Oreilly Last Filed: 09/28/23 12:25> Time Seen by Provider: 09/28/23 09:04 <Sonja Rojas PA-C - Last Filed: 09/28/23 12:25> History of Present Illness HPI Narrative: 62-year-old male with a history of diverticulitis, macrocytosis, asthma, CB, CHF, a flutter, alcohol use disorder, hypertension, DM, hepatic steatosis, awake, morbid obese ED and 2nd degree AV heart block, lymphedema, hyperlipidemia presents to emergency department from home via [facility] for generalized weakness and pain to his legs and low back. Patient lives at home alone. States he has been in his recliner for approximately 2 days and has been unable to get up secondary to pain and weakness. He is reporting increased lower extremity edema over the past few days and pain to his calves and thighs. He is reporting a productive cough and difficulty breathing. He denies chest pain, abdominal pain, N/ V/ D, dysuria or hematuria. He smells of urine, states he has been urinating in large cups at home. 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 He has not followed up with Ophthalmology. Per chart review he was admitted to our hospital for multiple reasons on 08/06/2023 including hypokalemia, hypomagnesemia, pulmonary edema, pneumonia, transaminitis. Patient states he believes he has been taking all of his medications, however upon questioning these he has not been taking his Eliquis and he has not been using drops for his left eye. Most recent echocardiogram on 08/07/2023 significant for grade 1 diastolic dysfunction and left ventricular ejection fraction of 55-60%. <Sonja Rojas PA-C - Last Filed: 09/28/23 12:25> Related Data Home medications: Home Medications Medication Instructions Recorded Confirmed multivitamin 1 tablet PO DAILY 12/03/19 09/28/23 <RON Oreilly Last Filed: 09/28/23 12:25> Allergies/Adverse reactions: Allergies Allergy/AdvReac Type Severity Reaction Status Date / Time Cephalosporins Allergy Intermediate Other Verified 09/07/23 09:14 peanut Allergy Mild itchy Verified 09/07/23 09:14 Penicillins Allergy Mild Rash Verified 09/07/23 09:14 azithromycin AdvReac Severe Prolonged Verified 09/07/23 09:14 QT interval levofloxacin [From Levaquin] AdvReac Severe Issues Verified 09/07/23 09:14 with QT interval(has 2nd degree block) <Sonja Rojas PA-C - Last Filed: 09/28/23 12:25> Review of Systems Review of Systems: CONSTITUTIONAL: Denies fever, chills, or sweats. EYES: Denies visual changes, redness, or discharge. ENT: Denies rhinorrhea, congestion, sore throat, or otalgia. CARDIOVASCULAR: see HPI RESPIRATORY: see HPI GASTROINTESTINAL: Denies abdominal pain, nausea, vomiting, or diarrhea. GENITOURINARY: Denies dysuria or hematuria. SKIN: Denies rash or itching. MUSCULOSKELETAL: see HPI NEUROLOGIC: Denies headache, numbness, or weakness. PSYCHIATRIC: Denies anxiety or depression. <Sonja Rojas PA-C - Last Filed: 09/28/23 12:25> [facility] Past Medical History Medical History: Medical History (Updated 09/28/23 @ 14:10 by Caro Retana, [employer]) Acute and chronic respiratory failure with hypoxia Acute bronchitis Acute diverticulitis of intestine Acute sinusitis Alcohol abuse Alcoholic hepatitis Allergic fungal sinusitis Arthritis Asthma mild, persistent Atrial flutter with rapid ventricular response AV block, 2nd degree Bilateral chronic knee pain Cataract CCC (chronic calculous cholecystitis) Chills COPD (chronic obstructive pulmonary disease) Cornea transplant recipient COVID-19 determined by clinical diagnostic criteria Depressive disorder, not elsewhere classified DJD (degen
[2023-09-28 09:46] LABS: Appearance Urine Clear (Clear); Bilirubin Urine Negative (Negative); Blood Urine Negative (Negative); Color Urine Dark Yellow (Yellow); Glucose Urine UA Negative (Negative); Ketones Urine Negative (Negative); Leukocyte Esterase Ur Negative LEU/UL (Negative); Nitrate Urine Negative (Negative); Protein Urine Negative (Negative); Specific Grav Ur 1.012 (1.001-1.035)
[2023-09-28 09:47] LABS: Add Urine Microscopic? NO
[2023-09-28] MEDS: POTASSIUM CHLORIDE 20 MEQ PACKET (FOR LIQUID) 40 MEQ PO (09:59)
[2023-09-28] MEDS: MORPHINE SULFATE (*CRX) 4 MG/ML INJ IV PUSH ×2 (09:59→21:03)
[2023-09-28 10:04] LABS: Ethanol < 10 mg/dL (<10)
[2023-09-28 10:21] LABS: INR 1.1; Partial Thromboplastin Time 34.5 Seconds (22.3-36.8); Prothrombin Time 14.6 Seconds (11.1-14.7)
[2023-09-28 10:26] LABS: D Dimer 2.24 ug/mL (<0.48)
[2023-09-28 10:51] LABS: Lactic Acid Reflex 1.8 mmol/L (0.7-2.0)
[2023-09-28] MEDS: POTASSIUM CHLORIDE INJ 40 MEQ in SODIUM CHLORIDE 0.9% IV 500 ML 130 MEQ IVPB (11:00)
[2023-09-28 11:51] LABS: NT Pro B Type Natriuretic Pept 123 pg/mL (19.9-100); Troponin I < 0.012 ng/mL (0.000-0.034)
[2023-09-28] MEDS: MAGNESIUM SULF 2 GM/WATER 50ML 2 GM/50 ML BAG IVPB ×2 (12:42→19:27)
[2023-09-28 12:55] LABS: Amphetamine Screen Urine Negative (Negative); Barbiturate Screen Urine Negative (Negative); Benzodiazepines Screen Urine Negative (Negative); Cannabinoid Screen Urine Negative (Negative); Cocaine Screen Urine Negative (Negative); Methadone Screen Urine Negative (Negative); Opiate Screen Urine Negative (Negative); Phencyclidine Screen Urine Negative (Negative)
[2023-09-28 13:01] LABS: Creatine Kinase 58 U/L (55-170)
--- NOTE | 2023-09-28 13:28 | PM.IMHP ---
H&P: HPI History of Present Illness Date/Time: 09/28/23 13:28 Chief Complaint: Generalized Weakness Narrative: 62 y/o M presents here with generalized weakness and BLE swelling with PMH of hypoxia, alcohol abuse, hold hepatitis, asthma, atrial flutter, heart block (followed by Dr. 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 Tinajero), CHF, lymphedema, HLD, HTN, subclinical hyperthyroidism, BPH, anemia, and urinary retention. The patient presents here via EMS for further evaluation of generalized weakness and bilateral lower extremity swelling. He reports inability to leave recliner for the past 2 days secondary to the weakness. Has chronic bilateral lower extremity edema due to lymphedema but reports it has been same but intermittently more swollen. Reporting associated pain to his lower extremities which is also chronic but has been worse in his feet and calves. Patient was discharged from [facility] on 09/20. Since then he reports that due to his poor PO intake and pain in his calves he has been getting worse/more weak. ETOH history - 4 mixed drinks daily for the past 3-4 years. Reports last drink was 4-5 months ago. Former smoker, cessation 8-9 years ago, 1-2 PPD for approximately 30 years. Denies any upper abdominal pain or epigastric discomfort. Cornea transplant was in 2015, has had complications since 2021 - sees Dr Peterson at [facility]. 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 Was previously admitted from 08/06/23-08/17/23 for similar complaints but was also accompanied by SOB. Found to have sigmoid diverticulitis (given abx), urinary retention (plan for f/u with uro outpatient), diuresed/cardiac diet/fluid restriction for the shortness of breath, new atrial flutter (started on Eliquis), developed acute encephalopathy (unclear etiology, believed to be secondary to possible ETOH withdrawal), elevated troponin (believed to be secondary to demand ischemia), multiple electrolyte abnormalities (hypomagnesemia, hypokalemia, hyponatremia), chronic anemia (suspected etiology chronic ETOH use, started on B12 and Folate), thrombocytopenia (suspected etiology chronic ETOH use). Patient was discharged to [facility]. He was treated there from 08/16-09/20. Reports increased pain with PT instead of relief but was able to participate in therapy. Initial VS at presentation: 99? F, HR 90, RR 20, 135/64, and 99% on RA. ED workup showed: WBC 8.3, Hgb 11.8 (previously 12.1 in 07/2023), sodium 120, potassium 2.7, chloride 79, CO2 32, creatinine is 0.5 and GFR >60, magnesium 1.0, total bilirubin 1.9, AST ALT BUN ill, BNP 123, and initial troponin negative. UA not suggestive of UTI. UDS negative. ETOH negative. CXR showed cardiomegaly. Chest CTA showed no PE. US of BLE showed no DVT. Review of Systems Review of Systems: All systems reviewed & are unremarkable except as noted in HPI and below PMFSH Past Medical History Medical History (Updated 09/28/23 @ 14:10 by Caro Retana, [employer]PER[employer]ENDENT) Acute and chronic respiratory failure with hypoxia Acute bronchitis Acute diverticulitis of intestine Acute sinusitis Alcohol abuse Alcoholic hepatitis Allergic fungal sinusitis Arthritis Asthma mild, persistent Atrial flutter with rapid ventricular response AV block, 2nd degree Bilateral chronic knee pain Cataract CCC (chronic calculous cholecystitis) Chills COPD (chronic obstructive pulmonary disease) Cornea transplant recipient COVID-19 determined by clinical diagnostic criteria Depressive disorder, not elsewhere classified DJD (degenerative joint disease) of knee Elevated troponin Environmental allergies Essential (primary) hypertension Hernia HLD (hyperlipidemia) Hypertrophy of both inferior nasal turbinates Impacted cerumen of both ears Infection of left ear Infiltrate of lung present on chest x-ray Lymphedema of both lower extremities Metabolic syndrome Mixed hyperlipidemia Nasal obstruction Nasal septal
[2023-09-28] MEDS: VANCOMYCIN 1,750 MG/NS 500 ML 1,750 MG/500 ML BAG 250 MG IVPB (14:30)
[2023-09-28 15:49] LABS: Anion Gap 6 mmol/L (4-12); Blood Urea Nitrogen 8 mg/dL (9-20); Calcium 9.2 mg/dL (8.4-10.2); Carbon Dioxide 32 mmol/L (22-30); Chloride 83 mmol/L (98-107); Estimated CRCL calculation 197 ml/min; Estimated Glomerular Filt Rate > 60; Glucose 108 mg/dL (65-110); Magnesium 1.2 mg/dL (1.6-2.3); Potassium 3.5 mmol/L (3.4-5.0); Sodium 121 mmol/L (137-145)
[2023-09-28] MEDS: TOBRAMYCIN/DEXAMETHASONE OP 2.5 ML BTL 1 DROP LEFT EYE (19:28)
[2023-09-28] MEDS: POLYMYXIN/TRIMETHOPRIM OPHTH 10 ML DROPS 1 DROP LEFT EYE (19:28)
[2023-09-28] MEDS: FLUTICASONE/SALMETEROL 230-21 MCG INHALER 1 PUFF 2 PUFF INHALATION (20:13)
[2023-09-28] MEDS: MONTELUKAST SODIUM 10 MG TABLET PO (20:16)
[2023-09-28] MEDS: APIXABAN 5 MG TABLET PO (20:16)
[2023-09-28] MEDS: FLUTICASONE PROPIONATE 0.05% NA SPR 16 GM BTL (*BKC) 1 SPRAY NASAL (21:00)
[2023-09-29] VITALS (21 sets, daily range): BP systolic 110–128; BP diastolic 52–68; PULSE 52–109; RESP 15–24; TEMP 36.3–37.2; O2SAT 95–99
[2023-09-29] MEDS: VANCOMYCIN 1,750 MG/NS 500 ML 1,750 MG/500 ML BAG 250 MG IVPB ×2 (01:26→12:12)
[2023-09-29] MEDS: TOBRAMYCIN/DEXAMETHASONE OP 2.5 ML BTL 1 DROP LEFT EYE ×4 (01:27→18:03)
[2023-09-29] MEDS: POLYMYXIN/TRIMETHOPRIM OPHTH 10 ML DROPS 1 DROP LEFT EYE ×4 (01:27→18:03)
[2023-09-29 04:20] LABS: Basophils Percent Auto 0.5 % (0.2-1.2); Eosinophils Absolute Auto 0.1 K/mm3 (0-0.3); Eosinophils Percent Auto 1.6 % (0-4.4); Hematocrit 32.4 % (42.0-52.0); Immature Granulocyte Absolute 0.04 K/mm3 (0.00-0.031); Immature Granulocyte Percent A 0.6 % (0-0.5); Lymphocytes Absolute Auto 0.69 K/mm3 (0.9-3.2); Mean Corpuscular Hemoglobin 34.4 pg (26-34); Mean Corpuscular Volume 101.3 fl (80-100); Mean Platelet Volume 9.3 fl (7.4-10.4); Monocytes Absolute Auto 0.6 K/mm3 (0.1-0.6); Monocytes Percent Auto 9.9 % (2.6-8.5); Neutrophils Absolute Auto 4.8 K/mm3 (1.3-6.7); Neutrophils Percent Auto 76.4 % (45.5-73.1); Platelet Count Result 306 k/mm3 (150-375); Red Cell Distribution Width 14.7 % (11.5-14.5); White Blood Count 6.3 K/mm3 (4.5-10.0)
[2023-09-29 04:36] LABS: Alanine Aminotransferase 9 U/L (6-50); Albumin Level 3.7 g/dL (3.5-5.1); Alkaline Phosphatase 74 U/L (38-126); Anion Gap 4 mmol/L (4-12); Aspartate Amino Transferase 30 U/L (17-59); Bilirubin,Total 1.6 mg/dL (0.2-1.3); Blood Urea Nitrogen 8 mg/dL (9-20); Carbon Dioxide 33 mmol/L (22-30); Chloride 85 mmol/L (98-107); Creatine Kinase 159 U/L (55-170); Estimated CRCL calculation 197 ml/min; Estimated Glomerular Filt Rate > 60; Glucose 108 mg/dL (65-110); Magnesium 1.6 mg/dL (1.6-2.3); Phosphorus 5.3 mg/dL (2.5-4.5); Potassium 3.2 mmol/L (3.4-5.0); Sodium 122 mmol/L (137-145)
[2023-09-29 05:05] LABS: Cortisol Random 4.26 ug/dL
[2023-09-29] MEDS: HYDROcodone/acetaminophen (*CRX) 5-325 MG TABLET 1 TAB PO ×3 (05:40→21:34)
[2023-09-29] MEDS: APIXABAN 5 MG TABLET PO ×2 (09:12→21:34)
[2023-09-29] MEDS: lisinopriL 20 MG TABLET 40 MG PO (09:12)
[2023-09-29] MEDS: ROSUVASTATIN 20 MG TABLET 40 MG PO (09:12)
[2023-09-29] MEDS: POTASSIUM CHLORIDE 20 MEQ ER TABLET PO (09:12)
[2023-09-29] MEDS: FUROSEMIDE 40 MG TABLET PO (09:12)
[2023-09-29] MEDS: buPROPion HCL XL (24 HR) 150 MG TABCR 300 MG PO (09:12)
[2023-09-29] MEDS: MULTIVITAMINS THERAPEUTIC TAB (*BKC) 1 TABLET PO (09:12)
[2023-09-29] MEDS: FLUTICASONE PROPIONATE 0.05% NA SPR 16 GM BTL (*BKC) 1 SPRAY NASAL ×2 (09:13→21:34)
[2023-09-29] MEDS: FLUTICASONE/SALMETEROL 230-21 MCG INHALER 1 PUFF 2 PUFF INHALATION ×2 (09:16→20:31)
--- NOTE | 2023-09-29 10:18 | P.PNIM_ITS ---
Progress Note: A&P Assessment and Plan (1) Generalized weakness: Code(s): R53.1 - Weakness Status: Acute Assessment and Plan: * Presented to the ED with reports of weakness * CK was 58 upon admission * Most likely related to fluid overload * Chest x-ray shows cardiomegaly * CTA shows no PE * PT and OT * Could be related to his electrolytes as well. (2) Hypokalemia: Code(s): E87.6 - Hypokalemia Status: Acute Assessment and Plan: * Potassium time admission 2.7 * Replacement given in the ED * Currently potassium 3.2 * Replace with 40 mEq x2 doses * Trend potassium * Continue telemetry monitoring (3) Hyponatremia: Code(s): E87.1 - Hypo-osmolality and hyponatremia Status: Acute Assessment and Plan: * Sodium 120 upon arrival * Current sodium 122 * Nephrology consulted * Could be related to hypervolemia hyponatremia * Convert p.o. Lasix to IV Lasix 40 mg b.i.d. for now * Continue trend sodium * Labs ordered and pending (4) Hypomagnesemia: Code(s): E83.42 - Hypomagnesemia Status: Acute Assessment and Plan: * Magnesium 1.0 at admission * 2 g of IV magnesium given in ED repeated on the floor * Magnesium today 1.6 * 4 g of IV Mag ordered and given * Continue trend magnesium * Adjust therapy as indicated (5) Cellulitis: Qualifiers: Laterality: unspecified laterality Site of cellulitis: extremity Site of cellulitis of extremity: lower extremity Qualified Code(s): L03.119 - Cellulitis of unspecified part of limb Code(s): L03.90 - Cellulitis, unspecified Status: Acute Assessment and Plan: * Redness noted to the bilateral lower extremities * Continue vancomycin for now * Kashif hose ordered * Venous Dopplers negative for DVTs * WBC stable at 6.3 * Most likely related to the swelling (6) Eye infection: Qualifiers: Laterality: left Qualified Code(s): 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, left eye Code(s): H44.009 - Unspecified purulent endophthalmitis, unspecified eye Status: Acute Assessment and Plan: * corneal transplant in 2016 * follows with Dr Peterson at [facility] * previously on polytrim q6h and tobra-dex q6h, will restart * consider consulting with his outpatient provider if no improvement (7) Congestive heart failure: Qualifiers: Heart failure type: diastolic Heart failure chronicity: chronic Qualif ied Code(s): I50.32 - Chronic diastolic (congestive) heart failure Code(s): I50.9 - Heart failure, unspecified Status: Acute Assessment and Plan: * Acute on chronic HFpEF * BNP mildly elevated 123 * Echo from 08/15 shows grade 1 diastolic dysfunction with an EF of 55-60% * 4+ pitting edema bilateral lower extremities * Switch p.o. Lasix IV Lasix b.i.d. for now * Strict I&Os * Daily weights * Trend urine output (8) Alcohol abuse: Code(s): F10.10 - Alcohol abuse, uncomplicated Status: Acute Assessment and Plan: * Strong history of alcohol abuse * History of 4 mixed drinks daily * Last known drink was 4-5 months ago per the patient * CIWA ordered * Add thiamine and folic acid * Monitor for signs of withdrawal (9) Chronic anemia: Code(s): D64.9 - Anemia, unspecified Status: Acute
--- NOTE | 2023-09-29 10:18 | PM.IMPN ---
Progress Note: A&P Assessment and Plan (1) Generalized weakness: Code(s): R53.1 - Weakness Status: Acute Assessment and Plan: Presented to the ED with reports of weakness CK was 58 upon admission Most likely related to fluid overload Chest x-ray shows cardiomegaly CTA shows no PE PT and OT Could be related to his electrolytes as well. (2) Hypokalemia: Code(s): E87.6 - Hypokalemia Status: Acute Assessment and Plan: Potassium time admission 2.7 Replacement given in the ED Currently potassium 3.2 Replace with 40 mEq x2 doses Trend potassium Continue telemetry monitoring (3) Hyponatremia: Code(s): E87.1 - Hypo-osmolality and hyponatremia Status: Acute Assessment and Plan: Sodium 120 upon arrival Current sodium 122 Nephrology consulted Could be related to hypervolemia hyponatremia Convert p.o. Lasix to IV Lasix 40 mg b.i.d. for now Continue trend sodium Labs ordered and pending (4) Hypomagnesemia: Code(s): E83.42 - Hypomagnesemia Status: Acute Assessment and Plan: Magnesium 1.0 at admission 2 g of IV magnesium given in ED repeated on the floor Magnesium today 1.6 4 g of IV Mag ordered and given Continue trend magnesium Adjust therapy as indicated (5) Cellulitis: Qualifiers: Laterality: unspecified laterality Site of cellulitis: extremity Site of cellulitis of extremity: lower extremity Qualified Code(s): L03.119 - Cellulitis of unspecified part of limb Code(s): L03.90 - Cellulitis, unspecified Status: Acute Assessment and Plan: Redness noted to the bilateral lower extremities Continue vancomycin for now Kashif zamora ordered Venous Dopplers negative for DVTs WBC stable at 6.3 Most likely related to the swelling (6) Eye infection: Qualifiers: Laterality: left Qualified Code(s): 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, left eye Code(s): H44.009 - Unspecified purulent endophthalmitis, unspecified eye Status: Acute Assessment and Plan: corneal transplant in [address] Peterson at [facility] previously on polytrim q6h and tobra-dex q6h, will restart consider consulting with his outpatient provider if no improvement (7) Congestive heart failure: Qualifiers: Heart failure type: diastolic Heart failure chronicity: chronic Qualified Code(s): I50.32 - Chronic diastolic (congestive) heart failure Code(s): I50.9 - Heart failure, unspecified Status: Acute Assessment and Plan: Acute on chronic HFpEF BNP mildly elevated 123 Echo from 08/15 shows grade 1 diastolic dysfunction with an EF of 55-60% 4+ pitting edema bilateral lower extremities Switch p.o. Lasix IV Lasix b.i.d. for now Strict I&Os Daily weights Trend urine output (8) Alcohol abuse: Code(s): F10.10 - Alcohol abuse, uncomplicated Status: Acute Assessment and Plan: Strong history of alcohol abuse History of 4 mixed drinks daily Last known drink was 4-5 months ago per the patient CIWA ordered Add thiamine and folic acid Monitor for signs of withdrawal (9) Chronic anemia: Code(s): D64.9 - Anemia, unspecified Status: Acute Assessment and Plan: Current hemoglobin and hematocrit 11.0/32.4 Baseline hemoglobin 10-12 Trend hemoglobin Transfuse if hemoglobin less than 7 (10) Essential (primary) hypertension: Code(s): I10 - Essential (primary) hypertension Status: Acute Assessment and Plan: Blood pressure on admission 135/64 Currently blood pressure 110/54 Continue home medications Trend blood pressure Adjust therapy as indicated Plan Diet: heart healthy GI Prophylaxis: not currently indicated DVT Prophylaxis: TEDs and continue Eliquis Lines: peripheral C
--- NOTE | 2023-09-29 11:00 | P.CONNP_ITS ---
Assessment and Plan Assessment and plan (1) Hyponatremia: Code(s): E87.1 - Hypo-osmolality and hyponatremia Status: Acute Assessment and Plan: * slow improvement noted at this time * multiple risk factors: * diuretic use * fluid overload/fluid retention * medication (bupropion use) * history of alcohol abuse * urinary retention/BPH * continue diuresis (on the assumption this is hypervolemic hyponatremia) * evaluation to date: * urine electrolytes pre-renal * TSH okay * cortisol low - consider stim test * SPE and UPE pending * no significant proteinuria * CXR/chest CT noted * goal of therapy is a rate of change of 6 - 8mmol/L in 24 hours * follow trend of repeat sodium levels (2) Hypokalemia: Code(s): E87.6 - Hypokalemia Status: Acute Assessment and Plan: * improvement with supplementation * related to diuretic use and poor oral intake * on daily supplementation * follow trend of repeat values (3) Hypomagnesemia: Code(s): E83.42 - Hypomagnesemia Status: Acute Assessment and Plan: * likely precipitating factor with regard to low K+ * IV replacement PRN * may need to consider chronic po supplementation * follow repeat magnesium levels (4) Congestive heart failure: Qualifiers: Heart failure type: diastolic Heart failure chronicity: chronic Qualified Code(s): I50.32 - Chronic diastolic (congestive) heart failure Code(s): I50.9 - Heart failure, unspecified Status: Acute Assessment and Plan: * based on clinical exam * previous Echo noted * continues bid lasix * follow daily weights, I/Os, clinical exam and renal function (5) Essential (primary) hypertension: Code(s): I10 - Essential (primary) hypertension Status: Acute Assessment and Plan: * reasonable control * follow trend of hemodynamics (6) Generalized weakness: Code(s): R53.1 - Weakness Status: Acute Assessment and Plan: * due to edema and DJD +/- low sodium * PT/OT as tolerated * continue supportive therapy I will continue follow patient with you while he remains hospitalized and make further recommendations as deemed necessary. Thank you for allowing me to participate in care this patient. History of Present Illness Reason for Consult Consult date: 09/29/23 Reason for consult: hyponatremia Chief Complaint Chief complaint: electrolyte derangement History of Present Illness Narrative: The patient is a 62-year-old male with an extensive past medical history as outlined below who presented to [facility] Emergency Room via EMS for further evaluation of generalized weakness in association with bilateral lower extremity edema/swelling. According to the patient, the patient has been sitting in his recliner for the past 2 days with inability to get up secondary to profound weakness. He reports he has chronic lower extremity edema at baseline secondary to the chronic lymphedema but it seems like more recently the swelling/ edema is somewhat worse. Given the worsening swelling and edema, he has also had increased pain in his lower extremities as well. However, it should also be noted that he also has chronic pain in his lower extremities at baseline but, much like his swelling and edema that is somewhat worse than baseline, so has his pain. Other associated symptoms include poor oral intake as well. Given these constellation of symptoms and worsening in the past few days, he presented to the emergenc
--- NOTE | 2023-09-29 11:00 | PM.CNNEP ---
Assessment and Plan Assessment and plan (1) Hyponatremia: Code(s): E87.1 - Hypo-osmolality and hyponatremia Status: Acute Assessment and Plan: slow improvement noted at this time multiple risk factors: diuretic use fluid overload/fluid retention medication (bupropion use) history of alcohol abuse urinary retention/BPH continue diuresis (on the assumption this is hypervolemic hyponatremia) evaluation to date: urine electrolytes pre-renal TSH okay cortisol low - consider stim test SPE and UPE pending no significant proteinuria CXR/chest CT noted goal of therapy is a rate of change of 6 - 8mmol/L in 24 hours follow trend of repeat sodium levels (2) Hypokalemia: Code(s): E87.6 - Hypokalemia Status: Acute Assessment and Plan: improvement with supplementation related to diuretic use and poor oral intake on daily supplementation follow trend of repeat values (3) Hypomagnesemia: Code(s): E83.42 - Hypomagnesemia Status: Acute Assessment and Plan: likely precipitating factor with regard to low K+ IV replacement PRN may need to consider chronic po supplementation follow repeat magnesium levels (4) Congestive heart failure: Qualifiers: Heart failure type: diastolic Heart failure chronicity: chronic Qualified Code(s): I50.32 - Chronic diastolic (congestive) heart failure Code(s): I50.9 - Heart failure, unspecified Status: Acute Assessment and Plan: based on clinical exam previous Echo noted continues bid lasix follow daily weights, I/Os, clinical exam and renal function (5) Essential (primary) hypertension: Code(s): I10 - Essential (primary) hypertension Status: Acute Assessment and Plan: reasonable control follow trend of hemodynamics (6) Generalized weakness: Code(s): R53.1 - Weakness Status: Acute Assessment and Plan: due to edema and DJD +/- low sodium PT/OT as tolerated continue supportive therapy I will continue follow patient with you while he remains hospitalized and make further recommendations as deemed necessary. Thank you for allowing me to participate in care this patient. History of Present Illness Reason for Consult Consult date: 09/29/23 Reason for consult: hyponatremia Chief Complaint Chief complaint: electrolyte derangement History of Present Illness Narrative: The patient is a 62-year-old male with an extensive past medical history as outlined below who presented to [facility] Emergency Room via EMS for further evaluation of generalized weakness in association with bilateral lower extremity edema/swelling. According to the patient, the patient has been sitting in his recliner for the past 2 days with inability to get up secondary to profound weakness. He reports he has chronic lower extremity edema at baseline secondary to the chronic lymphedema but it seems like more recently the swelling/ edema is somewhat worse. Given the worsening swelling and edema, he has also had increased pain in his lower extremities as well. However, it should also be noted that he also has chronic pain in his lower extremities at baseline but, much like his swelling and edema that is somewhat worse than baseline, so has his pain. Other associated symptoms include poor oral intake as well. Given these constellation of symptoms and worsening in the past few days, he presented to the emergency room after calling EMS for further assessment. Workup and evaluation emergency room demonstrated the patient to be hemodynamically stable and afebrile. Routine blood test demonstrated a normal white blood cell count, relative anemia which seems stable, and a chemistry that was significant for multiple electrolyte abnormalities including hyponatremia with a sodium 120, hypokalemia with a potassium of 2.7, normal renal function, hypomagnesemia
[2023-09-29 11:32] LABS: Anion Gap 8 mmol/L (4-12); Blood Urea Nitrogen 7 mg/dL (9-20); Calcium 8.7 mg/dL (8.4-10.2); Carbon Dioxide 30 mmol/L (22-30); Chloride 86 mmol/L (98-107); Estimated CRCL calculation 197 ml/min; Estimated Glomerular Filt Rate > 60; Glucose 128 mg/dL (65-110); Potassium 3.1 mmol/L (3.4-5.0); Sodium 124 mmol/L (137-145)
[2023-09-29] MEDS: POTASSIUM CHLORIDE 20 MEQ ER TABLET 40 MEQ PO ×2 (12:11→13:48)
[2023-09-29] MEDS: MAGNESIUM SULF 4 GM/WATER100ML 4 GM/100 ML BAG IVPB (12:11)
[2023-09-29 12:17] LABS: Creatinine Urine 71.3 mg/dL; Urea Random Urine 431 MG/DL
[2023-09-29 12:27] LABS: Creatinine Urine 74.7 mg/dL
[2023-09-29 12:31] LABS: Sodium Urine Random 17 meq/L
[2023-09-29 12:31] LABS: Sodium Urine Random 13 meq/L
[2023-09-29 12:35] LABS: Total Protein Urine Random < 5 mg/dL
[2023-09-29 12:36] LABS: Ur Ttl Prot Creatinine Ratio < 0.07 mg/mg (0-0.20)
[2023-09-29 12:38] LABS: Total Protein Urine Random < 5 mg/dL; Ur Ttl Prot Creatinine Ratio < 0.07 mg/mg (0-0.20)
[2023-09-29 17:29] LABS: Alanine Aminotransferase 9 U/L (6-50); Albumin Level 3.7 g/dL (3.5-5.1); Alkaline Phosphatase 77 U/L (38-126); Anion Gap 5 mmol/L (4-12); Aspartate Amino Transferase 28 U/L (17-59); Bilirubin,Total 1.2 mg/dL (0.2-1.3); Blood Urea Nitrogen 8 mg/dL (9-20); Calcium 8.8 mg/dL (8.4-10.2); Carbon Dioxide 33 mmol/L (22-30); Chloride 88 mmol/L (98-107); Estimated CRCL calculation 138 ml/min; Estimated Glomerular Filt Rate > 60; Glucose 109 mg/dL (65-110); Potassium 3.5 mmol/L (3.4-5.0); Sodium 126 mmol/L (137-145)
[2023-09-29] MEDS: FUROSEMIDE INJ 40 MG/4 ML VIAL IV PUSH (18:04)
[2023-09-29] MEDS: MONTELUKAST SODIUM 10 MG TABLET PO (21:34)
[2023-09-30] VITALS (21 sets, daily range): BP systolic 107–135; BP diastolic 48–57; PULSE 48–83; RESP 11–20; TEMP 36.7–37.1; O2SAT 96–99
[2023-09-30] MEDS: TOBRAMYCIN/DEXAMETHASONE OP 2.5 ML BTL 1 DROP LEFT EYE ×4 (00:20→18:58)
[2023-09-30] MEDS: POLYMYXIN/TRIMETHOPRIM OPHTH 10 ML DROPS 1 DROP LEFT EYE ×4 (00:20→18:58)
[2023-09-30 00:51] LABS: Vancomycin Trough 8.6 ug/mL (10.0-20.0)
[2023-09-30] MEDS: MORPHINE SULFATE (*CRX) 4 MG/ML INJ IV PUSH (01:22)
[2023-09-30] MEDS: VANCOMYCIN 2,000 MG/NS 500 ML 2,000 MG/500 ML BAG 250 MG IVPB ×2 (01:23→12:48)
[2023-09-30 03:48] LABS: Protein, Total 6.1 g/dL (6.1-8.1)
[2023-09-30] MEDS: HYDROcodone/acetaminophen (*CRX) 5-325 MG TABLET 1 TAB PO ×3 (04:25→18:59)
[2023-09-30 04:46] LABS: Basophils Percent Auto 0.3 % (0.2-1.2); Eosinophils Absolute Auto 0.1 K/mm3 (0-0.3); Eosinophils Percent Auto 1.4 % (0-4.4); Hematocrit 32.6 % (42.0-52.0); Hemoglobin 10.9 g/dL (14.0-18.0); Immature Granulocyte Absolute 0.03 K/mm3 (0.00-0.031); Immature Granulocyte Percent A 0.5 % (0-0.5); Lymphocytes Absolute Auto 0.88 K/mm3 (0.9-3.2); Lymphocytes Percent Auto 13.6 % (18.3-44.2); Mean Corpuscular HGB Conc 33.4 g/dl (32-36); Mean Corpuscular Hemoglobin 34.6 pg (26-34); Mean Corpuscular Volume 103.5 fl (80-100); Mean Platelet Volume 9.2 fl (7.4-10.4); Monocytes Absolute Auto 0.8 K/mm3 (0.1-0.6); Monocytes Percent Auto 12.4 % (2.6-8.5); Neutrophils Absolute Auto 4.6 K/mm3 (1.3-6.7); Neutrophils Percent Auto 71.8 % (45.5-73.1); Platelet Count Result 284 k/mm3 (150-375); Red Blood Count 3.15 M/mm3 (4.6-6.20); Red Cell Distribution Width 14.6 % (11.5-14.5); White Blood Count 6.5 K/mm3 (4.5-10.0)
[2023-09-30 05:02] LABS: Alanine Aminotransferase 8 U/L (6-50); Albumin Level 3.5 g/dL (3.5-5.1); Alkaline Phosphatase 76 U/L (38-126); Anion Gap 5 mmol/L (4-12); Aspartate Amino Transferase 26 U/L (17-59); Bilirubin,Total 1.1 mg/dL (0.2-1.3); Blood Urea Nitrogen 6 mg/dL (9-20); Calcium 9.1 mg/dL (8.4-10.2); Carbon Dioxide 33 mmol/L (22-30); Chloride 92 mmol/L (98-107); Estimated CRCL calculation 162 ml/min; Estimated Glomerular Filt Rate > 60; Glucose 105 mg/dL (65-110); Magnesium 1.7 mg/dL (1.6-2.3); Potassium 3.2 mmol/L (3.4-5.0); Sodium 130 mmol/L (137-145)
[2023-09-30] MEDS: FLUTICASONE/SALMETEROL 230-21 MCG INHALER 1 PUFF 2 PUFF INHALATION ×2 (07:56→20:30)
[2023-09-30] MEDS: POTASSIUM CHLORIDE 20 MEQ ER TABLET PO (09:19)
[2023-09-30] MEDS: lisinopriL 20 MG TABLET 40 MG PO (09:19)
[2023-09-30] MEDS: THIAMINE HCL 100 MG TABLET PO (09:19)
[2023-09-30] MEDS: ROSUVASTATIN 20 MG TABLET 40 MG PO (09:19)
[2023-09-30] MEDS: MULTIVITAMINS THERAPEUTIC TAB (*BKC) 1 TABLET PO (09:19)
[2023-09-30] MEDS: SPIRONOLACTONE 25 MG TABLET PO (09:19)
[2023-09-30] MEDS: FLUTICASONE PROPIONATE 0.05% NA SPR 16 GM BTL (*BKC) 1 SPRAY NASAL ×2 (09:20→20:56)
[2023-09-30] MEDS: buPROPion HCL XL (24 HR) 150 MG TABCR 300 MG PO (09:20)
[2023-09-30] MEDS: FOLIC ACID 1 MG TABLET PO (09:20)
[2023-09-30] MEDS: APIXABAN 5 MG TABLET PO ×2 (09:20→20:54)
[2023-09-30] MEDS: FUROSEMIDE INJ 40 MG/4 ML VIAL IV PUSH ×2 (09:20→16:09)
--- NOTE | 2023-09-30 10:08 | PM.PNNEP ---
Progress Note: A&P Assessment and Plan (1) Hyponatremia: Code(s): E87.1 - Hypo-osmolality and hyponatremia Status: Acute Assessment and Plan: slow improvement noted at this time multiple risk factors: diuretic use fluid overload/fluid retention medication (bupropion use) history of alcohol abuse urinary retention/BPH continue diuresis (on the assumption this is hypervolemic hyponatremia) evaluation to date: urine electrolytes pre-renal TSH okay cortisol low - consider stim test SPE and UPE pending no significant proteinuria CXR/chest CT noted goal of therapy is a rate of change of 6 - 8mmol/L in 24 hours (this has been achieved) follow trend of repeat sodium levels (2) Hypokalemia: Code(s): E87.6 - Hypokalemia Status: Acute Assessment and Plan: improvement with supplementation related to diuretic use and poor oral intake on daily supplementation follow trend of repeat values (3) Hypomagnesemia: Code(s): E83.42 - Hypomagnesemia Status: Acute Assessment and Plan: likely precipitating factor with regard to low K+ IV replacement PRN may need to consider chronic po supplementation follow repeat magnesium levels (4) Congestive heart failure: Qualifiers: Heart failure type: diastolic Heart failure chronicity: chronic Qualified Code(s): I50.32 - Chronic diastolic (congestive) heart failure Code(s): I50.9 - Heart failure, unspecified Status: Acute Assessment and Plan: based on clinical exam previous Echo noted continues bid lasix follow daily weights, I/Os, clinical exam and renal function (5) Essential (primary) hypertension: Code(s): I10 - Essential (primary) hypertension Status: Acute Assessment and Plan: reasonable control follow trend of hemodynamics (6) Generalized weakness: Code(s): R53.1 - Weakness Status: Acute Assessment and Plan: due to edema and DJD +/- low sodium PT/OT as tolerated continue supportive therapy Will continue to follow. Subjective Date/time seen: 09/30/23 10:08 Interval history: Follow-up for acute (on chronic?) hyponatremia. Sodium level has improved reasonably well with ongoing diuresis as noted by trend of labs; still with edema in his LEs but seems to be improving with diuretic therapy; no apparent distress noted at the time of my visit; no events overnight or earlier this morning. Exam Narrative: General: large but WD/WN male in NAD Heart: normal S1 and S2; no rub Lungs: clear anteriorly; decreased at bases Abdomen: soft, nontender, nondistended, positive bowel sounds Extremities: no cyanosis or clubbing; 2 - 3+ edema Skin: warm and dry Objective Data Vital Signs Vital Signs: Vital Signs Temp Pulse Resp BP Pulse Ox O2 Del Method FiO2 09/30/23 10:08 98.7 F 59 L 16 107/51 L 98 09/30/23 08:00 Room Air 09/30/23 07:56 48 L 18 09/30/23 07:56 99 Room Air 21 09/30/23 07:52 98.0 F 53 L 14 120/48 L 98 09/30/23 06:00 58 L 09/30/23 04:00 52 L 09/30/23 04:47 98.1 F 63 20 116/57 L 96 09/30/23 02:30 76 11 L 96 BiPAP 09/30/23 02:00 63 09/30/23 04:00 BiPAP 09/30/23 00:00 BiPAP 09/30/23 00:00 54 L 09/29/23 23:56 98.1 F 57 L 20 128/68 96 09/29/23 22:00 72 09/29/23 20:00 Room Air 09/29/23 20:00 59 L 09/29/23 20:31 63 18 09/29/23 20:12 98.1 F 56 L 20 120/64 96 09/29/23 18:00 58 L 09/29/23 16:00 52 L 09/29/23 16:00 Room Air 09/29/23 14:00 78 09/29/23 15:21 98.1 F 53 L 18 127/52 L 96 Intake/Output Intake/Output: Intake & Output 09/27/23 09/28/23 09/29/23 09/30/23 23:59 23:59 23:59 23:59 Intake Total 740 3490 1500 Output Total 2850 2300 Balance 740 640 -800 Meds/Results M
--- NOTE | 2023-09-30 10:08 | P.PNNP_ITS ---
Progress Note: A&P Assessment and Plan (1) Hyponatremia: Code(s): E87.1 - Hypo-osmolality and hyponatremia Status: Acute Assessment and Plan: * slow improvement noted at this time * multiple risk factors: * diuretic use * fluid overload/fluid retention * medication (bupropion use) * history of alcohol abuse * urinary retention/BPH * continue diuresis (on the assumption this is hypervolemic hyponatremia) * evaluation to date: * urine electrolytes pre-renal * TSH okay * cortisol low - consider stim test * SPE and UPE pending * no significant proteinuria * CXR/chest CT noted * goal of therapy is a rate of change of 6 - 8mmol/L in 24 hours (this has been achieved) * follow trend of repeat sodium levels (2) Hypokalemia: Code(s): E87.6 - Hypokalemia Status: Acute Assessment and Plan: * improvement with supplementation * related to diuretic use and poor oral intake * on daily supplementation * follow trend of repeat values (3) Hypomagnesemia: Code(s): E83.42 - Hypomagnesemia Status: Acute Assessment and Plan: * likely precipitating factor with regard to low K+ * IV replacement PRN * may need to consider chronic po supplementation * follow repeat magnesium levels (4) Congestive heart failure: Qualifiers: Heart failure type: diastolic Heart failure chronicity: chronic Qualified Code(s): I50.32 - Chronic diastolic (congestive) heart failure Code(s): I50.9 - Heart failure, unspecified Status: Acute Assessment and Plan: * based on clinical exam * previous Echo noted * continues bid lasix * follow daily weights, I/Os, clinical exam and renal function (5) Essential (primary) hypertension: Code(s): I10 - Essential (primary) hypertension Status: Acute Assessment and Plan: * reasonable control * follow trend of hemodynamics (6) Generalized weakness: Code(s): R53.1 - Weakness Status: Acute Assessment and Plan: * due to edema and DJD +/- low sodium * PT/OT as tolerated * continue supportive therapy Will continue to follow. Subjective Date/time seen: 09/30/23 10:08 Interval history: Follow-up for acute (on chronic?) hyponatremia. Sodium level has improved reasonably well with ongoing diuresis as noted by trend of labs; still with edema in his LEs but seems to be improving with diur etic therapy; no apparent distress noted at the time of my visit; no events overnight or earlier this morning. Exam Narrative: General: large but WD/WN male in NAD Heart: normal S1 and S2; no rub Lungs: clear anteriorly; decreased at bases Abdomen: soft, nontender, nondistended, positive bowel sounds Extremities: no cyanosis or clubbing; 2 - 3+ edema Skin: warm and dry Objective Data Vital Signs Vital Signs: Vital Signs Temp Pulse Resp BP Pulse Ox O2 Del Method FiO2 09/30/23 10:08 98.7 F 59 L 16 107/51 L 98 09/30/23 08:00 Room Air 09/30/23 07:56 48 L 18 09/30/23 07:56 99 Room Air 21 09/30/23 07:52 98.0 F 53 L 14 120/48 L 98 09/30/23 06:00 58 L 09/30/23 04:00 52 L 09/30/23 04:47 98.1 F 63 20 116/57 L 96 09/30/23 02:30 76 11 L 96 BiPAP 09/30/23 02:
[2023-09-30] MEDS: IPRATROPIUM 0.5 MG/ALBUTEROL SULFATE 2.5 MG AMPUL.NEB 3 ML INHALATION (11:29)
[2023-09-30] MEDS: POTASSIUM CHLORIDE 20 MEQ PACKET (FOR LIQUID) PO (13:09)
--- NOTE | 2023-09-30 14:15 | ADMGEN ---
This patient, Addi Caal, was admitted to 3 Med Surg Room 311-01 @ 1415. Patient/family oriented to hospital policies and general routines including ID bracelet, bed and alarms, visiting hours, pain management, procedures, bathroom and other care routines, personal items, smoking policy, room service/diet, and visiting hours. Information on how to activate the Rapid Response Team has been discussed. Patient/Family are encouraged to report perceived risks to care and to ask questions if they do not understand what they are told or what they should do.
--- NOTE | 2023-09-30 14:16 | PC.NURSE ---
This patient, Addi Caal, was transferred to [facility] on 09/30/23 at 1411. Personal belongings sent with patient. Report given to Romy BENAVIDEZ. Appropriate documentation sent with patient.
--- NOTE | 2023-09-30 15:34 | WPDPN ---
Progress Note: A&P Assessment and Plan (1) Generalized weakness: Code(s): R53.1 - Weakness Status: Acute Assessment and Plan: most likely 2/2 shortness of breath patient being diuresed and his symptoms are improving (2) Hypokalemia: Code(s): E87.6 - Hypokalemia Status: Acute Assessment and Plan: most lekely due to poor po intake and being diuresed, will monitor and supplement (3) Hyponatremia: Code(s): E87.1 - Hypo-osmolality and hyponatremia Status: Acute Assessment and Plan: most likely due to dehydration and third spacing, patient is gently diuresed, seen by senior net application developer and sodium is improving, will monitor. (4) Hypomagnesemia: Code(s): E83.42 - Hypomagnesemia Status: Acute Assessment and Plan: patient with alcohol abuse will monitor and supplement (5) Cellulitis: Qualifiers: Laterality: unspecified laterality Site of cellulitis: extremity Site of cellulitis of extremity: lower extremity Qualified Code(s): L03.119 - Cellulitis of unspecified part of limb Code(s): L03.90 - Cellulitis, unspecified Status: Acute Assessment and Plan: lower extremities being treated with vancomycin and improving (6) Congestive heart failure: Qualifiers: Heart failure type: diastolic Heart failure chronicity: chronic Qualified Code(s): I50.32 - Chronic diastolic (congestive) heart failure Code(s): I50.9 - Heart failure, unspecified Status: Acute Assessment and Plan: patient with normal EF, most likely due to immobility patient is being diuresed (7) Eye infection: Qualifiers: Laterality: left Qualified Code(s): 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 He still does have 2 to 3+ pitting edema bilateral lower extremities. He also states that it hurts when he walks. He denies any chest pain, nausea, vomiting, diarrhea constipation. He did state that he has been short of breath however has been short of breath the last 6 months. interval history 09/30/2023: patient is morbidly obese patient presented weakness, in pain with ambulation, lower extremities edema and stasis dermatitis, patient is being diuresed stats swelling and pain in his both legs has improved and redness is resolving. Patient is working with PT/OT and will benefit going to acute rehab before discharge home as patient stats he lives alone and needs help with his ADLs. Subjective Date/time seen: 09/30/23 15:34 Interval history: 62 y/o M presents here with generalized weakness and BLE swelling with PMH of hypoxia, alcohol abuse, hold hepatitis, asthma, atrial flutter, heart block (followed by Dr. 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 Tinajero), CHF, lymphedema, HLD, HTN, subclinical hyperthyroidism, BPH, anemia, and urinary retention. The patient presents here via EMS for further evaluation of generalized weakness and bilateral lower extremity swelling. He reports inability to leave recliner for the past 2 days secondary to the weakness. Has chronic bilateral lower extremity edema due to lymphedema but reports it has been same but intermittently more swollen. Reporting associated pain to his lower extremities which is also chronic but has been worse in his feet and calves. Patient was discharged from [facility] on 09/20. Since then he reports that due to his poor PO intake and pain in his calves he has been getting worse/more weak. ETOH history - 4 mixed drinks daily for the past 3-4 years. Reports last drink was 4-5 months ago. Former sm
[2023-09-30 18:24] LABS: Creatinine, Random Urine 76 mg/dL (20-320); Total Protein/Creatinine Ratio 158 mg/g creat (25-148)
[2023-09-30] MEDS: MONTELUKAST SODIUM 10 MG TABLET PO (20:54)
[2023-10-01] VITALS (14 sets, daily range): BP systolic 109–138; BP diastolic 49–79; PULSE 46–72; RESP 13–20; TEMP 36.4–37; O2SAT 95–99
[2023-10-01] MEDS: VANCOMYCIN 2,000 MG/NS 500 ML 2,000 MG/500 ML BAG 250 MG IVPB ×3 (01:04→23:57)
[2023-10-01] MEDS: MORPHINE SULFATE (*CRX) 4 MG/ML INJ IV PUSH ×2 (01:09→08:25)
[2023-10-01] MEDS: TOBRAMYCIN/DEXAMETHASONE OP 2.5 ML BTL 1 DROP LEFT EYE ×4 (01:10→23:54)
[2023-10-01] MEDS: POLYMYXIN/TRIMETHOPRIM OPHTH 10 ML DROPS 1 DROP LEFT EYE ×4 (01:10→23:54)
[2023-10-01 06:49] LABS: Albumin Level 3.5 g/dL (3.5-5.1); Anion Gap 6 mmol/L (4-12); Blood Urea Nitrogen 7 mg/dL (9-20); Calcium 9.3 mg/dL (8.4-10.2); Carbon Dioxide 32 mmol/L (22-30); Chloride 94 mmol/L (98-107); Estimated CRCL calculation 194 ml/min; Estimated Glomerular Filt Rate > 60; Glucose 93 mg/dL (65-110); Magnesium 1.5 mg/dL (1.6-2.3); Phosphorus 5.5 mg/dL (2.5-4.5); Potassium 3.4 mmol/L (3.4-5.0); Sodium 132 mmol/L (137-145)
[2023-10-01] MEDS: FLUTICASONE PROPIONATE 0.05% NA SPR 16 GM BTL (*BKC) 1 SPRAY NASAL ×2 (08:25→21:15)
[2023-10-01] MEDS: ROSUVASTATIN 20 MG TABLET 40 MG PO (08:26)
[2023-10-01] MEDS: THIAMINE HCL 100 MG TABLET PO (08:26)
[2023-10-01] MEDS: POTASSIUM CHLORIDE 20 MEQ ER TABLET PO ×2 (08:26→08:27)
[2023-10-01] MEDS: FOLIC ACID 1 MG TABLET PO (08:26)
[2023-10-01] MEDS: SPIRONOLACTONE 25 MG TABLET PO (08:26)
[2023-10-01] MEDS: MULTIVITAMINS THERAPEUTIC TAB (*BKC) 1 TABLET PO (08:27)
[2023-10-01] MEDS: buPROPion HCL XL (24 HR) 150 MG TABCR 300 MG PO (08:27)
[2023-10-01] MEDS: APIXABAN 5 MG TABLET PO ×2 (08:27→21:15)
[2023-10-01] MEDS: lisinopriL 20 MG TABLET 40 MG PO (08:27)
[2023-10-01] MEDS: FUROSEMIDE INJ 40 MG/4 ML VIAL IV PUSH ×2 (08:27→17:05)
[2023-10-01] MEDS: MAGNESIUM SULF 2 GM/WATER 50ML 2 GM/50 ML BAG IVPB (08:28)
[2023-10-01] MEDS: FLUTICASONE/SALMETEROL 230-21 MCG INHALER 1 PUFF 2 PUFF INHALATION ×2 (08:49→20:07)
[2023-10-01 12:26] LABS: Vancomycin Trough 12.8 ug/mL (10.0-20.0)
[2023-10-01] MEDS: HYDROcodone/acetaminophen (*CRX) 5-325 MG TABLET 1 TAB PO ×2 (13:06→21:20)
--- NOTE | 2023-10-01 13:10 | P.PNNP_ITS ---
Progress Note: A&P Assessment and Plan (1) Hyponatremia: Code(s): E87.1 - Hypo-osmolality and hyponatremia Status: Acute Assessment and Plan: * slow improvement noted at this time * multiple risk factors: * diuretic use * fluid overload/fluid retention * medication (bupropion use) * history of alcohol abuse * urinary retention/BPH * continue diuresis (on the assumption this is hypervolemic hyponatremia) * evaluation to date: * urine electrolytes pre-renal * TSH okay * cortisol low - consider stim test * SPE and UPE pending * no significant proteinuria * CXR/chest CT noted * goal of therapy is a rate of change of 6 - 8mmol/L in 24 hours (this has been achieved) * follow trend of repeat sodium levels (2) Hypokalemia: Code(s): E87.6 - Hypokalemia Status: Acute Assessment and Plan: * improvement with supplementation * related to diuretic use and poor oral intake * on daily supplementation * follow trend of repeat values (3) Hypomagnesemia: Code(s): E83.42 - Hypomagnesemia Status: Acute Assessment and Plan: * likely precipitating factor with regard to low K+ * IV replacement PRN * may need to consider chronic po supplementation * follow repeat magnesium levels (4) Congestive heart failure: Qualifiers: Heart failure type: diastolic Heart failure chronicity: chronic Qualified Code(s): I50.32 - Chronic diastolic (congestive) heart failure Code(s): I50.9 - Heart failure, unspecified Status: Acute Assessment and Plan: * based on clinical exam * previous Echo noted * continues bid lasix * follow daily weights, I/Os, clinical exam and renal function (5) Essential (primary) hypertension: Code(s): I10 - Essential (primary) hypertension Status: Acute Assessment and Plan: * reasonable control * follow trend of hemodynamics (6) Generalized weakness: Code(s): R53.1 - Weakness Status: Acute Assessment and Plan: * due to edema and DJD +/- low sodium * PT/OT as tolerated * continue supportive therapy Not much else to add -- will continue to follow from a distance. Subjective Date/time seen: 10/01/23 13:10 Interval history: Follow-up for acute (on chronic?) hyponatremia Sodium level continues to improve with current interventions (IV diuretic therapy/diuresis) as has his lower extremity edema/swelling; no apparent distress noted at this time; no issues/events overnight or earlier this morning; overall, feels reasonably well. Exam Narrative: General: large but WD/WN male in NAD Heart: normal S1 and S2; no rub Lungs: clear anteriorly; decreased at bases Abdomen: soft, nontender, nondistended, positive bowel sounds Extremities: no cyanosis or clubbing; 1+ edema Skin: warm and intact Objective Data Vital Signs Vital Signs: Vital Signs Temp Pulse Resp BP Pulse Ox O2 Del Method FiO2 10/01/23 11:48 97.8 F 65 18 115/79 99 10/01/23 08:25 Room Air 10/01/23 08:56 99 Room Air 21 10/01/23 08:49 58 L 20 10/01/23 08:00 97.7 F 72 20 124/49 L 99 10/01/23 04:00 47 L 10/01/23 03:47 97.8 F 52 L 20 109/57 L 99 10/01/23 02:31 54 L 13 95 BiPAP 10/01/23 00:00 53 L
--- NOTE | 2023-10-01 13:10 | PM.PNNEP ---
Progress Note: A&P Assessment and Plan (1) Hyponatremia: Code(s): E87.1 - Hypo-osmolality and hyponatremia Status: Acute Assessment and Plan: slow improvement noted at this time multiple risk factors: diuretic use fluid overload/fluid retention medication (bupropion use) history of alcohol abuse urinary retention/BPH continue diuresis (on the assumption this is hypervolemic hyponatremia) evaluation to date: urine electrolytes pre-renal TSH okay cortisol low - consider stim test SPE and UPE pending no significant proteinuria CXR/chest CT noted goal of therapy is a rate of change of 6 - 8mmol/L in 24 hours (this has been achieved) follow trend of repeat sodium levels (2) Hypokalemia: Code(s): E87.6 - Hypokalemia Status: Acute Assessment and Plan: improvement with supplementation related to diuretic use and poor oral intake on daily supplementation follow trend of repeat values (3) Hypomagnesemia: Code(s): E83.42 - Hypomagnesemia Status: Acute Assessment and Plan: likely precipitating factor with regard to low K+ IV replacement PRN may need to consider chronic po supplementation follow repeat magnesium levels (4) Congestive heart failure: Qualifiers: Heart failure type: diastolic Heart failure chronicity: chronic Qualified Code(s): I50.32 - Chronic diastolic (congestive) heart failure Code(s): I50.9 - Heart failure, unspecified Status: Acute Assessment and Plan: based on clinical exam previous Echo noted continues bid lasix follow daily weights, I/Os, clinical exam and renal function (5) Essential (primary) hypertension: Code(s): I10 - Essential (primary) hypertension Status: Acute Assessment and Plan: reasonable control follow trend of hemodynamics (6) Generalized weakness: Code(s): R53.1 - Weakness Status: Acute Assessment and Plan: due to edema and DJD +/- low sodium PT/OT as tolerated continue supportive therapy Not much else to add -- will continue to follow from a distance. Subjective Date/time seen: 10/01/23 13:10 Interval history: Follow-up for acute (on chronic?) hyponatremia Sodium level continues to improve with current interventions (IV diuretic therapy/diuresis) as has his lower extremity edema/swelling; no apparent distress noted at this time; no issues/events overnight or earlier this morning; overall, feels reasonably well. Exam Narrative: General: large but WD/WN male in NAD Heart: normal S1 and S2; no rub Lungs: clear anteriorly; decreased at bases Abdomen: soft, nontender, nondistended, positive bowel sounds Extremities: no cyanosis or clubbing; 1+ edema Skin: warm and intact Objective Data Vital Signs Vital Signs: Vital Signs Temp Pulse Resp BP Pulse Ox O2 Del Method FiO2 10/01/23 11:48 97.8 F 65 18 115/79 99 10/01/23 08:25 Room Air 10/01/23 08:56 99 Room Air 21 10/01/23 08:49 58 L 20 10/01/23 08:00 97.7 F 72 20 124/49 L 99 10/01/23 04:00 47 L 10/01/23 03:47 97.8 F 52 L 20 109/57 L 99 10/01/23 02:31 54 L 13 95 BiPAP 10/01/23 00:00 53 L 09/30/23 20:00 57 L 09/30/23 23:50 50 L 17 96 BiPAP 09/30/23 23:45 98.6 F 50 L 20 135/51 L 96 09/30/23 21:02 52 L 96 Room Air 21 09/30/23 20:30 52 L 20 09/30/23 19:31 98.6 F 53 L 18 127/53 L 98 Intake/Output Intake/Output: Intake & Output 09/28/23 09/29/23 09/30/23 10/01/23 23:59 23:59 23:59 23:59 Intake Total 740 3490 2630 2810 Output Total 2850 3800 3450 Balance 740 496 -1170 -640 Meds/Results Medications: Active Medications Generic Name Dose Route Start Last Admin Trade Name Freq PRN Reason Stop Dose Admin Hydrocodone Bitart/Acetaminophen 1 tab 09/28/23 18:16 10/01/23 13:06 Hydrocodone/
--- NOTE | 2023-10-01 13:30 | WPDPN ---
Progress Note: A&P Assessment and Plan (1) Generalized weakness: Code(s): R53.1 - Weakness Status: Acute Assessment and Plan: most likely 2/2 shortness of breath patient being diuresed and his symptoms are improving (2) Hypokalemia: Code(s): E87.6 - Hypokalemia Status: Acute Assessment and Plan: most lekely due to poor po intake and being diuresed, will monitor and supplement (3) Hyponatremia: Code(s): E87.1 - Hypo-osmolality and hyponatremia Status: Acute Assessment and Plan: most likely due to dehydration and third spacing, patient is gently diuresed, seen by quantitative analyst and sodium is improving, will monitor. (4) Hypomagnesemia: Code(s): E83.42 - Hypomagnesemia Status: Acute Assessment and Plan: patient with alcohol abuse will monitor and supplement (5) Cellulitis: Qualifiers: Laterality: unspecified laterality Site of cellulitis: extremity Site of cellulitis of extremity: lower extremity Qualified Code(s): L03.119 - Cellulitis of unspecified part of limb Code(s): L03.90 - Cellulitis, unspecified Status: Acute Assessment and Plan: lower extremities being treated with vancomycin and improving (6) Congestive heart failure: Qualifiers: Heart failure type: diastolic Heart failure chronicity: chronic Qualified Code(s): I50.32 - Chronic diastolic (congestive) heart failure Code(s): I50.9 - Heart failure, unspecified Status: Acute Assessment and Plan: patient with normal EF, most likely due to immobility patient is being diuresed (7) Eye infection: Qualifiers: Laterality: left Qualified Code(s): 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 He still does have 2 to 3+ pitting edema bilateral lower extremities. He also states that it hurts when he walks. He denies any chest pain, nausea, vomiting, diarrhea constipation. He did state that he has been short of breath however has been short of breath the last 6 months. interval history 09/30/2023: patient is morbidly obese patient presented weakness, in pain with ambulation, lower extremities edema and stasis dermatitis, patient is being diuresed stats swelling and pain in his both legs has improved and redness is resolving. Patient is working with PT/OT and will benefit going to acute rehab before discharge home as patient stats he lives alone and needs help with his ADLs. interval history 10/01/2023: today patient symptoms have improved substantially his lower extremities edema has resolved, and stasis dermatitis has improved, patient state he is not been out of bed, will have PT/OT evaluate the patient as patient lives and has had difficulty with with his ADL, patient will benefit going to acute rehab before going home. Subjective Date/time seen: 10/01/23 13:30 Interval history: 62 y/o M presents here with generalized weakness and BLE swelling with PMH of hypoxia, alcohol abuse, hold hepatitis, asthma, atrial flutter, heart block (followed by Dr. 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 Tinajero), CHF, lymphedema, HLD, HTN, subclinical hyperthyroidism, BPH, anemia, and urinary retention. The patient presents here via EMS for further evaluation of generalized weakness and bilateral lower extremity swelling. He reports inability to leave recliner for the past 2 days secondary to the weakness. Has chronic bilateral lower extremity edema due to lymphedema but reports it has been same but intermittently more swollen. Reporting associ
[2023-10-01] MEDS: MONTELUKAST SODIUM 10 MG TABLET PO (21:15)
[2023-10-02] VITALS (14 sets, daily range): BP systolic 132–138; BP diastolic 53–73; PULSE 47–72; RESP 14–18; TEMP 36.5–36.7; O2SAT 91–99
[2023-10-02 06:52] LABS: Albumin Level 3.6 g/dL (3.5-5.1); Anion Gap 6 mmol/L (4-12); Blood Urea Nitrogen 10 mg/dL (9-20); Calcium 9.2 mg/dL (8.4-10.2); Carbon Dioxide 33 mmol/L (22-30); Chloride 93 mmol/L (98-107); Estimated CRCL calculation 159 ml/min; Estimated Glomerular Filt Rate > 60; Glucose 98 mg/dL (65-110); Magnesium 1.6 mg/dL (1.6-2.3); Phosphorus 5.4 mg/dL (2.5-4.5); Potassium 3.5 mmol/L (3.4-5.0); Sodium 132 mmol/L (137-145)
[2023-10-02] MEDS: FLUTICASONE/SALMETEROL 230-21 MCG INHALER 1 PUFF 2 PUFF INHALATION ×2 (07:29→20:34)
--- NOTE | 2023-10-02 08:05 | PM.IMPN ---
Progress Note: A&P Assessment and Plan (1) Generalized weakness: Code(s): R53.1 - Weakness Status: Acute Assessment and Plan: most likely 2/2 shortness of breath patient being diuresed and his symptoms are improving 10/01: Patient is still having generalized weakness. Requires PT/OT. SNF. Insurance authorization pending approval. (2) Hypokalemia: Code(s): E87.6 - Hypokalemia Status: Acute Assessment and Plan: most lekely due to poor po intake and being diuresed, will monitor and supplement 10/01: Electrolytes reviewed. (3) Hyponatremia: Code(s): E87.1 - Hypo-osmolality and hyponatremia Status: Acute Assessment and Plan: most likely due to dehydration and third spacing, patient is gently diuresed, seen by produce clerk and sodium is improving, will monitor. 10/01: improving with diuresis (4) Hypomagnesemia: Code(s): E83.42 - Hypomagnesemia Status: Acute Assessment and Plan: patient with alcohol abuse will monitor and supplement (5) Cellulitis: Qualifiers: Laterality: unspecified laterality Site of cellulitis: extremity Site of cellulitis of extremity: lower extremity Qualified Code(s): L03.119 - Cellulitis of unspecified part of limb Code(s): L03.90 - Cellulitis, unspecified Status: Acute Assessment and Plan: lower extremities being treated with vancomycin and improving 10/01: Cellulitis much improved. Switched to PO doxycycline. (6) Congestive heart failure: Qualifiers: Heart failure chronicity: chronic Heart failure type: diastolic Qualified Code(s): I50.32 - Chronic diastolic (congestive) heart failure Code(s): I50.9 - Heart failure, unspecified Status: Acute Assessment and Plan: patient with normal EF, most likely due to immobility patient is being diuresed 10/01: Diastolic HF with preserved EF. Patient has been diuresed and his swelling has greatly improved. Lungs are clear. Transitioned back to PO lasix today. 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 Subjective Date/time seen: 10/02/23 08:05 Interval history: 62 y/o M presents here with generalized weakness and BLE swelling with PMH of hypoxia, alcohol abuse, hold hepatitis, asthma, atrial flutter, heart block (followed by Dr. 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 Tinajero), CHF, lymphedema, HLD, HTN, subclinical hyperthyroidism, BPH, anemia, and urinary retention. 10/01:Patient is seen sitting up in the chair, in no acute distress. His breathing is back to baseline and lower extremity edema is vastly improved per his reports. Currently he has +1 BLE edema. No signs of cellulitis today only venous stasis skin changes. He is pending placement for further PT/OT given his persistent weakness. He wants a referral for Dr Yuan to fix his knees. Review of Systems Review of Systems: All systems reviewed & are unremarkable except as noted in HPI and below Exam Narrative: General: well appearing, appears stated age. HEENT: normocephalic, atraumatic. Mucous membranes moist. 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 Neck supple without JVD, lymphadenopathy, or bruit. Respiratory: clear to auscultation bilaterally. No rales/rhonic/wheezes. Cardiovascular: Regular rate and rhythm, normal S1-S2 upon auscultation. No murmurs, rubs, or clicks. PMI is nondisplaced, capillary refill less than 3 second. Abdomen: Soft, round, no pulsatile masses, nondistended and
[2023-10-02 09:17] LABS: Basophils Percent Auto 0.4 % (0.2-1.2); Eosinophils Absolute Auto 0.2 K/mm3 (0-0.3); Eosinophils Percent Auto 2.9 % (0-4.4); Hemoglobin 10.7 g/dL (14.0-18.0); Immature Granulocyte Absolute 0.03 K/mm3 (0.00-0.031); Immature Granulocyte Percent A 0.4 % (0-0.5); Lymphocytes Absolute Auto 1.08 K/mm3 (0.9-3.2); Lymphocytes Percent Auto 14.7 % (18.3-44.2); Mean Corpuscular HGB Conc 33.4 g/dl (32-36); Mean Corpuscular Hemoglobin 34.9 pg (26-34); Mean Corpuscular Volume 104.2 fl (80-100); Mean Platelet Volume 9.6 fl (7.4-10.4); Monocytes Absolute Auto 0.9 K/mm3 (0.1-0.6); Monocytes Percent Auto 11.7 % (2.6-8.5); Neutrophils Absolute Auto 5.1 K/mm3 (1.3-6.7); Neutrophils Percent Auto 69.9 % (45.5-73.1); Platelet Count Result 318 k/mm3 (150-375); Red Blood Count 3.07 M/mm3 (4.6-6.20); Red Cell Distribution Width 14.5 % (11.5-14.5); White Blood Count 7.3 K/mm3 (4.5-10.0)
[2023-10-02] MEDS: lisinopriL 20 MG TABLET 40 MG PO (09:19)
[2023-10-02] MEDS: buPROPion HCL XL (24 HR) 150 MG TABCR 300 MG PO (09:19)
[2023-10-02] MEDS: ROSUVASTATIN 20 MG TABLET 40 MG PO (09:19)
[2023-10-02] MEDS: FOLIC ACID 1 MG TABLET PO (09:19)
[2023-10-02] MEDS: SPIRONOLACTONE 25 MG TABLET PO (09:20)
[2023-10-02] MEDS: APIXABAN 5 MG TABLET PO ×2 (09:20→20:20)
[2023-10-02] MEDS: POTASSIUM CHLORIDE 20 MEQ ER TABLET PO (09:20)
[2023-10-02] MEDS: THIAMINE HCL 100 MG TABLET PO (09:20)
[2023-10-02] MEDS: FUROSEMIDE INJ 40 MG/4 ML VIAL IV PUSH ×2 (09:20→17:01)
[2023-10-02] MEDS: MULTIVITAMINS THERAPEUTIC TAB (*BKC) 1 TABLET PO (09:20)
[2023-10-02] MEDS: FLUTICASONE PROPIONATE 0.05% NA SPR 16 GM BTL (*BKC) 1 SPRAY NASAL ×2 (09:21→20:22)
[2023-10-02] MEDS: HYDROcodone/acetaminophen (*CRX) 5-325 MG TABLET 1 TAB PO ×2 (09:31→17:02)
[2023-10-02] MEDS: POLYMYXIN/TRIMETHOPRIM OPHTH 10 ML DROPS 1 DROP LEFT EYE ×3 (11:39→23:58)
[2023-10-02] MEDS: TOBRAMYCIN/DEXAMETHASONE OP 2.5 ML BTL 1 DROP LEFT EYE ×3 (11:39→23:58)
[2023-10-02] MEDS: DOXYCYCLINE HYCLATE 100 MG TABLET PO ×2 (11:47→20:20)
[2023-10-02 12:18] LABS: Kappa\\Lambda Light Chains 1.68 (0.26-1.65); Lambda Light Chain 25.7 mg/L (5.7-26.3)
[2023-10-02 13:04] LABS: Alpha 1 Globulin 0.4 g/dL (0.2-0.3); Alpha 2 Globulin 0.7 g/dL (0.5-0.9); Beta 1 Globulin 0.4 g/dL (0.4-0.6); Gamma Globulin 1.1 g/dL (0.8-1.7)
[2023-10-02 16:19] LABS: Osmolality, Urine 401 mOsm/kg (50-1200)
[2023-10-02] MEDS: CALCIUM CARBONATE (TUMS) 500 MG (200 MG ELEMENTAL) PO (17:39)
[2023-10-02] MEDS: MONTELUKAST SODIUM 10 MG TABLET PO (20:20)
[2023-10-03] VITALS (11 sets, daily range): BP systolic 131–140; BP diastolic 55–64; PULSE 53–99; RESP 16–20; TEMP 36.4–36.9; O2SAT 95–100
[2023-10-03] MEDS: TOBRAMYCIN/DEXAMETHASONE OP 2.5 ML BTL 1 DROP LEFT EYE ×3 (05:25→17:18)
[2023-10-03] MEDS: POLYMYXIN/TRIMETHOPRIM OPHTH 10 ML DROPS 1 DROP LEFT EYE ×3 (05:25→17:18)
[2023-10-03 06:51] LABS: Albumin Level 3.7 g/dL (3.5-5.1); Anion Gap 6 mmol/L (4-12); Blood Urea Nitrogen 11 mg/dL (9-20); Calcium 9.5 mg/dL (8.4-10.2); Carbon Dioxide 34 mmol/L (22-30); Chloride 89 mmol/L (98-107); Estimated CRCL calculation 160 ml/min; Estimated Glomerular Filt Rate > 60; Glucose 90 mg/dL (65-110); Magnesium 1.4 mg/dL (1.6-2.3); Phosphorus 5.5 mg/dL (2.5-4.5); Potassium 3.4 mmol/L (3.4-5.0); Sodium 129 mmol/L (137-145)
[2023-10-03] MEDS: FLUTICASONE/SALMETEROL 230-21 MCG INHALER 1 PUFF 2 PUFF INHALATION ×2 (08:06→20:50)
[2023-10-03] MEDS: ROSUVASTATIN 20 MG TABLET 40 MG PO (09:18)
[2023-10-03] MEDS: POTASSIUM CHLORIDE 20 MEQ ER TABLET PO (09:18)
[2023-10-03] MEDS: DOXYCYCLINE HYCLATE 100 MG TABLET PO ×2 (09:18→21:03)
[2023-10-03] MEDS: lisinopriL 20 MG TABLET 40 MG PO (09:18)
[2023-10-03] MEDS: THIAMINE HCL 100 MG TABLET PO (09:18)
[2023-10-03] MEDS: SPIRONOLACTONE 25 MG TABLET PO (09:19)
[2023-10-03] MEDS: FOLIC ACID 1 MG TABLET PO (09:19)
[2023-10-03] MEDS: FUROSEMIDE INJ 40 MG/4 ML VIAL IV PUSH ×2 (09:19→17:18)
[2023-10-03] MEDS: APIXABAN 5 MG TABLET PO ×2 (09:19→21:03)
[2023-10-03] MEDS: MULTIVITAMINS THERAPEUTIC TAB (*BKC) 1 TABLET PO (09:19)
[2023-10-03] MEDS: buPROPion HCL XL (24 HR) 150 MG TABCR 300 MG PO (09:19)
[2023-10-03] MEDS: CALCIUM CARBONATE (TUMS) 500 MG (200 MG ELEMENTAL) PO (09:20)
[2023-10-03] MEDS: FLUTICASONE PROPIONATE 0.05% NA SPR 16 GM BTL (*BKC) 1 SPRAY NASAL ×2 (09:27→21:03)
[2023-10-03] MEDS: HYDROcodone/acetaminophen (*CRX) 5-325 MG TABLET 1 TAB PO ×2 (11:40→21:08)
--- NOTE | 2023-10-03 14:40 | PM.IMPN ---
Progress Note: A&P Assessment and Plan (1) Generalized weakness: Code(s): R53.1 - Weakness Status: Acute Assessment and Plan: most likely 2/2 shortness of breath patient being diuresed and his symptoms are improving 10/01: Patient is still having generalized weakness. Requires PT/OT. SNF. Insurance authorization pending approval. 10/03/23: Continue PT and OT (2) Hypokalemia: Code(s): E87.6 - Hypokalemia Status: Acute Assessment and Plan: most lekely due to poor po intake and being diuresed, will monitor and supplement 10/01: Electrolytes reviewed. 10/03/23: Potassium 3.4 today No replacement needed (3) Hyponatremia: Code(s): E87.1 - Hypo-osmolality and hyponatremia Status: Acute Assessment and Plan: most likely due to dehydration and third spacing, patient is gently diuresed, seen by bisque brusher and sodium is improving, will monitor. 10/01: improving with diuresis 10/03/23: Sodium 129 Urology following (4) Hypomagnesemia: Code(s): E83.42 - Hypomagnesemia Status: Acute Assessment and Plan: patient with alcohol abuse will monitor and supplement 10/03/23: Magnesium 1.4 Will give 3 g of magnesium today (5) Cellulitis: Qualifiers: Laterality: unspecified laterality Site of cellulitis: extremity Site of cellulitis of extremity: lower extremity Qualified Code(s): L03.119 - Cellulitis of unspecified part of limb Code(s): L03.90 - Cellulitis, unspecified Status: Acute Assessment and Plan: lower extremities being treated with vancomycin and improving 10/01: Cellulitis much improved. Switched to PO doxycycline. 10/03/23: Continue with current treatment plan (6) Congestive heart failure: Qualifiers: Heart failure chronicity: chronic Heart failure type: diastolic Qualified Code(s): I50.32 - Chronic diastolic (congestive) heart failure Code(s): I50.9 - Heart failure, unspecified Status: Acute Assessment and Plan: patient with normal EF, most likely due to immobility patient is being diuresed 10/01: Diastolic HF with preserved EF. Patient has been diuresed and his swelling has greatly improved. Lungs are clear. Transitioned back to PO lasix today. 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 Tinajreo), CHF, lymphedema, HLD, HTN, subclinical hyperthyroidism, BPH, anemia, and urinary retention. 10/01:Patient is seen sitting up in the chair, in no acute distress. His breathing is back to baseline and lower extremity edema is vastly improved per his reports. Currently he has +1 BLE edema. No signs of cellulitis today only venous stasis skin changes. He is pending placement for further PT/OT given his persistent weakness. He wants a referral for Dr Yuan to fix his knees. 10/03/23: Sodium level 129, chloride 89, bicarb 34, Magnesium 1.4. Patient denies any fever, chills, nausea, vomiting, diarrhea, abdominal pain, chest pain, shortness a breath. Patient endorses weakness in bilateral knee pain. Urology following for electrolyte imbalance. Patient reports he does need bilateral total knee replacement
[2023-10-03] MEDS: MAGNESIUM SULFATE 3GM/D5W100ML 3 GM/100 ML BAG IVPB (15:30)
[2023-10-03 17:14] LABS: Immunofixation, Serum Normal pattern.
[2023-10-03] MEDS: MONTELUKAST SODIUM 10 MG TABLET PO (21:03)
[2023-10-04] VITALS (8 sets, daily range): BP systolic 118–138; BP diastolic 55–68; PULSE 43–93; RESP 17–22; TEMP 36.6–36.8; O2SAT 95–100
--- NOTE | 2023-10-04 01:10 | ECG_ITS ---
Test Date: 2023-10-04 01:22:44 Measurements Intervals [place] Rate: 50 P: 0 WI: 0 QRS: -1 QRSD: 182 T: 171 QT: 570 QTc: 521 Interpretive Statements ATRIAL FLUTTER/TACHYCARDIA WITH SLOW VENTRICULAR RESPONSE RIGHT BUNDLE BRANCH BLOCK Compared to ECG 09/28/2023 08:59:41 NO SIGNIFICANT CHANGES Electronically Signed On 10-04-2023 11:37:38 CDT by Celi Irvin M.D.
[2023-10-04] MEDS: TOBRAMYCIN/DEXAMETHASONE OP 2.5 ML BTL 1 DROP LEFT EYE ×3 (05:34→17:42)
[2023-10-04] MEDS: POLYMYXIN/TRIMETHOPRIM OPHTH 10 ML DROPS 1 DROP LEFT EYE ×3 (05:34→17:42)
[2023-10-04 06:28] LABS: Albumin Level 3.9 g/dL (3.5-5.1); Anion Gap 6 mmol/L (4-12); Blood Urea Nitrogen 12 mg/dL (9-20); Calcium 9.3 mg/dL (8.4-10.2); Carbon Dioxide 34 mmol/L (22-30); Chloride 89 mmol/L (98-107); Estimated CRCL calculation 136 ml/min; Estimated Glomerular Filt Rate > 60; Glucose 88 mg/dL (65-110); Magnesium 1.8 mg/dL (1.6-2.3); Phosphorus 5.1 mg/dL (2.5-4.5); Potassium 3.3 mmol/L (3.4-5.0); Sodium 129 mmol/L (137-145)
[2023-10-04] MEDS: FLUTICASONE/SALMETEROL 230-21 MCG INHALER 1 PUFF 2 PUFF INHALATION ×2 (07:25→20:40)
--- NOTE | 2023-10-04 08:33 | P.PNIM_ITS ---
Progress Note: A&P Assessment and Plan (1) Hypokalemia: Code(s): E87.6 - Hypokalemia Status: Acute (2) Hyponatremia: Code(s): E87.1 - Hypo-osmolality and hyponatremia Status: Acute (3) Hypomagnesemia: Code(s): E83.42 - Hypomagnesemia Status: Acute (4) Cellulitis: Qualifiers: Laterality: unspecified laterality Site of cellulitis: extremity Site of cellulitis of extremity: lower extremity Qualified Code(s): L03.119 - Cellulitis of unspecified part of limb Code(s): L03.90 - Cellulitis, unspecified Status: Acute (5) Congestive heart failure: Qualifiers: Heart failure chronicity: chronic Heart failure type: diastolic Qualified Code(s): I50.32 - Chronic diastolic (congestive) heart failure Code(s): I50.9 - Heart failure, unspecified Status: Acute (6) Eye infection: Qualifiers: Laterality: left Qualified Code(s): 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 Transitioned to PO 40mg 10/03 * monitor renal function during diuresis * previous echocardiogram 2023: Diastolic dysfunction with reserved EF 55-60% * chest x-ray: Cardiomegaly * Optimize Kale inhibitors, beta-blockers, ARNI * Daily weight. * elevate/Kale wrap legs if needed * Optimize blood pressure less than 130/80. * Fall risk assessment. Hyponatremia with hypo-osmolality * Likely secondary to EtOH abuse * NA 129 10/03 * Nephrology consulted * Neuro checks ETOH abuse * Thiamine, folic acid, and multi-vitamin * PPI daily * librium if indicated * Ativan PRN for seizure activity * CIWA daily * Monitor and replenish electrolytes as needed * Seizure precautions if indicated Hypokalemia * Replenish <3.5 * cardiac monitoring hypomagnesemia * replenish Keep <2 * cardiac monitoring Cellulitis BLE-Improving * vancomycin transitioned to p.o. doxycycline * No leukocytosis * BC NGTD eye Infection * s/p corneal transplant seen by an ophtho, being treated with polytrim q6h and tobra-dex q6h Code status: Full code per patient DVT prophylaxis: Lovenox Stress ulcer prophylaxis: Protonix 40 daily PT/OT notes: Recommend SNF Disposition: Patient medically stable for discharge waiting on insurance a uthorization for discharge to [facility]. Time Spent With Patient Time with patient: 15 - 25 minutes Subjective Date/time seen: 10/04/23 08:33 Interval history: Interval history: 62 y/o M presents here with generalized weakness and BLE swelling with PMH of hypoxia, alcohol abuse, hold hepatitis, asthma, atrial flutter, heart block (followed by Dr. 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 Tinajero), CHF, lymphedema, HLD, HTN, subclinical hyperthyroidism, BPH, anemia, and urinary retention. The patient presents here via EMS for further evaluation of generalized weakness and bilateral lower extremity swelling. He reports inability to leave recliner for the past 2 days secondary to the weakness. Has chronic bilateral lower extremity edema due to lymphedema but reports it has been same but intermittently more swollen. Reporting associated pain to his lower extremities which is also chronic but has been worse in his feet and calves.
--- NOTE | 2023-10-04 08:33 | PM.IMPN ---
Progress Note: A&P Assessment and Plan (1) Hypokalemia: Code(s): E87.6 - Hypokalemia Status: Acute (2) Hyponatremia: Code(s): E87.1 - Hypo-osmolality and hyponatremia Status: Acute (3) Hypomagnesemia: Code(s): E83.42 - Hypomagnesemia Status: Acute (4) Cellulitis: Qualifiers: Laterality: unspecified laterality Site of cellulitis: extremity Site of cellulitis of extremity: lower extremity Qualified Code(s): L03.119 - Cellulitis of unspecified part of limb Code(s): L03.90 - Cellulitis, unspecified Status: Acute (5) Congestive heart failure: Qualifiers: Heart failure chronicity: chronic Heart failure type: diastolic Qualified Code(s): I50.32 - Chronic diastolic (congestive) heart failure Code(s): I50.9 - Heart failure, unspecified Status: Acute (6) Eye infection: Qualifiers: Laterality: left Qualified Code(s): 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 Transitioned to PO 40mg 10/03 monitor renal function during diuresis previous echocardiogram 2023: Diastolic dysfunction with reserved EF 55-60% chest x-ray: Cardiomegaly Optimize Kale inhibitors, beta-blockers, ARNI Daily weight. elevate/Kale wrap legs if needed Optimize blood pressure less than 130/80. Fall risk assessment. Hyponatremia with hypo-osmolality Likely secondary to EtOH abuse NA 129 10/03 Nephrology consulted Neuro checks ETOH abuse Thiamine, folic acid, and multi-vitamin PPI daily librium if indicated Ativan PRN for seizure activity CIWA daily Monitor and replenish electrolytes as needed Seizure precautions if indicated Hypokalemia Replenish <3.5 cardiac monitoring hypomagnesemia replenish Keep <2 cardiac monitoring Cellulitis BLE-Improving vancomycin transitioned to p.o. doxycycline No leukocytosis BC NGTD eye Infection s/p corneal transplant seen by an ophtho, being treated with polytrim q6h and tobra-dex q6h Code status: Full code per patient DVT prophylaxis: Lovenox Stress ulcer prophylaxis: Protonix 40 daily PT/OT notes: Recommend SNF Disposition: Patient medically stable for discharge waiting on insurance authorization for discharge to [facility]. Time Spent With Patient Time with patient: 15 - 25 minutes Subjective Date/time seen: 10/04/23 08:33 Interval history: Interval history: 62 y/o M presents here with generalized weakness and BLE swelling with PMH of hypoxia, alcohol abuse, hold hepatitis, asthma, atrial flutter, heart block (followed by Dr. 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 Tinajero), CHF, lymphedema, HLD, HTN, subclinical hyperthyroidism, BPH, anemia, and urinary retention. The patient presents here via EMS for further evaluation of generalized weakness and bilateral lower extremity swelling. He reports inability to leave recliner for the past 2 days secondary to the weakness. Has chronic bilateral lower extremity edema due to lymphedema but reports it has been same but intermittently more swollen. Reporting associated pain to his lower extremities which is also chronic but has been worse in his feet and calves. Patient was discharged from [facility] on 09/20. Since then he reports that due to his poor PO intake and pain in his calves he has been getting worse/more weak. ETOH history - 4 mixed drinks daily for the past 3-4 years. Reports last drink was 4-5 months ago. Former smoker, cessation 8-9 years ago, 1-2 PPD for approximately 30 years. Denies any upper abdominal pain or epigastric discomfort. Cornea transplant was in 2015, has had complications since 2021 - sees Dr Peterson at [facility]. 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
[2023-10-04] MEDS: ROSUVASTATIN 20 MG TABLET 40 MG PO (09:08)
[2023-10-04] MEDS: lisinopriL 20 MG TABLET 40 MG PO (09:09)
[2023-10-04] MEDS: SPIRONOLACTONE 25 MG TABLET PO (09:09)
[2023-10-04] MEDS: APIXABAN 5 MG TABLET PO ×2 (09:09→20:07)
[2023-10-04] MEDS: MULTIVITAMINS THERAPEUTIC TAB (*BKC) 1 TABLET PO (09:09)
[2023-10-04] MEDS: FLUTICASONE PROPIONATE 0.05% NA SPR 16 GM BTL (*BKC) 1 SPRAY NASAL ×2 (09:09→20:07)
[2023-10-04] MEDS: POTASSIUM CHLORIDE 20 MEQ ER TABLET PO (09:09)
[2023-10-04] MEDS: FOLIC ACID 1 MG TABLET PO (09:09)
[2023-10-04] MEDS: THIAMINE HCL 100 MG TABLET PO (09:09)
[2023-10-04] MEDS: buPROPion HCL XL (24 HR) 150 MG TABCR 300 MG PO (09:09)
[2023-10-04] MEDS: HYDROcodone/acetaminophen (*CRX) 5-325 MG TABLET 1 TAB PO ×2 (09:13→20:09)
[2023-10-04] MEDS: POTASSIUM CHLORIDE INJ 40 MEQ in SODIUM CHLORIDE 0.9% IV 500 ML 130 MEQ IVPB (09:14)
[2023-10-04] MEDS: FUROSEMIDE 40 MG TABLET PO (09:14)
[2023-10-04] MEDS: MAGNESIUM SULF 2 GM/WATER 50ML 2 GM/50 ML BAG IVPB (15:25)
[2023-10-04] MEDS: MONTELUKAST SODIUM 10 MG TABLET PO (20:07)
[2023-10-04] MEDS: TAMSULOSIN HCL 0.4 MG CAPSULE PO (20:07)
[2023-10-05] VITALS (8 sets, daily range): BP systolic 104–133; BP diastolic 51–61; PULSE 45–86; RESP 16–20; TEMP 36.2–36.9; O2SAT 95–98
[2023-10-05] MEDS: HYDROcodone/acetaminophen (*CRX) 5-325 MG TABLET 1 TAB PO (06:12)
[2023-10-05] MEDS: POLYMYXIN/TRIMETHOPRIM OPHTH 10 ML DROPS 1 DROP LEFT EYE ×3 (06:13→18:27)
[2023-10-05] MEDS: TOBRAMYCIN/DEXAMETHASONE OP 2.5 ML BTL 1 DROP LEFT EYE ×3 (06:13→18:27)
[2023-10-05 07:01] LABS: Albumin Level 3.8 g/dL (3.5-5.1); Anion Gap 7 mmol/L (4-12); Blood Urea Nitrogen 10 mg/dL (9-20); Calcium 9.3 mg/dL (8.4-10.2); Carbon Dioxide 32 mmol/L (22-30); Chloride 92 mmol/L (98-107); Estimated CRCL calculation 135 ml/min; Estimated Glomerular Filt Rate > 60; Glucose 81 mg/dL (65-110); Magnesium 1.9 mg/dL (1.6-2.3); Phosphorus 4.7 mg/dL (2.5-4.5); Potassium 3.7 mmol/L (3.4-5.0); Sodium 131 mmol/L (137-145)
[2023-10-05] MEDS: POTASSIUM CHLORIDE 20 MEQ ER TABLET PO (09:28)
[2023-10-05] MEDS: MULTIVITAMINS THERAPEUTIC TAB (*BKC) 1 TABLET PO (09:28)
[2023-10-05] MEDS: lisinopriL 20 MG TABLET 40 MG PO (09:28)
[2023-10-05] MEDS: ROSUVASTATIN 20 MG TABLET 40 MG PO (09:28)
[2023-10-05] MEDS: FUROSEMIDE 40 MG TABLET PO (09:29)
[2023-10-05] MEDS: FOLIC ACID 1 MG TABLET PO (09:29)
[2023-10-05] MEDS: FLUTICASONE PROPIONATE 0.05% NA SPR 16 GM BTL (*BKC) 1 SPRAY NASAL ×2 (09:29→20:15)
[2023-10-05] MEDS: SPIRONOLACTONE 25 MG TABLET PO (09:29)
[2023-10-05] MEDS: buPROPion HCL XL (24 HR) 150 MG TABCR 300 MG PO (09:29)
[2023-10-05] MEDS: THIAMINE HCL 100 MG TABLET PO (09:29)
[2023-10-05] MEDS: APIXABAN 5 MG TABLET PO ×2 (09:29→20:14)
[2023-10-05] MEDS: FLUTICASONE/SALMETEROL 230-21 MCG INHALER 1 PUFF 2 PUFF INHALATION ×2 (09:41→20:54)
--- NOTE | 2023-10-05 11:36 | P.PNIM_ITS ---
Progress Note: A&P Assessment and Plan (1) Hypokalemia: Code(s): E87.6 - Hypokalemia Status: Acute (2) Hyponatremia: Code(s): E87.1 - Hypo-osmolality and hyponatremia Status: Acute (3) Hypomagnesemia: Code(s): E83.42 - Hypomagnesemia Status: Acute (4) Cellulitis: Qualifiers: Laterality: unspecified laterality Site of cellulitis: extremity Site of cellulitis of extremity: lower extremity Qualified Code(s): L03.119 - Cellulitis of unspecified part of limb Code(s): L03.90 - Cellulitis, unspecified Status: Acute (5) Congestive heart failure: Qualifiers: Heart failure type: diastolic Heart failure chronicity: chronic Qualified Code(s): I50.32 - Chronic diastolic (congestive) heart failure Code(s): I50.9 - Heart failure, unspecified Status: Acute (6) Eye infection: Qualifiers: Laterality: left Qualified Code(s): 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 Transitioned to PO 40mg 10/03 * monitor renal function during diuresis * previous echocardiogram 2023: Diastolic dysfunction with reserved EF 55-60% * chest x-ray: Cardiomegaly * Optimize Kale inhibitors, beta-blockers, ARNI * Daily weight. * elevate/Kale wrap legs if needed * Optimize blood pressure less than 130/80. * Fall risk assessment. Hyponatremia with [id number] * Likely secondary to EtOH abuse * NA 129 10/03 * Nephrology consulted * Neuro checks 10/04: * NA 131 ETOH abuse * Thiamine, folic acid, and multi-vitamin * PPI daily * librium if indicated * Ativan PRN for seizure activity * CIWA daily * Monitor and replenish electrolytes as needed * Seizure precautions if indicated Hypokalemia-RESOLVED * Replenish <3.5 * cardiac monitoring hypomagnesemia-RESOLVED * replenish Keep <2 * cardiac monitoring Cellulitis BLE-Improving * vancomycin transitioned to p.o. doxycycline * No leukocytosis * BC NGTD eye Infection * s/p corneal transplant seen by an ophtho, being treated with polytrim q6h and tobra-dex q6h Code status: Full code per patient DVT prophylaxis: Lovenox Stress ulcer prophylaxis: Protonix 40 daily PT/OT notes: Recommend SNF Disposition: Patient medically stable for discharge waiting on insurance authorization for discharge to [facility]. Time Spent With Patient Time with patient: 15 - 25 minutes Subjective Date/time seen: 10/05/23 11:36 Interval history: Interval history: 62 y/o M presents here with generalized weakness and BLE swelling with PMH of hypoxia, alcohol abuse, hold hepatitis, asthma, atrial flutter, heart block (followed by Dr. 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 Tinajero), CHF, lymphedema, HLD, HTN, subclinical hyperthyroidism, BPH, anemia, and urinary retention. The patient presents here via EMS for further evaluation of generalized weakness and bilateral lower extremity swelling. He reports inability to leave recliner for the past 2 days secondary to the weakness. Has chronic bilateral lower extremity edema due to lymphedema but reports it has been same but intermittently more swollen. Reporting associated pain to his lower extremities which is al
--- NOTE | 2023-10-05 11:36 | PM.IMPN ---
Progress Note: A&P Assessment and Plan (1) Hypokalemia: Code(s): E87.6 - Hypokalemia Status: Acute (2) Hyponatremia: Code(s): E87.1 - Hypo-osmolality and hyponatremia Status: Acute (3) Hypomagnesemia: Code(s): E83.42 - Hypomagnesemia Status: Acute (4) Cellulitis: Qualifiers: Laterality: unspecified laterality Site of cellulitis: extremity Site of cellulitis of extremity: lower extremity Qualified Code(s): L03.119 - Cellulitis of unspecified part of limb Code(s): L03.90 - Cellulitis, unspecified Status: Acute (5) Congestive heart failure: Qualifiers: Heart failure type: diastolic Heart failure chronicity: chronic Qualified Code(s): I50.32 - Chronic diastolic (congestive) heart failure Code(s): I50.9 - Heart failure, unspecified Status: Acute (6) Eye infection: Qualifiers: Laterality: left Qualified Code(s): 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 Transitioned to PO 40mg 10/03 monitor renal function during diuresis previous echocardiogram 2023: Diastolic dysfunction with reserved EF 55-60% chest x-ray: Cardiomegaly Optimize Kale inhibitors, beta-blockers, ARNI Daily weight. elevate/Kale wrap legs if needed Optimize blood pressure less than 130/80. Fall risk assessment. Hyponatremia with [id number] Likely secondary to EtOH abuse NA 129 10/03 Nephrology consulted Neuro checks 10/04: NA 131 ETOH abuse Thiamine, folic acid, and multi-vitamin PPI daily librium if indicated Ativan PRN for seizure activity CIWA daily Monitor and replenish electrolytes as needed Seizure precautions if indicated Hypokalemia-RESOLVED Replenish <3.5 cardiac monitoring hypomagnesemia-RESOLVED replenish Keep <2 cardiac monitoring Cellulitis BLE-Improving vancomycin transitioned to p.o. doxycycline No leukocytosis BC NGTD eye Infection s/p corneal transplant seen by an ophtho, being treated with polytrim q6h and tobra-dex q6h Code status: Full code per patient DVT prophylaxis: Lovenox Stress ulcer prophylaxis: Protonix 40 daily PT/OT notes: Recommend SNF Disposition: Patient medically stable for discharge waiting on insurance authorization for discharge to [facility]. Time Spent With Patient Time with patient: 15 - 25 minutes Subjective Date/time seen: 10/05/23 11:36 Interval history: Interval history: 62 y/o M presents here with generalized weakness and BLE swelling with PMH of hypoxia, alcohol abuse, hold hepatitis, asthma, atrial flutter, heart block (followed by Dr. 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 Tinajero), CHF, lymphedema, HLD, HTN, subclinical hyperthyroidism, BPH, anemia, and urinary retention. The patient presents here via EMS for further evaluation of generalized weakness and bilateral lower extremity swelling. He reports inability to leave recliner for the past 2 days secondary to the weakness. Has chronic bilateral lower extremity edema due to lymphedema but reports it has been same but intermittently more swollen. Reporting associated pain to his lower extremities which is also chronic but has been worse in his feet and calves. Patient was discharged from [facility] on 09/20. Since then he reports that due to his poor PO intake and pain in his calves he has been getting worse/more weak. ETOH history - 4 mixed drinks daily for the past 3-4 years. Reports last drink was 4-5 months ago. Former smoker, cessation 8-9 years ago, 1-2 PPD for approximately 30 years. Denies any upper abdominal pain or epigastric discomfort. Cornea transplant was in 2015, has had complications since 2021 - [facility]
[2023-10-05] MEDS: TAMSULOSIN HCL 0.4 MG CAPSULE PO (20:14)
[2023-10-05] MEDS: MONTELUKAST SODIUM 10 MG TABLET PO (20:14)
[2023-10-05] MEDS: MORPHINE SULFATE (*CRX) 4 MG/ML INJ IV PUSH (20:25)
[2023-10-06] VITALS (8 sets, daily range): BP systolic 123–125; BP diastolic 49–86; PULSE 51–90; RESP 15–18; TEMP 36.1–36.6; O2SAT 98–99
[2023-10-06] MEDS: TOBRAMYCIN/DEXAMETHASONE OP 2.5 ML BTL 1 DROP LEFT EYE ×4 (00:55→23:07)
[2023-10-06] MEDS: POLYMYXIN/TRIMETHOPRIM OPHTH 10 ML DROPS 1 DROP LEFT EYE ×4 (00:55→23:07)
[2023-10-06 07:58] LABS: Albumin Level 4.1 g/dL (3.5-5.1); Anion Gap 7 mmol/L (4-12); Blood Urea Nitrogen 8 mg/dL (9-20); Calcium 9.8 mg/dL (8.4-10.2); Carbon Dioxide 32 mmol/L (22-30); Chloride 96 mmol/L (98-107); Estimated CRCL calculation 159 ml/min; Estimated Glomerular Filt Rate > 60; Glucose 79 mg/dL (65-110); Magnesium 1.8 mg/dL (1.6-2.3); Phosphorus 5.2 mg/dL (2.5-4.5); Sodium 135 mmol/L (137-145)
[2023-10-06] MEDS: THIAMINE HCL 100 MG TABLET PO (09:11)
[2023-10-06] MEDS: POTASSIUM CHLORIDE 20 MEQ ER TABLET PO (09:11)
[2023-10-06] MEDS: ROSUVASTATIN 20 MG TABLET 40 MG PO (09:11)
[2023-10-06] MEDS: SPIRONOLACTONE 25 MG TABLET PO (09:11)
[2023-10-06] MEDS: buPROPion HCL XL (24 HR) 150 MG TABCR 300 MG PO (09:11)
[2023-10-06] MEDS: lisinopriL 20 MG TABLET 40 MG PO (09:11)
[2023-10-06] MEDS: MULTIVITAMINS THERAPEUTIC TAB (*BKC) 1 TABLET PO (09:12)
[2023-10-06] MEDS: APIXABAN 5 MG TABLET PO ×2 (09:12→20:13)
[2023-10-06] MEDS: FLUTICASONE PROPIONATE 0.05% NA SPR 16 GM BTL (*BKC) 1 SPRAY NASAL ×2 (09:12→20:13)
[2023-10-06] MEDS: FOLIC ACID 1 MG TABLET PO (09:12)
[2023-10-06] MEDS: FLUTICASONE/SALMETEROL 230-21 MCG INHALER 1 PUFF 2 PUFF INHALATION ×2 (09:12→20:05)
[2023-10-06] MEDS: FUROSEMIDE 40 MG TABLET PO (09:12)
--- NOTE | 2023-10-06 13:30 | PCNWS ---
Weekly nutritional screen. Patient is tolerating current diet with adequate intake, 100% meals. No weight loss reported. No nutritional needs at this time.
--- NOTE | 2023-10-06 13:37 | P.PNIM_ITS ---
Progress Note: A&P Assessment and Plan (1) Hypokalemia: Code(s): E87.6 - Hypokalemia Status: Acute (2) Hyponatremia: Code(s): E87.1 - Hypo-osmolality and hyponatremia Status: Acute (3) Hypomagnesemia: Code(s): E83.42 - Hypomagnesemia Status: Acute (4) Cellulitis: Qualifiers: Laterality: unspecified laterality Site of cellulitis: extremity Site of cellulitis of extremity: lower extremity Qualified Code(s): L03.119 - Cellulitis of unspecified part of limb Code(s): L03.90 - Cellulitis, unspecified Status: Acute (5) Congestive heart failure: Qualifiers: Heart failure type: diastolic Heart failure chronicity: chronic Qualified Code(s): I50.32 - Chronic diastolic (congestive) heart failure Code(s): I50.9 - Heart failure, unspecified Status: Acute (6) Eye infection: Qualifiers: Laterality: left Qualified Code(s): 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 Transitioned to PO 40mg 10/03 * monitor renal function during diuresis * previous echocardiogram 2023: Diastolic dysfunction with reserved EF 55-60% * chest x-ray: Cardiomegaly * Optimize Kale inhibitors, beta-blockers, ARNI * Daily weight. * elevate/Kale wrap legs if needed * Optimize blood pressure less than 130/80. * Fall risk assessment. Aflutter/AV dysfunction: * HR ranging 40's to 80's in and out of aflutter/2nd degree/RT BBB * Cardiac monitoring * monitor electrolytes keep mag>2.0 and K+ >4.0 * Cardiology consulted * resumed home eliquis Hyponatremia with hkgu-feorjoxrpj-Hyhhffyov * Likely secondary to EtOH abuse * NA 129 10/03 * Nephrology consulted * Neuro checks 10/04: * NA 131 ETOH abuse * Thiamine, folic acid, and multi-vitamin * PPI daily * librium if indicated * Ativan PRN for seizure activity * CIWA daily * Monitor and replenish electrolytes as needed * Seizure precautions if indicated Hypokalemia-RESOLVED * Replenish <3.5 * cardiac monitoring hypomagnesemia-RESOLVED * replenish Keep <2 * cardiac monitoring Cellulitis BLE-Improving * vancomycin transitioned to p.o. doxycycline * No leukocytosis * BC NGTD eye Infection * s/p corneal transplant seen by an ophtho, being treated with polytrim q6h and tobra-dex q6h Code status: Full code per patient DVT prophylaxis: Lovenox Stress ulcer prophylaxis: Protonix 40 daily PT/OT notes: Recommend SNF Disposition: Patient to have evaluation by cardiology prior to discharge to SNF still waiting on auth. Time Spent With Patient Time with patient: 15 - 25 minutes Subjective Date/time seen: 10/06/23 13:37 Interval history: Interval history: 62 y/o M presents here with generalized weakness and BLE swelling with PMH of hypoxia, alcohol abuse, hold hepatitis, asthma, atrial flutter, heart block (followed by Dr. Bueno
--- NOTE | 2023-10-06 13:37 | PM.IMPN ---
Progress Note: A&P Assessment and Plan (1) Hypokalemia: Code(s): E87.6 - Hypokalemia Status: Acute (2) Hyponatremia: Code(s): E87.1 - Hypo-osmolality and hyponatremia Status: Acute (3) Hypomagnesemia: Code(s): E83.42 - Hypomagnesemia Status: Acute (4) Cellulitis: Qualifiers: Laterality: unspecified laterality Site of cellulitis: extremity Site of cellulitis of extremity: lower extremity Qualified Code(s): L03.119 - Cellulitis of unspecified part of limb Code(s): L03.90 - Cellulitis, unspecified Status: Acute (5) Congestive heart failure: Qualifiers: Heart failure type: diastolic Heart failure chronicity: chronic Qualified Code(s): I50.32 - Chronic diastolic (congestive) heart failure Code(s): I50.9 - Heart failure, unspecified Status: Acute (6) Eye infection: Qualifiers: Laterality: left Qualified Code(s): 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 Transitioned to PO 40mg 10/03 monitor renal function during diuresis previous echocardiogram 2023: Diastolic dysfunction with reserved EF 55-60% chest x-ray: Cardiomegaly Optimize Kale inhibitors, beta-blockers, ARNI Daily weight. elevate/Kale wrap legs if needed Optimize blood pressure less than 130/80. Fall risk assessment. Aflutter/AV dysfunction: HR ranging 40's to 80's in and out of aflutter/2nd degree/RT BBB Cardiac monitoring monitor electrolytes keep mag>2.0 and K+ >4.0 Cardiology consulted resumed home eliquis Hyponatremia with pxud-igidirmzhc-Sssmeeynx Likely secondary to EtOH abuse NA 129 10/03 Nephrology consulted Neuro checks 10/04: NA 131 ETOH abuse Thiamine, folic acid, and multi-vitamin PPI daily librium if indicated Ativan PRN for seizure activity CIWA daily Monitor and replenish electrolytes as needed Seizure precautions if indicated Hypokalemia-RESOLVED Replenish <3.5 cardiac monitoring hypomagnesemia-RESOLVED replenish Keep <2 cardiac monitoring Cellulitis BLE-Improving vancomycin transitioned to p.o. doxycycline No leukocytosis BC NGTD eye Infection s/p corneal transplant seen by an ophtho, being treated with polytrim q6h and tobra-dex q6h Code status: Full code per patient DVT prophylaxis: Lovenox Stress ulcer prophylaxis: Protonix 40 daily PT/OT notes: Recommend SNF Disposition: Patient to have evaluation by cardiology prior to discharge to SNF still waiting on auth. Time Spent With Patient Time with patient: 15 - 25 minutes Subjective Date/time seen: 10/06/23 13:37 Interval history: Interval history: 62 y/o M presents here with generalized weakness and BLE swelling with PMH of hypoxia, alcohol abuse, hold hepatitis, asthma, atrial flutter, heart block (followed by Dr. 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 Tinajero), CHF, lymphedema, HLD, HTN, subclinical hyperthyroidism, BPH, anemia, and urinary retention. The patient presents here via EMS for further evaluation of generalized weakness and bilateral lower extremity swelling. He reports inability to leave recliner for the past 2 days secondary to the weakness. Has chronic bilateral lower extremity edema due to lymphedema but reports it has been same but intermittently more swollen. Reporting associated pain to his lower extremities which is also chronic
--- NOTE | 2023-10-06 13:43 | ECG_ITS ---
Test Date: 2023-10-06 15:39:24 Measurements Intervals Ruth Rate: 45 P: 0 IA: 0 QRS: 29 QRSD: 169 T: -54 QT: 473 QTc: 410 Interpretive Statements ATRIAL FLUTTER/TACHYCARDIA WITH SLOW VENTRICULAR RESPONSE INTRAVENTRICULAR CONDUCTION DELAY [130+ ms QRS DURATION] Compared to ECG 10/04/2023 01:22:44 no change compared to prior EKG Electronically Signed On 10-07-2023 15:53:21 CDT by Wilman Sloan M.D.
[2023-10-06] MEDS: MAGNESIUM SULF 2 GM/WATER 50ML 2 GM/50 ML BAG IVPB (14:44)
[2023-10-06] MEDS: HYDROcodone/acetaminophen (*CRX) 5-325 MG TABLET 1 TAB PO (20:13)
[2023-10-06] MEDS: TAMSULOSIN HCL 0.4 MG CAPSULE PO (20:13)
[2023-10-06] MEDS: MONTELUKAST SODIUM 10 MG TABLET PO (20:13)
[2023-10-07] VITALS (12 sets, daily range): BP systolic 105–128; BP diastolic 60–83; PULSE 41–73; RESP 16–18; TEMP 36.3–36.7; O2SAT 95–98
[2023-10-07] MEDS: HYDROcodone/acetaminophen (*CRX) 5-325 MG TABLET 1 TAB PO ×3 (04:20→18:19)
[2023-10-07] MEDS: POLYMYXIN/TRIMETHOPRIM OPHTH 10 ML DROPS 1 DROP LEFT EYE ×3 (05:32→18:18)
[2023-10-07] MEDS: TOBRAMYCIN/DEXAMETHASONE OP 2.5 ML BTL 1 DROP LEFT EYE ×3 (05:33→18:18)
[2023-10-07 07:03] LABS: Albumin Level 3.9 g/dL (3.5-5.1); Anion Gap 7 mmol/L (4-12); Blood Urea Nitrogen 10 mg/dL (9-20); Calcium 9.4 mg/dL (8.4-10.2); Carbon Dioxide 28 mmol/L (22-30); Chloride 96 mmol/L (98-107); Estimated CRCL calculation 135 ml/min; Estimated Glomerular Filt Rate > 60; Glucose 82 mg/dL (65-110); Magnesium 1.9 mg/dL (1.6-2.3); Phosphorus 5.4 mg/dL (2.5-4.5); Potassium 4.2 mmol/L (3.4-5.0); Sodium 131 mmol/L (137-145)
--- NOTE | 2023-10-07 07:43 | P.PNIM_ITS ---
Progress Note: A&P Assessment and Plan (1) Hypokalemia: Code(s): E87.6 - Hypokalemia Status: Acute (2) Hyponatremia: Code(s): E87.1 - Hypo-osmolality and hyponatremia Status: Acute (3) Hypomagnesemia: Code(s): E83.42 - Hypomagnesemia Status: Acute (4) Cellulitis: Qualifiers: Laterality: unspecified laterality Site of cellulitis: extremity Site of cellulitis of extremity: lower extremity Qualified Code(s): L03.119 - Cellulitis of unspecified part of limb Code(s): L03.90 - Cellulitis, unspecified Status: Acute (5) Congestive heart failure: Qualifiers: Heart failure chronicity: chronic Heart failure type: diastolic Qualified Code(s): I50.32 - Chronic diastolic (congestive) heart failure Code(s): I50.9 - Heart failure, unspecified Status: Acute (6) Eye infection: Qualifiers: Laterality: left Qualified Code(s): 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, left eye Code(s): H44.009 - Unspecified purulent endophthalmitis, unspecified eye Status: Acute (7) Atrial flutter: Qualifiers: Atrial flutter type: unspecified Qualified Code(s): I48.92 - Unspecified atrial flutter Code(s): I48.92 - Unspecified atrial flutter Status: Acute (8) Atrioventricular node dysfunction: Code(s): I45.89 - Other specified conduction disorders Status: Acute Plan Aflutter/AV dysfunction: * Tachy/Ollie * HR ranging 40's to 80's in and out of aflutter/RT BBB * Cardiac monitoring * monitor electrolytes keep mag>2.0 and K+ >4.0 * Cardiology consulted * resumed home eliquis * May need AICD placement cardiology to evaluate Acute on chronic diastolic heart failure * BNP 123 POA * IV Lasix b.i.d. Transitioned to PO 40mg 10/03 * monitor renal function during diuresis * previous echocardiogram 2023: Diastolic dysfunction with reserved EF 55-60% * chest x-ray: Cardiomegaly * Optimize Kale inhibitors, beta-blockers, ARNI * Daily weight. * elevate/Kale wrap legs if needed * Optimize blood pressure less than 130/80. * Fall risk assessment. Hyponatremia with bpld-aymjpcintd-Kgbuzfpyz * Likely secondary to EtOH abuse * NA 129 10/03 * Nephrology consulted * Neuro checks 10/04: * NA 131 ETOH abuse * Thiamine, folic acid, and multi-vitamin * PPI daily * librium if indicated * Ativan PRN for seizure activity * CIWA daily * Monitor and replenish electrolytes as needed * Seizure precautions if indicated Hypokalemia-RESOLVED * Replenish <3.5 * cardiac monitoring hypomagnesemia-RESOLVED * replenish Keep <2 * cardiac monitoring Cellulitis BLE-Improving * vancomycin transitioned to p.o. doxycycline * No leukocytosis * BC NGTD eye Infection * s/p corneal transplant seen by an ophtho, being treated with polytrim q6h and tobra-dex q6h Code status: Full code per patient DVT prophylaxis: Lovenox Stress ulcer prophylaxis: Protonix 40 daily PT/OT notes: Recommend SNF Disposition: Patient to have evaluation by cardiology for possible AICD placement. Rehab insurance pending. Time Spent With Patient Time with patient: 15 - 25 minutes Subjective Date/time seen: 10/07/23 07:43 Interval history: Interval history: 62 y/o M presents here with generalized weakness and BLE swelling with PMH of hypoxia, alcohol abuse, hold
--- NOTE | 2023-10-07 07:43 | PM.IMPN ---
Progress Note: A&P Assessment and Plan (1) Hypokalemia: Code(s): E87.6 - Hypokalemia Status: Acute (2) Hyponatremia: Code(s): E87.1 - Hypo-osmolality and hyponatremia Status: Acute (3) Hypomagnesemia: Code(s): E83.42 - Hypomagnesemia Status: Acute (4) Cellulitis: Qualifiers: Laterality: unspecified laterality Site of cellulitis: extremity Site of cellulitis of extremity: lower extremity Qualified Code(s): L03.119 - Cellulitis of unspecified part of limb Code(s): L03.90 - Cellulitis, unspecified Status: Acute (5) Congestive heart failure: Qualifiers: Heart failure chronicity: chronic Heart failure type: diastolic Qualified Code(s): I50.32 - Chronic diastolic (congestive) heart failure Code(s): I50.9 - Heart failure, unspecified Status: Acute (6) Eye infection: Qualifiers: Laterality: left Qualified Code(s): 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, left eye Code(s): H44.009 - Unspecified purulent endophthalmitis, unspecified eye Status: Acute (7) Atrial flutter: Qualifiers: Atrial flutter type: unspecified Qualified Code(s): I48.92 - Unspecified atrial flutter Code(s): I48.92 - Unspecified atrial flutter Status: Acute (8) Atrioventricular node dysfunction: Code(s): I45.89 - Other specified conduction disorders Status: Acute Plan Aflutter/AV dysfunction: Tachy/Ollie HR ranging 40's to 80's in and out of aflutter/RT BBB Cardiac monitoring monitor electrolytes keep mag>2.0 and K+ >4.0 Cardiology consulted resumed home eliquis May need AICD placement cardiology to evaluate Acute on chronic diastolic heart failure BNP 123 POA IV Lasix b.i.d. Transitioned to PO 40mg 10/03 monitor renal function during diuresis previous echocardiogram 2023: Diastolic dysfunction with reserved EF 55-60% chest x-ray: Cardiomegaly Optimize Kale inhibitors, beta-blockers, ARNI Daily weight. elevate/Kale wrap legs if needed Optimize blood pressure less than 130/80. Fall risk assessment. Hyponatremia with zjqs-mnsltooqel-Jccqtlfcz Likely secondary to EtOH abuse NA 129 10/03 Nephrology consulted Neuro checks 10/04: NA 131 ETOH abuse Thiamine, folic acid, and multi-vitamin PPI daily librium if indicated Ativan PRN for seizure activity CIWA daily Monitor and replenish electrolytes as needed Seizure precautions if indicated Hypokalemia-RESOLVED Replenish <3.5 cardiac monitoring hypomagnesemia-RESOLVED replenish Keep <2 cardiac monitoring Cellulitis BLE-Improving vancomycin transitioned to p.o. doxycycline No leukocytosis BC NGTD eye Infection s/p corneal transplant seen by an ophtho, being treated with polytrim q6h and tobra-dex q6h Code status: Full code per patient DVT prophylaxis: Lovenox Stress ulcer prophylaxis: Protonix 40 daily PT/OT notes: Recommend SNF Disposition: Patient to have evaluation by cardiology for possible AICD placement. Rehab insurance pending. Time Spent With Patient Time with patient: 15 - 25 minutes Subjective Date/time seen: 10/07/23 07:43 Interval history: Interval history: 62 y/o M presents here with generalized weakness and BLE swelling with PMH of hypoxia, alcohol abuse, hold hepatitis, asthma, atrial flutter, heart block (followed by Dr. 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 Tinajero), CHF, lymphedema, HLD, HTN, subclinical hyperthyroidism, BPH, anemia, and urinary retention. The patient presents here via EMS for further evaluation of generalized weakness and bilateral lower extremity swelling. He reports inability to leave recliner for the past 2 days secondary to the weakness. Has chronic bilateral lower extremity edema due to lymphedema but reports it has been same but intermittently more swollen. Reporting asso
[2023-10-07] MEDS: FLUTICASONE/SALMETEROL 230-21 MCG INHALER 1 PUFF 2 PUFF INHALATION ×2 (08:06→21:05)
[2023-10-07] MEDS: SPIRONOLACTONE 25 MG TABLET PO (09:38)
[2023-10-07] MEDS: POTASSIUM CHLORIDE 20 MEQ ER TABLET PO (09:39)
[2023-10-07] MEDS: ROSUVASTATIN 20 MG TABLET 40 MG PO (09:39)
[2023-10-07] MEDS: buPROPion HCL XL (24 HR) 150 MG TABCR 300 MG PO (09:39)
[2023-10-07] MEDS: MULTIVITAMINS THERAPEUTIC TAB (*BKC) 1 TABLET PO (09:39)
[2023-10-07] MEDS: APIXABAN 5 MG TABLET PO ×2 (09:39→20:55)
[2023-10-07] MEDS: FUROSEMIDE 40 MG TABLET PO (09:39)
[2023-10-07] MEDS: lisinopriL 20 MG TABLET 40 MG PO (09:40)
[2023-10-07] MEDS: FOLIC ACID 1 MG TABLET PO (09:40)
[2023-10-07] MEDS: THIAMINE HCL 100 MG TABLET PO (09:40)
[2023-10-07] MEDS: FLUTICASONE PROPIONATE 0.05% NA SPR 16 GM BTL (*BKC) 1 SPRAY NASAL ×2 (09:41→20:55)
--- NOTE | 2023-10-07 14:11 | PM.CNCAR ---
Assessment and Plan Assessment and plan (1) Atrioventricular node dysfunction: Code(s): I45.89 - Other specified conduction disorders Status: Acute Plan Atrial flutter with a slow ventricular response alternating with RVR Electrolyte imbalance on presentation involving hyponatremia and hypomagnesemia Chronic diastolic heart failure currently compensated Hypertension controlled Generalized weakness could be related to electrolyte imbalance but cannot rule out significant bradycardia at home Plan Apixaban 5 mg b.i.d. Continue observation telemetry while in the hospital Avoid AV yvette blocking agent Lasix 40 mg p.o. b.i.d. Continue potassium chloride Continue lisinopril Event monitor on discharge History of Present Illness History of Present Illness Consult date/time: 10/07/23 14:11 Reason For Visit: electrolyte derangement Narrative: 62-year-old male patient presented to the hospital was bilateral lower extremity weakness and swelling associated with easy fatigue. It was admitted to the hospital was treatment of lower extremity cellulitis and electrolyte imbalance. We did have atrial flutter was heart rate varies between slow and fast beats. Current heart rate has been in the 40s. He has history of atrial flutter Na as previous episodes of tachy-evelyn syndrome. He has not been on rate-controlling agent because of bradycardia. Review of Systems Review of Systems: All systems reviewed & are unremarkable except as noted in HPI and below PMFSH Past Medical History Medical History (Updated 10/06/23 @ 14:28 by Verona Morrison, HAND B[employer]ER) Acute and chronic respiratory failure with hypoxia Acute bronchitis Acute diverticulitis of intestine Acute sinusitis Alcohol abuse Alcoholic hepatitis Allergic fungal sinusitis Arthritis Asthma mild, persistent Atrial flutter with rapid ventricular response AV block, 2nd degree Bilateral chronic knee pain Cataract CCC (chronic calculous cholecystitis) Chills COPD (chronic obstructive pulmonary disease) Cornea transplant recipient COVID-19 determined by clinical diagnostic criteria Depressive disorder, not elsewhere classified DJD (degenerative joint disease) of knee Elevated troponin Environmental allergies Essential (primary) hypertension Hernia HLD (hyperlipidemia) Hypertrophy of both inferior nasal turbinates Impacted cerumen of both ears Infection of left ear Infiltrate of lung present on chest x-ray Lymphedema of both lower extremities Metabolic syndrome Mixed hyperlipidemia Nasal obstruction Nasal septal deviation CB on CPAP (2009) Palpitations Personal history of nicotine dependence Pneumonia due to COVID-19 virus (05/26/20) Prediabetes A1C: 6.0 (11/2022), 4.3 (07/2023) Shortness of breath Sinusitis Sleep disorder Subclinical hyperthyroidism Syncope and collapse Tachycardia-bradycardia syndrome Tear of meniscus of left knee Thrombocytopenia URI (upper respiratory infection) Urinary retention Surgical History Surgical History H/O hernia repair 2009 History of nasal surgery Hx laparoscopic cholecystectomy 12/18/19 Hx of cornea transplant S/P left knee arthroscopy Family History Family History Other Adopted Social History Social History Social History: The patient works at [employer] during the day and [employer] during the night. The patient lives with a pet dog. Patient quit smoking about 5-10 years ago. The patient does not use any alcohol marijuana or illicit drugs. He desires to be a full code. And his sister is a durable power tax attorney for healthcare. He has no children. He is adopted and does not know his biological parents. Smoking packs per day: 1 Smoking cigarettes per day: 20.0 Years smoked: 25 Smoking pack-years: 25.00 Smoking status: Fo
[2023-10-07] MEDS: TAMSULOSIN HCL 0.4 MG CAPSULE PO (20:55)
[2023-10-07] MEDS: MONTELUKAST SODIUM 10 MG TABLET PO (20:55)
[2023-10-07 22:13] LABS: Glucose Point of Care 116 mg/dl (65-105)
[2023-10-08] VITALS (13 sets, daily range): BP systolic 109–140; BP diastolic 49–82; PULSE 42–66; RESP 16–20; TEMP 36.1–36.6; O2SAT 96–100
[2023-10-08] MEDS: HYDROcodone/acetaminophen (*CRX) 5-325 MG TABLET 1 TAB PO ×3 (02:00→20:50)
[2023-10-08 05:43] LABS: Albumin Level 4.1 g/dL (3.5-5.1); Anion Gap 7 mmol/L (4-12); Blood Urea Nitrogen 12 mg/dL (9-20); Calcium 9.6 mg/dL (8.4-10.2); Carbon Dioxide 29 mmol/L (22-30); Chloride 97 mmol/L (98-107); Estimated CRCL calculation 135 ml/min; Estimated Glomerular Filt Rate > 60; Glucose 90 mg/dL (65-110); Magnesium 1.9 mg/dL (1.6-2.3); Phosphorus 5.5 mg/dL (2.5-4.5); Potassium 4.2 mmol/L (3.4-5.0); Sodium 133 mmol/L (137-145)
--- NOTE | 2023-10-08 07:02 | P.PNCROSS_ITS ---
Event Note Event Note Event Note: Sodium is stable. Renal will sign off. He can follow-up with Dr. Bradley in t he office.
[2023-10-08] MEDS: FLUTICASONE/SALMETEROL 230-21 MCG INHALER 1 PUFF 2 PUFF INHALATION ×2 (07:26→21:28)
[2023-10-08] MEDS: ROSUVASTATIN 20 MG TABLET 40 MG PO (08:19)
[2023-10-08] MEDS: SPIRONOLACTONE 25 MG TABLET PO (08:19)
[2023-10-08] MEDS: APIXABAN 5 MG TABLET PO ×2 (08:19→20:47)
[2023-10-08] MEDS: FUROSEMIDE 40 MG TABLET PO (08:19)
[2023-10-08] MEDS: buPROPion HCL XL (24 HR) 150 MG TABCR 300 MG PO (08:19)
[2023-10-08] MEDS: FOLIC ACID 1 MG TABLET PO (08:19)
[2023-10-08] MEDS: THIAMINE HCL 100 MG TABLET PO (08:19)
[2023-10-08] MEDS: POTASSIUM CHLORIDE 20 MEQ ER TABLET PO (08:20)
[2023-10-08] MEDS: FLUTICASONE PROPIONATE 0.05% NA SPR 16 GM BTL (*BKC) 1 SPRAY NASAL ×2 (08:20→20:48)
[2023-10-08] MEDS: MULTIVITAMINS THERAPEUTIC TAB (*BKC) 1 TABLET PO (08:20)
[2023-10-08] MEDS: CALCIUM CARBONATE (TUMS) 500 MG (200 MG ELEMENTAL) PO (08:20)
--- NOTE | 2023-10-08 09:00 | PM.IMPN ---
Progress Note: A&P Assessment and Plan (1) Hypokalemia: Code(s): E87.6 - Hypokalemia Status: Acute (2) Hyponatremia: Code(s): E87.1 - Hypo-osmolality and hyponatremia Status: Acute (3) Hypomagnesemia: Code(s): E83.42 - Hypomagnesemia Status: Acute (4) Cellulitis: Qualifiers: Laterality: unspecified laterality Site of cellulitis: extremity Site of cellulitis of extremity: lower extremity Qualified Code(s): L03.119 - Cellulitis of unspecified part of limb Code(s): L03.90 - Cellulitis, unspecified Status: Acute (5) Congestive heart failure: Qualifiers: Heart failure chronicity: chronic Heart failure type: diastolic Qualified Code(s): I50.32 - Chronic diastolic (congestive) heart failure Code(s): I50.9 - Heart failure, unspecified Status: Acute (6) Eye infection: Qualifiers: Laterality: left Qualified Code(s): 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, left eye Code(s): H44.009 - Unspecified purulent endophthalmitis, unspecified eye Status: Acute (7) Atrial flutter: Qualifiers: Atrial flutter type: unspecified Qualified Code(s): I48.92 - Unspecified atrial flutter Code(s): I48.92 - Unspecified atrial flutter Status: Acute (8) Atrioventricular node dysfunction: Code(s): I45.89 - Other specified conduction disorders Status: Acute Plan Aflutter/AV dysfunction: Tachy/Ollie HR ranging 40's to 80's in and out of aflutter/RT BBB Cardiac monitoring monitor electrolytes keep mag>2.0 and K+ >4.0 Cardiology consulted resumed home eliquis May need AICD placement cardiology to evaluate Acute on chronic diastolic heart failure BNP 123 POA IV Lasix b.i.d. Transitioned to PO 40mg 10/03 monitor renal function during diuresis previous echocardiogram 2023: Diastolic dysfunction with reserved EF 55-60% chest x-ray: Cardiomegaly Optimize Kale inhibitors, beta-blockers, ARNI Daily weight. elevate/Kale wrap legs if needed Optimize blood pressure less than 130/80. Fall risk assessment. Hyponatremia with drtx-yecuqfzkds-Uqhtetgws Likely secondary to EtOH abuse NA 129 10/03 Nephrology consulted Neuro checks 10/04: NA 131 ETOH abuse Thiamine, folic acid, and multi-vitamin PPI daily librium if indicated Ativan PRN for seizure activity CIWA daily Monitor and replenish electrolytes as needed Seizure precautions if indicated Hypokalemia-RESOLVED Replenish <3.5 cardiac monitoring hypomagnesemia-RESOLVED replenish Keep <2 cardiac monitoring Cellulitis BLE-Improving vancomycin transitioned to p.o. doxycycline No leukocytosis BC NGTD eye Infection s/p corneal transplant seen by an ophtho, being treated with polytrim q6h and tobra-dex q6h Code status: Full code per patient DVT prophylaxis: Lovenox Stress ulcer prophylaxis: Protonix 40 daily PT/OT notes: Recommend SNF Disposition: cardiology recommending event monitor at discharge continues with complaints of weakness and difficulty ambulating and HR in the low 40's, was denied by insurance for rehab if cleared by cardiology for discharge and electrolytes stable in the am can likely discharge home with home health and follow with cardiology. Time Spent With Patient Time with patient: 15 - 25 minutes Subjective Date/time seen: 10/08/23 09:00 Interval history: Interval history: 62 y/o M presents here with generalized weakness and BLE swelling with PMH of hypoxia, alcohol abuse, hold hepatitis, asthma, atrial flutter, heart block (followed by Dr. 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 Tinajero), CHF, lymphedema, HLD, HTN, subclinical hyperthyroidism, BPH, anemia, and urinary retention. The patient presents here via EMS for further evaluation of generalized weakness and bilateral lower extremity swelling.
--- NOTE | 2023-10-08 09:00 | P.PNIM_ITS ---
Progress Note: A&P Assessment and Plan (1) Hypokalemia: Code(s): E87.6 - Hypokalemia Status: Acute (2) Hyponatremia: Code(s): E87.1 - Hypo-osmolality and hyponatremia Status: Acute (3) Hypomagnesemia: Code(s): E83.42 - Hypomagnesemia Status: Acute (4) Cellulitis: Qualifiers: Laterality: unspecified laterality Site of cellulitis: extremity Site of cellulitis of extremity: lower extremity Qualified Code(s): L03.119 - Cellulitis of unspecified part of limb Code(s): L03.90 - Cellulitis, unspecified Status: Acute (5) Congestive heart failure: Qualifiers: Heart failure chronicity: chronic Heart failure type: diastolic Qualified Code(s): I50.32 - Chronic diastolic (congestive) heart failure Code(s): I50.9 - Heart failure, unspecified Status: Acute (6) Eye infection: Qualifiers: Laterality: left Qualified Code(s): 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, left eye Code(s): H44.009 - Unspecified purulent endophthalmitis, unspecified eye Status: Acute (7) Atrial flutter: Qualifiers: Atrial flutter type: unspecified Qualified Code(s): I48.92 - Unspecified atrial flutter Code(s): I48.92 - Unspecified atrial flutter Status: Acute (8) Atrioventricular node dysfunction: Code(s): I45.89 - Other specified conduction disorders Status: Acute Plan Aflutter/AV dysfunction: * Tachy/Ollie * HR ranging 40's to 80's in and out of aflutter/RT BBB * Cardiac monitoring * monitor electrolytes keep mag>2.0 and K+ >4.0 * Cardiology consulted * resumed home eliquis * May need AICD placement cardiology to evaluate Acute on chronic diastolic heart failure * BNP 123 POA * IV Lasix b.i.d. Transitioned to PO 40mg 10/03 * monitor renal function during diuresis * previous echocardiogram 2023: Diastolic dysfunction with reserved EF 55-60% * chest x-ray: Cardiomegaly * Optimize Kale inhibitors, beta-blockers, ARNI * Daily weight. * elevate/Kale wrap legs if needed * Optimize blood pressure less than 130/80. * Fall risk assessment. Hyponatremia with [id number]-[id number] * Likely secondary to EtOH abuse * NA 129 10/03 * Nephrology consulted * Neuro checks 10/04: * NA 131 ETOH abuse * Thiamine, folic acid, and multi-vitamin * PPI daily * librium if indicated * Ativan PRN for seizure activity * CIWA daily * Monitor and replenish electrolytes as needed * Seizure precautions if indicated Hypokalemia-RESOLVED * Replenish <3.5 * cardiac monitoring hypomagnesemia-RESOLVED * replenish Keep <2 * cardiac monitoring Cellulitis BLE-Improving * vancomycin transitioned to p.o. doxycycline * No leukocytosis * BC NGTD eye Infection * s/p corneal transplant seen by an ophtho, being treated with polytrim q6h and tobra-dex q6h Code status: Full code per patient DVT prophylaxis: Lovenox Stress ulcer prophylaxis: Protonix 40 daily PT/OT notes: Recommend SNF Disposition: cardiology recommending event monitor at discharge continues with complaints of weakness and difficulty ambulating and HR in the low 40's, was d enied by insurance for rehab if cleared by cardiology for discharge and electrolytes stable in the am can likely discharge home with home health and follow with cardiology. Time Spent With Patient Time with patient: 15 - 25 brad
[2023-10-08] MEDS: lisinopriL 20 MG TABLET 40 MG PO (10:42)
[2023-10-08] MEDS: POLYMYXIN/TRIMETHOPRIM OPHTH 10 ML DROPS 1 DROP LEFT EYE ×2 (11:33→20:48)
[2023-10-08] MEDS: TOBRAMYCIN/DEXAMETHASONE OP 2.5 ML BTL 1 DROP LEFT EYE ×2 (11:33→20:48)
--- NOTE | 2023-10-08 11:41 | PM.PNCARD ---
Progress Note: A&P Assessment and Plan (1) Atrioventricular node dysfunction: Code(s): I45.89 - Other specified conduction disorders Status: Acute Plan Atrial flutter with slow ventricular response Heart rate on monitor has been in the 40s. Chronic diastolic heart failure currently compensated History of alcohol abuse Electrolyte imbalance number sedation Plan Event monitor on discharge Apixaban 5 mg b.i.d. Lasix 40 mg p.o. daily Lisinopril 40 mg daily Potassium chloride Subjective Date/time seen: 10/08/23 11:41 Interval history: No acute events Review of Systems Review of Systems: All systems reviewed & are unremarkable except as noted in HPI and below Exam Const: General: comfortable and no acute distress Other: Able to lie flat HENMT: Face/Nose/Sinus: Normal nares present and no epistaxis Mouth: Yes moist mucous membranes Eyes: Sclera: sclerae normal Pupils: Equal, round and reactive pupils present Neck: Neck: supple and no JVD Carotids: no bruits Resp: Auscultation: clear to auscultation bilaterally and lung sounds not diminished Other: No chest wall tenderness Cardio: Rate: bradycardic Rhythm: regular rhythm and abnormal rhythm irregularly irregular Heart sounds: no gallops, no murmurs and no rubs GI: GI Palp: Yes Soft to palpation and No Tenderness to palpation present (GI) Auscultation: normal bowel sounds Skin: General skin exam: normal color, rashes and/or lesions noted and no erythema Other: Warm Neuro: Cranial nerves: Yes Equal, round and reactive pupils present Speech: normal speech Other: No obvious focal deficit or facial asymmetry Extrem: General: no edema Other: Normal capillary refills Intact distal pulses. Objective Data Vital Signs Vital Signs: Vital Signs - 24 hr 10/07/23 14:00 10/07/23 12:00 10/07/23 16:00 Temperature 36.7 C Pulse Rate 45 L 43 L 45 L Respiratory Rate 18 Blood Pressure 120/69 Pulse Oximetry 98 Oxygen Delivery 10/07/23 20:45 10/07/23 20:00 10/07/23 22:00 Temperature 36.6 C Pulse Rate 51 L 51 L Respiratory Rate 18 Blood Pressure 121/60 Pulse Oximetry 97 Oxygen Delivery Room Air 10/08/23 00:19 10/08/23 00:00 10/08/23 02:58 Temperature Pulse Rate 63 45 L 66 Respiratory Rate 16 19 Blood Pressure Pulse Oximetry 96 97 Oxygen Delivery BiPAP BiPAP 10/08/23 04:00 10/08/23 04:16 10/08/23 04:55 Temperature 36.1 C L Pulse Rate 42 L 42 L 50 L Respiratory Rate 20 Blood Pressure 109/49 L Pulse Oximetry 100 Oxygen Delivery 10/08/23 09:50 10/08/23 08:00 Temperature Pulse Rate Respiratory Rate Blood Pressure Pulse Oximetry 96 Oxygen Delivery Room Air Room Air Intake/Output Intake/Output: Intake & Output 10/05/23 10/06/23 10/07/23 10/08/23 23:59 23:59 23:59 23:59 Intake Total 2664 4120 3060 900 Output Total 6000 3455 1750 2600 Balance -3336 665 1310 -1700 Meds/Results Medications: Active Medications Generic Name Dose Route Start Last Admin Trade Name Freq PRN Reason Stop Dose Admin Hydrocodone Bitart/Acetaminophen 1 tab 09/28/23 18:16 10/08/23 11:31 Hydrocodone/Acetaminophen (*Crx) 5-325 Mg Tablet PO 1 tab Q6H PRN Administration Pain Rated 4-6 Albuterol/Ipratropium 3 ml 09/30/23 11:14 09/30/23 11:29 Ipratropium 0.5 Mg/Albuterol Sulfate 2.5 Mg Ampul.Neb 3 Ml INHALATION 3 ml Q6HRT PRN Administration Shortness Of Breath Or Wheezing Apixaban 5 mg 09/28/23 21:00 10/08/23 08:19 Apixaban 5 Mg Tablet PO 5 mg Q12HR CATALINA Administration Bupropion HCl 300 mg 09/29/23 09:00 10/08/23 08:19 Bupropion Hcl Xl (24 Hr) 150 Mg Tabcr PO 300 mg DAILY CATALINA Administration Calcium Carbonate 200 mg 10/02/23 17:23 10/08/23 08:20 Calcium Carbonate (Tums) 500 Mg (200 Mg Elemental) PO 200 mg Q6H PRN Administration Indigestion Fluticasone Propionate 1 spray 0
[2023-10-08] MEDS: MONTELUKAST SODIUM 10 MG TABLET PO (20:47)
[2023-10-08] MEDS: TAMSULOSIN HCL 0.4 MG CAPSULE PO (20:47)
[2023-10-09] VITALS (11 sets, daily range): BP systolic 111–133; BP diastolic 53–69; PULSE 41–60; RESP 15–18; TEMP 36–36.1; O2SAT 56–100
[2023-10-09] MEDS: POLYMYXIN/TRIMETHOPRIM OPHTH 10 ML DROPS 1 DROP LEFT EYE ×4 (03:52→21:09)
[2023-10-09] MEDS: TOBRAMYCIN/DEXAMETHASONE OP 2.5 ML BTL 1 DROP LEFT EYE ×4 (03:52→21:08)
[2023-10-09] MEDS: HYDROcodone/acetaminophen (*CRX) 5-325 MG TABLET 1 TAB PO ×3 (04:53→21:09)
[2023-10-09 06:51] LABS: Anion Gap 5 mmol/L (4-12); Blood Urea Nitrogen 16 mg/dL (9-20); Calcium 9.4 mg/dL (8.4-10.2); Carbon Dioxide 31 mmol/L (22-30); Chloride 96 mmol/L (98-107); Estimated CRCL calculation 136 ml/min; Estimated Glomerular Filt Rate > 60; Glucose 82 mg/dL (65-110); Magnesium 1.8 mg/dL (1.6-2.3); Potassium 4.4 mmol/L (3.4-5.0); Sodium 132 mmol/L (137-145)
[2023-10-09] MEDS: FLUTICASONE/SALMETEROL 230-21 MCG INHALER 1 PUFF 2 PUFF INHALATION ×2 (07:26→19:43)
[2023-10-09] MEDS: ROSUVASTATIN 20 MG TABLET 40 MG PO (08:44)
[2023-10-09] MEDS: APIXABAN 5 MG TABLET PO ×2 (08:44→21:09)
[2023-10-09] MEDS: buPROPion HCL XL (24 HR) 150 MG TABCR 300 MG PO (08:44)
[2023-10-09] MEDS: FOLIC ACID 1 MG TABLET PO (08:44)
[2023-10-09] MEDS: lisinopriL 20 MG TABLET 40 MG PO (08:44)
[2023-10-09] MEDS: FUROSEMIDE 40 MG TABLET PO (08:44)
[2023-10-09] MEDS: POTASSIUM CHLORIDE 20 MEQ ER TABLET PO (08:44)
[2023-10-09] MEDS: SPIRONOLACTONE 25 MG TABLET PO (08:44)
[2023-10-09] MEDS: MULTIVITAMINS THERAPEUTIC TAB (*BKC) 1 TABLET PO (08:44)
[2023-10-09] MEDS: FLUTICASONE PROPIONATE 0.05% NA SPR 16 GM BTL (*BKC) 1 SPRAY NASAL ×2 (08:45→21:08)
[2023-10-09] MEDS: THIAMINE HCL 100 MG TABLET PO (08:45)
--- NOTE | 2023-10-09 13:38 | PM.PNCARD ---
Progress Note: A&P Assessment and Plan (1) Atrioventricular node dysfunction: Code(s): I45.89 - Other specified conduction disorders Status: Acute (2) Atrial flutter: Qualifiers: Atrial flutter type: unspecified Qualified Code(s): I48.92 - Unspecified atrial flutter Code(s): I48.92 - Unspecified atrial flutter Status: Acute Plan 62-year-old man with Atrial flutter initially occurred a couple of years ago in the setting following coronavirus. Following that when in sinus rhythm he had Mobitz type 1 second-degree AV block. He had symptoms of generalized weakness and lower extremity muscle weakness which I highly doubt is related to his atrial arrhythmia. The patient however seems to be fixated on the idea that most of his complaints are related to his atrial flutter. He indicates that he has been compliant with his anticoagulation and so an attempt at restoring sinus rhythm at this time electrically would be reasonable. I will schedule this to be done tomorrow. There is some concern of course regarding his AV node dysfunction and what his rhythm will be like following termination of atrial flutter. It is certainly possible that he may require a pacemaker device if we see problematic/high-grade AV block after electrical cardioversion. Chito Fung MD [facility] Subjective Date/time seen: Date of service: 10/09/23 13:38 Interval history: 10/09/2023: Patient is relatively comfortable at bed rest. Continues to report ongoing symptoms of significant fatigue and lack of energy which he continues to atrial flutter. No other cardiovascular symptoms. Discussed with the patient that he clearly has significant AV node dysfunction heart rate is in the 50s fall in atrial flutter. He has a history of second-degree AV block Mobitz type 1 when he was in sinus rhythm in the past. It is certainly possible that this may have progressed. Despite what is said in the chart the patient states he has been compliant with his medication including his apixaban. Had a long discussion with him about that today. Exam Const: General: comfortable and no acute distress Other: Able to lie flat HENMT: Face/Nose/Sinus: Normal nares present and no epistaxis Mouth: Yes moist mucous membranes Eyes: Sclera: sclerae normal Pupils: Equal, round and reactive pupils present Neck: Neck: supple and no JVD Carotids: no bruits Resp: Auscultation: clear to auscultation bilaterally and lung sounds not diminished Other: No chest wall tenderness Cardio: Rate: regular rate and bradycardic Rhythm: regular rhythm and abnormal rhythm irregularly irregular Heart sounds: no gallops, no murmurs and no rubs GI: Auscultation: normal bowel sounds Skin: General skin exam: normal color, rashes and/or lesions noted and no erythema Other: Warm Neuro: Cranial nerves: Yes Equal, round and reactive pupils present Speech: normal speech Other: No obvious focal deficit or facial asymmetry Extrem: General: no edema Other: Normal capillary refills Intact distal pulses. Objective Data Vital Signs Vital Signs: Vital Signs - 24 hr 10/08/23 16:00 10/08/23 14:00 10/08/23 21:29 Temperature 36.6 C Pulse Rate 50 L 66 48 L Respiratory Rate 16 Blood Pressure 140/82 Pulse Oximetry 98 96 Oxygen Delivery Room Air Oxygen Flow Rate 10/08/23 21:50 10/08/23 20:00 10/09/23 00:10 Temperature 36.6 C Pulse Rate 46 L 54 L Respiratory Rate 16 15 Blood Pressure 109/63 Pulse Oximetry 97 95 Oxygen Delivery Room Air BiPAP Oxygen Flow Rate 10/09/23 04:38 10/09/23 02:50 10/09/23 07:31 Temperature 36.0 C L Pulse Rate 56 L 55 L 50 L Respiratory Rate 16 16 Blood Pressure 128/69 Pulse Oximetry 56 L 96 98 Oxygen Delivery BiPAP BiPAP Oxygen Flow Rate 10/09/23 07:35 10/09/23 08:00 10/09/23 08:00 Temperature Pulse Rate 41 L Respiratory Rate Blood Pressure
--- NOTE | 2023-10-09 14:14 | P.PNIM_ITS ---
Progress Note: A&P Assessment and Plan (1) Atrioventricular node dysfunction: Code(s): I45.89 - Other specified conduction disorders Status: Acute Assessment and Plan: HR ranging 40's to 80's in and out of aflutter/RT BBB * Cardiac monitoring * monitor electrolytes keep mag>2.0 and K+ >4.0 * Cardiology consulted and plan on ablation * May need AICD placement if problematic/high-grade AV block is seen. * Event monitor on discharge. (2) Atrial flutter: Qualifiers: Atrial flutter type: unspecified Qualified Code(s): I48.92 - Unspecified atrial flutter Code(s): I48.92 - Unspecified atrial flutter Status: Acute Assessment and Plan: See #1 (3) Congestive heart failure: Qualifiers: Heart failure chronicity: chronic Heart failure type: diastolic Qualified Code(s): I50.32 - Chronic diastolic (congestive) heart failure Code(s): I50.9 - Heart failure, unspecified Status: Acute Assessment and Plan: * BNP 123 * IV Lasix b.i.d. Transitioned to PO 40mg 10/03 * monitor renal function during diuresis * previous echocardiogram 2023: Diastolic dysfunction with reserved EF 55-60% * chest x-ray: Cardiomegaly * Daily weight, heart healthy diet. * Fall risk assessment. (4) Cellulitis: Qualifiers: Laterality: unspecified laterality Site of cellulitis: extremity Site of cellulitis of extremity: lower extremity Qualified Code(s): L03.119 - Cellulitis of unspecified part of limb Code(s): L03.90 - Cellulitis, unspecified Status: Acute Assessment and Plan: * BLE cellulitis * vancomycin transitioned to p.o. doxycycline * No leukocytosis * BC NGTD (5) Hypokalemia: Code(s): E87.6 - Hypokalemia Status: Acute Assessment and Plan: * Replenish <3.5 * cardiac monitoring (6) Hyponatremia: Code(s): E87.1 - Hypo-osmolality and hyponatremia Status: Acute Assessment and Plan: Likely secondary to EtOH abuse * Nephrology consulted * Neuro checks Resolved. 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, left eye Code(s): H44.009 - Unspecified purulent endophthalmitis, unspecified eye Status: Acute Assessment and Plan: s/p corneal transplant seen by an ophtho, being treated with polytrim q6h and tobra-dex q6h (9) Alcohol abuse: Code(s): F10.10 - Alcohol abuse, uncomplicated Status: Acute Assessment and Plan: * Thiamine, folic acid, and multi-vitamin * PPI daily * librium if indicated * Ativan PRN for seizure activity * CIWA daily * Monitor and replenish electrolytes as needed * Seizure precautions if indicated Subjective Date/time seen: 10/09/23 14:14 Interval history: patient states he is extremely tired and weak at this time. His insurance denied SNF. Plan to discharge on . He was discussing peaked interest in a cardiac ablation and was very eager to talk to Cardiology. He denied any chest pain. Does state he gets short of breath with activity but comfortable at rest at this time. Exam Narrative: GENERAL: Comfortable, no ac
--- NOTE | 2023-10-09 14:14 | PM.IMPN ---
Progress Note: A&P Assessment and Plan (1) Atrioventricular node dysfunction: Code(s): I45.89 - Other specified conduction disorders Status: Acute Assessment and Plan: HR ranging 40's to 80's in and out of aflutter/RT BBB Cardiac monitoring monitor electrolytes keep mag>2.0 and K+ >4.0 Cardiology consulted and plan on ablation May need AICD placement if problematic/high-grade AV block is seen. Event monitor on discharge. (2) Atrial flutter: Qualifiers: Atrial flutter type: unspecified Qualified Code(s): I48.92 - Unspecified atrial flutter Code(s): I48.92 - Unspecified atrial flutter Status: Acute Assessment and Plan: See #1 (3) Congestive heart failure: Qualifiers: Heart failure chronicity: chronic Heart failure type: diastolic Qualified Code(s): I50.32 - Chronic diastolic (congestive) heart failure Code(s): I50.9 - Heart failure, unspecified Status: Acute Assessment and Plan: BNP 123 IV Lasix b.i.d. Transitioned to PO 40mg 10/03 monitor renal function during diuresis previous echocardiogram 2023: Diastolic dysfunction with reserved EF 55-60% chest x-ray: Cardiomegaly Daily weight, heart healthy diet. Fall risk assessment. (4) Cellulitis: Qualifiers: Laterality: unspecified laterality Site of cellulitis: extremity Site of cellulitis of extremity: lower extremity Qualified Code(s): L03.119 - Cellulitis of unspecified part of limb Code(s): L03.90 - Cellulitis, unspecified Status: Acute Assessment and Plan: BLE cellulitis vancomycin transitioned to p.o. doxycycline No leukocytosis BC NGTD (5) Hypokalemia: Code(s): E87.6 - Hypokalemia Status: Acute Assessment and Plan: Replenish <3.5 cardiac monitoring (6) Hyponatremia: Code(s): E87.1 - Hypo-osmolality and hyponatremia Status: Acute Assessment and Plan: Likely secondary to EtOH abuse Nephrology consulted Neuro checks Resolved. 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, left eye Code(s): H44.009 - Unspecified purulent endophthalmitis, unspecified eye Status: Acute Assessment and Plan: s/p corneal transplant seen by an ophtho, being treated with polytrim q6h and tobra-dex q6h (9) Alcohol abuse: Code(s): F10.10 - Alcohol abuse, uncomplicated Status: Acute Assessment and Plan: Thiamine, folic acid, and multi-vitamin PPI daily librium if indicated Ativan PRN for seizure activity CIWA daily Monitor and replenish electrolytes as needed Seizure precautions if indicated Subjective Date/time seen: 10/09/23 14:14 Interval history: patient states he is extremely tired and weak at this time. His insurance denied SNF. Plan to discharge on . He was discussing peaked interest in a cardiac ablation and was very eager to talk to Cardiology. He denied any chest pain. Does state he gets short of breath with activity but comfortable at rest at this time. Exam Narrative: GENERAL: Comfortable, no acute distress HENMT: moist mucous membranes EYES: EOM intact b/l NECK: no lymphadenopathy RESPIRATORY: clear to auscultation, no increased respiratory effort CARDIO: Regular rate and rhythm GI: soft, nontender, bowel sounds present SKIN/EXTREMITIES: no rashes, no edema, no redness or tenderness NEURO: PROM intact, answers questions appropriately, A&O x4 Objective Data Vital Signs Vital Signs: Vital Signs - 24 hr 10/08/23 16:00 10/08/23 21:29 10/08/23 21:50 Temperature 97.9 F Pulse Rate 50 L 48 L 46 L Respiratory Rate 16 Blood Pressure 109/63
[2023-10-09] MEDS: MONTELUKAST SODIUM 10 MG TABLET PO (21:09)
[2023-10-09] MEDS: TAMSULOSIN HCL 0.4 MG CAPSULE PO (21:09)
[2023-10-10] VITALS (15 sets, daily range): BP systolic 104–135; BP diastolic 49–70; PULSE 39–77; RESP 16–20; TEMP 35.6–36.4; O2SAT 94–100
[2023-10-10 06:34] LABS: Hematocrit 34.2 % (42.0-52.0); Hemoglobin 11.2 g/dL (14.0-18.0); Mean Corpuscular HGB Conc 32.7 g/dl (32-36); Mean Corpuscular Hemoglobin 33.9 pg (26-34); Mean Corpuscular Volume 103.6 fl (80-100); Mean Platelet Volume 9.2 fl (7.4-10.4); Platelet Count Result 331 k/mm3 (150-375); Red Cell Distribution Width 14.6 % (11.5-14.5); White Blood Count 7.6 K/mm3 (4.5-10.0)
[2023-10-10 06:55] LABS: Albumin Level 4.1 g/dL (3.5-5.1); Anion Gap 7 mmol/L (4-12); Blood Urea Nitrogen 12 mg/dL (9-20); Calcium 9.4 mg/dL (8.4-10.2); Carbon Dioxide 28 mmol/L (22-30); Chloride 96 mmol/L (98-107); Estimated CRCL calculation 155 ml/min; Estimated Glomerular Filt Rate > 60; Glucose 88 mg/dL (65-110); Phosphorus 5.3 mg/dL (2.5-4.5); Potassium 4.3 mmol/L (3.4-5.0); Sodium 131 mmol/L (137-145)
[2023-10-10 07:05] LABS: Magnesium 1.8 mg/dL (1.6-2.3)
[2023-10-10] MEDS: FLUTICASONE/SALMETEROL 230-21 MCG INHALER 1 PUFF 2 PUFF INHALATION ×2 (08:12→20:44)
[2023-10-10] MEDS: SPIRONOLACTONE 25 MG TABLET PO (09:17)
[2023-10-10] MEDS: HYDROcodone/acetaminophen (*CRX) 5-325 MG TABLET 1 TAB PO ×3 (09:17→23:45)
[2023-10-10] MEDS: FUROSEMIDE 40 MG TABLET PO (09:18)
[2023-10-10] MEDS: APIXABAN 5 MG TABLET PO ×2 (09:18→20:59)
[2023-10-10] MEDS: lisinopriL 20 MG TABLET 40 MG PO (09:18)
[2023-10-10] MEDS: FLUTICASONE PROPIONATE 0.05% NA SPR 16 GM BTL (*BKC) 1 SPRAY NASAL ×2 (09:19→20:59)
[2023-10-10] MEDS: POLYMYXIN/TRIMETHOPRIM OPHTH 10 ML DROPS 1 DROP LEFT EYE ×3 (09:19→21:00)
[2023-10-10] MEDS: TOBRAMYCIN/DEXAMETHASONE OP 2.5 ML BTL 1 DROP LEFT EYE ×3 (09:19→20:59)
--- NOTE | 2023-10-10 13:21 | PC.NURSE ---
pt to chest pain center for scheduled procedure
--- NOTE | 2023-10-10 13:32 | WPDANESEPP ---
Anes - Eval Pre Procedure Procedure: Operation Date: 10/10/23 14:00 Proposed Procedures p Electrical Cardioversion - Celi Irvin MD Date/Time: 10/10/23 13:32 Preop Diagnosis: Aflutter Pre Op Diagnosis: electrolyte derangement Patient Data Age: 62 Gender: M Height: 1.75 m Weight: 108.9 kg Last Vital Signs Temp 96.9 F L 10/10/23 04:48 Pulse 45 L 10/10/23 09:11 Resp 16 10/10/23 04:48 BP 114/54 L 10/10/23 09:11 Pulse Ox 96 10/10/23 09:11 O2 Del Method Room Air 10/10/23 08:15 O2 Flow Rate 3 10/09/23 07:35 FiO2 21 10/10/23 08:12 Allergies Allergy/AdvReac Type Severity Reaction Status Date / Time Cephalosporins Allergy Intermediate Other Verified 09/07/23 09:14 peanut Allergy Mild itchy Verified 09/07/23 09:14 Penicillins Allergy Mild Rash Verified 09/07/23 09:14 azithromycin AdvReac Severe Prolonged Verified 09/07/23 09:14 QT interval levofloxacin [From Levaquin] AdvReac Severe Issues Verified 09/07/23 09:14 with QT interval(has 2nd degree block) Home Medications Medication Instructions Recorded Confirmed Type multivitamin 1 tablet PO DAILY 12/03/19 09/28/23 History bupropion HCl 300 mg 24 hr tablet, 300 mg PO DAILY #90 tabs 11/24/22 09/28/23 Rx extended release rosuvastatin 40 mg tablet 40 mg PO DAILY #90 tabs 12/19/22 09/28/23 Rx lisinopril 40 mg tablet 40 mg PO DAILY #90 tabs 04/22/23 09/28/23 Rx apixaban 5 mg tablet (Eliquis) 5 mg PO Q12HR #60 tabs 08/17/23 09/28/23 Rx fluticasone propionate 230 2 puff inhalation Q12HRT #12 grams 08/17/23 09/28/23 Rx mcg-salmeterol 21 mcg/actuation HFA inhaler (Advair HFA) fluticasone propionate 50 1 spray intranasal Q12HR #1 g 08/17/23 09/28/23 Rx mcg/actuation nasal spray,suspension furosemide 40 mg tablet 40 mg PO BID #60 tabs 08/17/23 09/28/23 Rx montelukast 10 mg tablet 10 mg PO HS #30 tabs 08/17/23 09/28/23 Rx (Singulair) potassium chloride 20 mEq 20 meq PO DAILY #15 tabs 08/17/23 09/28/23 Rx tablet,extended release (K-Tab) Laboratory Tests 10/10/23 06:06 WBC 7.6 K/mm3 (4.5-10.0) RBC 3.30 L M/mm3 (4.6-6.20) Hgb 11.2 L g/dL (14.0-18.0) Hct 34.2 L % (42.0-52.0) MCV 103.6 H fl (80-100) MCH 33.9 pg (26-34) MCHC 32.7 g/dl (32-36) RDW 14.6 H % (11.5-14.5) Plt Count 331 k/mm3 (150-375) MPV 9.2 fl (7.4-10.4) Sodium 131 L mmol/L (137-145) Potassium 4.3 mmol/L (3.4-5.0) Chloride 96 L mmol/L (98-107) Carbon Dioxide 28 mmol/L (22-30) Anion Gap 7 mmol/L (4-12) BUN 12 mg/dL (9-20) Creatinine 0.50 L mg/dL (0.7-1.3) Estim Creat Clear Calc 155 ml/min Estimated GFR > 60 (59 - ) Glucose 88 mg/dL (65-110) Calcium 9.4 mg/dL (8.4-10.2) Phosphorus 5.3 H mg/dL (2.5-4.5) Magnesium 1.8 mg/dL (1.6-2.3) Albumin 4.1 g/dL (3.5-5.1) Patient hx anesthesia problems: none Family hx anesthesia problems: none Results Review: All pre-operative results and documents have been reviewed as part of the pre-operative evaluation. [facility] Past Medical History Medical History (Updated 10/06/23 @ 14:28 by Verona Morrison, [employer]) Acute and chronic respiratory failure with hypoxia Acute bronchitis Acute diverticulitis of intestine Acute sinusitis Alcohol abuse Alcoholic hepatitis Allergic fungal sinusitis Arthritis Asthma mild, persistent Atrial flutter with rapid ventricular response AV block, 2nd degree Bilateral chronic knee pain Cataract CCC (chronic calculous cholecystitis) Chills COPD (chronic obstructive pulmonary disease) Cornea transplant recipient COVID-19 determined by clinical diagnostic criteria Depressive disorder, not elsewhere classified DJD (degenerative joint disease) of knee Elevated troponin Environmental allergies Essential (primary) hypertension Hernia HLD (hyperlipidemia) Hypertrophy of both inferior nasal turbinates Impacted c
--- NOTE | 2023-10-10 14:00 | ECG_ITS ---
Test Date: 2023-10-10 13:28:58 Measurements Intervals [place] Rate: 42 P: 0 IN: 0 QRS: 42 QRSD: 162 T: 143 QT: 551 QTc: 463 Interpretive Statements ATRIAL FLUTTER WITH SLOW VENTRICULAR RESPONSE RIGHT BUNDLE BRANCH BLOCK [120+ ms QRS DURATION, UPRIGHT V1, 40+ ms S IN I/aVL/V4/V5/V6] Compared to ECG 10/06/2023 15:39:24 NO SIGNIFICANT CHANGES Electronically Signed On 10-11-2023 14:25:53 CDT by Celi Irvin M.D.
--- NOTE | 2023-10-10 14:19 | P.PNIM_ITS ---
Progress Note: A&P Assessment and Plan (1) Atrioventricular node dysfunction: Code(s): I45.89 - Other specified conduction disorders Status: Acute Assessment and Plan: HR ranging 40's to 80's in and out of aflutter/RT BBB * Cardiac monitoring * monitor electrolytes keep mag>2.0 and K+ >4.0 * Cardiology consulted and plan for cardioversion this afternoon. (2) Atrial flutter: Qualifiers: Atrial flutter type: unspecified Qualified Code(s): I48.92 - Unspecified atrial flutter Code(s): I48.92 - Unspecified atrial flutter Status: Acute Assessment and Plan: See #1 (3) Congestive heart failure: Qualifiers: Heart failure chronicity: chronic Heart failure type: diastolic Qualified Code(s): I50.32 - Chronic diastolic (congestive) heart failure Code(s): I50.9 - Heart failure, unspecified Status: Acute Assessment and Plan: * BNP 123 * IV Lasix b.i.d. Transitioned to PO 40mg 10/03 * monitor renal function during diuresis * previous echocardiogram 2023: Diastolic dysfunction with reserved EF 55-60% * chest x-ray: Cardiomegaly * Daily weight, heart healthy diet. * Fall risk assessment. (4) Cellulitis: Qualifiers: Laterality: unspecified laterality Site of cellulitis: extremity Site of cellulitis of extremity: lower extremity Qualified Code(s): L03.119 - Cellulitis of unspecified part of limb Code(s): L03.90 - Cellulitis, unspecified Status: Acute Assessment and Plan: * BLE cellulitis * vancomycin transitioned to p.o. doxycycline * No leukocytosis * BC NGTD (5) Hypokalemia: Code(s): E87.6 - Hypokalemia Status: Acute Assessment and Plan: * Replenish <3.5 * cardiac monitoring (6) Hyponatremia: Code(s): E87.1 - Hypo-osmolality and hyponatremia Status: Acute Assessment and Plan: Likely secondary to EtOH abuse * Nephrology consulted * Neuro checks Resolved. 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 He denies any chest pain shortness was. He states that he finished only today. Plan for cardioversion this afternoon. possible discharge tomorrow patient tolerates procedure well. Did good with therapy today. Exam Narrative: GENERAL: Comfortable, no acute distress HENMT: moist mucous membranes EYES: EOM intact b/l NECK: no lymphadenopathy RESPIRATORY: clear to auscultation, no increased respiratory effort CA
--- NOTE | 2023-10-10 14:19 | PM.IMPN ---
Progress Note: A&P Assessment and Plan (1) Atrioventricular node dysfunction: Code(s): I45.89 - Other specified conduction disorders Status: Acute Assessment and Plan: HR ranging 40's to 80's in and out of aflutter/RT BBB Cardiac monitoring monitor electrolytes keep mag>2.0 and K+ >4.0 Cardiology consulted and plan for cardioversion this afternoon. (2) Atrial flutter: Qualifiers: Atrial flutter type: unspecified Qualified Code(s): I48.92 - Unspecified atrial flutter Code(s): I48.92 - Unspecified atrial flutter Status: Acute Assessment and Plan: See #1 (3) Congestive heart failure: Qualifiers: Heart failure chronicity: chronic Heart failure type: diastolic Qualified Code(s): I50.32 - Chronic diastolic (congestive) heart failure Code(s): I50.9 - Heart failure, unspecified Status: Acute Assessment and Plan: BNP 123 IV Lasix b.i.d. Transitioned to PO 40mg 10/03 monitor renal function during diuresis previous echocardiogram 2023: Diastolic dysfunction with reserved EF 55-60% chest x-ray: Cardiomegaly Daily weight, heart healthy diet. Fall risk assessment. (4) Cellulitis: Qualifiers: Laterality: unspecified laterality Site of cellulitis: extremity Site of cellulitis of extremity: lower extremity Qualified Code(s): L03.119 - Cellulitis of unspecified part of limb Code(s): L03.90 - Cellulitis, unspecified Status: Acute Assessment and Plan: BLE cellulitis vancomycin transitioned to p.o. doxycycline No leukocytosis BC NGTD (5) Hypokalemia: Code(s): E87.6 - Hypokalemia Status: Acute Assessment and Plan: Replenish <3.5 cardiac monitoring (6) Hyponatremia: Code(s): E87.1 - Hypo-osmolality and hyponatremia Status: Acute Assessment and Plan: Likely secondary to EtOH abuse Nephrology consulted Neuro checks Resolved. 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 He denies any chest pain shortness was. He states that he finished only today. Plan for cardioversion this afternoon. possible discharge tomorrow patient tolerates procedure well. Did good with therapy today. Exam Narrative: GENERAL: Comfortable, no acute distress HENMT: moist mucous membranes EYES: EOM intact b/l NECK: no lymphadenopathy RESPIRATORY: clear to auscultation, no increased respiratory effort CARDIO: Regular rate and rhythm GI: soft, nontender, bowel sounds present SKIN/EXTREMITIES: no rashes, no edema, no redness or tenderness NEURO: PROM intact, answers questions appropriately, A&O x4 Objective Data Vital Signs Vital Signs: Vital Signs - 24 hr 10/09/23 16:00 10/09/23 21:45 10/09/23 23:23 Temperature 97 F L Pulse Rate 54 L 46 L 60 Respiratory Rate 16 18 Blood Pressure 133/68 Pulse Oximetry 98 96 Oxygen Delivery BiPAP Fraction of Inspired Oxygen 10/09/23 21:05 10/10/23 04:00 10/10/23 00:00 Temperature Pulse Rate 62 56 L R
--- NOTE | 2023-10-10 14:27 | PM.PNCARD ---
Progress Note: A&P Assessment and Plan (1) Atrioventricular node dysfunction: Code(s): I45.89 - Other specified conduction disorders Status: Acute (2) Atrial flutter: Qualifiers: Atrial flutter type: unspecified Qualified Code(s): I48.92 - Unspecified atrial flutter Code(s): I48.92 - Unspecified atrial flutter Status: Acute Plan 62-year-old man with Atrial flutter initially occurred a couple of years ago in the setting following coronavirus. Following that when in sinus rhythm he had Mobitz type 1 second-degree AV block. He had symptoms of generalized weakness and lower extremity muscle weakness which I highly doubt is related to his atrial arrhythmia. The patient however seems to be fixated on the idea that most of his complaints are related to his atrial flutter. He indicates that he has been compliant with his anticoagulation and so an attempt at restoring sinus rhythm at this time electrically would be reasonable. Underwent DCCV this afternoon. After cardioversion, no longer in atrial fibrillation, however, he appears to be in 2:1 AV block. Heart rates are stable. Hemodynamically stable. Not symptomatic from this 2:1 AVB. Therefore, no urgent indication for pacemaker. Will monitor him on telemetry overnight, and if he remains stable overnight, he could be discharged home tomorrow with an event monitor (order already placed). Continue Eliquis 5mg BID. Recommendations and plan discussed with Hospitalist. Subjective Date/time seen: 10/10/23 14:28 Interval history: Reason for visit: Atrial flutter Feeling tired today, otherwise okay. Remains in atrial flutter. Review of Systems Review of Systems: All systems reviewed & are unremarkable except as noted in HPI and below (HPI) Exam Const: General: comfortable and no acute distress HENMT: Mouth: Yes moist mucous membranes Eyes: General: appearance normal, both eyes and all related structures Sclera: sclerae normal Neck: Neck: supple Resp: Effort & Inspection: normal respiratory effort Cardio: Rate: bradycardic Rhythm: regular rhythm Skin: General skin exam: normal color Neuro: Speech: normal speech Psych: Mental Status: mental status grossly normal Affect: normal affect Objective Data Vital Signs Vital Signs: Vital Signs - 24 hr 10/09/23 16:00 10/09/23 21:45 10/09/23 23:23 Temperature 36.1 C L Pulse Rate 54 L 46 L 60 Respiratory Rate 16 18 Blood Pressure 133/68 Pulse Oximetry 98 96 Oxygen Delivery BiPAP Oxygen Flow Rate Fraction of Inspired Oxygen 10/09/23 21:05 10/10/23 04:00 10/10/23 00:00 Temperature Pulse Rate 62 56 L Respiratory Rate 17 Blood Pressure Pulse Oximetry 98 Oxygen Delivery Room Air BiPAP Oxygen Flow Rate Fraction of Inspired Oxygen 10/10/23 04:00 10/10/23 04:48 10/10/23 08:12 Temperature 36.1 C L Pulse Rate 39 L 41 L Respiratory Rate 16 Blood Pressure 104/60 Pulse Oximetry 99 97 Oxygen Delivery Room Air Oxygen Flow Rate Fraction of Inspired Oxygen 21 10/10/23 09:11 10/10/23 08:15 10/10/23 14:19 Temperature Pulse Rate 45 L 48 L Respiratory Rate 16 Blood Pressure 114/54 L 107/62 Pulse Oximetry 96 100 Oxygen Delivery Room Air Nasal Cannula Oxygen Flow Rate 3 Fraction of Inspired Oxygen Intake/Output Intake/Output: Intake & Output 10/07/23 10/08/23 10/09/23 10/10/23 23:59 23:59 23:59 23:59 Intake Total 3060 1740 2345 450 Output Total 1750 3400 4925 480 Balance 1310 -1660 -2580 -30 Meds/Results Medications: Active Medications Generic Name Dose Route Start Last Admin Trade Name Freq PRN Reason Stop Dose Admin Hydrocodone Bitart/Acetaminophen 1 tab 10/08/23 20:38 10/10/23 09:17 Hydrocodone/Acetaminophen (*Crx) 5-325 Mg Tablet PO 1 tab Q6H PRN Administration Pain Rated 4-6 Albuterol/Ipratropium 3 ml 09/30/23 11:14 09/30/23 11:29 Ipratropium 0.5 Mg/Albut
--- NOTE | 2023-10-10 14:30 | ECG_ITS ---
Test Date: 2023-10-10 14:15:05 Measurements Intervals [place] Rate: 49 P: 19 DE: 322 QRS: -2 QRSD: 173 T: 156 QT: 352 QTc: 319 Interpretive Statements SINUS BRADYCARDIA WITH FIRST DEGREE AV BLOCK WITH 2:1 AV BLOCK RIGHT BUNDLE BRANCH BLOCK Compared to ECG 10/10/2023 13:28:58 SINUS BRADYCARDIA WITH FIRST DEGREE AV BLOCK WITH 2:1 AV BLOCK NOW PRESENT Electronically Signed On 10-11-2023 14:27:28 CDT by Celi Irvin M.D.
--- NOTE | 2023-10-10 14:31 | WPDCARDVER ---
Cardioversion Cardioversion Date of procedure: 10/10/23 Procedure: Synchronized electrical cardioversion Pre-op diagnosis: Atrial flutter Post-op diagnosis: Other (Sinus bradycardia with 2:1 AV block) Indications: Symptomatic atrial flutter Description of procedure: Written informed consent obtained. Defibrillator pads placed in an AP position. Time out performed by PRAMOD Bermudez. Sedation administered by Anesthesia team. Once patient was adequately sedated, synchronized electrical cardioversion was performed with 1 shock at 200 joules, which converted patient to sinus bradycardia with 2:1 AV block. Patient remained hemodynamically stable. Sedation: Sedation as per Anesthesia team. Findings: Synchronized electrical cardioversion to sinus bradycardia with 2:1 AV block with 1 shock at 200 joules. Conclusion: Synchronized electrical cardioversion to sinus bradycardia with 2:1 AV block with 1 shock at 200 joules.
--- NOTE | 2023-10-10 14:33 | ECG_ITS ---
Test Date: 2023-10-10 14:35:00 Measurements Intervals [place] Rate: 49 P: 18 NH: 318 QRS: -2 QRSD: 170 T: 80 QT: 518 QTc: 472 Interpretive Statements SINUS BRADYCARDIA WITH FIRST DEGREE AV BLOCK WITH 2:1 AV BLOCK RIGHT BUNDLE BRANCH BLOCK Compared to ECG 10/10/2023 14:15:05 No significant changes Electronically Signed On 10-11-2023 14:27:52 CDT by Celi Irvin M.D.
--- NOTE | 2023-10-10 15:08 | PC.NURSE ---
pt returned to room, resting comfortably
[2023-10-10] MEDS: POTASSIUM CHLORIDE 20 MEQ ER TABLET PO (15:59)
[2023-10-10] MEDS: THIAMINE HCL 100 MG TABLET PO (16:00)
[2023-10-10] MEDS: buPROPion HCL XL (24 HR) 150 MG TABCR 300 MG PO (16:00)
[2023-10-10] MEDS: MULTIVITAMINS THERAPEUTIC TAB (*BKC) 1 TABLET PO (16:00)
[2023-10-10] MEDS: FOLIC ACID 1 MG TABLET PO (16:00)
[2023-10-10] MEDS: ROSUVASTATIN 20 MG TABLET 40 MG PO (16:00)
[2023-10-10] MEDS: TAMSULOSIN HCL 0.4 MG CAPSULE PO (20:59)
[2023-10-10] MEDS: MONTELUKAST SODIUM 10 MG TABLET PO (20:59)
[2023-10-11 00:10] VITALS: PULSE 50; RESP 15; O2SAT 95
[2023-10-11 02:55] VITALS: PULSE 56; RESP 18; O2SAT 97
[2023-10-11 04:00] VITALS: PULSE 48
[2023-10-11] MEDS: POLYMYXIN/TRIMETHOPRIM OPHTH 10 ML DROPS 1 DROP LEFT EYE ×2 (05:06→08:54)
[2023-10-11] MEDS: TOBRAMYCIN/DEXAMETHASONE OP 2.5 ML BTL 1 DROP LEFT EYE ×2 (05:06→08:54)
[2023-10-11 05:15] VITALS: BP 98/76; PULSE 46; RESP 18; TEMP 36.6; O2SAT 100
[2023-10-11 06:20] LABS: Hematocrit 33.1 % (42.0-52.0); Hemoglobin 10.9 g/dL (14.0-18.0); Mean Corpuscular HGB Conc 32.9 g/dl (32-36); Mean Corpuscular Hemoglobin 34.2 pg (26-34); Mean Corpuscular Volume 103.8 fl (80-100); Platelet Count Result 318 k/mm3 (150-375); Red Blood Count 3.19 M/mm3 (4.6-6.20); Red Cell Distribution Width 14.7 % (11.5-14.5)
[2023-10-11 06:28] LABS: Albumin Level 4.2 g/dL (3.5-5.1); Anion Gap 7 mmol/L (4-12); Blood Urea Nitrogen 13 mg/dL (9-20); Calcium 9.2 mg/dL (8.4-10.2); Carbon Dioxide 29 mmol/L (22-30); Chloride 96 mmol/L (98-107); Estimated CRCL calculation 155 ml/min; Estimated Glomerular Filt Rate > 60; Glucose 91 mg/dL (65-110); Magnesium 1.8 mg/dL (1.6-2.3); Phosphorus 4.2 mg/dL (2.5-4.5); Potassium 4.2 mmol/L (3.4-5.0); Sodium 132 mmol/L (137-145)
--- NOTE | 2023-10-11 08:07 | PM.DS ---
DS: Admitting Diagnosis Discharge Date 10/11/23 Admitting Diagnosis bilateral lower extremity weakness DS: Discharge Diagnosis Discharge Diagnosis (1) Atrioventricular node dysfunction: Code(s): I45.89 - Other specified conduction disorders Status: Acute (2) Atrial flutter: Qualifiers: Atrial flutter type: unspecified Qualified Code(s): I48.92 - Unspecified atrial flutter Code(s): I48.92 - Unspecified atrial flutter Status: Acute (3) Congestive heart failure: Qualifiers: Heart failure chronicity: chronic Heart failure type: diastolic Qualified Code(s): I50.32 - Chronic diastolic (congestive) heart failure Code(s): I50.9 - Heart failure, unspecified Status: Acute (4) Cellulitis: Qualifiers: Laterality: unspecified laterality Site of cellulitis: extremity Site of cellulitis of extremity: lower extremity Qualified Code(s): L03.119 - Cellulitis of unspecified part of limb Code(s): L03.90 - Cellulitis, unspecified Status: Acute (5) Hypokalemia: Code(s): E87.6 - Hypokalemia Status: Acute (6) Hyponatremia: Code(s): E87.1 - Hypo-osmolality and hyponatremia Status: Acute (7) Hypomagnesemia: Code(s): E83.42 - Hypomagnesemia Status: Acute (8) Eye infection: Qualifiers: Laterality: left Qualified Code(s): 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 Tinajero), CHF, lymphedema, HLD, HTN, subclinical hyperthyroidism, BPH, anemia, and urinary retention. ETOH history - 4 mixed drinks daily for the past 3-4 years. Reports last drink was 4-5 months ago. Former smoker, cessation 8-9 years ago, 1-2 PPD for approximately 30 years. The patient presents here via EMS for further evaluation of generalized weakness and bilateral lower extremity swelling. Has chronic bilateral lower extremity edema due to lymphedema but reports it has been same but intermittently more swollen. Patient was discharged from [facility] on 09/20. ED workup showed: WBC 8.3, Hgb 11.8 (previously 12.1 in 07/2023), sodium 120, potassium 2.7, chloride 79, CO2 32, creatinine is 0.5 and GFR >60, magnesium 1.0, total bilirubin 1.9, AST ALT BUN ill, BNP 123, and initial troponin negative. UA not suggestive of UTI. UDS negative. ETOH negative. CXR showed cardiomegaly. Chest CTA showed no PE. US of BLE showed no DVT. patient's potassium was replace. magnesium was also replaced. Nephrology consulted for hyponatremia. nephrology recommended diuresis to help with hyponatremia which did correct patient's sodium during hospital stay. Sodium corrected. Patient alternated between bradycardia tachycardia due to his history of a flutter and heart block. Patient wanted cardiology consult for cardioversion. Patient underwent cardioversion on 10/10/2023 with successful procedure. Patient was cleared by Cardiology for discharge. PT and OT worked with the patient. Care coordination attempted to place patient into SNF but due to insurance problems he was unable to be placed at home health was set up for the patient. Time Spent with Patient Time attestation: Total time spent providing and/or coordinating discharge services: Exam Narrative: GENERAL: Comfortable, no acute distress HENMT: moist mucous membranes EYES: EOM intact b/l, blind in left eye NECK: no lymphadenopathy RESPIRATORY: clear to auscultation, no increased respiratory effort CARDIO: Regular rate and
[2023-10-11 08:08] VITALS: O2SAT 96
[2023-10-11] MEDS: FLUTICASONE/SALMETEROL 230-21 MCG INHALER 1 PUFF 2 PUFF INHALATION (08:08)
[2023-10-11] MEDS: POTASSIUM CHLORIDE 20 MEQ ER TABLET PO (08:52)
[2023-10-11] MEDS: FOLIC ACID 1 MG TABLET PO (08:52)
[2023-10-11] MEDS: ROSUVASTATIN 20 MG TABLET 40 MG PO (08:52)
[2023-10-11] MEDS: APIXABAN 5 MG TABLET PO (08:52)
[2023-10-11] MEDS: SPIRONOLACTONE 25 MG TABLET PO (08:52)
[2023-10-11] MEDS: FUROSEMIDE 40 MG TABLET PO (08:52)
[2023-10-11] MEDS: buPROPion HCL XL (24 HR) 150 MG TABCR 300 MG PO (08:52)
[2023-10-11] MEDS: THIAMINE HCL 100 MG TABLET PO (08:52)
[2023-10-11] MEDS: lisinopriL 20 MG TABLET 40 MG PO (08:52)
[2023-10-11] MEDS: MULTIVITAMINS THERAPEUTIC TAB (*BKC) 1 TABLET PO (08:52)
[2023-10-11] MEDS: FLUTICASONE PROPIONATE 0.05% NA SPR 16 GM BTL (*BKC) 1 SPRAY NASAL (08:53)
--- NOTE | 2023-10-11 09:43 | PM.PNCARD ---
Progress Note: A&P Assessment and Plan (1) Atrioventricular node dysfunction: Code(s): I45.89 - Other specified conduction disorders Status: Acute (2) Atrial flutter: Qualifiers: Atrial flutter type: unspecified Qualified Code(s): I48.92 - Unspecified atrial flutter Code(s): I48.92 - Unspecified atrial flutter Status: Acute Plan 62-year-old man with Atrial flutter initially occurred a couple of years ago in the setting following coronavirus. Following that when in sinus rhythm he had Mobitz type 1 second-degree AV block. He had symptoms of generalized weakness and lower extremity muscle weakness which I highly doubt is related to his atrial arrhythmia. The patient however seems to be fixated on the idea that most of his complaints are related to his atrial flutter. He indicates that he has been compliant with his anticoagulation and so an attempt at restoring sinus rhythm at this time electrically would be reasonable. Underwent DCCV 10/09. After cardioversion, no longer in atrial flutter, however, he appears to be in sinus bradycardia with first degree AV block and 2:1 AV block. Heart rates are stable. Hemodynamically stable. Not symptomatic from this 2:1 AVB. Therefore, no urgent indication for pacemaker. Monitored him on telemetry overnight, and if he remained stable overnight, therefore okay to be discharged home today with an event monitor (order already placed). Discussed with patient that he may need a permanent pacemaker in the future. Continue Eliquis 5mg BID. Recommendations and plan discussed with Hospitalist. Will arrange outpatient follow up in our clinic. Subjective Date/time seen: 10/11/23 09:43 Interval history: Reason for visit: Atrial flutter Feels okay today. Review of Systems Review of Systems: All systems reviewed & are unremarkable except as noted in HPI and below (HPI) Exam Const: General: comfortable and no acute distress Eyes: General: appearance normal, both eyes and all related structures Sclera: sclerae normal Resp: Effort & Inspection: normal respiratory effort Cardio: Rate: bradycardic Rhythm: regular rhythm Skin: General skin exam: normal color Neuro: Speech: normal speech Psych: Mental Status: mental status grossly normal Affect: normal affect Objective Data Vital Signs Vital Signs: Vital Signs - 24 hr 10/10/23 14:19 10/10/23 14:35 10/10/23 14:49 Temperature Pulse Rate 48 L 69 77 Respiratory Rate 16 16 16 Blood Pressure 107/62 105/49 L 104/60 Pulse Oximetry 100 100 100 Oxygen Delivery Nasal Cannula Room Air Room Air Oxygen Flow Rate 3 Fraction of Inspired Oxygen 10/10/23 14:00 10/10/23 12:00 10/10/23 16:00 Temperature 35.6 C L Pulse Rate 60 42 L 72 Respiratory Rate 18 Blood Pressure 135/70 Pulse Oximetry 94 Oxygen Delivery Oxygen Flow Rate Fraction of Inspired Oxygen 10/10/23 20:45 10/10/23 21:30 10/11/23 00:10 Temperature 36.4 C Pulse Rate 50 L 49 L 50 L Respiratory Rate 20 15 Blood Pressure 118/70 Pulse Oximetry 97 98 95 Oxygen Delivery Room Air BiPAP Oxygen Flow Rate Fraction of Inspired Oxygen 10/11/23 02:55 10/11/23 05:15 10/10/23 20:00 Temperature 36.6 C Pulse Rate 56 L 46 L 55 L Respiratory Rate 18 18 Blood Pressure 98/76 L Pulse Oximetry 97 100 Oxygen Delivery BiPAP Oxygen Flow Rate Fraction of Inspired Oxygen 10/11/23 04:00 10/11/23 08:08 Temperature Pulse Rate 48 L Respiratory Rate Blood Pressure Pulse Oximetry 96 Oxygen Delivery Room Air Oxygen Flow Rate Fraction of Inspired Oxygen Intake/Output Intake/Output: Intake & Output 10/08/23 10/09/23 10/10/23 10/11/23 23:59 23:59 23:59 23:59 Intake Total 1740 2345 2582 422 Output Total 6584 6068 0594 381 Suecarc -4225 -0660 4793 -324 Meds/Results Medications: Active Medications Generic Name Dose Route Start Last Admin Trade Name Freq
== END 2023-10-11 13:25 | disposition home health service (06) | DRG 308 ==
LOC: ANHED 12:23 → ANHIMU 15:01 → ANH3MEDSUR 09-30 14:01
PROVIDERS: Emergency Medicine; Family Medicine; Internal Medicine; Internal Medicine Critical Care Medicine; Internal Medicine Nephrology; Nurse Practitioner; Nurse Practitioner Acute Care; Student in an Organized Health Care Education/Training Program; Admitting Provider Hospitalist; Emergency Provider Physician Assistant; Visit Provider Nurse Practitioner Family
PROC: 5A2204Z Restoration of Cardiac Rhythm, Single (ICD-10-PCS; principal; 2023-10-10 14:00)
DX: I45.89 Other specified conduction disorders (principal); I50.33 Acute on chronic diastolic (congestive) heart failure; E87.1 Hypo-osmolality and hyponatremia; L03.116 Cellulitis of left lower limb; L03.115 Cellulitis of right lower limb; I44.1 Atrioventricular block, second degree; I11.0 Hypertensive heart disease with heart failure; E87.6 Hypokalemia; E83.42 Hypomagnesemia; F10.10 Alcohol abuse, uncomplicated; J44.9 Chronic obstructive pulmonary disease, unspecified; M19.90 Unspecified osteoarthritis, unspecified site; G47.33 Obstructive sleep apnea (adult) (pediatric); E86.0 Dehydration; I48.92 Unspecified atrial flutter; I89.0 Lymphedema, not elsewhere classified; E78.5 Hyperlipidemia, unspecified; E05.80 Other thyrotoxicosis without thyrotoxic crisis or storm; Z94.7 Corneal transplant status; E66.01 Morbid (severe) obesity due to excess calories; Z68.35 Body mass index [BMI] 35.0-35.9, adult; Z90.49 Acquired absence of other specified parts of digestive tract; Z87.891 Personal history of nicotine dependence
CPT/HCPCS: 36415; 71045; 71275; 80048; 80053; 80069; 80202; 80307; 81003; 81050; 82533; 82550; 82570; 82948; 83605; 83735; 83880; 83883; 83930; 83935; 84100; 84155; 84156; 84165; 84166; 84300; 84443; 84484; 84540; 85025; 85027; 85380; 85610; 85730; 86334; 86335; 87040; 92960; 93005; 93970; 94640; 96374; 96375; 96376; 97110; 97116; 97161; 97166; 97530; 97535; 99285; A9270; G0378; J0461; J1940; J2270; J2704; J3370; J3475; J3480; J7040; Q9967